=== PATIENT | male | born 1950 | race Caucasian/White ===

== ENCOUNTER 2018-02-24 17:11 | Inpatient (IN) | payer BC, OTHER ==
[~2018-02-24] VITALS: Ht 170.2 cm; Wt 91.6 kg
[~2018-02-24 17:11] MED LIST: AEC81 PO; ALBU0.63 IH; ALPR0.255 PO; ATOR10 PO; DILT180C3 PO; DRON400T2 PO; ESCI10TA54 PO; FAMO40TA7 PO; FURO20TA4 PO; ISOS30TA6 PO; LEVO5TAB13 PO; RIVA20TA PO
[2018-02-24] MEDS ORDERED: METHYLPREDNISOLONE SOD SUCC 40MG/ML 1ML ONE (17:31)
[2018-02-24 17:56] LABS: EOSINOPHILS % (AUTO) 2.8 % (0.0-8.0); HEMATOCRIT 48.6 % (42-54); LYMPHOCYTES % (AUTO) 17.4 % (21.0-51.0); MEAN CORPUSCULAR HEMOGLOBIN 29.3 pg (27.0-33.0); MEAN CORPUSCULAR HGB CONC 32.9 g/dL (32.0-36.0); NEUTROPHILS % (AUTO) 69.8 % (40.0-77.0); PLATELET COUNT (AUTO) 332 K/uL (130-400); RED BLOOD CELL COUNT(AUTO) 5.46 MIL/uL (4.50-6.20); RED CELL DISTRIBUTION WIDTH 13.9 % (11.0-15.5); WHITE BLOOD COUNT (AUTO) 17.3 K/uL (4.8-10.8)
[2018-02-24 18:00] VITALS: BP 116/65
[2018-02-24 18:02] LABS: POTASSIUM 4.2 mmol/L (3.5-5.1)
[2018-02-24 18:13] LABS: ALBUMIN 3.1 g/dL (3.5-5.0); BILIRUBIN,DIRECT 0.2 mg/dL (0.0-0.3); BILIRUBIN,TOTAL 0.6 mg/dL (0.2-1.0); THYROID STIMULATING HORMONE 1.53 uIU/mL (0.36-3.74); TOTAL PROTEIN, SERUM 7.6 g/dL (6.0-8.3)
[2018-02-24 18:24] LABS: B-TYPE NATRIURETIC PEPTIDE 32 pg/mL (0-100)
[2018-02-24] MEDS ORDERED: SODIUM CHLORIDE 0.9% 10 ML VIAL IVP SCH (18:45)
[2018-02-24] MEDS ORDERED: POTASSIUM CHLORIDE 20MEQ/100ML 100 ML IV PRN (18:45)
[2018-02-24] MEDS ORDERED: ACETAMINOPHEN 325 MG TAB PO PRN (18:45)
[2018-02-24] MEDS ORDERED: POTASSIUM CHLORIDE 10% ELIXIR 20 MEQ/15 ML UDCUP PO PRN (18:45)
[2018-02-24] MEDS ORDERED: ZOLPIDEM TARTRATE 5 MG TAB PO PRN (18:45)
[2018-02-24] MEDS ORDERED: DIPHENHYDRAMINE HCL 25 MG CAPSULE PO PRN (18:45)
[2018-02-24] MEDS ORDERED: POTASSIUM CHLORIDE 20 MEQ ERTAB PO PRN (18:45)
[2018-02-24] MEDS ORDERED: NITROGLYCERIN 0.4 MG SL TAB SL PRN (18:45)
[2018-02-24] MEDS ORDERED: ONDANSETRON HCL 4 MG/2 ML VIAL IVP PRN (18:45)
[2018-02-24] MEDS ORDERED: LIDOCAINE HCL-MPF 1% 2ML VIAL IJ PRN (18:45)
[2018-02-24] MEDS ORDERED: GUAIFENESIN-DM 200/20 MG 10 ML PO PRN (18:45)
[2018-02-24] MEDS ORDERED: CLONIDINE HCL 0.1 MG TABLET PO PRN (18:45)
[2018-02-24] MEDS: IPRATROPIUM/ALBUTEROL SULFATE 3 ML SOLUTION IH SCH ×2 (18:53→23:12)
[2018-02-24] MEDS: LEVOFLOXACIN 500 MG/D5W 100 ML 100 ML IV SCH (18:53)
[2018-02-24] MEDS ORDERED: METO50TA18 PO (20:59)
[2018-02-24] MEDS ORDERED: FLUT16H NASAL (20:59)
[2018-02-24] MEDS ORDERED: GUAI200T5 PO (20:59)
[2018-02-24] MEDS ORDERED: DILT180C51 PO (20:59)
[2018-02-24] MEDS ORDERED: VARE1TAB22 PO (20:59)
[2018-02-24] MEDS ORDERED: MONT10TA21 PO (20:59)
[2018-02-24] MEDS ORDERED: ALPR-410 PO (20:59)
[2018-02-24] MEDS ORDERED: IPRA3AMP24 IH (20:59)
[2018-02-24] MEDS ORDERED: ARFO15VI3 IH (20:59)
[2018-02-24] MEDS: ATORVASTATIN CALCIUM 20 MG TABLET PO SCH (22:22)
[2018-02-24] MEDS: DRONEDARONE HYDROCHLORIDE 400 MG TABLET PO SCH (22:22)
[2018-02-24 23:00] VITALS: BP 88/53
[2018-02-24] MEDS: ACETYLCYSTEINE 20% 200MG/ML 4ML VIAL IH SCH (23:13)
[2018-02-25] MEDS: METHYLPREDNISOLONE SOD SUCC 125MG/2ML VIAL IVP SCH ×3 (01:42→17:28)
[2018-02-25 03:00] VITALS: BP 117/75
[2018-02-25 04:19] LABS: HEMATOCRIT 45.4 % (42-54); MEAN CORPUSCULAR HEMOGLOBIN 30.8 pg (27.0-33.0); MEAN CORPUSCULAR HGB CONC 34.6 g/dL (32.0-36.0); NUCLEATED RED BLOOD CELLS 0.1 % (0.0-0.19); PLATELET COUNT (AUTO) 332 K/uL (130-400); RED CELL DISTRIBUTION WIDTH 13.9 % (11.0-15.5); WHITE BLOOD COUNT (AUTO) 9.6 K/uL (4.8-10.8)
[2018-02-25 04:33] LABS: LYMPHOCYTES % (MANUAL) 11 % (22-44); MAN.DIFF COMMENT-IMPRESSION MANUAL DIFFERENTIAL; MONOCYTES % (MANUAL) 6 % (2-9); PLATELET MORPHOLOGY COMMENT ADEQUATE; SEGMENTED NEUTROPHILS % 83 % (40-70)
[2018-02-25 04:38] LABS: ALBUMIN 2.7 g/dL (3.5-5.0); BILIRUBIN,DIRECT 0.1 mg/dL (0.0-0.3); BILIRUBIN,TOTAL 0.5 mg/dL (0.2-1.0); POTASSIUM 4.3 mmol/L (3.5-5.1); TOTAL PROTEIN, SERUM 7.2 g/dL (6.0-8.3)
[2018-02-25] MEDS: ACETYLCYSTEINE 20% 200MG/ML 4ML VIAL IH SCH ×4 (05:48→23:04)
[2018-02-25] MEDS: IPRATROPIUM/ALBUTEROL SULFATE 3 ML SOLUTION IH SCH ×4 (05:48→23:04)
[2018-02-25 07:00] VITALS: BP 116/69
[2018-02-25] MEDS: RIVAROXABAN 20 MG TABLET PO SCH (09:10)
[2018-02-25] MEDS: CITALOPRAM 20 MG TABLET PO SCH (09:11)
[2018-02-25] MEDS: DRONEDARONE HYDROCHLORIDE 400 MG TABLET PO SCH ×2 (09:11→21:04)
[2018-02-25] MEDS: FUROSEMIDE 20 MG TABLET PO SCH (09:11)
[2018-02-25] MEDS: FAMOTIDINE 20MG TAB 20 MG TAB PO SCH (09:12)
[2018-02-25 11:00] VITALS: BP 129/57
[2018-02-25] MEDS ORDERED: IOHEXOL 350 MG/ML 100ML INFUS..BTL IV ONE (15:02)
[2018-02-25] MEDS: PSYLLIUM SEED 1 EACH PACKET PO SCH ×2 (15:45→21:04)
[2018-02-25 16:00] VITALS: BP 123/81
[2018-02-25] MEDS: LEVOFLOXACIN 500 MG/D5W 100 ML 100 ML IV SCH (18:31)
[2018-02-25 19:33] VITALS: BP 126/68
[2018-02-25] MEDS: ATORVASTATIN CALCIUM 20 MG TABLET PO SCH (21:04)
[2018-02-25 23:37] VITALS: BP 138/71
[2018-02-26] VITALS (7 sets, daily range): BP systolic 113–143; BP diastolic 62–78
[2018-02-26] MEDS: METHYLPREDNISOLONE SOD SUCC 125MG/2ML VIAL IVP SCH ×2 (01:07→08:49)
[2018-02-26 04:07] LABS: HEMATOCRIT 45.6 % (42-54); MEAN CORPUSCULAR HEMOGLOBIN 29.7 pg (27.0-33.0); MEAN CORPUSCULAR HGB CONC 33.4 g/dL (32.0-36.0); MEAN CORPUSCULAR VOLUME 88.8 fL (79-99); PLATELET COUNT (AUTO) 313 K/uL (130-400); RED BLOOD CELL COUNT(AUTO) 5.14 MIL/uL (4.50-6.20); WHITE BLOOD COUNT (AUTO) 20.3 K/uL (4.8-10.8)
[2018-02-26 04:22] LABS: CREATININE 1.1 mg/dL (0.5-1.5); POTASSIUM 3.9 mmol/L (3.5-5.1)
[2018-02-26] MEDS: IPRATROPIUM/ALBUTEROL SULFATE 3 ML SOLUTION IH SCH ×4 (06:22→23:25)
[2018-02-26] MEDS: ACETYLCYSTEINE 20% 200MG/ML 4ML VIAL IH SCH ×4 (06:22→23:25)
[2018-02-26] MEDS: DRONEDARONE HYDROCHLORIDE 400 MG TABLET PO SCH ×2 (08:48→20:11)
[2018-02-26] MEDS: CITALOPRAM 20 MG TABLET PO SCH (08:48)
[2018-02-26] MEDS: RIVAROXABAN 20 MG TABLET PO SCH (08:48)
[2018-02-26] MEDS: FUROSEMIDE 20 MG TABLET PO SCH (08:48)
[2018-02-26] MEDS: PSYLLIUM SEED 1 EACH PACKET PO SCH ×2 (08:49→20:11)
[2018-02-26] MEDS: FAMOTIDINE 20MG TAB 20 MG TAB PO SCH (08:49)
[2018-02-26] MEDS: LEVOFLOXACIN 500 MG/D5W 100 ML 100 ML IV SCH (19:54)
[2018-02-26] MEDS: ATORVASTATIN CALCIUM 20 MG TABLET PO SCH (20:11)
[2018-02-26] MEDS ORDERED: METHYLPREDNISOLONE SOD SUCC 125MG/2ML VIAL IVP SCH (21:00)
[2018-02-27 03:37] LABS: HEMATOCRIT 43.8 % (42-54); MEAN CORPUSCULAR HEMOGLOBIN 30.3 pg (27.0-33.0); MEAN CORPUSCULAR HGB CONC 33.8 g/dL (32.0-36.0); MEAN CORPUSCULAR VOLUME 89.6 fL (79-99); PLATELET COUNT (AUTO) 335 K/uL (130-400); RED BLOOD CELL COUNT(AUTO) 4.89 MIL/uL (4.50-6.20); WHITE BLOOD COUNT (AUTO) 19.4 K/uL (4.8-10.8)
[2018-02-27 03:43] VITALS: BP 122/69
[2018-02-27 03:52] LABS: CREATININE 1.2 mg/dL (0.5-1.5)
[2018-02-27] MEDS: ACETYLCYSTEINE 20% 200MG/ML 4ML VIAL IH SCH (06:12)
[2018-02-27] MEDS: IPRATROPIUM/ALBUTEROL SULFATE 3 ML SOLUTION IH SCH (06:12)
[2018-02-27 07:39] VITALS: BP 119/72
[2018-02-27] MEDS: DRONEDARONE HYDROCHLORIDE 400 MG TABLET PO SCH (08:28)
[2018-02-27] MEDS: RIVAROXABAN 20 MG TABLET PO SCH (08:28)
[2018-02-27] MEDS: CITALOPRAM 20 MG TABLET PO SCH (08:29)
[2018-02-27] MEDS: FAMOTIDINE 20MG TAB 20 MG TAB PO SCH (08:29)
[2018-02-27] MEDS: PSYLLIUM SEED 1 EACH PACKET PO SCH (08:29)
[2018-02-27] MEDS: FUROSEMIDE 20 MG TABLET PO SCH (08:29)
== END 2018-02-27 09:10 | disposition home or self-care (01) | DRG 190 ==
LOC: EDH 17:11 → 2DH 17:12
PROVIDERS: ADMIT Internal Medicine; ATTEND Internal Medicine
DX: J44.0 Chronic obstructive pulmonary disease with (acute) lower respiratory infection (principal); J96.90 Respiratory failure, unspecified, unspecified whether with hypoxia or hypercapnia; J20.9 Acute bronchitis, unspecified; J44.1 Chronic obstructive pulmonary disease with (acute) exacerbation; T38.0X5A Adverse effect of glucocorticoids and synthetic analogues, initial encounter; D72.829 Elevated white blood cell count, unspecified; K90.0 Celiac disease; I25.10 Atherosclerotic heart disease of native coronary artery without angina pectoris; I35.0 Nonrheumatic aortic (valve) stenosis; I48.91 Unspecified atrial fibrillation; E03.9 Hypothyroidism, unspecified; R91.1 Solitary pulmonary nodule; E88.09 Other disorders of plasma-protein metabolism, not elsewhere classified; I10 Essential (primary) hypertension; Z79.01 Long term (current) use of anticoagulants; Y92.89 Other specified places as the place of occurrence of the external cause; Z88.0 Allergy status to penicillin
CPT/HCPCS: 36415; 71045; 71275; 80048; 80053; 80076; 83880; 84443; 85025; 85027; 93306; 94640; 94664; J1956; J2920; J2930; J7608; Q9967

== ENCOUNTER 2019-02-11 05:57 | Emergency (ER) | payer OTHER ==
[~2019-02-11 05:57] MED LIST changes: -AEC81 PO; -ALBU0.63 IH; -ALPR0.255 PO; +ARFO15VI3 IH; -DILT180C3 PO; +DILT180C51 PO; -ESCI10TA54 PO; +FAMO-136 PO; +FLUT16H NASAL; +GUAI200T5 PO; +IPRA3AMP24 IH; -ISOS30TA6 PO; -LEVO5TAB13 PO; +METO-391 PO; +METO50TA18 PO; +MONT10TA21 PO; +NITR0.4T50 SL
[2019-02-11] MEDS ORDERED: METHYLPREDNISOLONE SOD SUCC 40MG/ML 1ML ONE (06:35)
[2019-02-11] MEDS ORDERED: IPRATROPIUM/ALBUTEROL SULFATE 3 ML SOLUTION IH ONE ×2 (06:38→07:50)
[2019-02-11 06:42] LABS: BASOPHILS % (AUTO) 0.2 % (0.0-5.0); EOSINOPHILS % (AUTO) 3.8 % (0.0-8.0); HEMATOCRIT 51.9 % (42-54); LYMPHOCYTES % (AUTO) 27.8 % (21.0-51.0); MEAN CORPUSCULAR HEMOGLOBIN 30.7 pg (27.0-33.0); MEAN CORPUSCULAR HGB CONC 34.2 g/dL (32.0-36.0); MEAN CORPUSCULAR VOLUME 89.6 fL (79-99); MONOCYTES % (AUTO) 7.8 % (3.0-13.0); NEUTROPHILS % (AUTO) 60.4 % (40.0-77.0); PLATELET COUNT (AUTO) 291 K/uL (130-400); RED BLOOD CELL COUNT(AUTO) 5.79 MIL/uL (4.50-6.20); RED CELL DISTRIBUTION WIDTH 14.5 % (11.0-15.5); WHITE BLOOD COUNT (AUTO) 12.8 K/uL (4.8-10.8)
[2019-02-11 07:02] LABS: CREATININE 0.7 mg/dL (0.5-1.5); POTASSIUM 4.6 mmol/L (3.5-5.1)
[2019-02-11 07:08] LABS: ALBUMIN 3.2 g/dL (3.5-5.0); BILIRUBIN,DIRECT 0.1 mg/dL (0.0-0.3); BILIRUBIN,TOTAL 0.6 mg/dL (0.2-1.0); TOTAL PROTEIN, SERUM 6.8 g/dL (6.0-8.3)
[2019-02-11 07:11] LABS: B-TYPE NATRIURETIC PEPTIDE 51 pg/mL (0-100)
[2019-02-11] MEDS ORDERED: LEVOFLOXACIN 500 MG/D5W 100 ML 100 ML ONE (07:49)
== END 2019-02-11 09:11 | disposition home or self-care (01) ==
LOC: EDH 05:57
DX: J44.9 Chronic obstructive pulmonary disease, unspecified (principal); R06.00 Dyspnea, unspecified; I48.2 Chronic atrial fibrillation; I25.10 Atherosclerotic heart disease of native coronary artery without angina pectoris; Z72.0 Tobacco use; Z88.0 Allergy status to penicillin
CPT/HCPCS: 36415; 71045; 80048; 80076; 82550; 83880; 84484; 85025; 93005; 94640 ×2; 96365; 96375; 99284; J1956; J2920

== ENCOUNTER 2019-07-23 18:51 | Observation (INO) | payer OTHER ==
[~2019-07-23] VITALS: Ht 170.2 cm; Wt 83.7 kg
[~2019-07-23 18:51] MED LIST changes: +ATEN25TA PO; -ATOR10 PO; +BUSP10TA3 PO; -DILT180C51 PO; -DRON400T2 PO; +ESOM40CA PO; -FAMO-136 PO; -FAMO40TA7 PO; -FURO20TA4 PO; -METO-391 PO; -METO50TA18 PO
[2019-07-23] MEDS ORDERED: METRONIDAZOLE 500MG/100ML BAG 100 ML ONE (20:03)
[2019-07-23 20:14] LABS: BASOPHILS % (AUTO) 1.3 % (0.0-5.0); EOSINOPHILS % (AUTO) 1.4 % (0.0-8.0); HEMATOCRIT 52.8 % (42-54); LYMPHOCYTES % (AUTO) 24.8 % (21.0-51.0); MEAN CORPUSCULAR HEMOGLOBIN 29.7 pg (27.0-33.0); MEAN CORPUSCULAR HGB CONC 33.1 g/dL (32.0-36.0); MEAN CORPUSCULAR VOLUME 89.6 fL (79-99); NEUTROPHILS % (AUTO) 62.1 % (40.0-77.0); PLATELET COUNT (AUTO) 395 K/uL (130-400); RED BLOOD CELL COUNT(AUTO) 5.89 MIL/uL (4.50-6.20); RED CELL DISTRIBUTION WIDTH 13.7 % (11.0-15.5); WHITE BLOOD COUNT (AUTO) 16.2 K/uL (4.8-10.8)
[2019-07-23 20:22] LABS: POTASSIUM 4.6 mmol/L (3.5-5.1)
[2019-07-23 20:26] LABS: ALBUMIN 3.3 g/dL (3.5-5.0); BILIRUBIN,DIRECT 0.1 mg/dL (0.0-0.3); BILIRUBIN,TOTAL 0.5 mg/dL (0.2-1.0); TOTAL PROTEIN, SERUM 7.9 g/dL (6.0-8.3)
[2019-07-23] MEDS ORDERED: LACTULOSE 20 GM/30 ML UDCUP PO PRN (20:30)
[2019-07-23] MEDS ORDERED: CEFUROXIME SODIUM 1.5 GM VIAL IVP SCH ×2 (20:30→21:00)
[2019-07-23] MEDS ORDERED: ONDANSETRON HCL 4 MG/2 ML VIAL IVP PRN (20:30)
[2019-07-23] MEDS ORDERED: NITROGLYCERIN 0.4 MG SL TAB SL PRN (20:30)
[2019-07-23] MEDS ORDERED: IPRATROPIUM 0.5 MG/2.5 ML INH IH PRN (20:30)
[2019-07-23] MEDS ORDERED: BUSPIRONE HCL 5 MG TABLET PO SCH (20:30)
[2019-07-23] MEDS ORDERED: ACETAMINOPHEN 325 MG TAB PO PRN (20:30)
[2019-07-23] MEDS ORDERED: SODIUM CHLORIDE 0.9% 10 ML VIAL IVP SCH (20:30)
[2019-07-23] MEDS ORDERED: DIPHENHYDRAMINE HCL 25 MG CAPSULE PO PRN (20:30)
[2019-07-23] MEDS ORDERED: ZOLPIDEM TARTRATE 5 MG TAB PO PRN (20:30)
[2019-07-23] MEDS ORDERED: FAMOTIDINE 20MG TAB 20 MG TAB PO SCH (21:00)
[2019-07-23 21:12] LABS: B-TYPE NATRIURETIC PEPTIDE 180 pg/mL (0-100)
[2019-07-23] MEDS ORDERED: SODIUM CHLORIDE 0.9% 100 ML IV ONE (21:43)
[2019-07-23] MEDS ORDERED: CEFUROXIME SODIUM 1.5 GM VIAL ONE (21:43)
[2019-07-23] MEDS ORDERED: ACETYLCYSTEINE 20% 200MG/ML 4ML VIAL ONE (22:54)
[2019-07-23] MEDS: IPRATROPIUM 0.5 MG/2.5 ML INH IH SCH (23:15)
[2019-07-23] MEDS: ACETYLCYSTEINE 20% 200MG/ML 4ML VIAL IH SCH (23:15)
[2019-07-24] MEDS ORDERED: DIATR MEGLU/DIATRIZOATE SODIUM 30 ML BOTTLE ONE (00:28)
[2019-07-24] MEDS ORDERED: IOHEXOL-350 75 ML VIAL IV ONE (02:43)
[2019-07-24] MEDS ORDERED: IOHEXOL-350 50ML VIAL IV ONE (02:46)
[2019-07-24] MEDS ORDERED: METRONIDAZOLE 500MG/100ML BAG 100 ML IVPB SCH (04:00)
[2019-07-24 05:32] LABS: BASOPHILS % (AUTO) 1.4 % (0.0-5.0); EOSINOPHILS % (AUTO) 2.4 % (0.0-8.0); HEMATOCRIT 48.4 % (42-54); LYMPHOCYTES % (AUTO) 25.6 % (21.0-51.0); MEAN CORPUSCULAR HEMOGLOBIN 29.7 pg (27.0-33.0); MEAN CORPUSCULAR HGB CONC 32.9 g/dL (32.0-36.0); MEAN CORPUSCULAR VOLUME 90.3 fL (79-99); NEUTROPHILS % (AUTO) 58.1 % (40.0-77.0); PLATELET COUNT (AUTO) 351 K/uL (130-400); POTASSIUM 5.4 mmol/L (3.5-5.1); RED BLOOD CELL COUNT(AUTO) 5.36 MIL/uL (4.50-6.20); RED CELL DISTRIBUTION WIDTH 13.7 % (11.0-15.5)
[2019-07-24] MEDS ORDERED: METRONIDAZOLE 500MG/100ML BAG 100 ML ONE (05:54)
[2019-07-24] MEDS: IPRATROPIUM 0.5 MG/2.5 ML INH IH SCH (06:16)
[2019-07-24] MEDS: ACETYLCYSTEINE 20% 200MG/ML 4ML VIAL IH SCH (06:16)
[2019-07-24] MEDS ORDERED: BUSPIRONE HCL 5 MG TABLET PO SCH (09:00)
[2019-07-24] MEDS ORDERED: ATENOLOL 25 MG TABLET PO SCH (09:00)
[2019-07-24] MEDS ORDERED: ACETYLCYSTEINE 20% 200MG/ML 4ML VIAL ONE (10:57)
[2019-07-24] MEDS ORDERED: IPRATROPIUM 0.5 MG/2.5 ML INH IH ONE (10:57)
== END 2019-07-24 09:30 | disposition home or self-care (01) ==
LOC: EDH 18:51 → EDHIP 19:15
PROVIDERS: ADMIT Internal Medicine; ATTEND Internal Medicine
DX: J44.0 Chronic obstructive pulmonary disease with (acute) lower respiratory infection (principal); J18.9 Pneumonia, unspecified organism; J44.1 Chronic obstructive pulmonary disease with (acute) exacerbation; K57.92 Diverticulitis of intestine, part unspecified, without perforation or abscess without bleeding; J90 Pleural effusion, not elsewhere classified; I25.10 Atherosclerotic heart disease of native coronary artery without angina pectoris; K90.0 Celiac disease; E03.9 Hypothyroidism, unspecified; E78.5 Hyperlipidemia, unspecified; I48.91 Unspecified atrial fibrillation; Z79.01 Long term (current) use of anticoagulants; Z79.899 Other long term (current) drug therapy; Z88.0 Allergy status to penicillin; Z88.1 Allergy status to other antibiotic agents; Z88.2 Allergy status to sulfonamides
CPT/HCPCS: 36415 ×2; 71260; 74177; 80048; 80053; 80076; 83880; 85025 ×2; 94640 ×2; 94664; 99284; G0378 ×14; J0697; J3490 ×2; J7608 ×3; Q9963; Q9967 ×2

== ENCOUNTER 2020-11-24 06:26 | Observation (INO) | payer MEDICARE, OTHER ==
[2020-11-24] VITALS (8 sets, daily range): BP systolic 92–143; BP diastolic 62–98
[~2020-11-24] VITALS: Ht 167.6 cm; Wt 89.4 kg
[2020-11-24 07:30] LABS: BASOPHILS % (AUTO) 0.5 % (0.0-5.0); EOSINOPHILS % (AUTO) 2.7 % (0.0-8.0); HEMATOCRIT 55.6 % (42-54); LYMPHOCYTES % (AUTO) 12.9 % (21.0-51.0); MEAN CORPUSCULAR HEMOGLOBIN 30.3 pg (27.0-33.0); MEAN CORPUSCULAR HGB CONC 33.1 g/dL (32.0-36.0); MEAN CORPUSCULAR VOLUME 91.4 fL (79-99); MONOCYTES % (AUTO) 8.6 % (3.0-13.0); NEUTROPHILS % (AUTO) 74.5 % (40.0-77.0); PLATELET COUNT (AUTO) 336 K/uL (130-400); RED BLOOD CELL COUNT(AUTO) 6.08 MIL/uL (4.50-6.20); RED CELL DISTRIBUTION WIDTH 14.3 % (11.0-15.5); WHITE BLOOD COUNT (AUTO) 16.8 K/uL (4.8-10.8)
[2020-11-24] MEDS ORDERED: ONDANSETRON 4MG INJ IVP ONE (07:30)
[2020-11-24] MEDS ORDERED: HYDROMORPHONE 0.5 MG SYG (0.5MG/0.5ML) IVP ONE (07:30)
[2020-11-24 07:45] LABS: ALBUMIN 3.4 g/dL (3.5-5.0); BILIRUBIN,TOTAL 0.4 mg/dL (0.2-1.0); POTASSIUM 4.5 mmol/L (3.5-5.1); TOTAL PROTEIN, SERUM 7.7 g/dL (6.0-8.3)
[2020-11-24] MEDS ORDERED: IOHEXOL-350 75 ML VIAL IV ONE (08:37)
[2020-11-24] MEDS ORDERED: ALBUTEROL 0.083% 2.5 MG/3 ML INH IH ONE (11:30)
[2020-11-24 11:31] LABS: APPEARANCE,URINE Clear (CLEAR); BILIRUBIN,URINE Negative (NEGATIVE); COLOR,URINE Yellow (YELLOW); GLUCOSE, URINE (UA) Negative (NEGATIVE); KETONES,URINE Negative (NEGATIVE); LEUKOCYTE ESTERASE ,URINE Negative (NEGATIVE); NITRATE,URINE Negative (NEGATIVE); OCCULT BLOOD,URINE Negative (NEGATIVE); PROTEIN,URINE Negative (NEGATIVE); UROBILINOGEN,URINE 0.2 mg/dL (0.2-1.0)
[2020-11-24] MEDS: 0.9%NACL 1000ML 1,000 ML IV SCH ×2 (11:45→22:31)
[2020-11-24] MEDS ORDERED: LEVOFLOXACIN 500 MG/D5W 100 ML 100 ML ONE (15:36)
[2020-11-24] MEDS ORDERED: OMEP40CA21 PO (17:52)
[2020-11-24] MEDS ORDERED: NITROGLYCERIN 0.4 MG SL TAB SL PRN (18:45)
[2020-11-24] MEDS: IPRATROPIUM/ALBUTEROL SULFATE 3 ML SOLUTION IH PRN (18:58)
[2020-11-24] MEDS ORDERED: ACETAMINOPHEN 325 MG TAB PO PRN (20:45)
[2020-11-24] MEDS ORDERED: ACETAMINOPHEN 325 MG TAB ONE (20:46)
[2020-11-24] MEDS: BUSPIRONE HCL 5 MG TABLET PO SCH (20:52)
[2020-11-25] MEDS: IPRATROPIUM/ALBUTEROL SULFATE 3 ML SOLUTION IH PRN ×4 (01:12→19:41)
[2020-11-25 05:24] LABS: BASOPHILS % (AUTO) 0.8 % (0.0-5.0); EOSINOPHILS % (AUTO) 5.5 % (0.0-8.0); HEMATOCRIT 47.2 % (42-54); LYMPHOCYTES % (AUTO) 32.3 % (21.0-51.0); MEAN CORPUSCULAR HEMOGLOBIN 29.5 pg (27.0-33.0); MEAN CORPUSCULAR HGB CONC 32.2 g/dL (32.0-36.0); MEAN CORPUSCULAR VOLUME 91.7 fL (79-99); MONOCYTES % (AUTO) 9.8 % (3.0-13.0); NEUTROPHILS % (AUTO) 50.7 % (40.0-77.0); PLATELET COUNT (AUTO) 258 K/uL (130-400); RED BLOOD CELL COUNT(AUTO) 5.15 MIL/uL (4.50-6.20); RED CELL DISTRIBUTION WIDTH 14.2 % (11.0-15.5); WHITE BLOOD COUNT (AUTO) 9.3 K/uL (4.8-10.8)
[2020-11-25 05:40] LABS: ALBUMIN 2.7 g/dL (3.5-5.0); BILIRUBIN,TOTAL 0.2 mg/dL (0.2-1.0); CREATININE 0.9 mg/dL (0.5-1.5); TOTAL PROTEIN, SERUM 6.2 g/dL (6.0-8.3)
[2020-11-25 08:00] VITALS: BP 109/74
[2020-11-25] MEDS ORDERED: RIVAROXABAN 20 MG TABLET PO SCH (08:00)
[2020-11-25] MEDS ORDERED: FLUTICASONE PROPIONATE 50MCG/SPRAY 16 GM BOTTLE EN SCH (09:00)
[2020-11-25] MEDS ORDERED: LEVOFLOXACIN 750 MG/D5W 150 ML 150 ML IV SCH (09:00)
[2020-11-25] MEDS ORDERED: ATENOLOL 25 MG TABLET PO SCH (09:00)
[2020-11-25] MEDS ORDERED: PANTOPRAZOLE 40 MG TAB DR PO SCH (09:00)
[2020-11-25] MEDS ORDERED: MONTELUKAST SODIUM 10 MG TAB PO SCH (09:00)
[2020-11-25] MEDS: BUSPIRONE HCL 5 MG TABLET PO SCH ×2 (09:42→20:27)
[2020-11-25] MEDS: LEVOFLOXACIN 500 MG/D5W 100 ML 100 ML IV SCH (09:43)
[2020-11-25] MEDS: SOLU-MEDROL 125MG VIAL IVP SCH ×2 (09:43→20:27)
[2020-11-25] MEDS: 0.9%NACL 1000ML 1,000 ML IV SCH ×3 (10:01→19:45)
[2020-11-25 20:00] VITALS: BP 111/67
[2020-11-26] VITALS: BP 120/66
[2020-11-26] MEDS: 0.9%NACL 1000ML 1,000 ML IV SCH (02:08)
[2020-11-26 04:00] VITALS: BP_SYST 106; BP_SYST 146; BP_DIAS 58; BP_DIAS 78
[2020-11-26] MEDS: LEVOFLOXACIN 500 MG/D5W 100 ML 100 ML IV SCH (06:47)
[2020-11-26 08:27] VITALS: BP 116/72
== END 2020-11-26 10:30 | disposition home or self-care (01) ==
LOC: EDH 06:26 → EDHIP 15:00 → 3AH 16:49 → 3CH 11-25 21:13
PROVIDERS: ADMIT Internal Medicine; ATTEND Internal Medicine
DX: J44.1 Chronic obstructive pulmonary disease with (acute) exacerbation (principal); J18.9 Pneumonia, unspecified organism; K52.9 Noninfective gastroenteritis and colitis, unspecified; I48.91 Unspecified atrial fibrillation; J44.0 Chronic obstructive pulmonary disease with (acute) lower respiratory infection; K90.0 Celiac disease; I25.10 Atherosclerotic heart disease of native coronary artery without angina pectoris; Z79.01 Long term (current) use of anticoagulants; Z95.5 Presence of coronary angioplasty implant and graft
CPT/HCPCS: 36415 ×2; 71045; 74178; 80053 ×2; 81003; 83690; 85025 ×2; 87040 ×2; 93005; 94640 ×5; 94664; 96361 ×3; 96365; 96366 ×2; 96375 ×2; 96376; 99285; G0378 ×42; J1170; J1956 ×3; J2405; J2930 ×2; J7030 ×3; Q9967

== ENCOUNTER → 2020-12-29 | Outpatient (CLI) | payer MEDICARE ==
[~2020-12-29] MED LIST changes: -ESOM40CA PO; +FAMO20TA8 PO; +FLUT1BLS3 IH; -GUAI200T5 PO; +ISOS10TA8 PO; +ISOS30TA92 PO; +LEVO5TAB13 PO; +OMEP40CA21 PO; +ONDA-104 PO; +PRED20TA3 PO; +TRAM50TA4 PO
== END | disposition home or self-care (01) ==
LOC: SHCH 07:40
PROVIDERS: ATTEND Internal Medicine Cardiovascular Disease
DX: I71.4 Abdominal aortic aneurysm, without rupture (principal)
CPT/HCPCS: 93978

== ENCOUNTER 2020-12-30 06:53 | Inpatient (IN) | payer MEDICARE ==
[~2020-12-30] VITALS: Ht 170.2 cm; Wt 87.6 kg
[2020-12-30] VITALS (9 sets, daily range): BP systolic 105–154; BP diastolic 64–111
[~2020-12-30 06:53] MED LIST changes: -FAMO20TA8 PO; -FLUT1BLS3 IH; -ISOS10TA8 PO; -ISOS30TA92 PO; -LEVO5TAB13 PO; -ONDA-104 PO; -PRED20TA3 PO; -TRAM50TA4 PO
[2020-12-30 07:42] LABS: BASOPHILS % (AUTO) 1.6 % (0.0-5.0); EOSINOPHILS % (AUTO) 4.9 % (0.0-8.0); HEMATOCRIT 50.2 % (42-54); MEAN CORPUSCULAR HEMOGLOBIN 29.9 pg (27.0-33.0); MEAN CORPUSCULAR HGB CONC 32.7 g/dL (32.0-36.0); MEAN CORPUSCULAR VOLUME 91.4 fL (79-99); MONOCYTES % (AUTO) 8.5 % (3.0-13.0); NEUTROPHILS % (AUTO) 59.3 % (40.0-77.0); PLATELET COUNT (AUTO) 281 K/uL (130-400); RED BLOOD CELL COUNT(AUTO) 5.49 MIL/uL (4.50-6.20); RED CELL DISTRIBUTION WIDTH 13.9 % (11.0-15.5); WHITE BLOOD COUNT (AUTO) 10.9 K/uL (4.8-10.8)
[2020-12-30 07:57] LABS: INR 1.28 (0.85-1.15); PROTHROMBIN TIME 13.6 SEC (9.6-11.6)
[2020-12-30 07:58] LABS: PARTIAL THROMBOPLASTIN TIME 32.8 SEC (26.3-35.5)
[2020-12-30 08:02] LABS: BILIRUBIN,TOTAL 0.2 mg/dL (0.2-1.0); POTASSIUM 4.8 mmol/L (3.5-5.1)
[2020-12-30 08:08] LABS: B-TYPE NATRIURETIC PEPTIDE 57 pg/mL (0-100)
[2020-12-30 08:10] LABS: ALBUMIN 3.4 g/dL (3.5-5.0)
[2020-12-30 08:11] LABS: APPEARANCE,URINE Clear (CLEAR); BILIRUBIN,URINE Negative (NEGATIVE); COLOR,URINE Yellow (YELLOW); GLUCOSE, URINE (UA) Negative (NEGATIVE); KETONES,URINE Negative (NEGATIVE); LEUKOCYTE ESTERASE ,URINE Negative (NEGATIVE); NITRATE,URINE Negative (NEGATIVE); OCCULT BLOOD,URINE Negative (NEGATIVE); PH,URINE 5.5 (5.0-8.0); PROTEIN,URINE Negative (NEGATIVE)
[2020-12-30] MEDS ORDERED: SOLU-MEDROL 125MG VIAL IVP SCH (09:30)
[2020-12-30] MEDS ORDERED: IPRATROPIUM 0.5 MG/2.5 ML INH IH SCH (09:30)
[2020-12-30] MEDS ORDERED: ALBUTEROL 0.083% 2.5 MG/3 ML INH IH SCH ×2 (10:00)
[2020-12-30 12:22] LABS: ABG BASE EXCESS -2.7 mmol/L (-2.0-3.0); ABG HCO3 21.9 mmol/L (21.0-28.0); ABG OXYGEN SATURATION 93.5 % (95.0-99.0); ABG PCO2 38 mmHg (35-48)
[2020-12-30] MEDS ORDERED: ALBUTEROL 0.083% 2.5 MG/3 ML INH IH ONE (13:00)
[2020-12-30] MEDS ORDERED: FAMO20TA8 PO (15:26)
[2020-12-30] MEDS ORDERED: LEVO5TAB13 PO (15:26)
[2020-12-30] MEDS ORDERED: PRED20TA3 PO (15:26)
[2020-12-30] MEDS ORDERED: ISOS10TA8 PO (15:26)
[2020-12-30] MEDS ORDERED: TRAM50TA4 PO (15:43)
[2020-12-30] MEDS ORDERED: ONDA-104 PO (15:54)
[2020-12-30] MEDS ORDERED: RIVA20TA PO (15:54)
[2020-12-30] MEDS ORDERED: ISOS30TA92 PO (15:58)
[2020-12-30] MEDS ORDERED: IPRA3AMP24 IH (16:03)
[2020-12-30] MEDS ORDERED: FLUT1BLS3 IH (16:03)
[2020-12-30] MEDS ORDERED: NITROGLYCERIN 0.4 MG SL TAB SL PRN (18:30)
[2020-12-30] MEDS ORDERED: TRAMADOL HCL 50 MG TABLET PO PRN (18:30)
[2020-12-30] MEDS ORDERED: ONDANSETRON 4MG TABLET PO PRN (18:30)
[2020-12-30] MEDS: IPRATROPIUM 0.5 MG/2.5 ML INH IH SCH (18:58)
[2020-12-30] MEDS: ACETYLCYSTEINE 20% 200MG/ML 4ML VIAL IH SCH (18:59)
[2020-12-30] MEDS: MEROPENEM 1 GM VIAL IVP SCH ×2 (20:10→22:00)
[2020-12-30] MEDS: BUSPIRONE HCL 5 MG TABLET PO SCH (20:10)
[2020-12-30] MEDS: SOLU-MEDROL 125MG VIAL IVP SCH (20:10)
[2020-12-30] MEDS: ISOSORBIDE MONO 30MG SR TAB PO SCH (20:10)
[2020-12-30] MEDS: Levocetirizine Dihydrochloride 5 MG PO SCH (20:16)
[2020-12-30] MEDS ORDERED: FAMOTIDINE 20MG TAB PO SCH (21:00)
[2020-12-31] VITALS (7 sets, daily range): BP systolic 102–139; BP diastolic 58–86
[2020-12-31] MEDS: IPRATROPIUM 0.5 MG/2.5 ML INH IH SCH ×5 (01:12→23:48)
[2020-12-31] MEDS: ACETYLCYSTEINE 20% 200MG/ML 4ML VIAL IH SCH ×5 (01:17→23:48)
[2020-12-31] MEDS: MEROPENEM 1 GM VIAL IVP SCH ×3 (04:46→21:58)
[2020-12-31] MEDS ORDERED: RIVAROXABAN 20 MG TABLET PO SCH (08:00)
[2020-12-31] MEDS: RIVAROXABAN 20 MG TABLET PO SCH (08:12)
[2020-12-31] MEDS: PANTOPRAZOLE 40 MG TAB DR PO SCH (08:12)
[2020-12-31] MEDS: MONTELUKAST SODIUM 10 MG TAB PO SCH (08:12)
[2020-12-31] MEDS: (Fluticasone/Umeclidin/Vilanter (Trelegy Ellipta 100-62.5- IH SCH (08:12)
[2020-12-31] MEDS: ISOSORBIDE MONO 30MG SR TAB PO SCH ×2 (08:12→22:00)
[2020-12-31] MEDS: SOLU-MEDROL 125MG VIAL IVP SCH ×2 (08:13→21:59)
[2020-12-31] MEDS: BUSPIRONE HCL 5 MG TABLET PO SCH ×2 (08:13→21:59)
[2020-12-31] MEDS: PREDNISONE 20 MG TABLET PO SCH (08:13)
[2020-12-31] MEDS: ATENOLOL 25 MG TABLET PO SCH (08:13)
[2020-12-31] MEDS: Levocetirizine Dihydrochloride 5 MG PO SCH (21:00)
[2021-01-01 03:43] VITALS: BP 126/78
[2021-01-01] MEDS: MEROPENEM 1 GM VIAL IVP SCH ×3 (05:10→21:02)
[2021-01-01 05:48] LABS: HEMATOCRIT 50.4 % (42-54); MEAN CORPUSCULAR HEMOGLOBIN 29.5 pg (27.0-33.0); MEAN CORPUSCULAR HGB CONC 32.9 g/dL (32.0-36.0); MEAN CORPUSCULAR VOLUME 89.7 fL (79-99); PLATELET COUNT (AUTO) 336 K/uL (130-400); RED BLOOD CELL COUNT(AUTO) 5.62 MIL/uL (4.50-6.20); RED CELL DISTRIBUTION WIDTH 13.8 % (11.0-15.5); WHITE BLOOD COUNT (AUTO) 21.7 K/uL (4.8-10.8)
[2021-01-01 06:06] LABS: ALBUMIN 3.1 g/dL (3.5-5.0); BILIRUBIN,TOTAL 0.2 mg/dL (0.2-1.0); CREATININE 0.9 mg/dL (0.5-1.5); TOTAL PROTEIN, SERUM 6.9 g/dL (6.0-8.3)
[2021-01-01 06:21] LABS: BAND NEUTROPHILS % (MANUAL) 1 % (0-2); EOSINOPHILS % (MANUAL) 1 % (1-6); LYMPHOCYTES % (MANUAL) 5 % (22-44); MAN.DIFF COMMENT-IMPRESSION MANUAL DIFFERENTIAL; MONOCYTES % (MANUAL) 1 % (2-9); PLATELET MORPHOLOGY COMMENT ADEQUATE; SEGMENTED NEUTROPHILS % 92 % (40-70)
[2021-01-01] MEDS: IPRATROPIUM 0.5 MG/2.5 ML INH IH SCH ×4 (06:57→23:00)
[2021-01-01] MEDS: ACETYLCYSTEINE 20% 200MG/ML 4ML VIAL IH SCH ×4 (06:58→23:02)
[2021-01-01 08:00] VITALS: BP 129/75
[2021-01-01] MEDS: (Fluticasone/Umeclidin/Vilanter (Trelegy Ellipta 100-62.5- IH SCH (08:03)
[2021-01-01] MEDS: RIVAROXABAN 20 MG TABLET PO SCH (08:04)
[2021-01-01] MEDS: BUSPIRONE HCL 5 MG TABLET PO SCH ×2 (08:04→21:04)
[2021-01-01] MEDS: SOLU-MEDROL 125MG VIAL IVP SCH ×2 (08:04→21:03)
[2021-01-01] MEDS: PREDNISONE 20 MG TABLET PO SCH (08:04)
[2021-01-01] MEDS: PANTOPRAZOLE 40 MG TAB DR PO SCH (08:04)
[2021-01-01] MEDS: ISOSORBIDE MONO 30MG SR TAB PO SCH ×2 (08:05→21:03)
[2021-01-01] MEDS: MONTELUKAST SODIUM 10 MG TAB PO SCH (08:05)
[2021-01-01] MEDS: ATENOLOL 25 MG TABLET PO SCH (08:07)
[2021-01-01 11:59] VITALS: BP 120/69
[2021-01-01 16:00] VITALS: BP 147/72
[2021-01-01 20:01] VITALS: BP 117/74
[2021-01-01] MEDS: Levocetirizine Dihydrochloride 5 MG PO SCH (21:00)
[2021-01-02] VITALS (7 sets, daily range): BP systolic 119–140; BP diastolic 70–89
[2021-01-02] MEDS: ACETYLCYSTEINE 20% 200MG/ML 4ML VIAL IH SCH ×3 (06:00→18:30)
[2021-01-02] MEDS: MEROPENEM 1 GM VIAL IVP SCH ×3 (06:06→20:48)
[2021-01-02] MEDS: IPRATROPIUM 0.5 MG/2.5 ML INH IH SCH ×3 (07:03→18:27)
[2021-01-02] MEDS: PANTOPRAZOLE 40 MG TAB DR PO SCH (09:35)
[2021-01-02] MEDS: MONTELUKAST SODIUM 10 MG TAB PO SCH (09:36)
[2021-01-02] MEDS: PREDNISONE 20 MG TABLET PO SCH (09:36)
[2021-01-02] MEDS: ISOSORBIDE MONO 30MG SR TAB PO SCH ×2 (09:36→20:44)
[2021-01-02] MEDS: BUSPIRONE HCL 5 MG TABLET PO SCH ×2 (09:37→20:44)
[2021-01-02] MEDS: ATENOLOL 25 MG TABLET PO SCH (09:37)
[2021-01-02] MEDS: SOLU-MEDROL 125MG VIAL IVP SCH (09:38)
[2021-01-02] MEDS: RIVAROXABAN 20 MG TABLET PO SCH (09:38)
[2021-01-02] MEDS: (Fluticasone/Umeclidin/Vilanter (Trelegy Ellipta 100-62.5- IH SCH (09:38)
[2021-01-02 15:16] LABS: INR 1.21 (0.85-1.15)
[2021-01-02] MEDS: FLUCONAZOLE 200 MG/NS 100 ML 100 ML IV SCH (20:48)
[2021-01-02] MEDS: Levocetirizine Dihydrochloride 5 MG PO SCH (20:48)
[2021-01-03 03:53] VITALS: BP 133/74
[2021-01-03] MEDS: MEROPENEM 1 GM VIAL IVP SCH ×2 (04:56→15:16)
[2021-01-03 04:59] LABS: HEMATOCRIT 46.1 % (42-54); MEAN CORPUSCULAR HEMOGLOBIN 29.7 pg (27.0-33.0); MEAN CORPUSCULAR HGB CONC 33.6 g/dL (32.0-36.0); MEAN CORPUSCULAR VOLUME 88.3 fL (79-99); RED BLOOD CELL COUNT(AUTO) 5.22 MIL/uL (4.50-6.20); RED CELL DISTRIBUTION WIDTH 13.3 % (11.0-15.5); WHITE BLOOD COUNT (AUTO) 15.8 K/uL (4.8-10.8)
[2021-01-03 05:27] LABS: ALBUMIN 2.6 g/dL (3.5-5.0); BILIRUBIN,TOTAL 0.3 mg/dL (0.2-1.0); CREATININE 0.6 mg/dL (0.5-1.5); POTASSIUM 3.7 mmol/L (3.5-5.1); TOTAL PROTEIN, SERUM 5.8 g/dL (6.0-8.3)
[2021-01-03] MEDS: ACETYLCYSTEINE 20% 200MG/ML 4ML VIAL IH SCH ×2 (06:00)
[2021-01-03] MEDS: IPRATROPIUM 0.5 MG/2.5 ML INH IH SCH ×3 (06:50→10:56)
[2021-01-03 07:38] VITALS: BP 130/76
[2021-01-03] MEDS: RIVAROXABAN 20 MG TABLET PO SCH (09:00)
[2021-01-03] MEDS: ISOSORBIDE MONO 30MG SR TAB PO SCH (09:42)
[2021-01-03] MEDS: MONTELUKAST SODIUM 10 MG TAB PO SCH (09:42)
[2021-01-03] MEDS: BUSPIRONE HCL 5 MG TABLET PO SCH (09:42)
[2021-01-03] MEDS: ATENOLOL 25 MG TABLET PO SCH (09:43)
[2021-01-03] MEDS: PANTOPRAZOLE 40 MG TAB DR PO SCH (09:43)
[2021-01-03] MEDS: FLUCONAZOLE 200 MG/NS 100 ML 100 ML IV SCH (09:43)
[2021-01-03] MEDS: PREDNISONE 20 MG TABLET PO SCH (09:45)
[2021-01-03] MEDS: (Fluticasone/Umeclidin/Vilanter (Trelegy Ellipta 100-62.5- IH SCH (09:52)
[2021-01-03] MEDS ORDERED: DOCUSATE SODIUM 100 MG CAP PO SCH (11:14)
[2021-01-03 11:24] VITALS: BP 142/82
== END 2021-01-03 16:25 | disposition home or self-care (01) | DRG 192 ==
LOC: EDH 06:53 → EDHIP 13:00 → INTOOBSV 13:00 → OBSVTOIN 13:00 → 3BH 18:03
PROVIDERS: ADMIT Internal Medicine; ATTEND Internal Medicine
DX: J43.9 Emphysema, unspecified (principal); I25.10 Atherosclerotic heart disease of native coronary artery without angina pectoris; I48.91 Unspecified atrial fibrillation; D72.829 Elevated white blood cell count, unspecified; K90.0 Celiac disease; E78.5 Hyperlipidemia, unspecified; E03.9 Hypothyroidism, unspecified; E88.09 Other disorders of plasma-protein metabolism, not elsewhere classified; I49.5 Sick sinus syndrome; T38.0X5A Adverse effect of glucocorticoids and synthetic analogues, initial encounter; R06.03 Acute respiratory distress; I35.0 Nonrheumatic aortic (valve) stenosis; M48.00 Spinal stenosis, site unspecified; Z79.01 Long term (current) use of anticoagulants; Z88.0 Allergy status to penicillin; Z88.8 Allergy status to other drugs, medicaments and biological substances; I25.2 Old myocardial infarction; Y92.89 Other specified places as the place of occurrence of the external cause
CPT/HCPCS: 36415; 36600; 71045; 80053; 81003; 82550; 82803; 83735; 83880; 84484; 85025; 85027; 85610; 85730; 87071; 87205; 93005; 94640; 94644; 94664; G0378; J1450; J2185; J2930; J7608

== ENCOUNTER → 2021-01-19 | Outpatient (CLI) | payer MEDICARE ==
[~2021-01-19] VITALS: Ht 170.2 cm; Wt 88.0 kg
[~2021-01-19] MED LIST changes: +FAMO20TA8 PO; +FLUT1BLS3 IH; +ISOS30TA92 PO; +LEVO5TAB13 PO; +ONDA-104 PO; +PRED20TA3 PO; +REGADENOSON 0.4 MG/5 ML PF SYG IVP SCH; +TRAM50TA4 PO
== END | disposition home or self-care (01) ==
LOC: SHCH 08:20
PROVIDERS: ATTEND Internal Medicine Cardiovascular Disease
DX: I25.10 Atherosclerotic heart disease of native coronary artery without angina pectoris (principal); I25.9 Chronic ischemic heart disease, unspecified; I48.91 Unspecified atrial fibrillation; R06.09 Other forms of dyspnea; R51.9 Headache, unspecified
CPT/HCPCS: 78452; 93017; 96374; A9500 ×2; J2785

== ENCOUNTER 2021-03-21 18:05 | Inpatient (IN) | payer MEDICARE ==
[~2021-03-21] VITALS: Ht 170.2 cm; Wt 86.9 kg
[~2021-03-21 18:05] MED LIST changes: +ASPI-1005 PO; +ATOR40TA71 PO; +AUD IH; +CLOP75TA14 PO; +MONT-39 PO; -REGADENOSON 0.4 MG/5 ML PF SYG IVP SCH; +TIOT4MIS3 IH
[2021-03-21 19:17] LABS: HEMATOCRIT 46.7 % (42-54); MEAN CORPUSCULAR HEMOGLOBIN 29.9 pg (27.0-33.0); MEAN CORPUSCULAR HGB CONC 33.2 g/dL (32.0-36.0); MEAN CORPUSCULAR VOLUME 90.2 fL (79-99); PLATELET COUNT (AUTO) 259 K/uL (130-400); RED BLOOD CELL COUNT(AUTO) 5.18 MIL/uL (4.50-6.20); RED CELL DISTRIBUTION WIDTH 14.4 % (11.0-15.5)
[2021-03-21 19:34] LABS: CREATININE 0.8 mg/dL (0.5-1.5); POTASSIUM 3.5 mmol/L (3.5-5.1)
[2021-03-21 19:39] LABS: ALBUMIN 3.1 g/dL (3.5-5.0); BILIRUBIN,TOTAL 0.3 mg/dL (0.2-1.0); TOTAL PROTEIN, SERUM 6.9 g/dL (6.0-8.3)
[2021-03-21 19:53] LABS: B-TYPE NATRIURETIC PEPTIDE 24 pg/mL (0-100)
[2021-03-21] MEDS ORDERED: IPRATROPIUM/ALBUTEROL SULFATE 3 ML SOLUTION IH ONE (20:00)
[2021-03-21 20:01] LABS: BAND NEUTROPHILS % (MANUAL) 2 % (0-2); EOSINOPHILS % (MANUAL) 4 % (1-6); LYMPHOCYTES % (MANUAL) 13 % (22-44); MAN.DIFF COMMENT-IMPRESSION MANUAL DIFFERENTIAL; MONOCYTES % (MANUAL) 5 % (2-9); REACTIVE LYMPHOCYTES 3 % (0-0); SEGMENTED NEUTROPHILS % 73 % (40-70)
[2021-03-21] MEDS ORDERED: CEFTRIAXONE 1G VIAL 1 GM in 0.9%NACL 100ML 100 ML IV ONE (22:00)
[2021-03-21] MEDS ORDERED: ALBUTEROL 0.083% 2.5 MG/3 ML INH IH ONE ×2 (22:00→22:05)
[2021-03-21] MEDS ORDERED: SOLU-MEDROL 125MG VIAL IVP ONE (22:00)
[2021-03-21] MEDS ORDERED: CEFTRIAXONE 1G VIAL IVP SCH (22:30)
[2021-03-21] MEDS ORDERED: DIGO125T71 PO (23:16)
[2021-03-22] MEDS ORDERED: TRAMADOL HCL 50 MG TABLET PO PRN (01:30)
[2021-03-22] MEDS ORDERED: ONDANSETRON 4MG TABLET PO PRN (01:30)
[2021-03-22] MEDS: MEROPENEM 1 GM VIAL IVP SCH ×3 (01:41→16:54)
[2021-03-22] MEDS: IPRATROPIUM/ALBUTEROL SULFATE 3 ML SOLUTION IH SCH ×3 (06:10→19:37)
[2021-03-22 07:35] LABS: BASOPHILS % (AUTO) 0.3 % (0.0-5.0); EOSINOPHILS % (AUTO) 0.1 % (0.0-8.0); HEMATOCRIT 51.9 % (42-54); LYMPHOCYTES % (AUTO) 7.2 % (21.0-51.0); MEAN CORPUSCULAR HEMOGLOBIN 30.2 pg (27.0-33.0); MEAN CORPUSCULAR HGB CONC 32.6 g/dL (32.0-36.0); MEAN CORPUSCULAR VOLUME 92.7 fL (79-99); MONOCYTES % (AUTO) 1.2 % (3.0-13.0); NEUTROPHILS % (AUTO) 90.3 % (40.0-77.0); PLATELET COUNT (AUTO) 281 K/uL (130-400); RED CELL DISTRIBUTION WIDTH 14.5 % (11.0-15.5)
[2021-03-22] MEDS: RIVAROXABAN 20 MG TABLET PO SCH (07:58)
[2021-03-22] MEDS: SOLU-MEDROL 40MG VIAL IVP SCH ×2 (07:58→20:19)
[2021-03-22] MEDS: FLUCONAZOLE 200 MG/NS 100 ML 100 ML IV SCH (07:58)
[2021-03-22] MEDS: CLOPIDOGREL 75MG TAB PO SCH (07:59)
[2021-03-22] MEDS: ATORVASTATIN 40 MG TABLET PO SCH (07:59)
[2021-03-22] MEDS: BUSPIRONE HCL 5 MG TABLET PO SCH ×2 (07:59→20:19)
[2021-03-22] MEDS: ATENOLOL 25 MG TABLET PO SCH (07:59)
[2021-03-22] MEDS: MONTELUKAST SODIUM 10 MG TAB PO SCH (07:59)
[2021-03-22] MEDS: PANTOPRAZOLE 40 MG TAB DR PO SCH (07:59)
[2021-03-22 08:30] VITALS: BP 114/74
[2021-03-22] MEDS ORDERED: DIGOXIN 125 MCG TABLET PO SCH (09:00)
[2021-03-22] MEDS ORDERED: SODIUM CHLORIDE 3% FOR INHALATION 4 ML/AMP VIAL.NEB IH ONE (11:07)
[2021-03-22 11:15] VITALS: BP_SYST 113; BP_SYST 119; BP_DIAS 54; BP_DIAS 55
[2021-03-22 15:10] VITALS: BP 100/46
[2021-03-22 19:30] VITALS: BP 113/61
[2021-03-22] MEDS ORDERED: CETIRIZINE HCL 5 MG TABLET PO SCH (21:00)
[2021-03-22] MEDS ORDERED: FAMOTIDINE 20MG TAB PO SCH (21:00)
[2021-03-22 23:45] VITALS: BP 118/61
[2021-03-23] MEDS: IPRATROPIUM/ALBUTEROL SULFATE 3 ML SOLUTION IH SCH ×2 (00:10→06:50)
[2021-03-23] MEDS: MEROPENEM 1 GM VIAL IVP SCH ×2 (01:38→09:17)
[2021-03-23 03:48] VITALS: BP 97/64
[2021-03-23 07:10] VITALS: BP 121/62
[2021-03-23] MEDS: RIVAROXABAN 20 MG TABLET PO SCH (09:17)
[2021-03-23] MEDS: FLUCONAZOLE 200 MG/NS 100 ML 100 ML IV SCH (09:17)
[2021-03-23] MEDS: CLOPIDOGREL 75MG TAB PO SCH (09:18)
[2021-03-23 09:19] VITALS: BP 121/62
[2021-03-23] MEDS: ATENOLOL 25 MG TABLET PO SCH (09:19)
[2021-03-23] MEDS: PANTOPRAZOLE 40 MG TAB DR PO SCH (09:19)
[2021-03-23] MEDS: SOLU-MEDROL 40MG VIAL IVP SCH (09:20)
[2021-03-23] MEDS: ATORVASTATIN 40 MG TABLET PO SCH (09:20)
[2021-03-23] MEDS: BUSPIRONE HCL 5 MG TABLET PO SCH (09:20)
[2021-03-23] MEDS: MONTELUKAST SODIUM 10 MG TAB PO SCH (09:20)
== END 2021-03-23 11:25 | disposition home or self-care (01) | DRG 191 ==
LOC: EDH 18:05 → EDHIP 23:10 → 3CH 03-22 08:41
PROVIDERS: ADMIT Internal Medicine; ATTEND Internal Medicine
DX: J44.1 Chronic obstructive pulmonary disease with (acute) exacerbation (principal); I48.20 Chronic atrial fibrillation, unspecified; I25.10 Atherosclerotic heart disease of native coronary artery without angina pectoris; Z20.822 Contact with and (suspected) exposure to COVID-19; Z79.01 Long term (current) use of anticoagulants; Z79.02 Long term (current) use of antithrombotics/antiplatelets; Z95.5 Presence of coronary angioplasty implant and graft
CPT/HCPCS: 36415; 71045; 80053; 82550; 83605; 83874; 83880; 84484; 85025; 85378; 85651; 86140; 87040; 87071; 87205; 87635; 87804; 93005; 93971; 94640; 94644; 94664; C9803; G0378; J0696; J1450; J2185; J2920; J2930

== ENCOUNTER 2021-10-10 02:57 | Emergency (ER) | payer MEDICARE ==
[~2021-10-10] VITALS: Ht 170.2 cm; Wt 92.1 kg
[~2021-10-10 02:57] MED LIST changes: -ASPI-1005 PO; +DIGO125T71 PO; -FLUT16H NASAL; -MONT10TA21 PO
[2021-10-10 03:24] LABS: BASOPHILS % (AUTO) 0.5 % (0.0-5.0); EOSINOPHILS % (AUTO) 2.3 % (0.0-8.0); HEMATOCRIT 49.2 % (42-54); LYMPHOCYTES % (AUTO) 8.7 % (21.0-51.0); MEAN CORPUSCULAR HEMOGLOBIN 28.5 pg (27.0-33.0); MEAN CORPUSCULAR HGB CONC 32.1 g/dL (32.0-36.0); MEAN CORPUSCULAR VOLUME 88.8 fL (79-99); MONOCYTES % (AUTO) 7.2 % (3.0-13.0); NEUTROPHILS % (AUTO) 80.7 % (40.0-77.0); PLATELET COUNT (AUTO) 327 K/uL (130-400); RED BLOOD CELL COUNT(AUTO) 5.54 MIL/uL (4.50-6.20); RED CELL DISTRIBUTION WIDTH 13.9 % (11.0-15.5); WHITE BLOOD COUNT (AUTO) 15.1 K/uL (4.8-10.8)
[2021-10-10] MEDS ORDERED: 0.9%NACL 1000ML 1,000 ML IV ONE ×2 (03:27→03:30)
[2021-10-10] MEDS ORDERED: ONDANSETRON 4MG INJ ONE (03:27)
[2021-10-10] MEDS ORDERED: ONDANSETRON 4MG INJ IVP ONE (03:30)
[2021-10-10 03:31] LABS: CREATININE 0.9 mg/dL (0.5-1.5); POTASSIUM 4.3 mmol/L (3.5-5.1)
[2021-10-10 03:36] LABS: ALBUMIN 2.9 g/dL (3.5-5.0); BILIRUBIN,TOTAL 0.5 mg/dL (0.2-1.0); TOTAL PROTEIN, SERUM 6.8 g/dL (6.0-8.3)
[2021-10-10] MEDS ORDERED: IOHEXOL 350 MG/ML 100ML INFUS..BTL IV ONE (04:35)
[2021-10-10] MEDS ORDERED: FAMO20TA8 PO (07:03)
[2021-10-10 07:38] VITALS: BP 101/64
== END 2021-10-10 07:44 | disposition home or self-care (01) ==
LOC: EDH 02:57
DX: K52.9 Noninfective gastroenteritis and colitis, unspecified (principal); I48.91 Unspecified atrial fibrillation; J44.9 Chronic obstructive pulmonary disease, unspecified; I25.10 Atherosclerotic heart disease of native coronary artery without angina pectoris; Z88.0 Allergy status to penicillin; Z79.899 Other long term (current) drug therapy; Z98.890 Other specified postprocedural states
CPT/HCPCS: 36415; 71045; 74177; 80053; 83880; 84484; 85025; 93005; 96361; 96374; 99285; J2405; J7030; Q9967

== ENCOUNTER → 2022-05-24 | Outpatient (CLI) | payer MEDICARE ==
[~2022-05-24] MED LIST changes: +CLOP-31 PO; -CLOP75TA14 PO
[2022-05-24 14:30] LABS: ABG BASE EXCESS 3.7 mmol/L (-2.0-3.0); ABG HCO3 28.8 mmol/L (21.0-28.0); ABG PCO2 45 mmHg (35-48)
== END | disposition home or self-care (01) ==
LOC: LAB 13:53
PROVIDERS: ATTEND Internal Medicine Critical Care Medicine
DX: J44.9 Chronic obstructive pulmonary disease, unspecified (principal)
CPT/HCPCS: 36600; 82435; 82803; 82947; 83605; 84132; 84295; 85018

== ENCOUNTER → 2022-07-16 | Outpatient (CLI) | payer MEDICARE ==
[~2022-07-16] MED LIST changes: +FLUT1BLS15 IH; +HYDR50CA50 PO; +SIME125C81 PO; +VENL75CA97 PO
== END | disposition home or self-care (01) ==
LOC: SHCH 10:23
PROVIDERS: ATTEND Internal Medicine Cardiovascular Disease
DX: I71.40 Abdominal aortic aneurysm, without rupture, unspecified (principal); I70.8 Atherosclerosis of other arteries
CPT/HCPCS: 93978

== ENCOUNTER → 2023-05-21 | Outpatient (CLI) | payer MEDICARE ==
[~2023-05-21] MED LIST changes: -BUSP10TA3 PO; -ISOS30TA92 PO; -OMEP40CA21 PO; +PANT40TA54 PO; -PRED20TA3 PO; -TRAM50TA4 PO
== END | disposition home or self-care (01) ==
LOC: CANSCHCLI → SHCH 09:23
PROVIDERS: ATTEND Internal Medicine Cardiovascular Disease
DX: I71.40 Abdominal aortic aneurysm, without rupture, unspecified (principal)
CPT/HCPCS: 93978

== ENCOUNTER 2023-07-18 14:30 | Observation (INO) | payer MEDICARE ==
[~2023-07-18] VITALS: Ht 170.2 cm; Wt 87.7 kg
[2023-07-18] MEDS: NITROGLYCERIN 1GM OINT 1 INCH/1GM TD ONE (15:00)
[2023-07-18 15:04] LABS: BASOPHILS % (AUTO) 0.8 % (0.0-5.0); EOSINOPHILS # (AUTO) 0.25 K/uL (0.00-0.70); HEMATOCRIT 43.8 % (42-54); IMMATURE GRANULOCYTE ABSOLUTE 0.16 K/uL (0-1); LYMPHOCYTES # (AUTO) 2.4 K/uL (1.0-4.8); LYMPHOCYTES % (AUTO) 9.8 % (21.0-51.0); MEAN CORPUSCULAR HEMOGLOBIN 28.4 pg (27.0-33.0); MEAN CORPUSCULAR HGB CONC 34.2 g/dL (32.0-36.0); MEAN CORPUSCULAR VOLUME 82.8 fL (79-99); MONOCYTES # (AUTO) 1.6 K/uL (0.1-1.0); MONOCYTES % (AUTO) 6.4 % (3.0-13.0); NEUTROPHILS # (AUTO) 20.2 K/uL (1.8-7.7); NEUTROPHILS % (AUTO) 81.4 % (40.0-77.0); PLATELET COUNT (AUTO) 309 K/uL (130-400); RED BLOOD CELL COUNT(AUTO) 5.29 MIL/uL (4.50-6.20); RED CELL DISTRIBUTION WIDTH 14.1 % (11.0-15.5); WHITE BLOOD COUNT (AUTO) 24.8 K/uL (4.8-10.8)
[2023-07-18] MEDS: SOLU-MEDROL 125MG VIAL IVP ONE (15:22)
[2023-07-18] MEDS: ASPIRIN 325MG TAB PO ONE (15:22)
[2023-07-18 15:24] LABS: CREATININE 0.8 mg/dL (0.5-1.5)
[2023-07-18 15:29] LABS: BILIRUBIN,TOTAL 0.4 mg/dL (0.2-1.0); TOTAL PROTEIN, SERUM 7.1 g/dL (6.0-8.3)
[2023-07-18 15:49] LABS: COVID19 (SARS ANTIGEN RAPID) PRESUMPTIVE NEGATIVE (NEGATIVE); INFLUENZA TYPE A Negative For Type A (NEGATIVE); INFLUENZA TYPE B Negative For Type B (NEGATIVE)
[2023-07-18] MEDS ORDERED: ACETAMINOPHEN 325 MG TAB PO PRN (17:30)
[2023-07-18] MEDS ORDERED: ONDANSETRON 4MG INJ IVP PRN (17:30)
[2023-07-18] MEDS: ALBUTEROL 0.083% 2.5 MG/3 ML INH IH PRN (18:27)
[2023-07-18 18:31] VITALS: PULSE 89; RESP 20
[2023-07-18] MEDS: CEFTRIAXONE 1G VIAL IVPB SCH (18:45)
[2023-07-18] MEDS: AZITHROMYCIN 500MG+NS 250ML 250 ML IVPB SCH (18:53)
[2023-07-18] MEDS: SOLU-MEDROL 40MG VIAL IVP SCH (23:40)
[2023-07-19 03:08] VITALS: PULSE 86
[2023-07-19 03:25] VITALS: BP 118/70; PULSE 77; RESP 16
[2023-07-19] MEDS ORDERED: FLUO20CA36 PO (03:49)
[2023-07-19] MEDS ORDERED: SALBUTAMOL IH (03:53)
[2023-07-19 04:50] LABS: BASOPHILS # (AUTO) 0.03 K/uL (0.00-0.20); BASOPHILS % (AUTO) 0.3 % (0.0-5.0); EOSINOPHILS # (AUTO) 0.01 K/uL (0.00-0.70); EOSINOPHILS % (AUTO) 0.1 % (0.0-8.0); HEMATOCRIT 43.1 % (42-54); IMMATURE GRANULOCYTE ABSOLUTE 0.08 K/uL (0-1); MEAN CORPUSCULAR HEMOGLOBIN 28.2 pg (27.0-33.0); MEAN CORPUSCULAR HGB CONC 32.9 g/dL (32.0-36.0); MEAN CORPUSCULAR VOLUME 85.7 fL (79-99); MONOCYTES # (AUTO) 0.1 K/uL (0.1-1.0); NEUTROPHILS # (AUTO) 10.2 K/uL (1.8-7.7); NEUTROPHILS % (AUTO) 88.9 % (40.0-77.0); PLATELET COUNT (AUTO) 268 K/uL (130-400); RED BLOOD CELL COUNT(AUTO) 5.03 MIL/uL (4.50-6.20); RED CELL DISTRIBUTION WIDTH 13.9 % (11.0-15.5); WHITE BLOOD COUNT (AUTO) 11.4 K/uL (4.8-10.8)
[2023-07-19 05:15] LABS: ALBUMIN 2.6 g/dL (3.5-5.0); BILIRUBIN,TOTAL 0.3 mg/dL (0.2-1.0); POTASSIUM 3.9 mmol/L (3.5-5.1); TOTAL PROTEIN, SERUM 6.7 g/dL (6.0-8.3)
[2023-07-19 05:26] LABS: B-TYPE NATRIURETIC PEPTIDE 139 pg/mL (0-100)
[2023-07-19 06:49] VITALS: PULSE 89; RESP 18
[2023-07-19 06:51] VITALS: PULSE 89; RESP 20; O2SAT 97
[2023-07-19] MEDS: 0.9%NACL 1000ML 1,000 ML IV SCH (07:11)
[2023-07-19] MEDS ORDERED: AZIT500T4 PO (07:21)
[2023-07-19] MEDS ORDERED: PRED20TA3 PO (07:21)
[2023-07-19 08:00] VITALS: BP 127/68; PULSE 79; RESP 18; O2SAT 96
[2023-07-19] MEDS: ENOXAPARIN SODIUM 40 MG/0.4 ML SYRINGE SQ SCH (09:24)
[2023-07-19 11:00] VITALS: BP 105/64; PULSE 80; RESP 18
== END 2023-07-19 11:45 | disposition home or self-care (01) ==
LOC: EDH 14:30 → INTOOBSV 17:05 → EDHIP 17:05 → 3BH 07-19 01:37
PROVIDERS: ADMIT Internal Medicine; ATTEND Internal Medicine
DX: J44.1 Chronic obstructive pulmonary disease with (acute) exacerbation (principal); Z20.822 Contact with and (suspected) exposure to COVID-19; J18.9 Pneumonia, unspecified organism; I11.0 Hypertensive heart disease with heart failure; I50.9 Heart failure, unspecified; I48.91 Unspecified atrial fibrillation; E11.9 Type 2 diabetes mellitus without complications; I25.10 Atherosclerotic heart disease of native coronary artery without angina pectoris; R06.03 Acute respiratory distress; E78.00 Pure hypercholesterolemia, unspecified; Z88.0 Allergy status to penicillin; Z88.8 Allergy status to other drugs, medicaments and biological substances
CPT/HCPCS: 96376 ×3; 99285; 84484; 80053 ×2; 85025 ×2; 87420; 87804 ×2; 83605 ×4; 87426; 36415 ×2; 71045; 96375; 93005; 94640 ×3; 94664; 96372; 96365; 96366; 83880; J2930; J0696 ×2; J2920 ×4; J0456 ×2; G0378 ×4; J1650

== ENCOUNTER 2023-09-03 10:44 | Emergency (ER) | payer MEDICARE ==
[~2023-09-03] VITALS: Ht 175.3 cm; Wt 88.5 kg
[~2023-09-03 10:44] MED LIST changes: -ARFO15VI3 IH; -ATOR40TA71 PO; -AUD IH; +AZIT500T4 PO; -FAMO20TA8 PO; +FLUO20CA36 PO; -FLUT1BLS15 IH; -FLUT1BLS3 IH; -IPRA3AMP24 IH; -NITR0.4T50 SL; -ONDA-104 PO; +PRED20TA3 PO; +SALBUTAMOL IH; -SIME125C81 PO; -TIOT4MIS3 IH; -VENL75CA97 PO
[2023-09-03 11:06] LABS: BASOPHILS # (AUTO) 0.14 K/uL (0.00-0.20); BASOPHILS % (AUTO) 1.1 % (0.0-5.0); EOSINOPHILS % (AUTO) 3.2 % (0.0-8.0); HEMATOCRIT 49.3 % (42-54); LYMPHOCYTES # (AUTO) 2.5 K/uL (1.0-4.8); LYMPHOCYTES % (AUTO) 19.5 % (21.0-51.0); MEAN CORPUSCULAR HEMOGLOBIN 28.3 pg (27.0-33.0); MEAN CORPUSCULAR HGB CONC 32.9 g/dL (32.0-36.0); MONOCYTES % (AUTO) 8.1 % (3.0-13.0); NEUTROPHILS # (AUTO) 8.5 K/uL (1.8-7.7); NEUTROPHILS % (AUTO) 67.3 % (40.0-77.0); PLATELET COUNT (AUTO) 310 K/uL (130-400); RED BLOOD CELL COUNT(AUTO) 5.73 MIL/uL (4.50-6.20); RED CELL DISTRIBUTION WIDTH 14.1 % (11.0-15.5); WHITE BLOOD COUNT (AUTO) 12.6 K/uL (4.8-10.8)
[2023-09-03 11:13] LABS: CREATININE 0.8 mg/dL (0.5-1.3); POTASSIUM 4.6 mmol/L (3.5-5.1)
[2023-09-03 11:18] LABS: ALBUMIN 3.5 g/dL (3.5-5.0); BILIRUBIN,TOTAL 0.9 mg/dL (0.2-1.0); TOTAL PROTEIN, SERUM 7.5 g/dL (6.0-8.3)
[2023-09-03] MEDS ORDERED: IOHEXOL 350 MG/ML 100ML INFUS..BTL IV ONE (12:15)
[2023-09-03] MEDS ORDERED: IOHEXOL-350 75 ML VIAL IV ONE (12:21)
[2023-09-03] MEDS: METOCLOPRAMIDE 10 MG/2 ML VIAL IVP ONE (12:51)
[2023-09-03] MEDS: FAMOTIDINE 20MG VIAL IV ONE (12:51)
[2023-09-03] MEDS: MORPHINE 2 MG SYG IVP ONE (12:51)
[2023-09-03] MEDS: 0.9%NACL 1000ML 1,000 ML IV ONE (13:01)
[2023-09-03 14:25] VITALS: PULSE 88; RESP 20
[2023-09-03] MEDS: IPRATROPIUM/ALBUTEROL SULFATE 3 ML SOLUTION IH ONE (14:27)
[2023-09-03 14:56] LABS: APPEARANCE,URINE CLEAR (CLEAR); BILIRUBIN,URINE NEGATIVE (NEGATIVE); COLOR,URINE YELLOW (YELLOW); GLUCOSE, URINE (UA) NEGATIVE (NEGATIVE); KETONES,URINE NEGATIVE (NEGATIVE); LEUKOCYTE ESTERASE ,URINE NEGATIVE Leu/uL (NEGATIVE); NITRATE,URINE NEGATIVE (NEGATIVE); OCCULT BLOOD,URINE NEGATIVE (NEGATIVE); PH,URINE 6.5 (5.0-8.0); PROTEIN,URINE 30 mg/dL (NEGATIVE); UROBILINOGEN,URINE 0.2 mg/dL (0.2-1.0)
[2023-09-03 14:57] LABS: ADD UA MICROSCOPIC YES
[2023-09-03 15:13] LABS: BACTERIA,URINE RARE /HPF (None Seen); MUCUS,URINE FEW LPF (None Seen); SQUAMOUS EPITHELIAL CELL,UR RARE /HPF (0-2)
[2023-09-03] MEDS ORDERED: METO-296 PO (15:53)
[2023-09-03] MEDS ORDERED: PANT40TA PO (15:53)
[2023-09-03 16:04] VITALS: BP 112/71; PULSE 87; RESP 16; O2SAT 92
[2023-09-08] MEDS ORDERED: ATOR40TA69 PO (06:53)
[2023-09-08] MEDS ORDERED: REVE175V IH (11:27)
[2023-09-08] MEDS ORDERED: ARFO15VI20 IH (11:27)
[2023-09-09] MEDS ORDERED: CALC500T13 PO (00:36)
[2023-09-09] MEDS ORDERED: HYD50 PO (21:26)
[2023-09-09] MEDS ORDERED: CLON0.5T4 PO (22:01)
== END 2023-09-03 16:06 | disposition home or self-care (01) ==
LOC: EDH 10:44
DX: K29.70 Gastritis, unspecified, without bleeding (principal); I72.9 Aneurysm of unspecified site; J44.1 Chronic obstructive pulmonary disease with (acute) exacerbation; E11.9 Type 2 diabetes mellitus without complications; F17.200 Nicotine dependence, unspecified, uncomplicated; I48.91 Unspecified atrial fibrillation; Z79.899 Other long term (current) drug therapy; Z95.5 Presence of coronary angioplasty implant and graft; Z98.890 Other specified postprocedural states; Z88.0 Allergy status to penicillin; Z88.8 Allergy status to other drugs, medicaments and biological substances
CPT/HCPCS: 99285; 74178; 96374; 96375; 71045; 96361; 84484; 80053; 83690; 85025; 81001; 36415; 93005; 94640; J3490; J2270; J7030; J2765; Q9967

== ENCOUNTER 2023-09-17 00:16 | Observation (INO) | payer MEDICARE ==
[2023-09-17] VITALS (12 sets, daily range): BP systolic 101–128; BP diastolic 61–95; PULSE 70–92; RESP 18–20; O2SAT 91–97
[~2023-09-17] VITALS: Ht 170.2 cm; Wt 87.1 kg
[~2023-09-17 00:16] MED LIST changes: +ARFO15VI20 IH; +ATOR40TA69 PO; -AZIT500T4 PO; +CALC500T13 PO; +CLON0.5T4 PO; -HYDR50CA50 PO; +METO-296 PO; -PRED20TA3 PO; +REVE175V IH; -SALBUTAMOL IH
[2023-09-17 01:12] LABS: BASOPHILS # (AUTO) 0.07 K/uL (0.00-0.20); BASOPHILS % (AUTO) 0.4 % (0.0-5.0); EOSINOPHILS # (AUTO) 0.92 K/uL (0.00-0.70); EOSINOPHILS % (AUTO) 5.9 % (0.0-8.0); HEMATOCRIT 43.7 % (42-54); IMMATURE GRANULOCYTE ABSOLUTE 0.52 K/uL (0-1); LYMPHOCYTES # (AUTO) 3.4 K/uL (1.0-4.8); LYMPHOCYTES % (AUTO) 21.7 % (21.0-51.0); MEAN CORPUSCULAR HEMOGLOBIN 29.1 pg (27.0-33.0); MEAN CORPUSCULAR HGB CONC 33.6 g/dL (32.0-36.0); MEAN CORPUSCULAR VOLUME 86.5 fL (79-99); MONOCYTES # (AUTO) 1.8 K/uL (0.1-1.0); MONOCYTES % (AUTO) 11.2 % (3.0-13.0); NEUTROPHILS % (AUTO) 57.5 % (40.0-77.0); PLATELET COUNT (AUTO) 300 K/uL (130-400); RED BLOOD CELL COUNT(AUTO) 5.05 MIL/uL (4.50-6.20); RED CELL DISTRIBUTION WIDTH 14.6 % (11.0-15.5); WHITE BLOOD COUNT (AUTO) 15.7 K/uL (4.8-10.8)
[2023-09-17] MEDS: ONDANSETRON 4MG INJ IVP ONE (01:14)
[2023-09-17] MEDS: MORPHINE 2 MG SYG IVP ONE ×2 (01:15→03:04)
[2023-09-17] MEDS: MORPHINE 2 MG SYG ONE (01:19)
[2023-09-17 01:22] LABS: CREATININE 0.8 mg/dL (0.5-1.3); POTASSIUM 4.2 mmol/L (3.5-5.1)
[2023-09-17 01:26] LABS: ALBUMIN 2.6 g/dL (3.5-5.0); BILIRUBIN,TOTAL 0.6 mg/dL (0.2-1.0); TOTAL PROTEIN, SERUM 6.3 g/dL (6.0-8.3)
[2023-09-17] MEDS ORDERED: IOHEXOL 350 MG/ML 100ML INFUS..BTL IV ONE (01:52)
[2023-09-17] MEDS: 0.9%NACL 1000ML 1,000 ML IV ONE (03:04)
[2023-09-17 05:13] LABS: APPEARANCE,URINE CLEAR (CLEAR); BILIRUBIN,URINE NEGATIVE (NEGATIVE); COLOR,URINE LIGHT-YELLOW (YELLOW); GLUCOSE, URINE (UA) NEGATIVE (NEGATIVE); KETONES,URINE NEGATIVE (NEGATIVE); LEUKOCYTE ESTERASE ,URINE NEGATIVE Leu/uL (NEGATIVE); NITRATE,URINE NEGATIVE (NEGATIVE); OCCULT BLOOD,URINE NEGATIVE (NEGATIVE); PROTEIN,URINE 10 mg/dL (NEGATIVE); UROBILINOGEN,URINE 0.2 mg/dL (0.2-1.0)
[2023-09-17 05:20] LABS: ADD UA MICROSCOPIC NO
[2023-09-17] MEDS: HYDROMORPHONE 0.5 MG SYG (0.5MG/0.5ML) IVP PRN (05:21)
[2023-09-17 05:41] LABS: BACTERIA,URINE None Seen /HPF (None Seen); RBC,URINE 0-1 /HPF (0-1); SQUAMOUS EPITHELIAL CELL,UR Rare /HPF (0-2); WBC,URINE 0-1 /HPF (0-1)
[2023-09-17 05:42] LABS: MUCUS,URINE Rare LPF (None Seen)
[2023-09-17 07:58] LABS: BASOPHILS # (AUTO) 0.07 K/uL (0.00-0.20); BASOPHILS % (AUTO) 0.5 % (0.0-5.0); EOSINOPHILS % (AUTO) 6.9 % (0.0-8.0); HEMATOCRIT 43.3 % (42-54); IMMATURE GRANULOCYTE ABSOLUTE 0.42 K/uL (0-1); LYMPHOCYTES # (AUTO) 3.1 K/uL (1.0-4.8); LYMPHOCYTES % (AUTO) 21.1 % (21.0-51.0); MEAN CORPUSCULAR HEMOGLOBIN 28.7 pg (27.0-33.0); MEAN CORPUSCULAR VOLUME 86.9 fL (79-99); MONOCYTES # (AUTO) 1.7 K/uL (0.1-1.0); NEUTROPHILS # (AUTO) 8.2 K/uL (1.8-7.7); NEUTROPHILS % (AUTO) 56.6 % (40.0-77.0); PLATELET COUNT (AUTO) 294 K/uL (130-400); RED BLOOD CELL COUNT(AUTO) 4.98 MIL/uL (4.50-6.20); RED CELL DISTRIBUTION WIDTH 14.6 % (11.0-15.5); WHITE BLOOD COUNT (AUTO) 14.5 K/uL (4.8-10.8)
[2023-09-17 08:12] LABS: ALBUMIN 2.5 g/dL (3.5-5.0); BILIRUBIN,TOTAL 0.5 mg/dL (0.2-1.0); CREATININE 0.7 mg/dL (0.5-1.3); POTASSIUM 4.3 mmol/L (3.5-5.1); TOTAL PROTEIN, SERUM 6.1 g/dL (6.0-8.3)
[2023-09-17] MEDS ORDERED: MONT-39 PO (09:54)
[2023-09-17] MEDS ORDERED: LEVO-70 PO (09:57)
[2023-09-17] MEDS ORDERED: FAMO20TA8 PO (10:25)
[2023-09-17] MEDS ORDERED: DIGO0.12 PO (10:29)
[2023-09-17] MEDS ORDERED: IPRA0.2S54 IH (10:35)
[2023-09-17] MEDS ORDERED: LACE ASSESSMENT (SCORE > 11) MISC SCH (11:30)
[2023-09-17] MEDS: ARFORMOTEROL TARTRATE 15 MCG IH SCH (15:07)
[2023-09-17] MEDS: REVEFENACIN 175 MCG IH SCH (15:08)
[2023-09-17] MEDS: METRONIDAZOLE 500MG/100ML BAG IV SCH (15:10)
[2023-09-17] MEDS: METOCLOPRAMIDE 10 MG TABLET PO SCH (15:10)
[2023-09-17] MEDS: DIGOXIN 125 MCG TABLET PO SCH (16:14)
[2023-09-17] MEDS: Levocetirizine Dihydrochloride 5 MG PO SCH (19:26)
[2023-09-17] MEDS: IPRATROPIUM/ALBUTEROL SULFATE 3 ML SOLUTION IH SCH (19:27)
[2023-09-17] MEDS: FAMOTIDINE 20MG TAB PO SCH (20:21)
[2023-09-17] MEDS: RIVAROXABAN 20 MG TABLET PO SCH (20:21)
[2023-09-17] MEDS ORDERED: IPRATROPIUM 0.5 MG/2.5 ML INH IH SCH (21:00)
[2023-09-18] VITALS (16 sets, daily range): BP systolic 86–123; BP diastolic 49–69; PULSE 77–95; RESP 17–18; O2SAT 92–96
[2023-09-18] MEDS: ATENOLOL 25 MG TABLET PO SCH (09:00)
[2023-09-18] MEDS: FLUOXETINE HCL 20 MG CAPSULE PO SCH (09:01)
[2023-09-18] MEDS: ATORVASTATIN 40 MG TABLET PO SCH (09:01)
[2023-09-18] MEDS: MONTELUKAST SODIUM 10 MG TAB PO SCH (09:01)
[2023-09-18] MEDS: LEVOFLOXACIN 500 MG TABLET PO SCH (09:01)
[2023-09-18] MEDS: CLOPIDOGREL 75MG TAB PO SCH (09:01)
[2023-09-18] MEDS: ACETAMINOPHEN WITH CODEINE 1 TAB TAB PO PRN (09:07)
[2023-09-19] VITALS (16 sets, daily range): BP systolic 100–120; BP diastolic 56–70; PULSE 75–108; RESP 16–20; O2SAT 95–98
[2023-09-19 03:58] LABS: BASOPHILS # (AUTO) 0.05 K/uL (0.00-0.20); BASOPHILS % (AUTO) 0.4 % (0.0-5.0); EOSINOPHILS # (AUTO) 0.62 K/uL (0.00-0.70); EOSINOPHILS % (AUTO) 4.7 % (0.0-8.0); HEMATOCRIT 43.8 % (42-54); IMMATURE GRANULOCYTE ABSOLUTE 0.21 K/uL (0-1); LYMPHOCYTES # (AUTO) 2.7 K/uL (1.0-4.8); LYMPHOCYTES % (AUTO) 20.1 % (21.0-51.0); MEAN CORPUSCULAR HEMOGLOBIN 28.8 pg (27.0-33.0); MEAN CORPUSCULAR HGB CONC 33.1 g/dL (32.0-36.0); MEAN CORPUSCULAR VOLUME 87.1 fL (79-99); MONOCYTES # (AUTO) 1.7 K/uL (0.1-1.0); NEUTROPHILS % (AUTO) 60.2 % (40.0-77.0); PLATELET COUNT (AUTO) 297 K/uL (130-400); RED BLOOD CELL COUNT(AUTO) 5.03 MIL/uL (4.50-6.20); RED CELL DISTRIBUTION WIDTH 14.6 % (11.0-15.5); WHITE BLOOD COUNT (AUTO) 13.3 K/uL (4.8-10.8)
[2023-09-19 04:22] LABS: ALBUMIN 2.7 g/dL (3.5-5.0); BILIRUBIN,TOTAL 0.4 mg/dL (0.2-1.0); CREATININE 0.9 mg/dL (0.5-1.3); TOTAL PROTEIN, SERUM 6.5 g/dL (6.0-8.3)
[2023-09-19] MEDS ORDERED: PROPOFOL 10 MG/ML 20ML VIAL IV ONE (13:15)
[2023-09-19] MEDS: LACTULOSE 20 GM/30 ML UDCUP PO PRN (18:04)
[2023-09-20] VITALS (15 sets, daily range): BP systolic 99–122; BP diastolic 61–80; PULSE 70–90; RESP 16–22; O2SAT 94–96
[2023-09-20] MEDS: IPRATROPIUM 0.5 MG/2.5 ML INH IH SCH (08:30)
[2023-09-20] MEDS: BUDESONIDE 0.25 MG/2 ML INH IH SCH (09:01)
[2023-09-20] MEDS: LEVOFLOXACIN 750 MG/D5W 150 ML 150 ML IV SCH (09:11)
[2023-09-20 09:12] LABS: ABG BASE EXCESS -0.2 mmol/L (-2.0-3.0); ABG OXYGEN SATURATION 96.5 % (95.0-99.0); ABG PCO2 38 mmHg (35-48); DEVICE COMMENT RR RN EMMA; PO2, ARTERIAL BG 84.1 mmHg (83.0-108.0); VENT MODE, BG NC (ROOM AIR)
[2023-09-20] MEDS: SOLU-MEDROL 125MG VIAL IVP ONE (09:12)
[2023-09-20] MEDS: FUROSEMIDE 20MG VIAL IV ONE (11:23)
[2023-09-20] MEDS: SOLU-MEDROL 40MG VIAL IVP SCH (14:50)
[2023-09-20] MEDS: MAGNESIUM CITRATE 296 ML SOLUTION PO ONE (16:23)
[2023-09-20] MEDS: FUROSEMIDE 20MG VIAL IV SCH (18:26)
[2023-09-20] MEDS: SODIUM CHLORIDE 3% FOR INHALATION 4 ML/AMP VIAL.NEB IH ONE ×2 (18:57→22:59)
[2023-09-21] VITALS (9 sets, daily range): BP systolic 99–110; BP diastolic 49–66; PULSE 72–89; RESP 19–22; O2SAT 95–97
[2023-09-21] MEDS: SODIUM CHLORIDE 3% FOR INHALATION 4 ML/AMP VIAL.NEB IH ONE ×2 (01:34→06:27)
[2023-09-21 01:36] LABS: SARS-CoV-2, RNA, NAAT NEGATIVE SARS CoV-2 (NEGATIVE)
[2023-09-21 01:41] LABS: INFLUENZA TYPE A Negative For Type A (NEGATIVE); INFLUENZA TYPE B Negative For Type B (NEGATIVE)
[2023-09-21 04:30] LABS: HEMATOCRIT 41.4 % (42-54); MEAN CORPUSCULAR HEMOGLOBIN 28.6 pg (27.0-33.0); MEAN CORPUSCULAR HGB CONC 33.3 g/dL (32.0-36.0); MEAN CORPUSCULAR VOLUME 85.9 fL (79-99); RED BLOOD CELL COUNT(AUTO) 4.82 MIL/uL (4.50-6.20); RED CELL DISTRIBUTION WIDTH 14.4 % (11.0-15.5); WHITE BLOOD COUNT (AUTO) 8.4 K/uL (4.8-10.8)
[2023-09-21 04:42] LABS: CREATININE 0.7 mg/dL (0.5-1.3); MAGNESIUM 2.1 mg/dL (1.80-2.40); POTASSIUM 3.5 mmol/L (3.5-5.1)
[2023-09-21] MEDS: FLUOXETINE HCL 20 MG CAPSULE PO SCH (10:43)
[2023-09-21] MEDS: ATENOLOL 25 MG TABLET PO ONE (10:44)
[2023-09-21] MEDS: MONTELUKAST SODIUM 10 MG TAB PO ONE (10:45)
[2023-09-21] MEDS: ATORVASTATIN 40 MG TABLET PO ONE (10:52)
[2023-09-21] MEDS: CLOPIDOGREL 75MG TAB PO ONE (10:59)
== END 2023-09-21 15:20 | disposition home or self-care (01) ==
LOC: EDH 00:16 → EDHIP 04:44 → 4BH 07:01
PROVIDERS: ADMIT Internal Medicine; ATTEND Internal Medicine
DX: R10.31 Right lower quadrant pain (principal); B02.9 Zoster without complications; J44.1 Chronic obstructive pulmonary disease with (acute) exacerbation; D72.829 Elevated white blood cell count, unspecified; J96.21 Acute and chronic respiratory failure with hypoxia; I48.20 Chronic atrial fibrillation, unspecified; E87.70 Fluid overload, unspecified; R74.01 Elevation of levels of liver transaminase levels; I25.10 Atherosclerotic heart disease of native coronary artery without angina pectoris; J18.9 Pneumonia, unspecified organism; K21.9 Gastro-esophageal reflux disease without esophagitis; I71.43 Infrarenal abdominal aortic aneurysm, without rupture; J47.0 Bronchiectasis with acute lower respiratory infection; I11.0 Hypertensive heart disease with heart failure; I50.31 Acute diastolic (congestive) heart failure; K57.30 Diverticulosis of large intestine without perforation or abscess without bleeding; Z79.01 Long term (current) use of anticoagulants; Z88.0 Allergy status to penicillin; Z88.8 Allergy status to other drugs, medicaments and biological substances
CPT/HCPCS: 96376 ×9; 96365; 96366 ×5; 96375 ×2; 99285; 82150; 84484; 80053 ×3; 83690; 85025 ×3; 81003; 81001; 36415 ×3; 74178; 93005; 94640 ×32; 94664; 82803; 71045 ×2; 36600; 96367; 83735; 80048; 83880; 85027; 87804 ×2; 87635; 71250; 76700; G0378 ×98; J2270 ×2; J7030; J2405; J3490 ×13; J1170 ×21; Q9967; J1956 ×2; J2930; J2920 ×5; J1940 ×3; J2704

== ENCOUNTER 2023-10-16 19:16 | Emergency (ER) | payer MEDICARE ==
[~2023-10-16 19:16] MED LIST changes: +DIGO0.12 PO; -DIGO125T71 PO; +FAMO20TA8 PO; +IPRA0.2S54 IH
[2023-10-16 20:27] LABS: BASOPHILS # (AUTO) 0.14 K/uL (0.00-0.20); BASOPHILS % (AUTO) 1.1 % (0.0-5.0); EOSINOPHILS # (AUTO) 0.51 K/uL (0.00-0.70); HEMATOCRIT 43.3 % (42-54); IMMATURE GRANULOCYTE ABSOLUTE 0.11 K/uL (0-1); LYMPHOCYTES # (AUTO) 3.1 K/uL (1.0-4.8); LYMPHOCYTES % (AUTO) 24.1 % (21.0-51.0); MEAN CORPUSCULAR HEMOGLOBIN 29.2 pg (27.0-33.0); MEAN CORPUSCULAR HGB CONC 33.9 g/dL (32.0-36.0); MEAN CORPUSCULAR VOLUME 85.9 fL (79-99); MONOCYTES # (AUTO) 1.4 K/uL (0.1-1.0); MONOCYTES % (AUTO) 10.6 % (3.0-13.0); NEUTROPHILS # (AUTO) 7.7 K/uL (1.8-7.7); NEUTROPHILS % (AUTO) 59.3 % (40.0-77.0); PLATELET COUNT (AUTO) 327 K/uL (130-400); RED BLOOD CELL COUNT(AUTO) 5.04 MIL/uL (4.50-6.20); RED CELL DISTRIBUTION WIDTH 15.6 % (11.0-15.5); WHITE BLOOD COUNT (AUTO) 12.9 K/uL (4.8-10.8)
[2023-10-16 20:36] LABS: CREATININE 0.7 mg/dL (0.5-1.3); POTASSIUM 4.1 mmol/L (3.5-5.1)
[2023-10-16 20:41] LABS: ALBUMIN 3.1 g/dL (3.5-5.0); BILIRUBIN,TOTAL 0.8 mg/dL (0.2-1.0); TOTAL PROTEIN, SERUM 7.2 g/dL (6.0-8.3)
[2023-10-16 21:42] LABS: APPEARANCE,URINE CLEAR (CLEAR); BILIRUBIN,URINE NEGATIVE (NEGATIVE); COLOR,URINE LIGHT-YELLOW (YELLOW); GLUCOSE, URINE (UA) NEGATIVE (NEGATIVE); KETONES,URINE NEGATIVE (NEGATIVE); LEUKOCYTE ESTERASE ,URINE NEGATIVE Leu/uL (NEGATIVE); NITRATE,URINE NEGATIVE (NEGATIVE); OCCULT BLOOD,URINE NEGATIVE (NEGATIVE); PROTEIN,URINE NEGATIVE (NEGATIVE); UROBILINOGEN,URINE 0.2 mg/dL (0.2-1.0)
[2023-10-16 21:44] LABS: ADD UA MICROSCOPIC YES
[2023-10-16 21:45] LABS: SQUAMOUS EPITHELIAL CELL,UR RARE /HPF (0-2)
[2023-10-16] MEDS ORDERED: BUDE0.255 IH (21:54)
[2023-10-16] MEDS ORDERED: CLON1TAB12 PO (21:54)
[2023-10-16 22:46] VITALS: PULSE 107; RESP 19
[2023-10-16] MEDS: IPRATROPIUM 0.5 MG/2.5 ML INH IH ONE (22:46)
[2023-10-16] MEDS: SOLU-MEDROL 125MG VIAL IVP ONE (23:05)
[2023-10-17 00:07] VITALS: PULSE 92
[2023-10-17] MEDS ORDERED: PRED10TA23 PO (00:28)
[2023-10-17 01:57] VITALS: BP 107/59; RESP 20; O2SAT 95
== END 2023-10-17 01:58 | disposition home or self-care (01) ==
LOC: EDH 19:16
DX: J44.9 Chronic obstructive pulmonary disease, unspecified (principal); R10.9 Unspecified abdominal pain; I10 Essential (primary) hypertension; I48.91 Unspecified atrial fibrillation; K21.9 Gastro-esophageal reflux disease without esophagitis; Z79.899 Other long term (current) drug therapy; F17.200 Nicotine dependence, unspecified, uncomplicated; Z98.890 Other specified postprocedural states; Z88.0 Allergy status to penicillin; Z88.8 Allergy status to other drugs, medicaments and biological substances
CPT/HCPCS: 99285; 96374; 71045; 84484; 80053; 83880; 83690; 85025; 82948; 81001; 36415; 93005; 94640; J2919

== ENCOUNTER 2023-12-20 23:50 | Emergency (ER) | payer MEDICARE ==
[~2023-12-20] VITALS: Ht 175.3 cm; Wt 108.9 kg
[~2023-12-20 23:50] MED LIST changes: +BUDE0.255 IH; +CLON1TAB12 PO; +FLUO-418 PO; -FLUO20CA36 PO; +PRED10TA23 PO
[2023-12-21 00:13] LABS: BASOPHILS # (AUTO) 0.13 K/uL (0.00-0.20); BASOPHILS % (AUTO) 1.6 % (0.0-5.0); EOSINOPHILS # (AUTO) 0.25 K/uL (0.00-0.70); HEMATOCRIT 47.9 % (42-54); LYMPHOCYTES # (AUTO) 1.9 K/uL (1.0-4.8); LYMPHOCYTES % (AUTO) 22.2 % (21.0-51.0); MEAN CORPUSCULAR HEMOGLOBIN 29.5 pg (27.0-33.0); MEAN CORPUSCULAR VOLUME 86.6 fL (79-99); MONOCYTES # (AUTO) 1.3 K/uL (0.1-1.0); MONOCYTES % (AUTO) 15.7 % (3.0-13.0); NEUTROPHILS # (AUTO) 4.7 K/uL (1.8-7.7); NEUTROPHILS % (AUTO) 56.3 % (40.0-77.0); PLATELET COUNT (AUTO) 294 K/uL (130-400); RED BLOOD CELL COUNT(AUTO) 5.53 MIL/uL (4.50-6.20); RED CELL DISTRIBUTION WIDTH 14.2 % (11.0-15.5); WHITE BLOOD COUNT (AUTO) 8.3 K/uL (4.8-10.8)
[2023-12-21 00:22] LABS: CREATININE 0.8 mg/dL (0.5-1.3); POTASSIUM 4.5 mmol/L (3.5-5.1)
[2023-12-21 00:26] LABS: ALBUMIN 3.1 g/dL (3.5-5.0); BILIRUBIN,TOTAL 0.4 mg/dL (0.2-1.0); TOTAL PROTEIN, SERUM 6.7 g/dL (6.0-8.3)
[2023-12-21 00:45] LABS: RAPID GROUP A STREP negative (NEGATIVE)
[2023-12-21 00:55] LABS: INFLUENZA TYPE A Negative For Type A (NEGATIVE); INFLUENZA TYPE B Negative For Type B (NEGATIVE)
[2023-12-21 00:57] LABS: SARS-CoV-2, RNA, NAAT POSITIVE SARS CoV-2 (NEGATIVE)
[2023-12-21 01:18] VITALS: BP 112/81; PULSE 82; RESP 17; O2SAT 98
[2023-12-21] MEDS ORDERED: ACET-2247 PO (01:24)
[2023-12-21] MEDS ORDERED: [UNRECOGNIZED DRUG - CODE] PO (01:24)
== END 2023-12-21 02:24 | disposition home or self-care (01) ==
LOC: EDH 23:50
DX: U07.1 COVID-19 (principal); J12.82 Pneumonia due to coronavirus disease 2019; J44.9 Chronic obstructive pulmonary disease, unspecified; K21.9 Gastro-esophageal reflux disease without esophagitis; I10 Essential (primary) hypertension; Z88.0 Allergy status to penicillin; Z88.8 Allergy status to other drugs, medicaments and biological substances; Z79.899 Other long term (current) drug therapy; Z98.890 Other specified postprocedural states
CPT/HCPCS: 36415; 71045; 80053; 83880; 84484; 85025; 87635; 87804; 87880; 93005

== ENCOUNTER 2024-01-30 16:19 | Emergency (ER) | payer MEDICARE ==
[~2024-01-30] VITALS: Ht 170.2 cm; Wt 84.4 kg
[~2024-01-30 16:19] MED LIST changes: +ACET-2247 PO; +[UNRECOGNIZED DRUG - CODE] PO
[2024-01-30 17:06] LABS: BASOPHILS # (AUTO) 0.16 K/uL (0.00-0.20); BASOPHILS % (AUTO) 1.2 % (0.0-5.0); EOSINOPHILS # (AUTO) 0.66 K/uL (0.00-0.70); HEMATOCRIT 47.4 % (42-54); IMMATURE GRANULOCYTE ABSOLUTE 0.13 K/uL (0-1); LYMPHOCYTES # (AUTO) 3.1 K/uL (1.0-4.8); LYMPHOCYTES % (AUTO) 23.7 % (21.0-51.0); MEAN CORPUSCULAR HEMOGLOBIN 29.6 pg (27.0-33.0); MEAN CORPUSCULAR HGB CONC 33.5 g/dL (32.0-36.0); MEAN CORPUSCULAR VOLUME 88.1 fL (79-99); MONOCYTES # (AUTO) 1.1 K/uL (0.1-1.0); MONOCYTES % (AUTO) 8.5 % (3.0-13.0); NEUTROPHILS # (AUTO) 7.9 K/uL (1.8-7.7); NEUTROPHILS % (AUTO) 60.6 % (40.0-77.0); PLATELET COUNT (AUTO) 348 K/uL (130-400); RED BLOOD CELL COUNT(AUTO) 5.38 MIL/uL (4.50-6.20); RED CELL DISTRIBUTION WIDTH 14.5 % (11.0-15.5); WHITE BLOOD COUNT (AUTO) 13.1 K/uL (4.8-10.8)
[2024-01-30 17:15] LABS: CREATININE 0.7 mg/dL (0.5-1.3); POTASSIUM 4.2 mmol/L (3.5-5.1)
[2024-01-30 17:20] LABS: SARS-CoV-2, RNA, NAAT NEGATIVE SARS CoV-2 (NEGATIVE)
[2024-01-30 17:25] LABS: INFLUENZA TYPE A Negative For Type A (NEGATIVE); INFLUENZA TYPE B Negative For Type B (NEGATIVE)
[2024-01-30 17:44] LABS: B-TYPE NATRIURETIC PEPTIDE 102 pg/mL (0-100)
[2024-01-30] MEDS: Solu-medROL 125MG VIAL IVP ONE (19:20)
[2024-01-30] MEDS: MAGNESIUM 2GM PREMIX 50ML 50 ML IV ONE (19:20)
[2024-01-30] MEDS: IpraTROPium/alBUTERol SULFATE 3 ML SOLUTION IH ONE (19:24)
[2024-01-30 19:27] VITALS: PULSE 91; RESP 19
[2024-01-30 19:31] VITALS: PULSE 75; RESP 19; O2SAT 97
[2024-01-30 19:54] LABS: ADD UA MICROSCOPIC YES; APPEARANCE,URINE CLEAR (CLEAR); BILIRUBIN,URINE NEGATIVE (NEGATIVE); COLOR,URINE LIGHT-YELLOW (YELLOW); GLUCOSE, URINE (UA) >=1000 mg/dL (NEGATIVE); KETONES,URINE NEGATIVE (NEGATIVE); LEUKOCYTE ESTERASE ,URINE NEGATIVE Leu/uL (NEGATIVE); NITRATE,URINE NEGATIVE (NEGATIVE); OCCULT BLOOD,URINE NEGATIVE (NEGATIVE); PH,URINE 5.5 (5.0-8.0); PROTEIN,URINE NEGATIVE (NEGATIVE); UROBILINOGEN,URINE 0.2 mg/dL (0.2-1.0)
[2024-01-30 19:58] LABS: SQUAMOUS EPITHELIAL CELL,UR RARE /HPF (0-2)
[2024-01-30 20:59] VITALS: BP 102/59; PULSE 69; RESP 20; O2SAT 95
[2024-01-30] MEDS ORDERED: METH4TAB3 PO (21:14)
[2024-01-30] MEDS ORDERED: AZIT250T9 PO (21:14)
== END 2024-01-30 21:24 | disposition home or self-care (01) ==
LOC: EDH 16:19
DX: J44.1 Chronic obstructive pulmonary disease with (acute) exacerbation (principal); Z20.822 Contact with and (suspected) exposure to COVID-19; B34.9 Viral infection, unspecified; I48.91 Unspecified atrial fibrillation; K21.9 Gastro-esophageal reflux disease without esophagitis; I10 Essential (primary) hypertension; F17.200 Nicotine dependence, unspecified, uncomplicated; Z88.0 Allergy status to penicillin; Z91.018 Allergy to other foods; Z79.899 Other long term (current) drug therapy; Z79.2 Long term (current) use of antibiotics; Z95.5 Presence of coronary angioplasty implant and graft
CPT/HCPCS: 99285; 96365; 71045; 87635; 96366; 96375; 84484; 80048; 83880; 85025; 87880; 87804 ×2; 81001; 36415; 93005; 94640; J3475; J2919

== ENCOUNTER → 2024-04-18 | Outpatient (CLI) | payer MEDICARE ==
[~2024-04-18] MED LIST changes: -ACET-2247 PO; -CALC500T13 PO; -CLON0.5T4 PO; -DIGO0.12 PO; +DIGO125T71 PO; +DOCU100C33 PO; -FAMO20TA8 PO; -IPRA0.2S54 IH; +IPRA3AMP24 NEB; -METO-296 PO; -PRED10TA23 PO; -REVE175V IH; +REVEFENACIN IH; -[UNRECOGNIZED DRUG - CODE] PO
== END | disposition home or self-care (01) ==
LOC: SHCH 09:55
PROVIDERS: ATTEND Internal Medicine Cardiovascular Disease
DX: I11.0 Hypertensive heart disease with heart failure (principal); I50.20 Unspecified systolic (congestive) heart failure
CPT/HCPCS: 93306

== ENCOUNTER 2024-05-03 02:37 | Emergency (ER) | payer MEDICARE ==
[~2024-05-03] VITALS: Ht 170.2 cm; Wt 84.4 kg
[~2024-05-03 02:37] MED LIST changes: +EMPA10TA PO; +FURO20TA4 PO; +POTA10CA95 PO
[2024-05-03] MEDS: LACTATED RINGERS 1000ML 1,000 ML IV ONE (03:14)
[2024-05-03 03:17] LABS: BASOPHILS # (AUTO) 0.13 K/uL (0.00-0.20); EOSINOPHILS % (AUTO) 1.5 % (0.0-8.0); HEMATOCRIT 49.7 % (42-54); IMMATURE GRANULOCYTE ABSOLUTE 0.11 K/uL (0-1); LYMPHOCYTES # (AUTO) 2.8 K/uL (1.0-4.8); LYMPHOCYTES % (AUTO) 20.5 % (21.0-51.0); MEAN CORPUSCULAR HEMOGLOBIN 29.4 pg (27.0-33.0); MEAN CORPUSCULAR HGB CONC 33.4 g/dL (32.0-36.0); MEAN CORPUSCULAR VOLUME 88.1 fL (79-99); MONOCYTES # (AUTO) 1.1 K/uL (0.1-1.0); MONOCYTES % (AUTO) 8.3 % (3.0-13.0); NEUTROPHILS # (AUTO) 9.1 K/uL (1.8-7.7); NEUTROPHILS % (AUTO) 67.9 % (40.0-77.0); PLATELET COUNT (AUTO) 286 K/uL (130-400); RED BLOOD CELL COUNT(AUTO) 5.64 MIL/uL (4.50-6.20); RED CELL DISTRIBUTION WIDTH 14.4 % (11.0-15.5); WHITE BLOOD COUNT (AUTO) 13.4 K/uL (4.8-10.8)
[2024-05-03 03:18] LABS: CREATININE 0.9 mg/dL (0.5-1.3); POTASSIUM 3.5 mmol/L (3.5-5.1)
[2024-05-03 03:23] LABS: MAGNESIUM 1.8 mg/dL (1.80-2.40)
[2024-05-03 03:37] LABS: INR 1.25 (0.85-1.15); PROTHROMBIN TIME 13.3 SEC (9.6-11.6)
[2024-05-03 03:38] LABS: PARTIAL THROMBOPLASTIN TIME 37.9 SEC (26.3-35.5)
[2024-05-03 03:48] LABS: B-TYPE NATRIURETIC PEPTIDE 338 pg/mL (0-100)
[2024-05-03 04:29] LABS: APPEARANCE,URINE CLEAR (CLEAR); BILIRUBIN,URINE NEGATIVE (NEGATIVE); COLOR,URINE COLORLESS (YELLOW); GLUCOSE, URINE (UA) >=1000 mg/dL (NEGATIVE); KETONES,URINE NEGATIVE (NEGATIVE); LEUKOCYTE ESTERASE ,URINE NEGATIVE Leu/uL (NEGATIVE); NITRATE,URINE NEGATIVE (NEGATIVE); OCCULT BLOOD,URINE NEGATIVE (NEGATIVE); PROTEIN,URINE NEGATIVE (NEGATIVE); UROBILINOGEN,URINE 0.2 mg/dL (0.2-1.0)
[2024-05-03 04:31] LABS: ADD UA MICROSCOPIC YES
[2024-05-03 05:20] LABS: BACTERIA,URINE None Seen /HPF (None Seen); RBC,URINE None Seen /HPF (0-1); SQUAMOUS EPITHELIAL CELL,UR None Seen /HPF (0-2); WBC,URINE 0-1 /HPF (0-1)
[2024-05-03 05:23] LABS: INFLUENZA TYPE A Negative For Type A (NEGATIVE); INFLUENZA TYPE B Negative For Type B (NEGATIVE)
[2024-05-03 05:36] VITALS: BP 141/97; PULSE 83; RESP 17; TEMP 98.2; O2SAT 94
--- NOTE | 2024-05-03 05:39 | ERN ---
General Chief Complaint: Weakness Stated Complaint: GENERALIZED WEAKNESS Time Seen by MD: 02:41 Source: patient History of Present Illness Initial Comments PATIENT IS A 73-YEAR-OLD MALE COMING IN TO BE EVALUATED FOR GENERALIZED BODY WEAKNESS. PATIENT STATES THAT THIS HAS BEEN ONGOING FOR SEVERAL MONTHS HE WAS CONCERNED BECAUSE HE STARTED HAVING SOME WEAKNESS AND BELIEVES IT MIGHT BE ASSOCIATED TWO ELEVATED CARDIAC ENZYMES. HE WAS TOLD ON PREVIOUS VISIT THAT HIS CARDIAC ENZYMES WERE ELEVATED. Allergies: Coded Allergies: Penicillins (Verified Allergy, Unknown, 04/06/14) gluten (Unverified Allergy, Unknown, 03/06/16) Home Meds Active Scripts Clopidogrel Bisulfate (Plavix) 75 Mg Tablet, 75 MG PO DAILY, #90 TAB 1 Refill Prov:ZANDRA FU MD 01/25/21 Reported Medications Furosemide (Furosemide) 20 Mg Tablet, 20 MG PO AM, TAB 04/21/24 Empagliflozin (Jardiance) 10 Mg Tablet, 10 MG PO AM, TAB 04/21/24 Potassium Chloride (Potassium Chloride) 10 Meq Capsule.er, 10 MEQ PO AM, CAP 04/21/24 Docusate Sodium (Docusate Sodium) 100 Mg Capsule, 300 MG PO HSPRN PRN for CONSTIPATION, CAP 03/01/24 Clonazepam (Clonazepam) 1 Mg Tablet, 1 MG PO [id number] PRN for ANXIETY, TAB 02/29/24 Budesonide (Budesonide) 0.25 Mg/2 Ml Ampul.neb, 0.25 MG IH BID 02/28/24 Arformoterol Tartrate (Arformoterol Tartrate) 15 Mcg/2 Ml Vial.neb, 15 MCG IH BID, INH 02/28/24 [Yulpelri] No Conflict Check, 175 MCG IH DAILY 02/28/24 Ipratropium/Albuterol Sulfate (Iprat-Albut 0.5-3(2.5) mg/3 ml) 0.5 Mg-3 Mg (2.5 Mg Base)/3 Ml Ampul.neb, 1 VIAL NEB TID 02/27/24 Digoxin (Digoxin) 125 Mcg (0.125 Mg) Tablet, 125 MCG PO DAILY, TAB 02/26/24 Atorvastatin Calcium (LIPITOR) 40 Mg Tablet, 40 MG PO HS, TAB 02/26/24 Montelukast Sodium (Montelukast Sodium) 10 Mg Tablet, 10 MG PO HS, TAB 02/26/24 Rivaroxaban (Xarelto) 20 Mg Tablet, 20 MG PO HS, TAB 02/26/24 Fluoxetine HCl (Fluoxetine HCl) 20 Mg Capsule, 40 MG PO DAILY, CAP 07/19/23 Pantoprazole Sodium (Pantoprazole Sodium) 40 Mg Tablet.dr, 40 MG PO DAILY, TAB 11/25/22 Atenolol (Atenolol) 25 Mg Tablet, 25 MG PO DAILY, TAB 01/22/21 Levocetirizine Dihydrochloride (Levocetirizine Dihydrochloride) 5 Mg Tablet, 5 MG PO HS, TAB 12/30/20 Past Medical History Past Medical History: A-Fib, COPD, Diabetes-Type II, Hypertension Medical History Other: DVT Past Surgical History: Other Surgical History Other: CARDIAC STENT IN 2000 AND 2021 Social History Social History: Smokers, Lives with family ROS Dictation CONSTITUTIONAL: NO CHILLS, NO FEVER, NO WEAKNESS, NO DIAPHORESIS, NO MALAISE. HEAD/FACE: NO SIGNS OF TRAUMA. EENT: NO EYE PAIN, NO BLURRED VISION, NO TEARING, NO DOUBLE VISION, NO EAR PAIN, NO EAR DISCHARGE, NO NOSE PAIN, NO NASAL CONGESTION, NO THROAT PAIN, NO THROAT SWELLING, NO MOUTH PAIN. RESPIRATORY: COUGH, NO ORTHOPNEA, SOB, NO STRIDOR, NO WHEEZING. CARDIOVASCULAR: NO CHEST PAIN, NO EDEMA, NO PALPITATIONS, NO SYNCOPE. GASTROINTESTINAL/ABDOMINAL: NO ABDOMINAL PAIN, NO CONSTIPATION, NO DIARRHEA, NO NAUSEA, NO VOMITING. GENITOURINARY: NO ABNORMAL DISCHARGE, NO DYSURIA, NO FREQUENT URINATION, NO HEMATURIA. NO COMPLAINTS OF PAIN IN THE GENITALS. MUSCULOSKELETAL: NO BACK PAIN, NO GOUT, NO JOINT PAIN, NO JOINT SWELLING, NO MUSCLE PAIN, NO MUSCLE STIFFNESS, NO NECK PAIN. INTEGUMENTARY: NO CHANGE IN COLOR, NO CHANGE IN HAIR/NAILS, NO DRYNESS, NO LESION, NO LUMPS, NO RASH. NEUROLOGICAL/PSYCH: NO ANXIETY, NOT DEPRESSED, NO EMOTIONAL PROBLEM, NO HEADACHE, NO NUMBNESS, NO PRE-EXISTING DEFICIT, NO HISTORY OF SEIZURES, NO TREMORS, NO WEAKNESS. HEMATOLOGIC/LYMPHATIC: NOT ANEMIC, NO HISTORY OF BLOOD CLOTS, NO APPARENT BLEEDING, NO BRUISING, GLANDS NOT SWOLLEN. ALL SYSTEMS NEGATIVE, EXCEPT NOTED. Physical Exam Physical Exam Dictation VITAL SIGNS: REVIEWED. GENERAL APPEARANCE: ALERT, ORIENTED X3, NO ACUTE DISTRESS, OBESE. HEAD AND FACE: NON-TRAUMATIC. EYES: PERRL, PINK CONJUNCTIVAS, EYELID NO TRAUMA, ANTERIOR CHAMBER CLEAR. EARS: PINNAS INTACT AND NO SIGNS OF TRAUMA OR ERYTHEMA. EAR CANALS CLEAR AND NO DISCHARGE. TMS NO ERYTHEMA. NOSE: NO DISCHARGE, NO BLEEDING. OROPHARYNX: MOUTH NORMAL, TEETH NO CARIES, TONGUE PINK. PHARYNX CLEAR, NO ERYTHEMA. TONSILS NO EXUDATES, NO ABSCESSES NOTED. MUCOUS MEMBRANE MOIST. NECK: SUPPLE, NON-TENDER, NO THYROMEGALY, NO MASSES, NO JVD, NO BRUITS. BREAST: DEFERRED. CHEST: NO TENDERNESS, NO CREPITUS, NO PARADOXICAL MOVEMENT, NO RETRACTIONS. LUNGS: CLEAR, WELL-VENTILATED, SYMMETRIC, RALES, NO WHEEZING, RHONCHI, NO STRIDOR, GOOD BREATH SOUNDS BILATERALLY. HEART: REGULAR RATE, REGULAR RHYTHM, NO MURMUR, NO GALLOPS. VASCULAR: NO PERIPHERAL EDEMA. ABDOMEN: SOFT, POSITIVE BOWEL SOUNDS, NONDISTENDED, NO GUARDING, NONTENDER, NO REBOUND, NO MASSES NO HEPATOMEGALY, NO SPLENOMEGALY, NO VENTURA'S SIGN, NO HERNIAS. RECTAL: DEFERRED. GENITAL: DEFERRED. NEUROLOGICAL: NORMAL SPEECH, GROSS MOTOR FUNCTION INTACT, GROSS SENSORY FUNCTION INTACT. MUSCULOSKELETAL: NECK NONTENDER, FULL RANGE OF MOTION, BACK NONTENDER, FULL RANGE OF MOTION. EXTREMITIES: NONTENDER, FULL RANGE OF MOTION. SKIN: COLOR PINK, DRY, NO TURGOR, NO RASH, NO LACERATIONS, NO ABRASIONS, NO CONTUSIONS. LYMPHATICS: DEFERRED. Results Laboratory and Microbiology Lab and Micro Result Laboratory Tests Test 05/03/24 01:05 05/03/24 03:00 05/03/24 04:13 05/03/24 05:01 Troponin I High Sensitivity 43 ng/L (4-75) 45 ng/L (4-75) White Blood Count 13.4 K/uL (4.8-10.8) H Red Blood Count 5.64 MIL/uL (4.50-6.20) Hemoglobin 16.6 g/dL (14.0-18.0) Hematocrit 49.7 % (42-54) Mean Corpuscular Volume 88.1 fL (79-99) Mean Corpuscular Hemoglobin 29.4 pg (27.0-33.0) Mean Corpuscular Hemoglobin Concent 33.4 g/dL (32.0-36.0) Red Cell Distribution Width 14.4 % (11.0-15.5) Platelet Count 286 K/uL (130-400) Mean Platelet Volume 10.1 fL (7.5-10.5) Immature Granulocyte % (Auto) 0.8 % (0-1) Neutrophils (%) (Auto) 67.9 % (40.0-77.0) Lymphocytes (%) (Auto) 20.5 % (21.0-51.0) L Monocytes (%) (Auto) 8.3 % (3.0-13.0) Eosinophils (%) (Auto) 1.5 % (0.0-8.0) Basophils (%) (Auto) 1.0 % (0.0-5.0) Neutrophils # (Auto) 9.1 K/uL (1.8-7.7) H Lymphocytes # (Auto) 2.8 K/uL (1.0-4.8) Monocytes # (Auto) 1.1 K/uL (0.1-1.0) H Eosinophils # (Auto) 0.20 K/uL (0.00-0.70) Basophils # (Auto) 0.13 K/uL (0.00-0.20) Absolute Immature Granulocyte (auto 0.11 K/uL (0-1) Nucleated Red Blood Cells 0.0 % (0.0-0.19) Prothrombin Time 13.3 SEC (9.6-11.6) H Prothromb Time International Ratio 1.25 (0.85-1.15) H Activated Partial Thromboplast Time 37.9 SEC (26.3-35.5) H Sodium Level 133 mmol/L (136-145) L Potassium Level 3.5 mmol/L (3.5-5.1) Chloride Level 98 mmol/L (101-111) L Carbon Dioxide Level 29 mmol/L (21-32) Blood Urea Nitrogen 15 mg/dL (7-18) Creatinine 0.9 mg/dL (0.5-1.3) Glomerular Filtration Rate Calc 91 mL/min (>90) Random Glucose 158 mg/dL (70-105) H Total Calcium 8.8 mg/dL (8.5-10.1) Magnesium Level 1.80 mg/dL (1.80-2.40) Total Creatine Kinase 37 U/L (21-232) B-Type Natriuretic Peptide 338 pg/mL (0-100) H Urine Color COLORLESS (YELLOW) Urine Appearance CLEAR (CLEAR) Urine pH 6.0 (5.0-8.0) Urine Specific Weiser 1.007 (1.001-1.031) Urine Protein NEGATIVE mg/dL (NEGATIVE) Urine Glucose (UA) >=1000 mg/dL (NEGATIVE) H Urine Ketones NEGATIVE mg/dL (NEGATIVE) Urine Occult Blood NEGATIVE (NEGATIVE) Urine Nitrate NEGATIVE (NEGATIVE) Urine Bilirubin NEGATIVE mg/dL (NEGATIVE) Urine Urobilinogen 0.2 mg/dL (0.2-1.0) Urine Leukocyte Esterase NEGATIVE Jihan/uL Urine RBC None Seen /HPF (0-1) Urine WBC 0-1 /HPF (0-1) Urine Squamous Epithelial Cells None Seen /HPF (0-2) Urine Bacteria None Seen /HPF (None Seen) Influenza Type A Antigen Negative For Type A Influenza Type B Antigen Negative For Type B Labs Reviewed?: Yes EKG/XRAY/US/CT/MRI EKG Comment 05/03/2024 TIME 3:12 A.M. VENTRICULAR RATE [address] WAVE ELEVATION OR DEPRESSION X-RAY Comment CHEST X-RAY-NO CHANGE FROM PREVIOUS MDM MDM: DIFFERENTIAL DIAGNOSIS: GENERALIZED WEAKNESS, CHRONIC WEAKNESS, COPD ON HOME O2, PATIENT IS A 73-YEAR-OLD GENTLEMAN COMING IN TO BE EVALUATED FOR GENERALIZED BODY WEAKNESS. HE WAS CONCERNED BECAUSE LAST VISIT HE WAS WEAK WAS FOUND TO HAVE ELEVATED CARDIAC ENZYMES. DISLOCATION CARDIAC ENZYMES WITHIN NORMAL LIMITS BE IMPROVING MILDLY ELEVATED BUT NO CHANGE IN BREATHING. PATIENT DOES HAVE A HISTORY OF COPD IN HIS ON HOME OXYGEN. THROUGHOUT ER VISIT PATIENT HAS BEEN STABLE QUESTIONS HAS BEEN ANSWERED PATIENT FEELS BETTER GOING HOME. PATIENT WILL BE DISCHARGED IN STABLE CONDITION. ED Course Orders Procedure Category Date Status Time Cbc With Differential LAB 05/03/24 Complete 02:41 Prothrombin Time With LAB 05/03/24 Complete INR 02:41 B-Type Natriuretic LAB 05/03/24 Complete Peptide 02:41 Chest 1vw RAD 05/03/24 Taken 02:41 12 Lead Ekg Tracing- EKG 05/03/24 Logged Technical 02:41 Lactated Ringers PHA 05/03/24 Complete 1000ml (Lactated 03:00 Magnesium LAB 05/03/24 Complete 02:41 Creatine Kinase, Total LAB 05/03/24 Complete 02:41 Troponin I High LAB 05/03/24 Complete Sensitivity 02:41 Urinalysis Profile LAB 05/03/24 Complete 02:41 Partial LAB 05/03/24 Complete Thromboplastin Time 02:41 Basic Metabolic Panel LAB 05/03/24 Complete 02:41 Troponin I High LAB 05/03/24 Complete Sensitivity 04:12 Covid Rna Naat LAB 05/03/24 In Process 04:13 Influenza Type A & B, LAB 05/03/24 In Process Rapid 04:13 Current Medications Medications (Trade) Dose Ordered Sig/James Route PRN Reason Start Time Stop Time Status Last Admin Dose Admin Lactated Ringer's 1,000 ml @ 0 mls/hr ONCE ONCE IV 05/03/24 03:00 05/03/24 03:01 DC 05/03/24 03:14 Vital Signs Date Time Temp Pulse Resp B/P (MAP) Pulse Ox O2 Delivery O2 Flow Rate FiO2 05/03/24 05:36 98.2 83 17 141/97 94 Nasal Cannula* 3 32 05/03/24 04:15 98.2 78 17 114/76 94 Nasal Cannula* 3 32 05/03/24 02:41 98.2 83 17 99/69 94 Room Air 3.0 05/03/24 02:40 98.2 83 17 99/69 94 Nasal Cannula* 3 32 DX & DISP Disposition: Discharge Departure Impression: Primary Impression: Generalized weakness Additional Impressions: Chronic atrial fibrillation, History of COPD Condition: Stable Additional Instructions: FOLLOW-UP WITH PRIMARY CARE PROVIDER IN 1 TO 2 DAYS. TAKE MEDICATIONS DIRECTED HERE IN THE EMERGENCY ROOM. OKAY TO CONTINUE HOME MEDICATIONS UNLESS OTHERWISE DISCUSSED DURING YOUR VISIT IN THE EMERGENCY ROOM TODAY. RETURN TO YOUR NEAREST EMERGENCY ROOM IF SYMPTOMS WORSEN OR IF THERE IS NO IMPROVEMENT. CALL 911 IF YOU NEED IMMEDIATE ASSISTANCE. TAKE TYLENOL [id number] NEEDED AND IF NO CONTRAINDICATIONS ARE PRESENT. INCREASE ORAL HYDRATION. A WOUND CULTURE OR URINE CULTURE WAS ORDERED HERE IN THE EMERGENCY ROOM DEPARTMENT PLEASE FOLLOW-UP WITH PRIMARY CARE PROVIDER AND ADVISE THEM TO GET REPEAT PORTS FROM OUR FACILITY. IF YOU HAD ANY CHAR WRAP/SPLINTS THAT WERE APPLIED HERE, PLEASE DO NOT REMOVE THEM UNTIL YOU SEE YOUR PRIMARY CARE OR SPECIALTY. REFERRALS: Referrals: MAUREEN MCLAUGHLIN MD (PCP) Time of Disposition: 05:52 EV BOLIVAR MD May 03, 2024 05:39
[2024-05-03 06:08] LABS: SARS-CoV-2, RNA, NAAT NEGATIVE SARS CoV-2 (NEGATIVE)
--- NOTE | 2024-05-03 07:09 | HMCIMG ---
CHEST 1VW HISTORY: Chest pain COMPARISON: 04/21/2024 FINDINGS: A frontal projection of the chest was obtained. There are bilateral pulmonary infiltrates suggestive of pulmonary vascular congestion with possible superimposed pneumonitis. The heart is borderline enlarged. Degenerative changes are seen. Aortic calcifications are seen. IMPRESSION: 1. Bilateral pulmonary infiltrates are seen suggestive of pulmonary vascular congestion with possible superimposed pneumonitis.
--- NOTE | 2024-05-03 15:54 | EKG ---
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
== END 2024-05-03 05:48 | disposition home or self-care (01) ==
LOC: EDBD 02:37 → EDH 02:37
DX: I48.20 Chronic atrial fibrillation, unspecified (principal); R53.1 Weakness; J44.9 Chronic obstructive pulmonary disease, unspecified; E11.9 Type 2 diabetes mellitus without complications; F17.200 Nicotine dependence, unspecified, uncomplicated; I10 Essential (primary) hypertension; Z20.822 Contact with and (suspected) exposure to COVID-19; Z79.02 Long term (current) use of antithrombotics/antiplatelets; Z79.899 Other long term (current) drug therapy; Z88.0 Allergy status to penicillin; Z95.5 Presence of coronary angioplasty implant and graft
CPT/HCPCS: 99285; 71045; 87635; 82550; 83735; 84484 ×2; 80048; 83880; 85025; 85610; 85730; 87804 ×2; 81001; 36415; 93005; J7120

== ENCOUNTER → 2024-05-12 | Outpatient (CLI) | payer MEDICARE | END | disposition home or self-care (01) | LOC: LAB 15:10 | PROVIDERS: ATTEND Internal Medicine Cardiovascular Disease | DX: E55.9 Vitamin D deficiency, unspecified (principal); R53.83 Other fatigue | CPT/HCPCS: 36415; 82306; 84443 ==

== ENCOUNTER 2024-06-13 14:22 | Inpatient (IN) | payer MEDICARE ==
[~2024-06-13] VITALS: Ht 170.2 cm; Wt 89.3 kg
[2024-06-13] VITALS (12 sets, daily range): BP systolic 103–114; BP diastolic 70–78; PULSE 60–89; RESP 15–33; TEMP 97.9–99.2; O2SAT 96–98
[~2024-06-13 14:22] MED LIST changes: +ALBU90AE3 IH; +ATEN50TA PO; +BUDE10.7 IH; +LORA-192 PO
--- NOTE | 2024-06-13 14:34 | ERN ---
ED Note History of Present Illness Stated Complaint: SOB Chief Complaint: Shortness of Breath Time Seen by MD: 14:24 Dictation: PATIENT IS A 73-YEAR-OLD MALE COMING IN VIA EMS FROM HOME WITH COMPLAINTS OF FEVER CHILLS SHORTNESS A BREATH AND GENERALIZED BODY WEAKNESS FOR THE LAST 2-3 DAYS. HE DENIES NAUSEA VOMITING OR DIARRHEA. STATES HE HAS A HISTORY OF COPD AND IS OXYGEN DEPENDENT AT 4 L PER NASAL CANNULA CONTINUOUSLY. STATES HE HAS BEEN FEELING CONTINUOUSLY MORE SHORT OF BREATH OVER THE LAST 3-4 DAYS. NO CHEST PAIN NO BACK PAIN CURRENTLY TEMPERATURE 102 TRIAGE Allergies: Coded Allergies: Penicillins (Verified Allergy, Unknown, 04/06/14) gluten (Unverified Allergy, Unknown, 03/06/16) Home Meds Active Scripts Clopidogrel Bisulfate (Plavix) 75 Mg Tablet, 75 MG PO DAILY, #90 TAB 1 Refill Prov:ZANDRA FU MD 01/25/21 Reported Medications Atenolol (Atenolol) 50 Mg Tablet, 1 TAB PO DAILY for 30 Days, #30 TAB 0 Refills 06/05/24 Budesonide/Glycopyr/Formoterol (Breztri Aerosphere Inhaler) 160 Mcg-9 Mcg-4.8 Mcg/Actuation Hfa.aer.ad, 2 PUFF IH BID for 30 Days, #10.7 GM 0 Refills 06/05/24 Albuterol Sulfate (Proair Digihaler) 90 Mcg Aer.pw.bas, 100 MCG IH QID PRN for SHORTNESS OF BREATH/WHEEZING 06/05/24 Lorazepam (Ativan) 1 Mg Tablet, 1 MG PO DAILY for ANXIETY, TAB 06/05/24 Furosemide (Furosemide) 20 Mg Tablet, 20 MG PO AM, TAB 04/21/24 Empagliflozin (Jardiance) 10 Mg Tablet, 10 MG PO AM, TAB 04/21/24 Potassium Chloride (Potassium Chloride) 10 Meq Capsule.er, 10 MEQ PO AM, CAP 04/21/24 Docusate Sodium (Docusate Sodium) 100 Mg Capsule, 300 MG PO HSPRN PRN for CO NSTIPATION, CAP 03/01/24 Clonazepam (Clonazepam) 1 Mg Tablet, 1 MG PO [id number] PRN for ANXIETY, TAB 02/29/24 Budesonide (Budesonide) 0.25 Mg/2 Ml Ampul.neb, 0.25 MG IH BID 02/28/24 Arformoterol Tartrate (Arformoterol Tartrate) 15 Mcg/2 Ml Vial.neb, 15 MCG IH BID, INH 02/28/24 [Yulpelri] No Conflict Check, 175 MCG IH DAILY 02/28/24 Ipratropium/Albuterol Sulfate (Iprat-Albut 0.5-3(2.5) mg/3 ml) 0.5 Mg-3 Mg (2.5 Mg Base)/3 Ml Ampul.neb, 1 VIAL NEB TID 02/27/24 Digoxin (Digoxin) 125 Mcg (0.125 Mg) Tablet, 125 MCG PO DAILY, TAB 02/26/24 Atorvastatin Calcium (LIPITOR) 40 Mg Tablet, 40 MG PO HS, TAB 02/26/24 Montelukast Sodium (Montelukast Sodium) 10 Mg Tablet, 10 MG PO HS, TAB 02/26/24 Rivaroxaban (Xarelto) 20 Mg Tablet, 20 MG PO HS, TAB 02/26/24 Fluoxetine HCl (Fluoxetine HCl) 20 Mg Capsule, 40 MG PO DAILY, CAP 07/19/23 Pantoprazole Sodium (Pantoprazole Sodium) 40 Mg Tablet.dr, 40 MG PO DAILY, TAB 11/25/22 Atenolol (Atenolol) 25 Mg Tablet, 25 MG PO DAILY, TAB 01/22/21 Levocetirizine Dihydrochloride (Levocetirizine Dihydrochloride) 5 Mg Tablet, 5 MG PO HS, TAB 12/30/20 Past Medical History Past Medical History: A-Fib, COPD, Hypertension Additional Past Medical Hx: DVT Surgical History: Other Surgical History Other: CARDIAC STENTS Social History: Smokers, Lives with family RN Note Reviewed/Agreed w/PFSH: Yes Review of System Dictation CONSTITUTIONAL: NEGATIVE EXCEPT FOR HPI FEVER CHILLS GENERALIZED BODY WEAKNESS HEAD/FACE: NEGATIVE EXCEPT FOR HPI EENT: NEGATIVE EXCEPT FOR HPI RESPIRATORY: NEGATIVE EXCEPT FOR HPI SHORTNESS A BREATH GASTROINTESTINAL/ABDOMINAL: NEGATIVE EXCEPT FOR HPI GENITOURINARY: NEGATIVE EXCEPT FOR HPI MUSCULOSKELETAL: NEGATIVE EXCEPT FOR HPI INTEGUMENTARY: NEGATIVE EXCEPT FOR HPI NEUROLOGICAL/PSYCH: NEGATIVE EXCEPT FOR HPI HEMATOLOGIC/LYMPHATIC: NEGATIVE EXCEPT FOR HPI ALL SYSTEMS NEGATIVE, EXCEPT NOTED ABOVE. 13 POINT REVIEW OF SYSTEMS ASSESSED AND ALL NEGATIVE EXCEPT FOR ABOVE. Initial Vital Sign VS Vital Signs Date Time Temp Pulse Resp B/P (MAP) Pulse Ox O2 Delivery O2 Flow Rate FiO2 06/13/24 14:26 102.4 104 24 97/65 82 Room Air 06/13/24 14:45 0 21 Physical Exam Dictation VITAL SIGNS REVIEWED GENERAL APPEARANCE: ALERT, ORIENTED X 3, MILD DISTRESS, APPEARS VERY WEAK AND DEBILITATED. HEAD AND FACE: NON-TRAUMATIC. EYES: PERRL, PINK CONJUNCTIVAS, EYELID NO TRAUMA, ANTERIOR CHAMBER WITH ARCUS SENILIS. EARS: PINNAS INTACT AND NO SIGNS OF TRAUMA OR ERYTHEMA EAR CANALS CLEAR AND NO DISCHARGE TM NO ERYTHEMA NOSE: NO DISCHARGE, NO BLEEDING. OROPHARYNX: MOUTH NORMAL, TONGUE PINK, PHARYNX CLEAR,NO ERYTHEMA, TONSILS NO EXUDATES, NO ABSCESSES NOTED, MUCOUS MEMBRANE MOIST NECK: SUPPLE, NON-TENDER, NO THYROMEGALY, NO MASSES, NO JVD, NO BRUITS BREAST:DEFERRED CHEST:NO TENDERNESS, NO CREPITUS, NO PARADOXICAL MOVEMENT, NO RETRACTIONS LUNGS:CLEAR, WELL-VENTILATED, SYMMETRIC, NO RALES, NO WHEEZING, NO TACHYPNEA, BILATERAL BREATH SOUNDS CLEAR DIMINISHED IN BASES. HEART: REGULAR RATE, REGULAR RHYTHM, NO MURMUR, NO GALLOPS VASCULAR: TRACE PERIPHERAL EDEMA, ABDOMEN: SOFT, POSITIVE BOWEL SOUNDS, NONDISTENDED, NO GUARDING, NONTENDER, NO REBOUND, NO MASSES NO HEPATOMEGALY, NO SPLENOMEGALY, NO VENTURA'S SIGN, NO HERNIAS. RECTAL: DEFERRED GENITAL: DEFERRED NEUROLOGICAL: NORMAL SPEECH, MOTOR FUNCTION INTACT, SENSORY FUNCTION INTACT MUSCULOSKELETAL: NECK NONTENDER, FULL RANGE OF MOTION, BACK NONTENDER, FULL RANGE OF MOTION, EXTREMITIES: NONTENDER, FULL RANGE OF MOTION SKIN: COLOR PINK, DRY, NO TURGOR, NO RASH, NO LACERATIONS, NO ABRASIONS, NO CONTUSIONS. LYMPHATIC: DEFERRED Results (Laboratory/Radiology) Laboratory/Radiology Laboratory Tests Test 06/13/24 14:34 06/13/24 14:44 Influenza Type A Antigen Negative For Type A Influenza Type B Antigen Negative For Type B SARS-CoV-2 Antigen (Rapid) PRESUMPTIVE NEGATIVE White Blood Count 21.0 K/uL (4.8-10.8) H Red Blood Count 5.55 MIL/uL (4.50-6.20) Hemoglobin 15.9 g/dL (14.0-18.0) Hematocrit 48.0 % (42-54) Mean Corpuscular Volume 86.5 fL (79-99) Mean Corpuscular Hemoglobin 28.6 pg (27.0-33.0) Mean Corpuscular Hemoglobin Concent 33.1 g/dL (32.0-36.0) Red Cell Distribution Width 14.3 % (11.0-15.5) Platelet Count 404 K/uL (130-400) H Mean Platelet Volume 9.6 fL (7.5-10.5) Immature Granulocyte % (Auto) 0.5 % (0-1) Neutrophils (%) (Auto) 82.4 % (40.0-77.0) H Lymphocytes (%) (Auto) 8.4 % (21.0-51.0) L Monocytes (%) (Auto) 7.8 % (3.0-13.0) Eosinophils (%) (Auto) 0.2 % (0.0-8.0) Basophils (%) (Auto) 0.7 % (0.0-5.0) Neutrophils # (Auto) 17.3 K/uL (1.8-7.7) H Lymphocytes # (Auto) 1.8 K/uL (1.0-4.8) Monocytes # (Auto) 1.7 K/uL (0.1-1.0) H Eosinophils # (Auto) 0.05 K/uL (0.00-0.70) Basophils # (Auto) 0.15 K/uL (0.00-0.20) Absolute Immature Granulocyte (auto 0.11 K/uL (0-1) Nucleated Red Blood Cells 0.0 % (0.0-0.19) White Cell Morphology Comment See comments Sodium Level 136 mmol/L (136-145) Potassium Level 4.2 mmol/L (3.5-5.1) Chloride Level 100 mmol/L (101-111) L Carbon Dioxide Level 24 mmol/L (21-32) Blood Urea Nitrogen 20 mg/dL (7-18) H Creatinine 0.8 mg/dL (0.5-1.3) Glomerular Filtration Rate Calc 95 mL/min (>90) Random Glucose 160 mg/dL (70-105) H Lactic Acid Level 3.0 mmol/L (0.8-2.5) H Total Calcium 9.1 mg/dL (8.5-10.1) Troponin I High Sensitivity 84 ng/L (4-75) *H B-Type Natriuretic Peptide 868 pg/mL (0-100) H CHEST 1VW HISTORY: Shortness of breath COMPARISON: None FINDINGS: A frontal projection of the chest was obtained. There are bilateral pulmonary infiltrates suggestive of pulmonary vascular congestion with possible superimposed pneumonitis. The heart is borderline enlarged. Degenerative changes are seen. No evidence of aortic calcification is seen. IMPRESSION: 1. Bilateral pulmonary infiltrates are seen suggestive of pulmonary vascular congestion with possible superimposed pneumonitis. Labs Reviewed?: Yes EKG Comment: EKG ATRIAL FIBRILLATION/VENTRICULAR HEART RATE 106/NONSPECIFIC INTRA CONDUCTOR VENTRICULAR DELAY ED Course ED Course Orders Procedure Category Date Status Time Covid19 (Sars Antigen LAB 06/13/24 Complete Rapid) 14:28 Influenza Type A & B, LAB 06/13/24 Complete Rapid 14:28 Acetaminophen 500mg PHA 06/13/24 Complete Tab (Tylenol 500mg T 14:30 Cbc With Differential LAB 06/13/24 Complete 14:30 Blood Cult LOLLY 06/13/24 In Process 14:30 Urinalysis Profile LAB 06/13/24 Logged 14:30 Troponin I High LAB 06/13/24 Complete Sensitivity 14:30 B-Type Natriuretic LAB 06/13/24 Complete Peptide 14:30 Lactic Acid LAB 06/13/24 Complete 14:30 Basic Metabolic Panel LAB 06/13/24 Complete 14:30 Chest 1vw RAD 06/13/24 Resulted 14:30 Oxygen By Nc/Pulse Ox CPOE 06/13/24 Transmitted 14:31 12 Lead Ekg Tracing- EKG 06/13/24 Logged Technical 14:36 Ibuprofen 800 Mg Tab PHA 06/13/24 Complete (Motrin) 15:30 Ipratropium/Albuterol PHA 06/13/24 Complete Neb (Duoneb) 15:30 Levofloxacin 750 PHA 06/13/24 Complete Mg/D5w 150 Ml 15:30 Bipap Settings RT 06/13/24 Transmitted 15:44 Norepinephrin 4mg/Ns PHA 06/13/24 In Process 250ml (Levophed 4mg 16:00 Norepinephrin 4mg/Ns PHA 06/13/24 Complete 250ml (Levophed 4mg 15:46 0.9% Nacl 500ml PHA 06/13/24 Complete Iv.Soln (Ns 500ml 16:00 Norepinephrin 4mg/Ns PHA 06/13/24 In Process 250ml (Levophed 4mg 16:00 Nurse Driven Lovelace DIOGENES 06/13/24 In Process Removal Pro 15:50 Critcal Care Consult CONPHYSVC 06/13/24 Transmitted 16:00 Current Medications Medications (Trade) Dose Ordered Sig/James Route PRN Reason Start Time Stop Time Status Last Admin Dose Admin Acetaminophen (TYLenol 500MG TAB) 1,000 mg ONCE ONCE PO 06/13/24 14:30 06/13/24 14:31 DC Albuterol (DUOneb) 1 udvial ONCE ONCE IH 06/13/24 15:30 06/13/24 15:31 DC 06/13/24 15:20 Ibuprofen (moTRIN) 800 mg ONCE ONCE PO 06/13/24 15:30 06/13/24 15:31 DC 06/13/24 15:20 Levofloxacin/ Dextrose (LEvaquIN 750 MG/ D5W 150 ML) 750 mg ONCE ONCE IV 06/13/24 15:30 06/13/24 15:31 DC 06/13/24 15:21 Norepinephrine 250 ml @ As Directed STK-MED ONCE IV 06/13/24 15:46 06/13/24 15:46 DC Norepinephrine 250 ml @ 0 mls/hr PROTOCOL IV 06/13/24 16:00 07/13/24 15:59 06/13/24 16:00 Norepinephrine 250 ml @ 0 mls/hr PROTOCOL IV 06/13/24 16:00 07/13/24 15:59 Sodium Chloride 500 ml @ 0 mls/hr ONCE ONCE IV 06/13/24 16:00 06/13/24 16:01 DC Vital Signs Date Time Temp Pulse Resp B/P (MAP) Pulse Ox O2 Delivery O2 Flow Rate FiO2 06/13/24 16:00 81/54 06/13/24 15:27 89 22 06/13/24 15:27 89 19 50 06/13/24 15:20 102.0 06/13/24 14:45 106 26 100/62 82 Room Air* 0 21 06/13/24 14:26 102.4 104 24 97/65 82 Room Air FIFTEEN 12, PATIENT TACHYPNEIC 20-24/MIN A MINUTE WITH RESPIRATIONS MILDLY LABORED. PATIENT WILL BE PLACED ON BIPAP AND WE WILL BE GIVEN DUONEB AND WE WILL BE TREATED FOR SEPSIS WITH LEVAQUIN AND PATIENT WILL BE ADMITTED PATIENT IN HIS ARE AWARE. 5 50, PATIENT 89/42 AND TACHYCARDIC WITH ATRIAL FIBRILLATION RAPID VENTRICULAR RESPONSE. HE HAS BEEN GIVEN 500 OF NORMAL SALINE AND LEVAQUIN 750 FOR SEPSIS AND BILATERAL PNEUMONITIS. HE WILL BE STARTED ON LEVOPHED DRIP PATIENT ON BIPAP AND WE WILL BE ADMITTED TO THE HOSPITAL. [address] CARDOSO AND REVIEWED CHEST X-RAY LABS INTERVENTIONS FOR HYPOTENSION AND SEPSIS TO INCLUDE 500 NORMAL SALINE, LEVOPHED DRIP AND LEVAQUIN. HE REQUESTED I SPEAK TO FOR CRITICAL CARE CONSULTATION PAGED PLACED TO THEM. HEART Score Response (Comments) Value Age: > 65yrs (+2) 2 Risk Factors: 3+ risk factors (+2) 2 Initial Troponin: 1-3x Normal Limit (+1) 1 Total 5 Medical Decision Making MDM MDM: DIFFERENTIAL DIAGNOSIS: SEPSIS/PNEUMONIA/BRONCHITIS/URINARY TRACT INFECTION/ELECTROLYTE IMBALANCE/DEHYDRATION/FLUID OVERLOAD/SARS/INFLUENZA RATIONALE: TESTS CONSIDERED AND ORDERED SECONDARY TO SHARED DECISION MAKING INCLUDE: LABS, ECG AND RADIOLOGY PREVIOUS OUTSIDE RECORDS REVIEWED: OLD ER VISITS. REVIE MEDICATIONS-PER MEDICATION RECONCILIATION NEED FOR HOSPITALIZATION: PATIENT DOES MEET CRITERIA FOR HOSPITALIZATION. PATIENT WILL NEED BE ADMITTED TO ICU ON LEVOPHED DRIP FOR HYPOTENSION SECONDARY TO SEPSIS AND ATRIAL FIBRILLATION WITH A RVR. NEED FOR EMERGENCY MAJOR/MINOR SURGERY: NO THERE ARE NO SOCIAL CONCERNS WITH THIS PATIENT. PRESCRIPTION DRUG MANAGEMENT PRESCRIPTIONS WILL INCLUDE SYMPTOMATIC CARE PATIENT'S PRIOR EXTERNAL MEDICAL RECORDS FROM OTHER ER VISITS WERE REVIEWED BY ME INDICATED. PRIOR TESTING AND RESULTS FROM PREVIOUS VISITS WERE REVIEWED. PRIOR TESTS WERE TAKEN INTO ACCOUNT WITH MEDICAL DECISION MAKING AND RESOURCE UTILIZATION, INDEPENDENT HISTORIAN/HISTORIANS WERE USED TO OBTAIN COMPLETE MEDICAL HISTORY. I INDEPENDENTLY INTERPRETED THE TEST THAT WERE PERFORMED, RESULTS WERE REVIEWED BY ME AND CONSIDERED FINDINGS ON RADIOLOGY IF ORDERED. MEDICAL MANAGEMENT AND EXAMINATION INTERPRETATION DISCUSSIONS WERE HAD BY ME WITH OTHER QUALIFIED HEALTHCARE PROFESSIONALS INDICATED FOR THE PATIENT'S CARE. DX & DISP Disposition: Inpatient Departure Impression: Primary Impression: Bilateral pneumonia Additional Impressions: Fluid overload, Chronic atrial fibrillation with rapid ventricular response, Uncontrolled diabetes mellitus, Sepsis, Acute and chronic respiratory failure ([id number]), Supplemental oxygen dependent Condition: Stable Referrals: MAUREEN MCLAUGHLIN MD (PCP) BRITTNEY TAMEZ NP Jun 13, 2024 14:34
[2024-06-13 14:51] LABS: BASOPHILS # (AUTO) 0.15 K/uL (0.00-0.20); BASOPHILS % (AUTO) 0.7 % (0.0-5.0); EOSINOPHILS # (AUTO) 0.05 K/uL (0.00-0.70); EOSINOPHILS % (AUTO) 0.2 % (0.0-8.0); IMMATURE GRANULOCYTE ABSOLUTE 0.11 K/uL (0-1); LYMPHOCYTES # (AUTO) 1.8 K/uL (1.0-4.8); LYMPHOCYTES % (AUTO) 8.4 % (21.0-51.0); MEAN CORPUSCULAR HEMOGLOBIN 28.6 pg (27.0-33.0); MEAN CORPUSCULAR HGB CONC 33.1 g/dL (32.0-36.0); MEAN CORPUSCULAR VOLUME 86.5 fL (79-99); MONOCYTES # (AUTO) 1.7 K/uL (0.1-1.0); MONOCYTES % (AUTO) 7.8 % (3.0-13.0); NEUTROPHILS # (AUTO) 17.3 K/uL (1.8-7.7); NEUTROPHILS % (AUTO) 82.4 % (40.0-77.0); PLATELET COUNT (AUTO) 404 K/uL (130-400); RED BLOOD CELL COUNT(AUTO) 5.55 MIL/uL (4.50-6.20); RED CELL DISTRIBUTION WIDTH 14.3 % (11.0-15.5)
[2024-06-13 15:00] LABS: COVID19 (SARS ANTIGEN RAPID) PRESUMPTIVE NEGATIVE (NEGATIVE); INFLUENZA TYPE A Negative For Type A (NEGATIVE); INFLUENZA TYPE B Negative For Type B (NEGATIVE)
[2024-06-13 15:11] LABS: CREATININE 0.8 mg/dL (0.5-1.3); POTASSIUM 4.2 mmol/L (3.5-5.1)
[2024-06-13] MEDS: ibuPROFEN 800 MG TAB PO ONE (15:20)
[2024-06-13] MEDS: IpraTROPium/alBUTERol SULFATE 3 ML SOLUTION IH ONE (15:20)
[2024-06-13] MEDS: levoFLOXacin 750 MG/D5W 150ML BAG IV ONE (15:21)
--- NOTE | 2024-06-13 15:21 | HMCIMG ---
CHEST 1VW HISTORY: Shortness of breath COMPARISON: None FINDINGS: A frontal projection of the chest was obtained. There are bilateral pulmonary infiltrates suggestive of pulmonary vascular congestion with possible superimposed pneumonitis. The heart is borderline enlarged. Degenerative changes are seen. No evidence of aortic calcification is seen. IMPRESSION: 1. Bilateral pulmonary infiltrates are seen suggestive of pulmonary vascular congestion with possible superimposed pneumonitis.
[2024-06-13 15:27] LABS: B-TYPE NATRIURETIC PEPTIDE 868 pg/mL (0-100)
[2024-06-13] MEDS: acetaMINOPHEN 500 MG TABLET PO ONE (15:37)
[2024-06-13] MEDS: NOREPINEPHRIN 4MG/NS 250ML 250 ML IV SCH (16:00)
[2024-06-13] MEDS ORDERED: NOREPINEPHRIN 4MG/NS 250ML 250 ML IV SCH (16:00)
[2024-06-13] MEDS: NOREPINEPHRIN 4MG/NS 250ML 250 ML IV ONE (16:00)
[2024-06-13] MEDS ORDERED: VANCOMYCIN HCL 1.5 GM/250 ML BAG IV ONE (16:30)
[2024-06-13] MEDS: 0.9% NACL 500ML IV.SOLN 500 ML IV ONE (16:32)
[2024-06-13] MEDS: Solu-medROL 40MG VIAL IVP SCH (16:33)
--- NOTE | 2024-06-13 16:45 | NUR ---
MD LANTIGUA AT BEDSIDE SPEAKING WITH PATIENT AND SPOUSE./ARIE
--- NOTE | 2024-06-13 16:56 | EKG ---
[facility] Test Date: 2024-06-13 Test Time: 14:44:19 Pat Name: LUDWIN BAE Department: [facility] Room: 211 Gender: M Religious Healer: [id number] : 1950 Requested By: BRITTNEY TAMEZ Order Number: [id number] Reading MD: Jake Islas Measurements Intervals [place] Rate: 106 P: 0 CT: 0 QRS: 115 QRSD: 99 T: -89 QT: 355 QTc: 471 Interpretive Statements Atrial fibrillation Probable right ventricular hypertrophy Repol abnrm suggests ischemia, anterolateral Compared to ECG 06/05/2024 11:35:45 No significant changes Electronically Signed On 06-15-2024 21:34:12 ASSOCIATE PROFESSOR OF LIBRARY SCIENCE by Jake Islas Please click the below link to view image of tracing.
[2024-06-13 17:00] LABS: ABG BASE EXCESS -3.3 mmol/L (-2.0-3.0); ABG HCO3 19.4 mmol/L (21.0-28.0); ABG OXYGEN SATURATION 98.3 % (94.0-98.0); ABG PCO2 29 mmHg (35-48); ABG PH 7.441 (7.350-7.450); PO2, ARTERIAL BG 111.1 mmHg (83.0-108.0); VENT MODE, BG BIPAP 16-6 (ROOM AIR)
[2024-06-13 17:38] LABS: ADD UA MICROSCOPIC YES; APPEARANCE,URINE CLEAR (CLEAR); BILIRUBIN,URINE NEGATIVE (NEGATIVE); COLOR,URINE LIGHT-YELLOW (YELLOW); GLUCOSE, URINE (UA) >=1000 mg/dL (NEGATIVE); KETONES,URINE NEGATIVE (NEGATIVE); LEUKOCYTE ESTERASE ,URINE NEGATIVE Leu/uL (NEGATIVE); NITRATE,URINE NEGATIVE (NEGATIVE); PROTEIN,URINE 30 mg/dL (NEGATIVE); UROBILINOGEN,URINE 0.2 mg/dL (0.2-1.0)
[2024-06-13] MEDS: VANCOMYCIN 1.5 GM/250 ML BAG 250 ML IV SCH (17:53)
[2024-06-13] MEDS: 0.9%NACL 1000ML 1,000 ML IV SCH (17:54)
[2024-06-13 18:01] LABS: BACTERIA,URINE RARE /HPF (None Seen); SQUAMOUS EPITHELIAL CELL,UR RARE /HPF (0-2)
[2024-06-13] MEDS: IpraTROPium/alBUTERol SULFATE 3 ML SOLUTION IH SCH (18:27)
[2024-06-13] MEDS ORDERED: PRED20TA3 PO (19:12)
--- NOTE | 2024-06-13 19:37 | NUR ---
CALLED [facility] PRETTY TO NOTIFY OF DECREASING LACTIC ACID LEVELS, NO FURTHER ORDERS GIVEN AT THIS TIME./ARIE
[2024-06-13] MEDS: MEROPENEM 1 GM VIAL ONE (21:56)
[2024-06-13] MEDS: MEROPENEM 1 GM in 0.9%NACL 100ML 100 ML IVPB SCH (21:57)
--- NOTE | 2024-06-13 23:15 | CONS ---
[facility] CONSULTATION NOTE Date Patient Seen: Jun 13, 2024 Time of Visit: 23:06 Supervising Physician: BABS LANTIGUA MD Reason for Consultation: respiratory failure Primary Care Physician: [ ] Outpatient Specialists: [ ] Inpatient Consults: [facility] PROBLEM LIST: 1. Acute hypercarbic hypoxic respiratory failure on admission 2. Acute COPD exacerbation on admission 3. Community acquired pneumonia 4. Hypertension 5. Atrial fibrillation 6. Diastolic heart failure, EF: 50% 7. Hypertensive heart disease 8. Tobacco use disorder 9. Emphysema secondary to chronic tobacco use disorder 10. Obesity, BMI 28 11. Hyperlipidemia 12. Critical illness myopathy 13. End stage pulmonary fibrosis 14. Bilateral bronchiectasis 15. End stage chronic lung disease HPI: [The patient is a 73 years old man. Presented to the emergency department complaining of fever, chills and progressive generalized weakness over the last three days. Patient had been here in this hospital approximately seven days ago complaining of shortness of breath he was treated and discharged home from the ER after two days. He mentions that he never felt quite well and he was getting worse and now he presents with worsening shortness of breath and cough with congestion. I personally reviewed the CT scan of the chest showing evidence of bilateral bronchiectasis, fibrosis and underlying COPD changes with superimposed pneumonia. Patient is septic at the time of admission with an elevated lactic acid level, elevated white blood cell count and fever. ] PAST MEDICAL HX: COPD, chronic respiratory failure on home O2, hypertension, obesity, hypertensive heart disease, emphysema, bronchiectasis PAST SURGICAL HX: noncontributory SOCIAL HISTORY: Tobacco use disorder Coded Allergies: Penicillins (Verified Allergy, Unknown, 04/06/14) gluten (Unverified Allergy, Unknown, 03/06/16) REVIEW OF SYSTEMS: 12 point ROS reviewed with patient. Pertinent positives mentioned above. Otherwise negative. PHYSICAL EXAM: GENERAL: alert, weak, awake oriented x 3 HEENT: EOMI, Sclera non icteric, moist mucosa NECK: Supple, no JVD, trachea midline LUNGS: Patient on BiPAP continuously during my evaluation with FiO2 of 70%, la bored breathing with tachypnea. Decreased breath sounds bilaterally with expiratory wheezing and bilateral crackles HEART: Regular rate and rhythm. Normal S1 and S2, without murmurs ABD: Abdomen soft, nontender. Bowel sounds present EXT: No clubbing cyanosis or edema NEURO: Alert and oriented to person, follows commands Vital Signs (last 8hr) Date Time Temp Pulse Resp B/P (MAP) Pulse Ox O2 Delivery O2 Flow Rate FiO2 06/13/24 22:00 62 17 116/74 98 Bi-PAP+ 50 06/13/24 21:45 66 19 115/77 98 Bi-PAP+ 50 06/13/24 21:30 69 20 118/83 98 Bi-PAP+ 50 06/13/24 21:15 68 20 118/73 98 Bi-PAP+ 50 06/13/24 21:00 72 22 115/75 98 Bi-PAP+ 50 06/13/24 20:45 71 22 95/68 98 Bi-PAP+ 50 06/13/24 20:30 77 21 105/70 98 Bi-PAP+ 50 06/13/24 20:15 72 20 108/64 98 Bi-PAP+ 50 06/13/24 20:00 72 20 106/68 98 Bi-PAP+ 50 06/13/24 19:45 82 20 106/71 98 Bi-PAP+ 50 06/13/24 19:30 75 20 112/71 98 Bi-PAP+ 50 06/13/24 19:15 79 20 103/74 98 Bi-PAP+ 50 06/13/24 19:02 88 19 40 06/13/24 19:00 81 20 96/61 98 Bi-PAP+ 50 06/13/24 18:41 99.5 82 21 104/67 98 Bi-PAP+ 50 06/13/24 18:29 88 22 06/13/24 18:15 85 21 88/61 98 Bi-PAP+ 50 06/13/24 18:05 86 23 93/58 98 Bi-PAP+ 50 06/13/24 17:55 87 21 101/49 98 Bi-PAP+ 50 06/13/24 17:40 99.3 92 24 99/71 98 Bi-PAP+ 50 06/13/24 17:30 90 21 112/62 98 Bi-PAP+ 50 06/13/24 17:20 92 21 108/61 98 Bi-PAP+ 50 06/13/24 17:10 89 22 96/66 98 Bi-PAP+ 50 06/13/24 17:00 40 06/13/24 16:55 89 22 123/76 98 Bi-PAP+ 50 06/13/24 16:40 90 22 100/67 98 Bi-PAP+ 50 06/13/24 16:25 90 21 109/79 98 Bi-PAP+ 50 06/13/24 16:10 92 21 103/73 98 Bi-PAP+ 50 06/13/24 16:00 81/54 06/13/24 15:55 99.1 110 23 100/68 97 Bi-PAP+ 50 06/13/24 15:45 89 20 81/54 97 Bi-PAP+ 50 06/13/24 15:30 95 23 99/56 96 Bi-PAP+ 50 06/13/24 15:27 89 22 06/13/24 15:27 89 19 50 06/13/24 15:20 102.0 06/13/24 15:15 96 26 91/54 96 Non-Rebreather+ 15 100 LABS: Hematology Labs: Test 06/13/24 14:44 Range/Units White Blood Count 21.0 H 4.8-10.8 K/uL Red Blood Count 5.55 4.50-6.20 MIL/uL Hemoglobin 15.9 14.0-18.0 g/dL Hematocrit 48.0 42-54 % Mean Corpuscular Volume 86.5 79-99 fL Mean Corpuscular Hemoglobin 28.6 27.0-33.0 pg Mean Corpuscular Hemoglobin Concent 33.1 32.0-36.0 g/dL Red Cell Distribution Width 14.3 11.0-15.5 % Platelet Count 404 H 130-400 K/uL Mean Platelet Volume 9.6 7.5-10.5 fL Immature Granulocyte % (Auto) 0.5 0-1 % Neutrophils (%) (Auto) 82.4 H 40.0-77.0 % Lymphocytes (%) (Auto) 8.4 L 21.0-51.0 % Monocytes (%) (Auto) 7.8 3.0-13.0 % Eosinophils (%) (Auto) 0.2 0.0-8.0 % Basophils (%) (Auto) 0.7 0.0-5.0 % Neutrophils # (Auto) 17.3 H 1.8-7.7 K/uL Lymphocytes # (Auto) 1.8 1.0-4.8 K/uL Monocytes # (Auto) 1.7 H 0.1-1.0 K/uL Eosinophils # (Auto) 0.05 0.00-0.70 K/uL Basophils # (Auto) 0.15 0.00-0.20 K/uL Absolute Immature Granulocyte (auto 0.11 0-1 K/uL Nucleated Red Blood Cells 0.0 0.0-0.19 % White Cell Morphology Comment See comments Chemistry Labs: Test 06/13/24 18:58 06/13/24 14:44 Range/Units Lactic Acid Level 2.6 H 0.8-2.5 mmol/L Sodium Level 136 136-145 mmol/L Potassium Level 4.2 3.5-5.1 mmol/L Chloride Level 100 L 101-111 mmol/L Carbon Dioxide Level 24 21-32 mmol/L Blood Urea Nitrogen 20 H 7-18 mg/dL Creatinine 0.8 0.5-1.3 mg/dL Glomerular Filtration Rate Calc 95 >90 mL/min Random Glucose 160 H 70-105 mg/dL Total Calcium 9.1 8.5-10.1 mg/dL Troponin I High Sensitivity 84 *H 4-75 ng/L B-Type Natriuretic Peptide 868 H 0-100 pg/mL DIAGNOSTICS / RADIOLOGY RESULTS: [CT scan of the chest reviewed, patient has bilateral pulmonary infiltrates on the x-ray with underlying cardiomegaly and small pleural effusions bilaterally however the most impressive findings are on the CT scan of the chest showing bronchiectasis throughout both lung alexander, extensive COPD changes with pulmonary fibrosis and superimposed interstitial infiltrates. Honeycomb pattern through out both lung alexander ] PLAN Admit patient to the intensive care unit Continue with BiPAP as indicated Start cefepime and vancomycin Patient was hypotensive and was started on Levophed, he will continue on Le vophed as indicated High dose IV Solu-Medrol After my evaluation and discussion of findings with the family and patient, I discussed advance directives including DNR and DNI At present time, patient remains full code NEURO: Minimize central acting medications as possible. Maintain fall precautions, adequate lighting during the day PULMONARY: Supplemental 02 as needed. Maintain aspiration precautions at all times CARDIOVASCULAR: Follow hemodynamics. Vital signs per facility protocol GI & NUTRITION: Continue with nutritional support. Continue stool softeners and laxatives as needed. KIDNEYS & ELECTROLYTES: Strict monitoring of intake, output and overall fluid balance. Avoid nephrotoxic medications to the extent possible. Medications to be dosed according to renal function. Monitor electrolytes and replace as needed ENDOCRINE: Maintain blood glucose between 100-180 at all times. Hypoglycemia protocol in place INFECTIOUS DISEASE: Trend temperature, WBC and procalcitonin level Follow cultures, deescalate antibiotics as soon as possible. Panculture if new onset fever ONCOLOGY/HEMATOLOGY/COAGULATION: Monitor for s/s of bleeding Monitor hemoglobin, coagulation studies as needed SKIN: Pressure ulcer prevention per facility protocol Specialty mattress ORTHO/REHAB: Continue PT/OT Prophylaxis: Continue GI and DVT prophylaxis Code Status: Full Resuscitation Disposition: TBD Other: Total patient care time exceeds 65 minutes excluding all procedures. ATTESTATION BY PHYSICIAN Consult note scribed by Rohan Levine, medical donation professional. I can attest to the accuracy of the note. Babs Lantigua MD I personally scribed for BABS LANTIGUA MD ([email or web address]) on 06/13/24 at 23:15. Electronically submitted by Rohan Levine ([email or web address]). BABS LANTIGUA MD Jun 13, 2024 23:15
[2024-06-14] VITALS (136 sets, daily range): BP systolic 82–127; BP diastolic 32–81; PULSE 47–97; RESP 5–60; TEMP 97.5–98.1; O2SAT 93–99
[2024-06-14 04:17] LABS: HEMATOCRIT 45.6 % (42-54); MEAN CORPUSCULAR HEMOGLOBIN 28.8 pg (27.0-33.0); MEAN CORPUSCULAR HGB CONC 32.2 g/dL (32.0-36.0); MEAN CORPUSCULAR VOLUME 89.2 fL (79-99); RED BLOOD CELL COUNT(AUTO) 5.11 MIL/uL (4.50-6.20); RED CELL DISTRIBUTION WIDTH 14.4 % (11.0-15.5); WHITE BLOOD COUNT (AUTO) 14.7 K/uL (4.8-10.8)
[2024-06-14 04:30] LABS: ALBUMIN 2.5 g/dL (3.5-5.0); BILIRUBIN,TOTAL 0.7 mg/dL (0.2-1.0); CREATININE 0.7 mg/dL (0.5-1.3); MAGNESIUM 1.8 mg/dL (1.80-2.40); POTASSIUM 4.3 mmol/L (3.5-5.1); TOTAL PROTEIN, SERUM 6.4 g/dL (6.0-8.3)
[2024-06-14] MEDS: MAGNESIUM 2GM PREMIX 50ML 50 ML IV ONE (05:08)
[2024-06-14] MEDS ORDERED: PoTASSium chl 10% ELIXIR 20MEQ 20 MEQ/15 ML UDCUP PO PRN (05:30)
[2024-06-14] MEDS ORDERED: PoTASSium chloRIDE 10MEQ/100ML 100 ML IV PRN (05:30)
[2024-06-14] MEDS ORDERED: PHARMACY COMMUNICATION MISC SCH (07:00)
[2024-06-14] MEDS ORDERED: VANCOMYCIN PROTOCOL PER PHARMACY IV SCH (07:00)
[2024-06-14] MEDS: PANTOPrazole 40 MG/VIAL IVP SCH (08:10)
[2024-06-14] MEDS: VANCOMYCIN 2GM/500 ML BAG 500 ML IV ONE (08:10)
[2024-06-14] MEDS: RIVAROXABAN 20 MG TABLET PO SCH (08:11)
[2024-06-14] MEDS: MEROPENEM 1 GM VIAL IVPB SCH (09:52)
--- NOTE | 2024-06-14 10:04 | NUR ---
NURSING NOTES TOMBSTONE ERECTOR NURSE RECEIVED AN ORDER TO CHANGE ADMITTING MD TO DR. MCLAUGHLIN, I CALLED ANSWERING SERVICE TO NOTIFY DR. MCLAUGHLIN BUT I WAS TOLD THAT DR. CARDOSO IS PLATE TAKE OUT WORKER WHICH IS WHO THIS PT WAS INITIALLY ADMITTED TO. PT WILL REMAIN UNDER DR. CARDOSO'S SERVICES FOR TODAY. WILL PASS ON REPORT TO NOTIFY DR. MCLAUGHLIN ON SATURDAY.
--- NOTE | 2024-06-14 17:28 | PN ---
[facility] PROGRESS NOTE Date Patient Seen: Jun 14, 2024 Time of Visit: 17:22 Supervising Physician:Dr. Carter Primary Care Physician: [ ] Outpatient Specialists: [ ] Inpatient Consults: [facility] PROBLEM LIST: 1. Acute hypercarbic hypoxic respiratory failure on admission 2. Acute COPD exacerbation on admission 3. Community acquired pneumonia 4. Hypertension 5. Atrial fibrillation 6. Diastolic heart failure, EF: 50% 7. Hypertensive heart disease 8. Tobacco use disorder 9. Emphysema secondary to chronic tobacco use disorder 10. Obesity, BMI 28 11. Hyperlipidemia 12. Critical illness myopathy 13. End stage pulmonary fibrosis 14. Bilateral bronchiectasis 15. End stage chronic lung disease INTERVAL HISTORY: 06/14/2024: At the time of my evaluation, the patient was sitting up to the be dside chair. He reports feeling much better today. The staff nurse reports no acute event overnight. The patient continues on empiric antibiotic therapy, steroid and bronchodilator therapy. No other complaint. REVIEW OF SYSTEMS: 12 point ROS reviewed with patient. Pertinent positives mentioned above. Otherwise negative. PHYSICAL EXAM: GENERAL: alert, weak, awake oriented x 3 HEENT: EOMI, Sclera non icteric, moist mucosa NECK: Supple, no JVD, trachea midline LUNGS: Patient on BiPAP continuously during my evaluation with FiO2 of 70%, labored breathing with tachypnea. Decreased breath sounds bilaterally with expiratory wheezing and bilateral crackles HEART: Regular rate and rhythm. Normal S1 and S2, without murmurs ABD: Abdomen soft, nontender. Bowel sounds present EXT: No clubbing cyanosis or edema NEURO: Alert and oriented to person, follows commands Vital Signs (last 8hr) Date Time Temp Pulse Resp B/P (MAP) Pulse Ox O2 Delivery O2 Flow Rate FiO2 06/14/24 13:31 82 21 114/63 91 Nasal Cannula 4.0 06/14/24 13:30 81 26 90 06/14/24 13:16 88 14 93/54 90 Nasal Cannula 4.0 06/14/24 13:15 86 25 92 06/14/24 13:02 83 24 89/42 92 Nasal Cannula 4.0 06/14/24 13:00 79 21 92 06/14/24 12:46 89 24 105/48 90 Nasal Cannula 4.0 06/14/24 12:45 94 24 91 06/14/24 12:31 83 27 96/54 89 Nasal Cannula 4.0 06/14/24 12:30 96 31 90 06/14/24 12:16 86 29 104/76 91 Nasal Cannula 4.0 06/14/24 12:15 89 22 92 06/14/24 12:01 86 5 118/60 89 Nasal Cannula 4.0 06/14/24 12:00 84 23 88 06/14/24 12:00 96 Nasal Cannula* 4 36 06/14/24 11:46 81 27 98/62 92 Nasal Cannula 4.0 06/14/24 11:45 74 22 93 06/14/24 11:31 71 50 96/56 92 Nasal Cannula 4.0 06/14/24 11:30 72 22 94 06/14/24 11:20 72 16 06/14/24 11:16 97.9 70 26 98/61 97 Nasal Cannula 4.0 06/14/24 11:15 69 28 97 06/14/24 11:01 72 28 103/55 92 Nasal Cannula 4.0 06/14/24 11:00 74 24 93 06/14/24 10:46 63 28 106/65 94 Nasal Cannula 4.0 06/14/24 10:45 69 26 93 06/14/24 10:31 66 26 99/57 95 Nasal Cannula 4.0 06/14/24 10:30 68 29 96 06/14/24 10:16 67 21 102/60 95 Nasal Cannula 4.0 06/14/24 10:15 65 27 95 06/14/24 10:01 74 17 98/57 94 Nasal Cannula 4.0 06/14/24 10:00 71 13 94 06/14/24 09:46 74 26 98/57 89 Nasal Cannula 4.0 06/14/24 09:45 75 27 89 06/14/24 09:31 73 17 97/58 94 Nasal Cannula 4.0 06/14/24 09:30 62 20 95 LABS: Hematology Labs: Test 06/14/24 03:50 06/13/24 14:44 Range/Units White Blood Count 14.7 #H 4.8-10.8 K/uL Red Blood Count 5.11 4.50-6.20 MIL/uL Hemoglobin 14.7 14.0-18.0 g/dL Hematocrit 45.6 42-54 % Mean Corpuscular Volume 89.2 79-99 fL Mean Corpuscular Hemoglobin 28.8 27.0-33.0 pg Mean Corpuscular Hemoglobin Concent 32.2 32.0-36.0 g/dL Red Cell Distribution Width 14.4 11.0-15.5 % Platelet Count 377 130-400 K/uL Mean Platelet Volume 9.8 7.5-10.5 fL Nucleated Red Blood Cells 0.0 0.0-0.19 % Immature Granulocyte % (Auto) 0.5 0-1 % Neutrophils (%) (Auto) 82.4 H 40.0-77.0 % Lymphocytes (%) (Auto) 8.4 L 21.0-51.0 % Monocytes (%) (Auto) 7.8 3.0-13.0 % Eosinophils (%) (Auto) 0.2 0.0-8.0 % Basophils (%) (Auto) 0.7 0.0-5.0 % Neutrophils # (Auto) 17.3 H 1.8-7.7 K/uL Lymphocytes # (Auto) 1.8 1.0-4.8 K/uL Monocytes # (Auto) 1.7 H 0.1-1.0 K/uL Eosinophils # (Auto) 0.05 0.00-0.70 K/uL Basophils # (Auto) 0.15 0.00-0.20 K/uL Absolute Immature Granulocyte (auto 0.11 0-1 K/uL White Cell Morphology Comment See comments Chemistry Labs: Test 06/14/24 03:50 06/13/24 18:58 06/13/24 14:44 Range/Units Sodium Level 137 136-145 mmol/L Potassium Level 4.3 3.5-5.1 mmol/L Chloride Level 103 101-111 mmol/L Carbon Dioxide Level 24 21-32 mmol/L Blood Urea Nitrogen 21 H 7-18 mg/dL Creatinine 0.7 0.5-1.3 mg/dL Glomerular Filtration Rate Calc 99 >90 mL/min Random Glucose 165 H 70-105 mg/dL Total Calcium 8.8 8.5-10.1 mg/dL Magnesium Level 1.80 1.80-2.40 mg/dL Total Bilirubin 0.7 0.2-1.0 mg/dL Aspartate Amino Transf (AST/SGOT) 16 10-37 U/L Alanine Aminotransferase (ALT/SGPT) 24 12-78 U/L Alkaline Phosphatase 44 L 50-136 U/L Total Protein 6.4 6.0-8.3 g/dL Albumin 2.5 L 3.5-5.0 g/dL Lactic Acid Level 2.6 H 0.8-2.5 mmol/L Troponin I High Sensitivity 84 *H 4-75 ng/L B-Type Natriuretic Peptide 868 H 0-100 pg/mL DIAGNOSTICS / RADIOLOGY RESULTS: [ ] PLAN 06/14/2024: For now, going to management for the patient. We will continue antibiotic therapy, steroid dose and bronchodilator therapy for pulmonary toileting. We will monitor the blood pressure trend and treat as necessary. We will continue to provide general supportive care, GI and DVT prophylaxis. Further orders per attending MD and hospital course. NEURO: Minimize central acting medications as possible. Fall Precautions. Well lighted room through the day and minimize interruptions through the night to prevent acute delirium. PULMONARY: Supplemental 02 as needed Titrate Fio2 to keep Spo2 > or = 90% DuoNebs and CPT as needed IS hourly while awake for pulmonary hygiene Out of bed to chair as tolerated VAP Bundle Vent/BIPAP Settings: Currently not on the BiPAP. We will continue to monitor his respirations and adjust oxygenation to operate as necessary. We will keep the patient on steroid therapy and bronchodilator therapy for now. CARDIOVASCULAR: The patient is currently hemodynamically stable. Follow hemodynamics. Titrate vasopressor to keep MAP >65 or systolic blood pressure >95mmHg DIPS: Levophed LINES: Peripheral GI & NUTRITION: Continue nutritional support Aspirations precautions Prokinetic agents and laxatives as needed KIDNEYS & ELECTROLYTES: Strict monitoring of intake and output Daily weights Avoid nephrotoxic agents Monitor electrolytes and replace as needed Goal urine output of 30mL/hr or 0.5mL/kg/hr Urine output: 850 mL Fluid Balance: -231.4 mL ENDOCRINE: Maintain blood glucose between 100-180 at all times. Insulin sliding scale for blood glucose management INFECTIOUS DISEASE: Trend temperature. Richards-culture if febrile. Micro: Blood cultures currently showing no growth. Antibiotics: Merrem and vanco HEMATOLOGY & COAGULATION: Monitor H&H. Keep Hgb > 7 Transfuse 1 unit of PRBC for Hgb < 7 Transfuse 1 pack of platelets of platelets < 20, 000 Watch for any signs and symptoms of bleeding Patient will remain on Xarelto. SKIN: Pressure ulcer prevention per facility protocol Rehab: PT/OT Prophylaxis: GI: Protonix DVT: We will continue with Xarelto Code Status: Full Resuscitation Disposition: ICU Other: Total patient care time exceeds 35 minutes excluding all procedures. Case was discussed and seen with my supervising physician. The above plan was formulated and agreed upon. FLORENTIN GARCIA NP Jun 14, 2024 17:28
--- NOTE | 2024-06-14 18:43 | NUR ---
CM NOTE Patient is a readmission to this hospital from about one week ago. Patient was discharged home. CM performed chart review. Patient lives with spouse. Patient was previously independent with ADL's. Has a walker, wheelchair, and home o2. CM to f/u for possible short term SNF/rehab needs. Patient with end stage pulmonary fibrosis. Addendum: 06/14/24 at 1845 by SARAH SPEARS Amended: Links added.
[2024-06-14] MEDS: VANCOMYCIN 1.25 GM/250 ML BAG 250 ML IV SCH (21:51)
--- NOTE | 2024-06-14 23:42 | HP ---
CHIEF COMPLAINT: Shortness of breath, COPD exacerbation, fever, chills. HISTORY OF PRESENT ILLNESS: This is a 73-year-old gentleman who has a history of COPD, came to the Emergency Room with fever, chills, generalized weakness and the patient has a recent hospitalization for shortness of breath and the patient also has an ER visit 2 days ago. As the patient has above symptoms, the patient is admitted with diagnosis of COPD exacerbation with sepsis. His white count is 21,000 with fever, chills and the patient is going to be hospitalized and admitted to the ICU unit. The patient also has elevated lactic acid level and procalcitonin at this time. The patient has bilateral pneumonia. PAST MEDICAL HISTORY: Significant for COPD and the patient has home oxygen and coronary artery disease, hypertension, emphysema, bronchitis, bronchiectasis, home oxygen dependent, hypertension, coronary artery disease. SOCIAL HISTORY: The patient has history of smoking. MEDICATIONS: Patient on Plavix 75 mg, atenolol 50 mg, budesonide-glycopyrrolate, albuterol, lorazepam, furosemide 20 mg, Jardiance 10 mg, potassium chloride, Colace, clonazepam 1 mg, budesonide inhaler, digoxin 0.125. ALLERGY: PENICILLIN AND GLUTEN. REVIEW OF SYSTEMS: HEENT: Congestion. CARDIOVASCULAR: Shortness of breath, no chest pain. RESPIRATORY: Shortness of breath and cough. GASTROINTESTINAL: No vomiting, no diarrhea, no abdominal pain. GENITOURINARY: Negative. MUSCULOSKELETAL: Joint pains. PHYSICAL EXAMINATION: GENERAL: The patient is awake, alert at this time. VITAL SIGNS: Significant for blood pressure initially 81/54, pulse is 89, respirations 18-20. LUNGS: Patient has decreased breath sounds, rhonchi over the lung alexander. HEART: Regular rate and rhythm. ABDOMEN: Soft, nontender. NEUROLOGIC: No focal deficits noted. ASSESSMENT AND PLAN: * Chronic obstructive pulmonary disease exacerbation and pneumonia, leukocytosis, probable sepsis. The patient is started on cefepime and vancomycin. * Hypertension. The patient is going to be on IV fluids and Levophed. * Chronic obstructive pulmonary disease with the patient going to be on Solu-Medrol also. * The patient is on gastrointestinal prophylaxis. The patient is on DVT prophylaxis. * The patient was pancultured. The patient's overall condition is guarded. Prognosis remains fair at this time. The patient is going to get serial cardiac enzymes. The patient will be admitted to ICU and the patient is getting ICU consult. TID: [id number] RECEIPT: [id number]
[2024-06-15] VITALS (29 sets, daily range): BP systolic 94–137; BP diastolic 52–97; PULSE 62–97; RESP 9–73; TEMP 97.8–98; O2SAT 93–97
[2024-06-15] MEDS ORDERED: VANCOMYCIN 1.25 GM/250 ML BAG 250 ML IV SCH (08:00)
[2024-06-15] MEDS: VANCOMYCIN 1.25 GM/250 ML BAG 250 ML IV SCH (11:00)
[2024-06-15] MEDS ORDERED: COMPOUND IV REFRIGERATED 1 EACH IVSOLN MISC PRN (11:00)
--- NOTE | 2024-06-15 11:05 | PN ---
SUBJECTIVE: The patient is feeling better. Denies chest pain, shortness of breath at this time. OBJECTIVE: VITAL SIGNS: Blood pressure is 114/63, pulse is 80, respirations is 20. LUNGS: The patient has decreased breath sounds with rhonchi. HEART: Regular rate and rhythm. ABDOMEN: Soft, nontender. LABORATORY DATA: Significant for WBC of 14,000. Sugar is 165, magnesium is 1.8 and BUN is 21. ASSESSMENT AND PLAN: * Chronic obstructive pulmonary disease exacerbation and respiratory failure, hypoxic. The patient is on BiPAP, it is stable. * Hypertension, the patient is off the Levophed. Blood pressure needs to be closely monitored and continue with the present management. I appreciate ICU input. The patient's care will be transferred Dr. Brasher. TID: [id number] RECEIPT: [id number]
--- NOTE | 2024-06-15 11:23 | PN ---
[facility] PROGRESS NOTE Date Patient Seen: Jun 15, 2024 Time of Visit: 11:22 Supervising Physician: Dr. Dom Domínguez Primary Care Physician: [ ] Outpatient Specialists: [ ] Inpatient Consults: [facility] PROBLEM LIST: 1. Acute hypercarbic hypoxic respiratory failure on admission 2. Acute COPD exacerbation on admission improved 3. Community acquired pneumonia 4. Hypertension 5. Atrial fibrillation 6. Diastolic heart failure, EF: 50% 7. Hypertensive heart disease 8. Tobacco use disorder 9. Emphysema secondary to chronic tobacco use disorder 10. Obesity, BMI 28 11. Hyperlipidemia 12. Critical illness myopathy 13. End stage pulmonary fibrosis 14. Bilateral bronchiectasis 15. End stage chronic lung disease INTERVAL HISTORY: 06/14/2024: At the time of my evaluation, the patient was sitting up to the bedside chair. He reports feeling much better today. The staff nurse reports no acute event overnight. The patient continues on empiric antibiotic therapy, steroid and bronchodilator therapy. No other complaint. 06/15/2024: At the time of my evaluation, the patient was lying in bed. He remains on oxygen supplementation via nasal cannula, currently on 4 liters/gerard te. The patient also remains on antibiotic therapy, steroids and bronchodilator therapy for management of his pneumoniae. No labs were obtained for review today. The patient reports feeling much better today. No new complaint. REVIEW OF SYSTEMS: 12 point ROS reviewed with patient. Pertinent positives mentioned above. Otherwise negative. PHYSICAL EXAM: GENERAL: alert, weak, awake oriented x 3 HEENT: EOMI, Sclera non icteric, moist mucosa NECK: Supple, no JVD, trachea midline LUNGS: Patient on BiPAP continuously during my evaluation with FiO2 of 70%, labored breathing with tachypnea. Decreased breath sounds bilaterally with expiratory wheezing and bilateral crackles HEART: Regular rate and rhythm. Normal S1 and S2, without murmurs ABD: Abdomen soft, nontender. Bowel sounds present EXT: No clubbing cyanosis or edema NEURO: Alert and oriented to person, follows commands Vital Signs (last 8hr) Date Time Temp Pulse Resp B/P (MAP) Pulse Ox O2 Delivery O2 Flow Rate FiO2 06/15/24 10:00 85 73 122/77 94 Nasal Cannula 4.0 06/15/24 09:00 83 29 122/70 94 Nasal Cannula 4.0 06/15/24 08:00 97.9 81 20 117/71 90 Nasal Cannula 4.0 1/13/25 08:00 93 Nasal Cannula* 4 36 06/15/24 07:07 70 22 N/Cannula Low lpm 3.0 32 06/15/24 07:03 82 18 06/15/24 07:00 69 21 134/85 98 Nasal Cannula 4.0 06/15/24 06:00 63 17 101/71 97 Nasal Cannula 4.0 06/15/24 05:00 62 18 106/58 94 Nasal Cannula 4.0 06/15/24 04:00 70 20 94/58 96 Nasal Cannula 4.0 06/15/24 04:00 95 Nasal Cannula* 4 36 LABS: Hematology Labs: Test 06/14/24 03:50 06/13/24 14:44 Range/Units White Blood Count 14.7 #H 4.8-10.8 K/uL Red Blood Count 5.11 4.50-6.20 MIL/uL Hemoglobin 14.7 14.0-18.0 g/dL Hematocrit 45.6 42-54 % Mean Corpuscular Volume 89.2 79-99 fL Mean Corpuscular Hemoglobin 28.8 27.0-33.0 pg Mean Corpuscular Hemoglobin Concent 32.2 32.0-36.0 g/dL Red Cell Distribution Width 14.4 11.0-15.5 % Platelet Count 377 130-400 K/uL Mean Platelet Volume 9.8 7.5-10.5 fL Nucleated Red Blood Cells 0.0 0.0-0.19 % Immature Granulocyte % (Auto) 0.5 0-1 % Neutrophils (%) (Auto) 82.4 H 40.0-77.0 % Lymphocytes (%) (Auto) 8.4 L 21.0-51.0 % Monocytes (%) (Auto) 7.8 3.0-13.0 % Eosinophils (%) (Auto) 0.2 0.0-8.0 % Basophils (%) (Auto) 0.7 0.0-5.0 % Neutrophils # (Auto) 17.3 H 1.8-7.7 K/uL Lymphocytes # (Auto) 1.8 1.0-4.8 K/uL Monocytes # (Auto) 1.7 H 0.1-1.0 K/uL Eosinophils # (Auto) 0.05 0.00-0.70 K/uL Basophils # (Auto) 0.15 0.00-0.20 K/uL Absolute Immature Granulocyte (auto 0.11 0-1 K/uL White Cell Morphology Comment See comments Chemistry Labs: Test 06/15/24 04:20 06/14/24 03:50 06/13/24 18:58 06/13/24 14:44 Range/Units Magnesium Level 2.20 1.80-2.40 mg/dL Sodium Level 137 136-145 mmol/L Potassium Level 4.3 3.5-5.1 mmol/L Chloride Level 103 101-111 mmol/L Carbon Dioxide Level 24 21-32 mmol/L Blood Urea Nitrogen 21 H 7-18 mg/dL Creatinine 0.7 0.5-1.3 mg/dL Glomerular Filtration Rate Calc 99 >90 mL/min Random Glucose 165 H 70-105 mg/dL Total Calcium 8.8 8.5-10.1 mg/dL Total Bilirubin 0.7 0.2-1.0 mg/dL Aspartate Amino Transf (AST/SGOT) 16 10-37 U/L Alanine Aminotransferase (ALT/SGPT) 24 12-78 U/L Alkaline Phosphatase 44 L 50-136 U/L Total Protein 6.4 6.0-8.3 g/dL Albumin 2.5 L 3.5-5.0 g/dL Lactic Acid Level 2.6 H 0.8-2.5 mmol/L Troponin I High Sensitivity 84 *H 4-75 ng/L B-Type Natriuretic Peptide 868 H 0-100 pg/mL DIAGNOSTICS / RADIOLOGY RESULTS: [ ] PLAN 06/14/2024: For now, going to management for the patient. We will continue antibiotic therapy, steroid dose and bronchodilator therapy for pulmonary toileting. We will monitor the blood pressure trend and treat as necessary. We will continue to provide general supportive care, GI and DVT prophylaxis. Further orders per attending MD and hospital course. 06/15/2024: Patient continues on oxygen supplementation via nasal cannula 4 liters/minute. Per the patient report, his baseline is about 3 liters/minute on home O2. His condition is improving, I believe the patient can be downgraded today. We will continue to monitor his condition and response to management. NEURO: Minimize central acting medications as possible. Fall Precautions. Well lighted room through the day and minimize interruptions through the night to prevent acute delirium. PULMONARY: Supplemental 02 as needed Titrate Fio2 to keep Spo2 > or = 90% DuoNebs and CPT as needed IS hourly while awake for pulmonary hygiene Out of bed to chair as tolerated VAP Bundle Vent/BIPAP Settings: Currently not on the BiPAP. We will continue to monitor his respirations and adjust oxygenation to operate as necessary. We will keep the patient on steroid therapy and bronchodilator therapy for now. CARDIOVASCULAR: The patient is currently hemodynamically stable. Follow hemodynamics. Titrate vasopressor to keep MAP >65 or systolic blood pressure >95mmHg DIPS: None LINES: Peripheral GI & NUTRITION: Continue nutritional support Aspirations precautions Prokinetic agents and laxatives as needed KIDNEYS & ELECTROLYTES: Strict monitoring of intake and output Daily weights Avoid nephrotoxic agents Monitor electrolytes and replace as needed Goal urine output of 30mL/hr or 0.5mL/kg/hr ENDOCRINE: Maintain blood glucose between 100-180 at all times. Insulin sliding scale for blood glucose management INFECTIOUS DISEASE: Trend temperature. Richards-culture if febrile. Micro: Blood cultures currently showing no growth. Antibiotics: Merrem and vanco HEMATOLOGY & COAGULATION: Monitor H&H. Keep Hgb > 7 Transfuse 1 unit of PRBC for Hgb < 7 Transfuse 1 pack of platelets of platelets < 20, 000 Watch for any signs and symptoms of bleeding Patient will remain on Xarelto. SKIN: Pressure ulcer prevention per facility protocol Rehab: PT/OT Prophylaxis: GI: Protonix DVT: We will continue with Xarelto Code Status: Full Resuscitation Disposition: ICU Other: Total patient care time exceeds 35 minutes excluding all procedures. Case was discussed and seen with my supervising physician. The above plan was formulated and agreed upon. FLORENTIN GARCIA NP Jun 15, 2024 11:23
[2024-06-15] MEDS: SIMETHICONE 80 MG TAB.CHEW PO PRN (13:59)
--- NOTE | 2024-06-15 20:26 | PN ---
SUBJECTIVE: The patient was admitted for assessment and treatment of fever, and generalized body weakness. The patient has been recently admitted for treatment of a near-syncopal episode with a negative workup including a chest CT that was negative for PE or an acute infiltrate. He was discharged on steroids. Continue with his home medications. He came back with fever, chills, elevated lactic acid, and procalcitonin. The patient had a history of respiratory failure with hypoxemia chronic, COPD, coronary artery disease, emphysema, bronchiectasis, and hypertension. He is being admitted to the intensive care unit, started on meropenem, vancomycin and Solu-Medrol with bronchodilators. The patient denies any recent fever, chills, seizures. No chest pain, palpitations. No nausea or vomiting. No dysuria, urgency. There is a persistent chronic cough. OBJECTIVE: GENERAL: Currently, awake, alert, oriented to person, time and place, not in distress. VITAL SIGNS: Blood pressure 122/77, pulse 73, respiratory rate 23, pulse is 85. HEENT: Normocephalic, atraumatic. LUNGS: Decreased breath sounds posteriorly. No wheezes, rhonchi. Inspiratory wet rales in both bases. HEART: S1 and S2 are distant. ABDOMEN: Soft and nontender. EXTREMITIES: No clubbing, cyanosis. LABORATORY DATA: Sodium 137, potassium 4.3, BUN 21, creatinine 0.7. Lactic acid yesterday was 2.6. Troponin 84 on 06/13, albumin 2.5. IMAGING STUDIES: Chest x-ray on admission was reported bilateral pulmonary infiltrates, suggestive of pulmonary vascular congestion. ASSESSMENT AND PLAN: * Respiratory failure, chronic. Continue with oxygen current rate. * Chronic obstructive pulmonary disease exacerbation. Continue with current antibiotics, bronchodilators. * Sepsis with high levels of procalcitonin as well as lactic acid, improving. * Coronary artery disease, stable. * Atrial fibrillation, rate controlled. * Hypothyroidism. Continue current treatment. * Chronic interstitial lung disease. Continue current treatment. * Chronic anticoagulation. The patient was on Xarelto. Continue the same. * Dyslipidemia, controlled. * Leukocytosis, improving. Follow up in a.m. with labs. Continue to monitor. Appreciated input of consultants. DOS:06/15/2024 TID: [id number] RECEIPT: [id number] MTDD
[2024-06-16] VITALS (15 sets, daily range): BP systolic 115–153; BP diastolic 53–80; PULSE 56–110; RESP 18–27; TEMP 97.7–98.4; O2SAT 90–96
[2024-06-16 04:37] LABS: HEMATOCRIT 39.7 % (42-54); MEAN CORPUSCULAR HEMOGLOBIN 28.7 pg (27.0-33.0); MEAN CORPUSCULAR VOLUME 87.1 fL (79-99); RED BLOOD CELL COUNT(AUTO) 4.56 MIL/uL (4.50-6.20); RED CELL DISTRIBUTION WIDTH 14.4 % (11.0-15.5); WHITE BLOOD COUNT (AUTO) 12.8 K/uL (4.8-10.8)
[2024-06-16 04:45] LABS: CREATININE 0.7 mg/dL (0.5-1.3); POTASSIUM 3.9 mmol/L (3.5-5.1)
[2024-06-16] MEDS: FLUoxetine HCL 20 MG CAPSULE PO SCH (08:57)
[2024-06-16] MEDS: DIGOxin 125 MCG TABLET PO SCH (08:58)
--- NOTE | 2024-06-16 10:36 | NUR ---
REPORT PLACED CALL TO VALERIA AT EXT [id number] IN AN ATTEMPT TO GIVE REPORT ON PATIENT. NURSE WAS PASSING OUT MEDS & UNABLE TO GET REPORT AT THIS TIME. WILL CALL BACK LATER.. Addendum: 06/16/24 at 1119 by LUCILLE MACKAY RN RN 1057 AM [facility], [place] REPORT GIVEN TO BULMARO SHAW. ALL QUESTIONS ANSWERED.
--- NOTE | 2024-06-16 11:05 | NUR ---
TRANSFER TO 3RD RM 314 VIA BED, IN STABLE CONDITION: AAOX4, ON 4L NC- SOB W/ MIN EXERTION, SATING >90 % AT THIS TIME.
--- NOTE | 2024-06-16 12:50 | PN ---
[facility] PROGRESS NOTE Date Patient Seen: Jun 16, 2024 Time of Visit: 12:50 Supervising Physician: Celeste Christie MD Primary Care Physician: [ ] Outpatient Specialists: [ ] Inpatient Consults: [facility] PROBLEM LIST: 1. Acute on chronic hypercarbic hypoxic respiratory failure on admission, on Home o2 at 3L 2. Acute COPD exacerbation on admission 3. Community acquired pneumonia 4. Hypertension 5. Atrial fibrillation 6. Diastolic heart failure, EF: 50% 7. Hypertensive heart disease 8. Tobacco use disorder 9. Emphysema secondary to chronic tobacco use disorder 10. Obesity, BMI 28 11. Hyperlipidemia 12. Critical illness myopathy 13. End stage pulmonary fibrosis 14. Bilateral bronchiectasis 15. End stage chronic lung disease 16. Hyperglycemia, Pending HGA1C INTERVAL HISTORY: 06/16/24- patient is awake alert and oriented x3 but forgetful. He denies any chest pain, increased shortness of breath or chills and fever. He does report feeling bloated and requested a stool softener. One time dose of lactulose ordered and MiraLax daily. and his sister are at bedside. Answered all their questions and informed them of plan of care. Per 's concern of him going home in such a debilitated state and we will like some kind of inpatient rehabilitation or usp facility per patient to get stronger prior to arriving at home. Case management consulted for DC planning and PT ordered for eval and recommendations. Otherwise patient has been afebrile heart rate in the 80s respiratory rate of 18 hemodynamically stable saturating 94% on 3 L which is his baseline at home. WBCs trending down as expected 12.8 today. Chemistry unremarkable except for glucose which is 246 mg/dL I added ISS #2, ordered A1C for am. kidneys are doing good creatinine 0.7 GFR of 99. Patient continues on anticoagulation with Xarelto 20 mg daily. Weaning Solu-Medrol to 40 q.12 we will continue to wean. On chest x-ray stable cardiomegaly, increased interstitial markings throughout both lung fibrosis favored over edema. REVIEW OF SYSTEMS: 12 point ROS reviewed with patient. Pertinent positives mentioned above. Otherwise negative. PHYSICAL EXAM: GENERAL: alert, weak, awake oriented x 3 HEENT: EOMI, Sclera non icteric, moist mucosa NECK: Supple, no JVD, trachea midline LUNGS: Clear breath sounds bilaterally diminished HEART: Regular rate and rhythm. Normal S1 and S2, without murmurs ABD: Abdomen soft, nontender. Bowel sounds present EXT: No clubbing cyanosis or edema NEURO: Alert and oriented to person, follows commands Vital Signs (last 8hr) Date Time Temp Pulse Resp B/P (MAP) Pulse Ox O2 Delivery O2 Flow Rate FiO2 06/16/24 12:29 85 18 N/Cannula Low lpm 3.0 32 06/16/24 12:27 85 18 06/16/24 12:00 97.7 94 21 128/75 90 Nasal Cannula 4.0 06/16/24 09:30 90 06/16/24 09:00 92 Nasal Cannula* 4 36 06/16/24 08:58 110 06/16/24 08:45 110 27 153/80 92 Nasal Cannula 4.0 06/16/24 08:00 78 19 129/69 96 Nasal Cannula 4.0 06/16/24 07:00 71 18 137/61 95 Nasal Cannula 4.0 06/16/24 06:36 56 18 06/16/24 06:32 56 18 N/Cannula Low lpm 3.0 32 LABS: Hematology Labs: Test 06/16/24 04:06 Range/Units White Blood Count 12.8 H 4.8-10.8 K/uL Red Blood Count 4.56 4.50-6.20 MIL/uL Hemoglobin 13.1 L 14.0-18.0 g/dL Hematocrit 39.7 L 42-54 % Mean Corpuscular Volume 87.1 79-99 fL Mean Corpuscular Hemoglobin 28.7 27.0-33.0 pg Mean Corpuscular Hemoglobin Concent 33.0 32.0-36.0 g/dL Red Cell Distribution Width 14.4 11.0-15.5 % Platelet Count 313 130-400 K/uL Mean Platelet Volume 9.9 7.5-10.5 fL Nucleated Red Blood Cells 0.0 0.0-0.19 % Chemistry Labs: Test 06/16/24 04:06 06/15/24 04:20 Range/Units Sodium Level 139 136-145 mmol/L Potassium Level 3.9 3.5-5.1 mmol/L Chloride Level 105 101-111 mmol/L Carbon Dioxide Level 25 21-32 mmol/L Blood Urea Nitrogen 20 H 7-18 mg/dL Creatinine 0.7 0.5-1.3 mg/dL Glomerular Filtration Rate Calc 99 >90 mL/min Random Glucose 246 H 70-105 mg/dL Total Calcium 8.0 L 8.5-10.1 mg/dL Magnesium Level 2.20 1.80-2.40 mg/dL DIAGNOSTICS / RADIOLOGY RESULTS: [ ] PATIENT: LUDWIN BAE MR#: [id number] : 1950 SEX: M AGE: 73 LOCATION: [facility] ORDER 1252 STATUS: ADM IN REPORT#: [id number] SERVICE 1249 REASON: hypoxic resp failure ORDERING PHYSICIAN: GIOVANNI BIRMINGHAM PROCEDURE: CXR1VW - CHEST 1VW CHEST 1VW REASON: hypoxic resp failure COMPARISON: 06/13/2024 FINDINGS: There is mild cardiomegaly. There are increased interstitial markings in both lungs which may be fibrosis, these are unchanged compared to multiple prior studies. There are no pleural effusions. Mediastinum and bony thorax appear unremarkable. IMPRESSION: 1. Stable cardial megaly. 2. Increased interstitial markings throughout both lungs, fibrosis favored over edema. DICTATED BY: JUAN MARTE MD DATE: 06/16/24 1608 ELECTRONICALLY SIGNED BY: JUAN MARTE MD DATE: 06/16/24 1611 PLAN Continue with BiPAP qhs and prn Continue cefepime and vancomycin wean IV Solu-Medrol ISS#2 A1C in am Stop IV fluids Continue p.o. diet Continue duo nebs p.r.n. Chest x-ray in the morning PT to eval and treat Case management for DC planning SNF VS IRU NEURO: Minimize central acting medications as possible. Maintain fall precautions, adequate lighting during the day PULMONARY: Supplemental 02 as needed. Maintain aspiration precautions at all times CARDIOVASCULAR: Follow hemodynamics. Vital signs per facility protocol GI & NUTRITION: Continue with nutritional support. Continue stool softeners and laxatives as needed. KIDNEYS & ELECTROLYTES: Strict monitoring of intake, output and overall fluid balance. Avoid nephrotoxic medications to the extent possible. Medications to be dosed according to renal function. Monitor electrolytes and replace as needed ENDOCRINE: Maintain blood glucose between 100-180 at all times. Hypoglycemia protocol in place INFECTIOUS DISEASE: Trend temperature, WBC and procalcitonin level Follow cultures, deescalate antibiotics as soon as possible. Panculture if new onset fever ONCOLOGY/HEMATOLOGY/COAGULATION: Monitor for s/s of bleeding Monitor hemoglobin, coagulation studies as needed SKIN: Pressure ulcer prevention per facility protocol Specialty mattress ORTHO/REHAB: Continue PT/OT Prophylaxis: Continue GI and DVT prophylaxis Code Status: Full Resuscitation Disposition: TBD Other: Total patient care time exceeds 65 minutes excluding all procedures. GIOVANNI BIRMINGHAM [facility] Jun 16, 2024 12:50
--- NOTE | 2024-06-16 15:29 | NUR ---
PHYSICAL THERAPY EVAL PHYSICAL THERAPY EVAL DONE. PER PATIENT STATED HE WILL NOT PARTICIPATE HE WAS JUST MOVED OUT OF ICU.
--- NOTE | 2024-06-16 15:30 | NUR ---
Order received and spoke to patient. Patient stated he does not want to work with PT as he just got out of ICU. Informed Giacomo, nursing and CN. Informed patient PT will be back tomorrow mid to late morning.
--- NOTE | 2024-06-16 15:45 | NUR ---
Discharge Planning: Referral sent to [facility]. Still pending to be evaluated by PT. Pt. refused today. Pending insurance authorization.
--- NOTE | 2024-06-16 16:11 | HMCIMG ---
CHEST 1VW REASON: hypoxic resp failure COMPARISON: 06/13/2024 FINDINGS: There is mild cardiomegaly. There are increased interstitial markings in both lungs which may be fibrosis, these are unchanged compared to multiple prior studies. There are no pleural effusions. Mediastinum and bony thorax appear unremarkable. IMPRESSION: 1. Stable cardial megaly. 2. Increased interstitial markings throughout both lungs, fibrosis favored over edema.
[2024-06-16] MEDS: LACTULOSE 20 GM/30 ML UDCUP PO ONE (17:50)
[2024-06-16] MEDS: polyETHYLene GLYCol 3350 17 GM POWD.PACK PO SCH (17:50)
[2024-06-16] MEDS: LACTULOSE 20 GM/30 ML UDCUP ONE (18:31)
[2024-06-16] MEDS: atorVAStatin 40 MG TABLET PO SCH (21:00)
[2024-06-16] MEDS: INSULIN humuLIN R 100 UNIT/ML 3ML SQ SCH (21:00)
[2024-06-16] MEDS: ceTIRIzine HCL 5 MG TABLET PO SCH (21:22)
[2024-06-16] MEDS: monteLUKAST sodIUM 10 MG TAB PO SCH (21:28)
--- NOTE | 2024-06-16 21:31 | PN ---
SUBJECTIVE: The patient is feeling significantly improved, continued with oxygen. Denies any fever or chills. No chest pain. Persistent mild productive cough. No palpitations or dizziness. No nausea or vomiting. OBJECTIVE: GENERAL: Currently awake, alert, oriented to person and place. VITAL SIGNS: Blood pressure 128/75, pulse 94, respiratory rate 21, O2 saturation on 4 liters 90%. HEENT: Normocephalic, atraumatic. LUNGS: Decreased breath sounds posteriorly bilaterally. HEART: S1 and S2 are distant with regular rate and rhythm. ABDOMEN: Soft, nontender. EXTREMITIES: No clubbing, cyanosis. IMAGING STUDIES: Chest x-ray shows stable cardiomegaly, increased interstitial markings, fibrosis vs edema. LABORATORY DATA: WBC count is 12.8, hemoglobin 13.1, platelets 313. Sodium 139, potassium 3.9, BUN 20, creatinine 0.7. ASSESSMENT AND PLAN: * Respiratory failure. Continue with oxygen current rate. * Chronic obstructive pulmonary disease exacerbation. Continue with current treatment. * Pneumonia. Continue with current antibiotics. * Atrial fibrillation, rate controlled. * Hypertension, controlled. * Pulmonary fibrosis. Continue to monitor. * Emphysema. Continue with current supportive care. * Coronary artery disease, stable. * Leukocytosis, improving. Follow up in a.m. with labs. DOS:06/16/2024 TID: [id number] RECEIPT: [id number] MTDD
[2024-06-16] MEDS: IpraTROPium/alBUTERol SULFATE 3 ML SOLUTION IH PRN (23:52)
[2024-06-17] VITALS (16 sets, daily range): BP systolic 103–138; BP diastolic 64–90; PULSE 79–136; RESP 18–32; TEMP 96.4–98.5; O2SAT 92–97
[2024-06-17] MEDS: Solu-medROL 40MG VIAL IVP SCH (04:25)
[2024-06-17 06:26] LABS: HEMATOCRIT 39.6 % (42-54); MEAN CORPUSCULAR HEMOGLOBIN 28.5 pg (27.0-33.0); MEAN CORPUSCULAR HGB CONC 33.3 g/dL (32.0-36.0); MEAN CORPUSCULAR VOLUME 85.5 fL (79-99); RED BLOOD CELL COUNT(AUTO) 4.63 MIL/uL (4.50-6.20); RED CELL DISTRIBUTION WIDTH 14.3 % (11.0-15.5); WHITE BLOOD COUNT (AUTO) 11.7 K/uL (4.8-10.8)
[2024-06-17 06:47] LABS: ALBUMIN 2.4 g/dL (3.5-5.0); BILIRUBIN,TOTAL 0.4 mg/dL (0.2-1.0); CREATININE 0.6 mg/dL (0.5-1.3); MAGNESIUM 1.8 mg/dL (1.80-2.40); POTASSIUM 3.8 mmol/L (3.5-5.1); TOTAL PROTEIN, SERUM 5.5 g/dL (6.0-8.3)
[2024-06-17 06:48] LABS: HEMOGLOBIN A1C 7.2 % (4.0-6.0)
[2024-06-17] MEDS: PoTASSium chloRIDE 20MEQ ER 20 MEQ ERTAB PO PRN (09:19)
--- NOTE | 2024-06-17 11:00 | NUR ---
Patient seen and evaluated after medically cleared by his nurse, Leilani. Patient was able to sit EOB with mod A however oxygen saturation began to drop to the low to mid 80's. Patient was immediately placed back to bed and nursing was informed. Patient was placed back on his BiPAP machine. PT team to follow. Addendum: 06/17/24 at 1206 by CATY KOO PT Amended: Links added.
[2024-06-17] MEDS: MAGNESIUM 2GM PREMIX 50ML 50 ML IV PRN (12:20)
[2024-06-17 12:40] LABS: INR 1.29 (0.85-1.15); PROTHROMBIN TIME 14.1 SEC (9.6-11.6)
--- NOTE | 2024-06-17 15:10 | PN ---
[facility] PROGRESS NOTE Date Patient Seen: Jun 17, 2024 Time of Visit: 15:09 Supervising Physician: Dr. Celeste Christie Primary Care Physician: [ ] Outpatient Specialists: [ ] Inpatient Consults: [facility] PROBLEM LIST: 1. Acute on chronic hypercarbic hypoxic respiratory failure on admission, on Home o2 at 3L 2. Acute COPD exacerbation on admission 3. Community acquired pneumonia 4. Hypertension 5. Atrial fibrillation 6. Diastolic heart failure, EF: 50% 7. Hypertensive heart disease 8. Tobacco use disorder 9. Emphysema secondary to chronic tobacco use disorder 10. Obesity, BMI 28 11. Hyperlipidemia 12. Critical illness myopathy 13. End stage pulmonary fibrosis 14. Bilateral bronchiectasis 15. End stage chronic lung disease 16. Hyperglycemia, Pending HGA1C INTERVAL HISTORY: Patient evaluated at bedside with family present. He is AAO x3, continues with shortness of breath currently on 3 L nasal cannula. White count continues to trend downward at 11.7 today. Patient remains on Solu-Medrol every 12 hours. Patient's BNP remains unremarkable. We are currently pending PT evaluation to arrange for possible SNF placement, patient refusing to work with PT at this time. We will continue with the current medical treatment plan, this was discussed with the patient family's in agreement. Disposition per primary. REVIEW OF SYSTEMS: 12 point ROS reviewed with patient. Pertinent positives mentioned above. Otherwise negative. PHYSICAL EXAM: GENERAL: alert, weak, awake oriented x 3 HEENT: EOMI, Sclera non icteric, moist mucosa NECK: Supple, no JVD, trachea midline LUNGS: Clear breath sounds bilaterally diminished HEART: Regular rate and rhythm. Normal S1 and S2, without murmurs ABD: Abdomen soft, nontender. Bowel sounds present EXT: No clubbing cyanosis or edema NEURO: Alert and oriented to person, follows commands Vital Signs (last 8hr) Date Time Temp Pulse Resp B/P (MAP) Pulse Ox O2 Delivery O2 Flow Rate FiO2 06/17/24 12:02 103 22 N/Cannula Low lpm 3.0 32 06/17/24 12:00 96.4 87 20 112/76 97 Room Air 21 06/17/24 11:45 90 22 06/17/24 10:20 136 32 40 06/17/24 10:18 100 06/17/24 09:18 89 06/17/24 08:00 96.6 80 18 138/90 97 Room Air 21 06/17/24 07:23 95 19 40 06/17/24 07:13 105 22 06/17/24 07:13 105 22 N/Cannula Low lpm 4.0 36 LABS: Hematology Labs: Test 06/17/24 06:05 Range/Units White Blood Count 11.7 H 4.8-10.8 K/uL Red Blood Count 4.63 4.50-6.20 MIL/uL Hemoglobin 13.2 L 14.0-18.0 g/dL Hematocrit 39.6 L 42-54 % Mean Corpuscular Volume 85.5 79-99 fL Mean Corpuscular Hemoglobin 28.5 27.0-33.0 pg Mean Corpuscular Hemoglobin Concent 33.3 32.0-36.0 g/dL Red Cell Distribution Width 14.3 11.0-15.5 % Platelet Count 288 130-400 K/uL Mean Platelet Volume 9.9 7.5-10.5 fL Nucleated Red Blood Cells 0.0 0.0-0.19 % Chemistry Labs: Test 06/17/24 11:16 06/17/24 06:05 Range/Units Whole Blood Glucose 131 H 70-110 MG/DL Sodium Level 139 136-145 mmol/L Potassium Level 3.8 3.5-5.1 mmol/L Chloride Level 104 101-111 mmol/L Carbon Dioxide Level 27 21-32 mmol/L Blood Urea Nitrogen 15 7-18 mg/dL Creatinine 0.6 0.5-1.3 mg/dL Glomerular Filtration Rate Calc 103 >90 mL/min Random Glucose 221 H 70-105 mg/dL Hemoglobin A1c 7.2 H 4.0-6.0 % Estimated Average Glucose (eAG) 160 H 70-126 mg/dL Total Calcium 8.0 L 8.5-10.1 mg/dL Magnesium Level 1.80 1.80-2.40 mg/dL Total Bilirubin 0.4 0.2-1.0 mg/dL Aspartate Amino Transf (AST/SGOT) 33 10-37 U/L Alanine Aminotransferase (ALT/SGPT) 79 H 12-78 U/L Alkaline Phosphatase 41 L 50-136 U/L Troponin I High Sensitivity 38 4-75 ng/L Total Protein 5.5 L 6.0-8.3 g/dL Albumin 2.4 L 3.5-5.0 g/dL Coagulation Labs: Test 06/17/24 12:24 Range/Units Prothrombin Time 14.1 H 9.6-11.6 SEC Prothromb Time International Ratio 1.29 H 0.85-1.15 DIAGNOSTICS / RADIOLOGY RESULTS: [ ] PLAN Continue with BiPAP qhs and prn Continue cefepime and vancomycin wean IV Solu-Medrol ISS#2 A1C in am Stop IV fluids Continue p.o. diet Continue duo nebs p.r.n. Chest x-ray in the morning PT to eval and treat Case management for DC planning SNF VS IRU NEURO: Minimize central acting medications as possible. Maintain fall precautions, adequate lighting during the day PULMONARY: Supplemental 02 as needed. Maintain aspiration precautions at all times CARDIOVASCULAR: Follow hemodynamics. Vital signs per facility protocol GI & NUTRITION: Continue with nutritional support. Continue stool softeners and laxatives as needed. KIDNEYS & ELECTROLYTES: Strict monitoring of intake, output and overall fluid balance. Avoid nephrotoxic medications to the extent possible. Medications to be dosed according to renal function. Monitor electrolytes and replace as needed ENDOCRINE: Maintain blood glucose between 100-180 at all times. Hypoglycemia protocol in place INFECTIOUS DISEASE: Trend temperature, WBC and procalcitonin level Follow cultures, deescalate antibiotics as soon as possible. Panculture if new onset fever ONCOLOGY/HEMATOLOGY/COAGULATION: Monitor for s/s of bleeding Monitor hemoglobin, coagulation studies as needed SKIN: Pressure ulcer prevention per facility protocol Specialty mattress ORTHO/REHAB: Continue PT/OT Prophylaxis: Continue GI and DVT prophylaxis Code Status: Full Resuscitation Disposition: TBD Other: Total patient care time exceeds 65 minutes excluding all procedures. ANIBAL CHAN Jun 17, 2024 15:10
--- NOTE | 2024-06-17 20:32 | PN ---
SUBJECTIVE: The patient was examined at bedside. The patient was having episodes of hypoxemia with desaturation below 89 with minimal effort. He had to be placed on BiPAP intermittently to improve his O2 saturations. There has been no fever, chills, seizures. No chest pain or palpitations. No nausea, vomiting, diarrhea. No dysuria or urgency. PHYSICAL EXAMINATION: GENERAL: Awake, alert, oriented in person, time and place. VITAL SIGNS: Blood pressure 112/76, pulse 87, respiratory rate 20. HEENT: Normocephalic, atraumatic. LUNGS: Decreased breath sounds in both bases bilaterally. HEART: S1, S2 are distant. ABDOMEN: Soft, nontender. No masses. EXTREMITIES: No clubbing or cyanosis. LABORATORY DATA: WBC count 11.7, hemoglobin 13.2, platelets 288. Glucose 182. ASSESSMENT AND PLAN: * Respiratory failure, acute on chronic. Continue with oxygen as well as BiPAP on a p.r.n. basis. Follow recommendations by respiratory clinical program consultant. * Chronic obstructive pulmonary disease exacerbation. Continue with antibiotics, bronchodilators and steroids. * Bilateral pneumonia. Continue current antibiotics. * Atrial fibrillation, rate controlled. Per anticoagulation, continue Xarelto. * Hypertension. Continue current treatment. * Coronary artery disease, stable. * Leukocytosis, improving. Continue current antibiotics. * Pulmonary fibrosis with emphysema. Continue with current treatment. Follow up in a.m. with results. DOS: 06/17/2024 TID: [id number] RECEIPT: [id number] MTDD
[2024-06-17] MEDS: LORazepam 1 MG TABLET PO PRN (21:37)
[2024-06-18] VITALS (13 sets, daily range): BP systolic 103–129; BP diastolic 61–89; PULSE 62–101; RESP 17–23; TEMP 97.9–98.5; O2SAT 90
--- NOTE | 2024-06-18 11:15 | NUR ---
MOUTH SORES 1030 PATIENT C/O MOUTH SORES, STATES HAS BEEN HAVING THEM "FOR DAYS" NOW, HOWEVER HAS NOT REPORTED THEM TO NURSING OR PROVIDERS. ORAL CAVITY APPEARED WITH MINOR REDNESS AND IRRITATION. FINDINGS REPORTED TO PROVIDER. PENDING CALL BACK FOR RECOMMENDATIONS. [address] DR[address] [place]IN CALLED BACK AND PROVIDED WITH T.O. FOR MAGIC MOUTHWASH QID X 5 DAYS. ORDERS PLACED AND WILL BE CARRIED OUT. NO OTHER ORDERS GIVEN. WILL CONTINUE TO MONITOR.
[2024-06-18] MEDS ORDERED: PHARMACY COMMUNICATION MISC SCH (12:00)
[2024-06-18] MEDS: VANCOMYCIN 1G/250ML KIT 250 ML IV SCH (12:09)
[2024-06-18] MEDS ORDERED: COMPOUND PO MISCELLANEOUS 1 EACH MISC MISC PRN (12:30)
--- NOTE | 2024-06-18 14:25 | NUR ---
Communicated with nursing regarding Pt's diet. Pt reported that he struggles to eat food that is cut in small portions, and would rather cut his food himself. I'm not sure if there are any restrictions in his diet that necessitate small portions, he just expressed that he struggles to eat the smaller pieces. Communicated with AS400 ANALYST, AS400 ANALYST reported to recommend to transition Pt to regular after nurse performs a BSE and to monitor, AS400 ANALYST reported she is available for consult if needed. Communicated with nursing regarding AS400 ANALYST verbal recs. Addendum: 06/18/24 at [address] RD Amended: Links added.
--- NOTE | 2024-06-18 16:50 | NUR ---
BEDSIDE SWALLOW EVAL COMPLETED. No s/s of aspiration. Recommend regular solids, thin liquids and pills whole with liquids as tolerated. Compensatory strategies: 1. sit upright during oral intake CASTABLES WORKER reviewed results and recommendations with patient and nurse Ashly. CASTABLES WORKER educated patient on risks and consequences of aspiration. Speech therapy not warranted at this time. All questions answered. Addendum: 06/18/[address] UTE LYMAN Amended: Links added.
--- NOTE | 2024-06-18 18:28 | PN ---
SUBJECTIVE: The patient was examined at bedside. He is having no fever, chills, seizures. No chest pain, palpitations. No cough, wheeze or rhonchi. No nausea or vomiting. OBJECTIVE: GENERAL: He is currently, awake, alert, oriented in person, time and place, not in distress. VITAL SIGNS: Blood pressure 122/72, pulse 101, respiratory rate 18, temperature 98.2. HEENT: Normocephalic, atraumatic. LUNGS: Decreased breath sounds posteriorly with inspiratory wet rales. HEART: S1, S2 are distant. ABDOMEN: Soft, nontender. EXTREMITIES: No clubbing, cyanosis. ASSESSMENT AND PLAN: * Respiratory failure, [id number]. Continue with oxygen. Follow recommendations by Respiratory. * Chronic obstructive pulmonary disease exacerbation. Continue current antibiotics, bronchodilators and steroids. * Bilateral pneumonia. Continue current antibiotics. * Atrial fibrillation, rate controlled. * Anticoagulation, continue Xarelto. * Hypertension, controlled. * Coronary artery disease, stable. Continue current treatment. * Leukocytosis, improving. Continue antibiotics. * Pulmonary fibrosis with emphysema, chronic, stable. Continue current treatment. The patient is being referred to SNF to continue antibiotic therapy and physical therapy. Plan to discharge when arrangements are completed. DOS: 06/18/2024 TID: [id number] RECEIPT: [id number] MTDD
[2024-06-18] MEDS: MAG/AL/SIMETH 30 ML+LIDO2% VISC+DIPHEN 75MG 30ML PO PRN (18:48)
--- NOTE | 2024-06-18 20:17 | PN ---
[facility] PROGRESS NOTE Date Patient Seen: Jun 18, 2024 Time of Visit: 14:12 Supervising Physician: CELESTE CHRISTIE MD Supervising Physician: Dr. Celeste Christie Primary Care Physician: [ ] Outpatient Specialists: [ ] Inpatient Consults: [facility] PROBLEM LIST: 1. Acute on chronic hypercarbic hypoxic respiratory failure on admission, on Home o2 at 3L 2. Acute COPD exacerbation on admission 3. Community acquired pneumonia 4. Hypertension 5. Atrial fibrillation 6. Diastolic heart failure, EF: 50% 7. Hypertensive heart disease 8. Tobacco use disorder 9. Emphysema secondary to chronic tobacco use disorder 10. Obesity, BMI 28 11. Hyperlipidemia 12. Critical illness myopathy 13. End stage pulmonary fibrosis 14. Bilateral bronchiectasis 15. End stage chronic lung disease 16. Hyperglycemia, Pending HGA1C INTERVAL HISTORY: Patient evaluated at bedside with family present. He is AAO x3, continues with shortness of breath currently on 3 L nasal cannula. White count continues to trend downward at 11.7 today. Patient remains on Solu-Medrol every 12 hours. Patient's BNP remains unremarkable. We are currently pending PT evaluation to arrange for possible SNF placement, patient refusing to work with PT at this time. We will continue with the current medical treatment plan, this was discussed with the patient family's in agreement. Disposition per primary. 06/18/2023 Patient is awake, alert, well oriented, still with some cough and SOB, agitation, he is a home oxygen patient, no hemoptysis reported, no fever, chills, nausea or vomiting, denies chest pain [facility] plan is to be discharge to [facility] REVIEW OF SYSTEMS: 12 point ROS reviewed with patient. Pertinent positives mentioned above. Otherwise negative. PHYSICAL EXAM: GENERAL: alert, weak, awake oriented x 3 HEENT: EOMI, Sclera non icteric, moist mucosa NECK: Supple, no JVD, trachea midline LUNGS: Clear breath sounds bilaterally diminished HEART: Regular rate and rhythm. Normal S1 and S2, without murmurs ABD: Abdomen soft, nontender. Bowel sounds present EXT: No clubbing cyanosis or edema NEURO: Alert and oriented to person, follows commands Vital Signs (last 8hr) Date Time Temp Pulse Resp B/P (MAP) Pulse Ox O2 Delivery O2 Flow Rate FiO2 06/18/24 19:43 88 20 N/Cannula Low lpm 4.0 36 1/16/25 19:41 90 22 06/18/24 16:50 N/C Nasal Cannula 06/18/24 16:00 98.2 101 20 121/61 90 Room Air 21 06/18/24 13:30 90 22 LABS: Hematology Labs: Test 06/17/24 06:05 Range/Units White Blood Count 11.7 H 4.8-10.8 K/uL Red Blood Count 4.63 4.50-6.20 MIL/uL Hemoglobin 13.2 L 14.0-18.0 g/dL Hematocrit 39.6 L 42-54 % Mean Corpuscular Volume 85.5 79-99 fL Mean Corpuscular Hemoglobin 28.5 27.0-33.0 pg Mean Corpuscular Hemoglobin Concent 33.3 32.0-36.0 g/dL Red Cell Distribution Width 14.3 11.0-15.5 % Platelet Count 288 130-400 K/uL Mean Platelet Volume 9.9 7.5-10.5 fL Nucleated Red Blood Cells 0.0 0.0-0.19 % Chemistry Labs: Test 06/18/24 19:46 06/17/24 06:05 Range/Units Whole Blood Glucose 237 H 70-110 MG/DL Sodium Level 139 136-145 mmol/L Potassium Level 3.8 3.5-5.1 mmol/L Chloride Level 104 101-111 mmol/L Carbon Dioxide Level 27 21-32 mmol/L Blood Urea Nitrogen 15 7-18 mg/dL Creatinine 0.6 0.5-1.3 mg/dL Glomerular Filtration Rate Calc 103 >90 mL/min Random Glucose 221 H 70-105 mg/dL Hemoglobin A1c 7.2 H 4.0-6.0 % Estimated Average Glucose (eAG) 160 H 70-126 mg/dL Total Calcium 8.0 L 8.5-10.1 mg/dL Magnesium Level 1.80 1.80-2.40 mg/dL Total Bilirubin 0.4 0.2-1.0 mg/dL Aspartate Amino Transf (AST/SGOT) 33 10-37 U/L Alanine Aminotransferase (ALT/SGPT) 79 H 12-78 U/L Alkaline Phosphatase 41 L 50-136 U/L Troponin I High Sensitivity 38 4-75 ng/L Total Protein 5.5 L 6.0-8.3 g/dL Albumin 2.4 L 3.5-5.0 g/dL Coagulation Labs: Test 06/17/24 12:24 Range/Units Prothrombin Time 14.1 H 9.6-11.6 SEC Prothromb Time International Ratio 1.29 H 0.85-1.15 DIAGNOSTICS / RADIOLOGY RESULTS: [ ] PLAN Continue with BiPAP qhs and prn Continue cefepime and vancomycin Continue duo nebs p.r.n. Discharge to [facility] NEURO: Minimize central acting medications as possible. Maintain fall precautions, adequate lighting during the day PULMONARY: Supplemental 02 as needed. Maintain aspiration precautions at all times CARDIOVASCULAR: Follow hemodynamics. Vital signs per facility protocol GI & NUTRITION: Continue with nutritional support. Continue stool softeners and laxatives as needed. KIDNEYS & ELECTROLYTES: Strict monitoring of intake, output and overall fluid balance. Avoid nephrotoxic medications to the extent possible. Medications to be dosed according to renal function. Monitor electrolytes and replace as needed ENDOCRINE: Maintain blood glucose between 100-180 at all times. Hypoglycemia protocol in place INFECTIOUS DISEASE: Trend temperature, WBC and procalcitonin level Follow cultures, deescalate antibiotics as soon as possible. Panculture if new onset fever ONCOLOGY/HEMATOLOGY/COAGULATION: Monitor for s/s of bleeding Monitor hemoglobin, coagulation studies as needed SKIN: Pressure ulcer prevention per facility protocol Specialty mattress ORTHO/REHAB: Continue PT/OT Prophylaxis: Continue GI and DVT prophylaxis Code Status: Full Resuscitation Disposition: TBD ATTESTATION BY PHYSICIAN Documentation assistance provided by a scribe, information recorded by the scribe was done at my direction and has been reviewed and validated by me." CELESTE CHRISTIE MD I personally scribed for CELESTE CHRISTIE MD ([email or web address]) on 06/18/24 at 20:17. Electronically submitted by Noemy Rosales ([id number]). CELESTE CHRISTIE MD Jun 18, 2024 20:17
[2024-06-18] MEDS: DOXYCYCLINE HYCLATE 100 MG TABLET PO SCH (20:38)
[2024-06-19] VITALS (8 sets, daily range): BP systolic 112–133; BP diastolic 74–82; PULSE 64–103; RESP 18–32; TEMP 97.7–98.5; O2SAT 96–98
[2024-06-19 05:12] LABS: BASOPHILS # (AUTO) 0.04 K/uL (0.00-0.20); BASOPHILS % (AUTO) 0.2 % (0.0-5.0); HEMATOCRIT 43.1 % (42-54); IMMATURE GRANULOCYTE ABSOLUTE 0.25 K/uL (0-1); LYMPHOCYTES # (AUTO) 1.4 K/uL (1.0-4.8); LYMPHOCYTES % (AUTO) 8.6 % (21.0-51.0); MEAN CORPUSCULAR HEMOGLOBIN 28.4 pg (27.0-33.0); MEAN CORPUSCULAR HGB CONC 32.9 g/dL (32.0-36.0); MEAN CORPUSCULAR VOLUME 86.2 fL (79-99); MONOCYTES # (AUTO) 1.5 K/uL (0.1-1.0); MONOCYTES % (AUTO) 9.2 % (3.0-13.0); NEUTROPHILS # (AUTO) 13.3 K/uL (1.8-7.7); NEUTROPHILS % (AUTO) 80.5 % (40.0-77.0); PLATELET COUNT (AUTO) 285 K/uL (130-400); RED CELL DISTRIBUTION WIDTH 14.6 % (11.0-15.5); WHITE BLOOD COUNT (AUTO) 16.5 K/uL (4.8-10.8)
[2024-06-19 05:24] LABS: INR 1.05 (0.85-1.15); PROTHROMBIN TIME 11.7 SEC (9.6-11.6)
[2024-06-19 05:26] LABS: PARTIAL THROMBOPLASTIN TIME 28.3 SEC (26.3-35.5)
[2024-06-19 05:45] LABS: ALBUMIN 2.2 g/dL (3.5-5.0); BILIRUBIN,TOTAL 0.5 mg/dL (0.2-1.0); CREATININE 0.6 mg/dL (0.5-1.3); MAGNESIUM 1.8 mg/dL (1.80-2.40); PHOSPHORUS 3.9 mg/dL (2.5-4.9); POTASSIUM 4.3 mmol/L (3.5-5.1); THYROID STIMULATING HORMONE 0.84 uIU/mL (0.36-3.74); TOTAL PROTEIN, SERUM 5.5 g/dL (6.0-8.3)
--- NOTE | 2024-06-19 11:30 | NUR ---
Patient seen for PT today. Patient required encouragement to participate with PT due to fear of dropping his oxygen saturation. Educated patient on the importance of physical activity. Patient requested placement of BiPAP. Patient saturations maintained in the mid 90's while on BiPAP with sitting and standing. Patient was able to tolerate sitting EOB x 7 min and was placed back to bed. PT team to follow, progress as tolerated. Addendum: 06/19/24 at 1215 by CATY KOO PT Amended: Links added.
--- NOTE | 2024-06-19 12:00 | NUR ---
RIGHT FOREARM IV REMOVED FAMILY REQUESTING IV TO RIGHT DISTAL FOREARM/WRIST ARE TO BE REMOVED D/T DRESSING BEING "SOILED". IV REMOVED AND NOTED ++BLEEDING. PRESSURE APPLIED FOR >10 MINUTES UNTIL BLEEDING STOPPED. FAMILY AND PATIENT CONCERNED D/T LARGE BRUISING TO RIGHT UPPER FOREARM AND LOWER ARM, STATING IT WAS FROM "TOO MUCH PRESSURE" FROM [employer] DRESSING THAT WAS PLACED TO AC AREA. I ASKED FAMILY WHEN THAT DRESSING WAS PLACED OR WHEN THE BRUISING HAD STARTED AND THEY WERE UNSURE AND THAT THEY HAD JUST NOTICED IT I WAS REMOVING THE IV. PULSES PALPABLE AND FINGERTIPS BLANCHEABLE TO EXTREMITY.
--- NOTE | 2024-06-19 16:52 | PN ---
[facility] PROGRESS NOTE Date Patient Seen: Jun 19, 2024 Time of Visit: 12:43 Supervising Physician: ELIU HAGEN Supervising Physician: Dr. Celeste Christie Primary Care Physician: [ ] Outpatient Specialists: [ ] Inpatient Consults: [facility] PROBLEM LIST: 1. Acute on chronic hypercarbic hypoxic respiratory failure on admission, on Home o2 at 3L 2. Acute COPD exacerbation on admission 3. Community acquired pneumonia 4. Hypertension 5. Atrial fibrillation 6. Diastolic heart failure, EF: 50% 7. Hypertensive heart disease 8. Tobacco use disorder 9. Emphysema secondary to chronic tobacco use disorder 10. Obesity, BMI 28 11. Hyperlipidemia 12. Critical illness myopathy 13. End stage pulmonary fibrosis 14. Bilateral bronchiectasis 15. End stage chronic lung disease 16. Hyperglycemia, Pending HGA1C INTERVAL HISTORY: Patient evaluated at bedside with family present. He is AAO x3, continues with shortness of breath currently on 3 L nasal cannula. White count continues to trend downward at 11.7 today. Patient remains on Solu-Medrol every 12 hours. Patient's BNP remains unremarkable. We are currently pending PT evaluation to arrange for possible SNF placement, patient refusing to work with PT at this time. We will continue with the current medical treatment plan, this was discussed with the patient family's in agreement. Disposition per primary. 06/18/2023 Patient is awake, alert, well oriented, still with some cough and SOB, agitation, he is a home oxygen patient, no hemoptysis reported, no fever, chills, nausea or vomiting, denies chest pain termination clerk plan is to be discharge to [facility] 06/19/2024 Patient is seen and examined at the bedside, he is not in distress , on room air, doing better hemodynamically stable, no fever, chills, and nausea, respiratory status has improved , from our stand point of view patient is stable to be discharge with Lasix 20 mg po daily, Medrol pack and Zithromax 500 mg po daily x 3 days plan is to sign off this case. Do not hesitate to contact us if necessary. REVIEW OF SYSTEMS: 12 point ROS reviewed with patient. Pertinent positives mentioned above. Otherwise negative. PHYSICAL EXAM: GENERAL: alert, weak, awake oriented x 3 HEENT: EOMI, Sclera non icteric, moist mucosa NECK: Supple, no JVD, trachea midline LUNGS: Clear breath sounds bilaterally diminished HEART: Regular rate and rhythm. Normal S1 and S2, without murmurs ABD: Abdomen soft, nontender. Bowel sounds present EXT: No clubbing cyanosis or edema NEURO: Alert and oriented to person, follows commands Vital Signs (last 8hr) Date Time Temp Pulse Resp B/P (MAP) Pulse Ox O2 Delivery O2 Flow Rate FiO2 06/19/24 16:40 98.4 80 18 122/77 97 Nasal Cannula 4.0 06/19/24 11:35 103 32 40 06/19/24 11:33 98.1 81 18 133/78 95 Nasal Cannula 4.0 06/19/24 10:40 98 Nasal Cannula* 4 36 06/19/24 09:35 76 LABS: Hematology Labs: Test 06/19/24 05:03 Range/Units White Blood Count 16.5 H 4.8-10.8 K/uL Red Blood Count 5.00 4.50-6.20 MIL/uL Hemoglobin 14.2 14.0-18.0 g/dL Hematocrit 43.1 42-54 % Mean Corpuscular Volume 86.2 79-99 fL Mean Corpuscular Hemoglobin 28.4 27.0-33.0 pg Mean Corpuscular Hemoglobin Concent 32.9 32.0-36.0 g/dL Red Cell Distribution Width 14.6 11.0-15.5 % Platelet Count 285 130-400 K/uL Mean Platelet Volume 9.8 7.5-10.5 fL Immature Granulocyte % (Auto) 1.5 H 0-1 % Neutrophils (%) (Auto) 80.5 H 40.0-77.0 % Lymphocytes (%) (Auto) 8.6 L 21.0-51.0 % Monocytes (%) (Auto) 9.2 3.0-13.0 % Eosinophils (%) (Auto) 0.0 0.0-8.0 % Basophils (%) (Auto) 0.2 0.0-5.0 % Neutrophils # (Auto) 13.3 H 1.8-7.7 K/uL Lymphocytes # (Auto) 1.4 1.0-4.8 K/uL Monocytes # (Auto) 1.5 H 0.1-1.0 K/uL Eosinophils # (Auto) 0.00 0.00-0.70 K/uL Basophils # (Auto) 0.04 0.00-0.20 K/uL Absolute Immature Granulocyte (auto 0.25 0-1 K/uL Nucleated Red Blood Cells 0.0 0.0-0.19 % Chemistry Labs: Test 06/19/24 16:00 06/19/24 05:03 Range/Units Whole Blood Glucose 166 H 70-110 MG/DL Sodium Level 138 136-145 mmol/L Potassium Level 4.3 3.5-5.1 mmol/L Chloride Level 103 101-111 mmol/L Carbon Dioxide Level 29 21-32 mmol/L Blood Urea Nitrogen 14 7-18 mg/dL Creatinine 0.6 0.5-1.3 mg/dL Glomerular Filtration Rate Calc 103 >90 mL/min Random Glucose 227 H 70-105 mg/dL Lactic Acid Level 2.1 0.8-2.5 mmol/L Total Calcium 8.0 L 8.5-10.1 mg/dL Phosphorus Level 3.9 2.5-4.9 mg/dL Magnesium Level 1.80 1.80-2.40 mg/dL Total Bilirubin 0.5 0.2-1.0 mg/dL Aspartate Amino Transf (AST/SGOT) 21 10-37 U/L Alanine Aminotransferase (ALT/SGPT) 71 12-78 U/L Alkaline Phosphatase 38 L 50-136 U/L Total Protein 5.5 L 6.0-8.3 g/dL Albumin 2.2 L 3.5-5.0 g/dL Thyroid Stimulating Hormone (TSH) 0.84 # 0.36-3.74 uIU/mL Coagulation Labs: Test 06/19/24 05:03 Range/Units Prothrombin Time 11.7 H 9.6-11.6 SEC Prothromb Time International Ratio 1.05 0.85-1.15 Activated Partial Thromboplast Time 28.3 26.3-35.5 SEC DIAGNOSTICS / RADIOLOGY RESULTS: [ ] PLAN Zithromax 500 mg po daily x 3 days Lasix 20 mg po daily Medrol pack [address] NEURO: Minimize central acting medications as possible. Maintain fall precautions, adequate lighting during the day PULMONARY: Supplemental 02 as needed. Maintain aspiration precautions at all times CARDIOVASCULAR: Follow hemodynamics. Vital signs per facility protocol GI & NUTRITION: Continue with nutritional support. Continue stool softeners and laxatives as needed. KIDNEYS & ELECTROLYTES: Strict monitoring of intake, output and overall fluid balance. Avoid nephrotoxic medications to the extent possible. Medications to be dosed according to renal function. Monitor electrolytes and replace as needed ENDOCRINE: Maintain blood glucose between 100-180 at all times. Hypoglycemia protocol in place INFECTIOUS DISEASE: Trend temperature, WBC and procalcitonin level Follow cultures, deescalate antibiotics as soon as possible. Panculture if new onset fever ONCOLOGY/HEMATOLOGY/COAGULATION: Monitor for s/s of bleeding Monitor hemoglobin, coagulation studies as needed SKIN: Pressure ulcer prevention per facility protocol Specialty mattress ORTHO/REHAB: Continue PT/OT Prophylaxis: Continue GI and DVT prophylaxis Code Status: Full Resuscitation Disposition: TBD ATTESTATION BY PHYSICIAN Documentation assistance provided by a scribe, information recorded by the scribe was done at my direction and has been reviewed and validated by me." XIAO NOWAK MD Critical care spent time 35 minutes I personally scribed for XIAO NOWAK MD ([email or web address]) on 06/19/24 at 16:52. Electronically submitted by Noemy Rosales ([id number]). I personally scribed for XIAO NOWAK MD ([email or web address]) on 06/19/24 at 16:54. Electronically submitted by Noemy Rosales ([id number]). XIAO NOWAK MD Jun 19, 2024 16:52
--- NOTE | 2024-06-19 18:25 | NUR ---
D/C REPRT [id number] GAVE REPORT TO ERICH CHAMBERLAIN @ [facility] [place] 1811 CALLED [facility] FOR EMS TRANSFER. PT WILL LEAVE WITH [facility] AND [facility] IN PLACE
--- NOTE | 2024-06-19 20:40 | NUR ---
DISCHARGE EMS HERE TO PICK PT UP. NIGHT MEDS GIVEN EXCEPT FOR THE MERREM IV ANTIBIOTIC. VITAL SIGNS STABLE. NOT IN ANY FORM OF DISTRESS. KEPT ON O2 AT 3L PER NASAL CANNULA. WITH THE PT AT THE BEDSIDE.
--- NOTE | 2024-06-19 20:44 | PN ---
SUBJECTIVE: The patient was examined at bedside. He continue with oxygen on 3 liters nasal cannula per minute. Continue with IV antibiotics. Continue on steroids. He denies any fever, chills, seizures, loss of consciousness. No chest pain, palpitations. Continue to have shortness of breath with minimal effort. No abdominal pain, no nausea, vomiting, diarrhea. No dysuria or urgency. OBJECTIVE: GENERAL: Currently, he is awake, alert, oriented in person, time, and place, not in distress with oxygen 3 liters nasal cannula. VITAL SIGNS: In the chart. HEENT: Normocephalic, atraumatic. LUNGS: Decreased breath sounds bilaterally. No wheezes, no rhonchi, no wet rales. HEART: S1, S2 are distant. ABDOMEN: Soft, nontender, no masses. EXTREMITIES: No clubbing, cyanosis, no edema. LABORATORY DATA: WBC count went up to 16,000, hemoglobin 14.2, platelets 285. Sodium 138, potassium 4.3, BUN 14, creatinine 0.6. TSH 0.84, albumin 2.2. ASSESSMENT AND PLAN: * Acute on chronic respiratory failure with hypoxemia. Continue oxygen 3 liters nasal cannula. * Chronic obstructive pulmonary disease exacerbation. Continue bronchodilators, steroids, antibiotics. Vancomycin was discontinued yesterday, doxycycline was started. * Atrial fibrillation, rate controlled, anticoagulation. Continue with Xarelto. * Hypertension, controlled. * Coronary artery disease, stable. Continue current treatment. * Leukocytosis. The patient had recurrence of WBC count went up to 16,000 from yesterday 11,000. Continue recommendations by pulmonary team. Pending placement to a SNF as per pulmonary. The patient had a PICC line placed. He can be discharged to SNF home as soon as arrangements are completed. Follow up in a.m. with results. DOS: 06/19/2024 TID: [id number] RECEIPT: [id number] MTDD
== END 2024-06-19 20:40 | DRG 871 ==
LOC: EDH 14:22 → EDHIP 16:03 → 2CV 22:44 → 2BH 06-15 23:09 → 3CH 06-16 11:15
PROVIDERS: ADMIT Internal Medicine; ATTEND Internal Medicine
PROC: 5A09357 Assistance with Respiratory Ventilation, Less than 24 Consecutive Hours, Continuous Positive Airway Pressure (ICD-10-PCS; principal; 2024-06-13)
PROC: 5A09357 Assistance with Respiratory Ventilation, Less than 24 Consecutive Hours, Continuous Positive Airway Pressure (ICD-10-PCS; 2024-06-14)
PROC: 5A09357 Assistance with Respiratory Ventilation, Less than 24 Consecutive Hours, Continuous Positive Airway Pressure (ICD-10-PCS; 2024-06-15)
PROC: 05HC33Z Insertion of Infusion Device into Left Basilic Vein, Percutaneous Approach (ICD-10-PCS; 2024-06-15)
DX: A41.9 Sepsis, unspecified organism (principal); J18.9 Pneumonia, unspecified organism; J96.21 Acute and chronic respiratory failure with hypoxia; J96.22 Acute and chronic respiratory failure with hypercapnia; J44.1 Chronic obstructive pulmonary disease with (acute) exacerbation; J47.0 Bronchiectasis with acute lower respiratory infection; I50.30 Unspecified diastolic (congestive) heart failure; G72.81 Critical illness myopathy; J44.0 Chronic obstructive pulmonary disease with (acute) lower respiratory infection; I48.20 Chronic atrial fibrillation, unspecified; I25.10 Atherosclerotic heart disease of native coronary artery without angina pectoris; J43.9 Emphysema, unspecified; I11.0 Hypertensive heart disease with heart failure; F17.200 Nicotine dependence, unspecified, uncomplicated; E66.9 Obesity, unspecified; E78.5 Hyperlipidemia, unspecified; J84.10 Pulmonary fibrosis, unspecified; E03.9 Hypothyroidism, unspecified; E11.65 Type 2 diabetes mellitus with hyperglycemia; Z86.718 Personal history of other venous thrombosis and embolism; Z99.81 Dependence on supplemental oxygen; Z68.28 Body mass index [BMI] 28.0-28.9, adult; Z79.01 Long term (current) use of anticoagulants; Z79.899 Other long term (current) drug therapy; Z88.0 Allergy status to penicillin; Z95.5 Presence of coronary angioplasty implant and graft
CPT/HCPCS: 36415; 36600; 71045; 80048; 80053; 80202; 81001; 82803; 82948; 83036; 83605; 83735; 83880; 84100; 84443; 84484; 85025; 85027; 85610; 85730; 87040; 87426; 87804; 92610; 93005; 94640; 94660; 94664; 94667; 94668; 96365; 96368; 99285; C1894; G0378; J1815; J1956; J2185; J2470; J2919; J3370; J3475; J3490; 3370; C1750

== ENCOUNTER 2024-07-18 20:15 | Inpatient (IN) | payer MEDICARE ==
[~2024-07-18] VITALS: Ht 167.6 cm; Wt 80.6 kg
[~2024-07-18 20:15] MED LIST changes: -ALBU90AE3 IH; -ARFO15VI20 IH; -ATEN50TA PO; -ATOR40TA69 PO; -BUDE0.255 IH; -BUDE10.7 IH; -CLON1TAB12 PO; -DOCU100C33 PO; -EMPA10TA PO; -FURO20TA4 PO; -IPRA3AMP24 NEB; -MONT-39 PO; -POTA10CA95 PO; -REVEFENACIN IH
[2024-07-18] MEDS: IpraTROPium/alBUTERol SULFATE 3 ML SOLUTION IH ONE (20:30)
--- NOTE | 2024-07-18 20:33 | ERN ---
ED Note History of Present Illness Stated Complaint: SOB Chief Complaint: Shortness of Breath Time Seen by MD: 20:16 Dictation: This is a 74-year-old male who was sent from [facility] for evaluation of shortness of breath and hypoxia. Apparently during the routine c heck this morning patient was noted to be tachypneic and his pulse ox was 80% on room air. He was placed on O2 and titrated to 6 L. patient is very slow to respond and appears tachypneic during the evaluation. He just had some wet gurgling and reports some cough Temperature 97.7 pulse 115 respirations 24 blood pressure 75/65 with a pulse oximetry of 92% on 6 L O2 via nasal cannula His chronic medical problems include atrial fibrillation, diabetes mellitus, hypertension, hypercholesterolemia, COPD and on long-term anticoagulation for AFib on Xarelto Allergies: Coded Allergies: Penicillins (Verified Allergy, Unknown, 04/06/14) gluten (Unverified Allergy, Unknown, 03/06/16) Home Meds Active Scripts Clopidogrel Bisulfate (Plavix) 75 Mg Tablet, 75 MG PO DAILY, #90 TAB 1 Refill Prov:ZANDRA FU MD 01/25/21 Reported Medications Lorazepam (Ativan) 1 Mg Tablet, 1 MG PO DAILY PRN for ANXIETY/AGITATION, TAB 06/05/24 Digoxin (Digoxin) 125 Mcg (0.125 Mg) Tablet, 125 MCG PO DAILY, TAB 02/26/24 Rivaroxaban (Xarelto) 20 Mg Tablet, 20 MG PO HS, TAB 02/26/24 Fluoxetine HCl (Fluoxetine HCl) 20 Mg Capsule, 40 MG PO DAILY, CAP 07/19/23 Pantoprazole Sodium (Pantoprazole Sodium) 40 Mg Tablet.dr, 40 MG PO DAILY, TAB 11/25/22 Atenolol (Atenolol) 25 Mg Tablet, 25 MG PO DAILY, TAB 01/22/21 Levocetirizine Dihydrochloride (Levocetirizine Dihydrochloride) 5 Mg Tablet, 5 MG PO HS, TAB 12/30/20 Past Medical History Past Medical History: A-Fib, COPD, Diabetes-Type II, High Cholesterol, Hypertension Additional Past Medical Hx: DVT Surgical History: None Surgical History Other: CARDIAC STENTS Social History: Smokers, [facility] in [facility] RN Note Reviewed/Agreed w/PFSH: Yes Review of System Dictation Constitutional: Negative for fever,chills, and weight loss Eyes: Negative for injury, pain,redness, and discharge ENT: Negative for injury,pain or swelling Cardiovascular: Negative for chest pain, palpitations, and edema Respiratory: Positive for shortness of breath, cough, and wheezing, Abdomen/GI: Negative for abdominal pain, nausea, vomiting, diarrhea, and constipation Back: Negative for injury and pain : Negative for injury, bleeding and discharge MS/Extremity: Negative for injury and deformity Skin: Negative for rash, and discoloration Neuro: Negative for headache, weakness, numbness, tingling, and seizure Psych: Negative for suicide ideation, homicidal ideation, and hallucinations Initial Vital Sign VS Vital Signs Date Time Temp Pulse Resp B/P (MAP) Pulse Ox O2 Delivery O2 Flow Rate FiO2 07/18/24 20:16 97.7 115 24 75/65 89 Nasal Cannula 6.0 07/18/24 20:48 40 Physical Exam Dictation General: awake, alert, mildly tachy, chronically ill-appearing Head/Face: Normocephalic, atraumatic Eyes: PERRL, EOMI, vision at baseline ENT: oral cavity clear, TMs clear, no signs of infection Neck: Trachea midline, supple, no nuchal rigidity Cardiovascular: Irregular tachy, No MRGs, no JVD Respiratory: Tachypneic decreased breath sounds bilaterally with coarse rhonchi Abdomen: Soft, non-tender, non-distended, normal bowel sounds, no guarding or rebound. Skin: Warm, dry, normal turgor, no rash MS/Extremity: Pulses equal, no cyanosis, neurovascular intact, FROM Neuro: COAx4, GCS 15, strength 5/5, CN 2-12 intact, normal cerebellar exam, normal gait, Psych: Normal behavior, mood, and affect normal Extremities-trace edema without any palpable cords, Homans sign is negative Results (Laboratory/Radiology) Laboratory/Radiology Laboratory Tests Test 07/18/24 21:09 07/18/24 22:13 Blood Gas Specimen Type Arterial Arterial Blood pH 7.464 (7.350-7.450) Arterial Blood Partial Pressure CO2 35 mmHg (35-48) Arterial Blood Partial Pressure O2 69.8 mmHg (83.0-108.0) L Arterial Blood HCO3 24.8 mmol/L (21.0-28.0) Arterial Blood Oxygen Saturation 93.8 % (94.0-98.0) L Arterial Blood Base Excess 1.6 mmol/L (-2.0-3.0) Hemoglobin (Blood Gas) 18.2 g/dL (13.5-17.5) *H Sodium (Blood Gas) 129 MMOL/L (136-145) L Bedside Potassium (Blood Gas) 4.0 MMOL/L (3.4-4.5) Bedside Chloride (Blood Gas) 91 MMOL/L (98-107) L Bedside Glucose (Blood Gas) 316 MG/DL (65-95) H Bedside Ionized Calcium (Blood Gas) 1.14 MMOL/L (1.15-1.33) L Bedside Lactic Acid (Blood Gas) 2.67 MMOL/L (0.36-0.75) H Blood Gas Temperature 37.0 CELSIUS (35.5-37.0) Blood Gas Flow-by 5.00 L/min (0.00-15.00) Blood Gas Vent Mode 5LNC (ROOM AIR) FiO2 40.0 % Blood Gas Specimen Comment RN, LB White Blood Count 17.3 K/uL (4.8-10.8) H Red Blood Count 6.11 MIL/uL (4.50-6.20) Hemoglobin 17.3 g/dL (14.0-18.0) Hematocrit 48.6 % (42-54) Mean Corpuscular Volume 79.5 fL (79-99) Mean Corpuscular Hemoglobin 28.3 pg (27.0-33.0) Mean Corpuscular Hemoglobin Concent 35.6 g/dL (32.0-36.0) Red Cell Distribution Width 16.0 % (11.0-15.5) H Platelet Count 289 K/uL (130-400) Mean Platelet Volume 10.3 fL (7.5-10.5) Immature Granulocyte % (Auto) 3.9 % (0-1) H Neutrophils (%) (Auto) 77.3 % (40.0-77.0) H Lymphocytes (%) (Auto) 9.7 % (21.0-51.0) L Monocytes (%) (Auto) 8.1 % (3.0-13.0) Eosinophils (%) (Auto) 0.4 % (0.0-8.0) Basophils (%) (Auto) 0.6 % (0.0-5.0) Neutrophils # (Auto) 13.4 K/uL (1.8-7.7) H Lymphocytes # (Auto) 1.7 K/uL (1.0-4.8) Monocytes # (Auto) 1.4 K/uL (0.1-1.0) H Eosinophils # (Auto) 0.07 K/uL (0.00-0.70) Basophils # (Auto) 0.11 K/uL (0.00-0.20) Absolute Immature Granulocyte (auto 0.68 K/uL (0-1) Nucleated Red Blood Cells 0.0 % (0.0-0.19) Sodium Level 128 mmol/L (136-145) L Potassium Level 3.9 mmol/L (3.5-5.1) Chloride Level 92 mmol/L (101-111) L Carbon Dioxide Level 26 mmol/L (21-32) Blood Urea Nitrogen 39 mg/dL (7-18) H Creatinine 1.0 mg/dL (0.5-1.3) Glomerular Filtration Rate Calc 80 mL/min (>90) Random Glucose 302 mg/dL (70-105) H Total Calcium 9.3 mg/dL (8.5-10.1) Labs Reviewed?: Yes EKG Comment: Lead EKG done on 07/18/2024 at 8:52 p.m. showed a heart rate of 112 QRS 96, QT/QTC 331/452 Impression atrial fibrillation with rapid ventricular response, LVH, nonspecific ST-T changes with occasional PVCs. Interpreted by ER MD Dr. Betts ED Course ED Course Orders Procedure Category Date Status Time O2 Nc Keep Sats CPOE 07/18/24 Transmitted Greater 92% 20:29 Cbc With Differential LAB 07/18/24 In Process 20:29 B-Type Natriuretic LAB 07/18/24 In Process Peptide 20:29 Chest 1vw RAD 07/18/24 Resulted 20:29 12 Lead Ekg Tracing- EKG 07/18/24 Complete Technical 20:29 0.9%Nacl 1000ml (Ns PHA 07/18/24 In Process 1000ml) 20:30 Ipratropium/Albuterol PHA 07/18/24 Complete Neb (Duoneb) 20:30 Methylprednisolone PHA 07/18/24 Complete Succ 125mg (Solu-Medr 20:30 Basic Metabolic Panel LAB 2/15/25 Complete 20:29 Arterial Blood Gas LAB 07/18/24 Complete Arterial + 21:09 Arterial Blood Gas RT 07/18/24 Transmitted 21:50 Levofloxacin 500 PHA 07/18/24 Complete Mg/D5w 100 Ml 22:00 Edm Admit Bridge Order ADM 07/18/24 Transmitted 22:22 Admit Orders ADM 07/18/24 Transmitted 22:24 Consistent Carb DIET 07/19/24 Transmitted Breakfast *Nursing CPOE 07/18/24 Transmitted Communication: 22:24 Cbc W Manual Diff LAB 07/19/24 Verified 04:00 Comprehensive LAB 07/19/24 Verified Metabolic Panel 04:00 Methylprednisolone PHA 07/18/24 In Process Succ 40mg (Solu-Medro 22:30 Levofloxacin 250 PHA 07/18/24 In Process Mg/D5w 50ml (Levaquin 22:30 Ipratropium/Albuterol PHA 07/18/24 In Process Neb (Duoneb) 22:30 Ipratropium/Albuterol PHA 07/18/24 In Process Neb (Duoneb) 22:30 Initiate DIOGENES 07/18/24 In Process Hyperglycemia Protoco 22:24 Insulin Lispro 100 PHA 07/19/24 In Process Unit/Ml 3ml (Humalog 07:30 Initiate Po DIOGENES 07/18/24 In Process Hypokalemia Protoc 22:24 Potassium Chloride PHA 07/18/24 In Process 20meq/100ml (Potassiu 22:30 Potassium Chl 10% PHA 07/18/24 In Process Elixir 20meq (Kcl 10% 22:30 Potassium Chloride PHA 07/18/24 In Process 20meq Er (K-Dur/Klor- 22:30 Notify Physician If CPOE 07/18/24 Transmitted There Is 22:24 Notify Md On The Next CPOE 07/18/24 Transmitted 22:24 Notify Md On The CPOE 07/18/24 Transmitted Next(Cont.) 22:24 Current Medications Medications (Trade) Dose Ordered Sig/James Route PRN Reason Start Time Stop Time Status Last Admin Dose Admin Albuterol (DUOneb) 1 UDVIAL Q4H PRN IH SHORTNESS OF BREATH 07/18/24 22:30 08/17/24 22:29 Albuterol (DUOneb) 1 UDVIAL [id number] IH 07/18/24 22:30 08/17/24 22:29 Albuterol (DUOneb) 1 udvial ONCE ONCE IH 07/18/24 20:30 07/18/24 20:32 DC Insulin Human Lispro (HumaLOG LISpro 100 UNIT/ML 3ML) INSULIN SLIDING SCAL... ACHS SQ 07/19/24 07:30 08/18/24 07:29 Levofloxacin/ Dextrose 50 ml @ 100 mls/hr Q24H IV 07/18/24 22:30 07/28/24 22:29 Levofloxacin/ Dextrose (LEvaquIN 500 MG/ D5W 100 ML) 500 mg ONCE ONCE IV 07/18/24 22:00 07/18/24 22:01 DC 07/18/24 22:02 Methylprednisolone Sodium Succinate (Solu-medROL 40MG) 80 mg Q8H IVP 07/18/24 22:30 08/17/24 22:29 Methylprednisolone Sodium Succinate (Solu-medROL 125MG) 125 mg ONCE ONCE IVP 07/18/24 20:30 07/18/24 20:32 DC 07/18/24 22:02 Potassium Chloride 100 ml @ 100 mls/hr AD PRN IV POTASSIUM PROTOCOL 07/18/24 22:30 08/17/24 22:29 Potassium Chloride (K-Dur/Klor-Con 20meq) 20 meq AD PRN PO POTASSIUM PROTOCOL 07/18/24 22:30 08/17/24 22:29 Potassium Chloride (KCl 10% Elixir 20meq/15ml) 20 meq AD PRN PO POTASSIUM PROTOCOL 07/18/24 22:30 08/17/24 22:29 Sodium Chloride 1,000 ml @ 125 mls/hr ONCE ONCE IV 07/18/24 20:30 07/19/24 04:29 07/18/24 22:02 Vital Signs Date Time Temp Pulse Resp B/P (MAP) Pulse Ox O2 Delivery O2 Flow Rate FiO2 07/18/24 21:09 108 26 40 07/18/24 20:48 100 23 98/61 95 Nasal Cannula* 5 40 07/18/24 20:40 108 25 07/18/24 20:16 97.7 115 24 75/65 89 Nasal Cannula 6.0 We will perform diagnostic labs, advanced imaging and administer medications according to the patient's complaint. Once the results are available, will review and personally interpreted the labs to rule out any acute life- threatening emergency the trach require immediate intervention and treatment. I will then re-evaluate the patient after treatment and diagnostic exams have return to determine whether the patient requires any further testing, can safely be discharged home or need further admission to hospital for additional treatment and evaluation. Arterial blood gas showed a pH of 7.46 pCO2 of 35 PO2 of about 70 on 5 L O2 via nasal cannula. Lactate is 2.67 sodium and chloride are 131 and 94. Chest x-ray showed cardiomegaly with a chronic bilateral infiltrates suggestive of pneumonia plus likely pulmonary vascular congestion. Recommended admission to the hospital for further management 9:45 p.m.-patient will be admitted to , covering for Dr. Mclaughlin for admission and further management Medical Decision Making MDM MDM: Differential diagnosis: Sepsis, congestive heart failure, COPD with acute exacerbation Rationale: Tests considered and ordered secondary to shared decision making include: labs, ECG and radiology Previous outside records reviewed: Old ER visits. Risk of complication and/or morbidity or mortality of patient management: None Medications-Per medication reconciliation Need for hospitalization: Patient does meet criteria for hospitalization. Need for emergency major/minor surgery: No There are no social concerns with this patient. Prescription drug management Prescriptions will include symptomatic care Patient's prior external medical records from other ER visits were reviewed by me as indicated. Prior testing and results from previous visits were reviewed. Prior tests were taken into account with medical decision making and resource utilization, independent historian/historians were used to obtain complete medical history. I independently interpreted the test that were performed, results were reviewed by me and considered findings on radiology if ordered. Medical management and examination interpretation discussions were had by me with other qualified healthcare professionals as indicated for the patient's care. Problem List Problem List: (1) Hypotension (2) Acute respiratory failure with hypoxia (3) Sepsis (4) Hyponatremia (5) Uncontrolled diabetes mellitus (6) Bilateral pneumonia (7) ATRIAL FIBRILLATION (8) COPD (chronic obstructive pulmonary disease) (9) Right atrial mass (10) Coronary artery disease DX & DISP Disposition: Inpatient Decision to Admit Time: 10:30 Departure Impression: Primary Impression: Acute and chronic respiratory failure ([id number]) Additional Impressions: Chronic atrial fibrillation with rapid ventricular response, Sepsis, Hyponatremia, Hypotension, Uncontrolled diabetes mellitus Condition: Stable Additional Instructions: Patient was informed of all the diagnostic labs and procedures conducted in the emergency room today and demonstrated understanding of the results. I personally reviewed and interpreted all the diagnostic exams performed in the ER today. The patient will be admitted to the hospital for further treatment and evaluation. Disposition-admit to facility Condition-stable/guarded Course-uncertain at this time Pain status-decreased Assessment-exam unchanged Admission Certification- I certify that the patients status is appropriate and is based on my best clinical judgment and the patient's condition as documented in the medical records Referrals: MAUREEN MCLAUGHLIN MD (PCP) BC BETTS MD Jul 18, 2024 20:33
[2024-07-18 20:40] VITALS: PULSE 108; RESP 25
--- NOTE | 2024-07-18 20:55 | EKG ---
[facility] Test Date: 2024-07-18 Test Time: 20:52:27 Pat Name: LUDWIN BAE Department: [facility] Room: ED Gender: M Windows Admin: [id number] : 1950 Requested By: BC NOVA Order Number: [id number] Reading MD: Sami Tom Measurements Intervals [place] Rate: 112 P: 0 DE: 0 QRS: 109 QRSD: 96 T: -59 QT: 331 QTc: 452 Interpretive Statements Atrial fibrillation Probable right ventricular hypertrophy Repol abnrm, severe global ischemia (LM/MVD) Compared to ECG 06/13/2024 14:44:19 No significant changes Electronically Signed On 07-19-2024 14:58:23 PHOTOGRAMMETRIC TECH by Sami Tom Please click the below link to view image of tracing.
--- NOTE | 2024-07-18 21:07 | NUR ---
PER DR. COYNE NURSING STAFF IS ABLE TO USE MIDLINE FOR MEDICATION ADMINISTRATION./ARIE
[2024-07-18 21:09] VITALS: PULSE 108; RESP 26; O2SAT 97
[2024-07-18 21:10] LABS: ABG BASE EXCESS 1.6 mmol/L (-2.0-3.0); ABG HCO3 24.8 mmol/L (21.0-28.0); ABG OXYGEN SATURATION 93.8 % (94.0-98.0); ABG PCO2 35 mmHg (35-48); ABG PH 7.464 (7.350-7.450); CARBON MONOXIDE 1.2 % (0.5-1.5); HHb 6.1; PO2, ARTERIAL BG 69.8 mmHg (83.0-108.0); VENT MODE, BG 5LNC (ROOM AIR)
--- NOTE | 2024-07-18 21:13 | HMCIMG ---
INDICATION: Dyspnea/SOB TECHNIQUE: CHEST 1VW COMPARISON: 06/24/2024 FINDINGS AND IMPRESSION: Bilateral airspace consolidation suggesting vascular congestion/edema versus pneumonia. Cardiomegaly is seen Mild degenerative changes of the spine. The visualized upper abdomen appears unremarkable.
[2024-07-18] MEDS: levoFLOXacin 500 MG/D5W 100 ML IV ONE (22:02)
[2024-07-18] MEDS: 0.9%NACL 1000ML 1,000 ML IV ONE (22:02)
[2024-07-18] MEDS: Solu-medROL 125MG VIAL IVP ONE (22:02)
[2024-07-18 22:24] LABS: BASOPHILS # (AUTO) 0.11 K/uL (0.00-0.20); BASOPHILS % (AUTO) 0.6 % (0.0-5.0); EOSINOPHILS # (AUTO) 0.07 K/uL (0.00-0.70); EOSINOPHILS % (AUTO) 0.4 % (0.0-8.0); HEMATOCRIT 48.6 % (42-54); IMMATURE GRANULOCYTE ABSOLUTE 0.68 K/uL (0-1); LYMPHOCYTES # (AUTO) 1.7 K/uL (1.0-4.8); LYMPHOCYTES % (AUTO) 9.7 % (21.0-51.0); MEAN CORPUSCULAR HEMOGLOBIN 28.3 pg (27.0-33.0); MEAN CORPUSCULAR HGB CONC 35.6 g/dL (32.0-36.0); MEAN CORPUSCULAR VOLUME 79.5 fL (79-99); MONOCYTES # (AUTO) 1.4 K/uL (0.1-1.0); MONOCYTES % (AUTO) 8.1 % (3.0-13.0); NEUTROPHILS # (AUTO) 13.4 K/uL (1.8-7.7); NEUTROPHILS % (AUTO) 77.3 % (40.0-77.0); PLATELET COUNT (AUTO) 289 K/uL (130-400); RED BLOOD CELL COUNT(AUTO) 6.11 MIL/uL (4.50-6.20); WHITE BLOOD COUNT (AUTO) 17.3 K/uL (4.8-10.8)
[2024-07-18] MEDS: Solu-medROL 40MG VIAL IVP SCH (22:30)
[2024-07-18] MEDS: levoFLOXacin 250 MG/D5W 50ML 50 ML IV SCH (22:30)
[2024-07-18] MEDS ORDERED: IpraTROPium/alBUTERol SULFATE 3 ML SOLUTION IH PRN (22:30)
[2024-07-18 22:36] LABS: POTASSIUM 3.9 mmol/L (3.5-5.1)
[2024-07-18 23:06] LABS: B-TYPE NATRIURETIC PEPTIDE 714 pg/mL (0-100)
[2024-07-19] VITALS (7 sets, daily range): PULSE 85–100; RESP 20–23; O2SAT 92–96
[2024-07-19] MEDS: IpraTROPium/alBUTERol SULFATE 3 ML SOLUTION IH SCH (00:14)
--- NOTE | 2024-07-19 05:50 | NUR ---
0530: endorsed care to Sami CHAMBERLAIN
[2024-07-19 06:56] LABS: BASOPHILS # (AUTO) 0.03 K/uL (0.00-0.20); BASOPHILS % (AUTO) 0.3 % (0.0-5.0); EOSINOPHILS # (AUTO) 0.01 K/uL (0.00-0.70); EOSINOPHILS % (AUTO) 0.1 % (0.0-8.0); HEMATOCRIT 47.4 % (42-54); LYMPHOCYTES # (AUTO) 0.5 K/uL (1.0-4.8); LYMPHOCYTES % (AUTO) 4.8 % (21.0-51.0); MEAN CORPUSCULAR HEMOGLOBIN 28.3 pg (27.0-33.0); MEAN CORPUSCULAR HGB CONC 34.4 g/dL (32.0-36.0); MEAN CORPUSCULAR VOLUME 82.4 fL (79-99); MONOCYTES # (AUTO) 0.2 K/uL (0.1-1.0); NEUTROPHILS # (AUTO) 8.7 K/uL (1.8-7.7); NEUTROPHILS % (AUTO) 88.7 % (40.0-77.0); PLATELET COUNT (AUTO) 237 K/uL (130-400); RED BLOOD CELL COUNT(AUTO) 5.75 MIL/uL (4.50-6.20); RED CELL DISTRIBUTION WIDTH 15.4 % (11.0-15.5); WHITE BLOOD COUNT (AUTO) 9.8 K/uL (4.8-10.8)
[2024-07-19 07:27] LABS: ALBUMIN 2.4 g/dL (3.5-5.0); BILIRUBIN,TOTAL 0.8 mg/dL (0.2-1.0); CREATININE 0.6 mg/dL (0.5-1.3); POTASSIUM 3.9 mmol/L (3.5-5.1); TOTAL PROTEIN, SERUM 6.5 g/dL (6.0-8.3)
[2024-07-19] MEDS: INSULIN LISpro 100 UNIT/ML 3ML SQ SCH (07:57)
--- NOTE | 2024-07-19 12:07 | CONS ---
[facility] CONSULTATION NOTE Date Patient Seen: Jul 19, 2024 Time of Visit: 11:56 Supervising Physician: [Dr Sb Domínguez Reason for Consultation: [AHRF, Pneumonia Primary Care Physician: Dr. Mirza Outpatient Specialists: [ ] Inpatient Consults: [ ] PROBLEM LIST: Acute hypoxemic respiratory failure Community-acquired Pneumonia Chronic COPD with exacerbation Type 2 diabetes Essential hypertension Hyperlipidemia CAD Atrial fibrillation-on Xarelto Plan summary: Supplemental oxygen as needed Duo nebs as needed CPAP nightly and p.r.n. Obtain sputum culture Continue Levaquin Solu-Medrol 40 mg every 8 hours Lasix 40 mg IV b.i.d. x4 doses Montelukast 10 mg daily ABG in a.m. Chest x-ray in a.m. Speech therapy evaluate and treat Repeat a.m. labs HPI: Mr. Jose Bae is a 74-year-old male with a past medical history of COPD, diabetes, hypertension, hyperlipidemia, CAD, AFib on Xarelto we will sent over from [facility] for evaluation of shortness on breath and hypoxia. As per sylvester eduardo, patient's O2 sat was 80% on room air at [facility]. Patient was placed on O2 and titrated to 6 L. patient was very slow to respond therefore they sent him in for further evaluation. Patient was previously admitted to this facility about 2 weeks ago and was treated for pneumonia. Patient was sent to SNF to continue an extra week of IV antibiotics as well as therapy. Patient daughters reports she has noted patient coughing with his fluids and meals. She reports speech therapy was evaluating him at SNF however unclear with the findings were. Patient had a chest x-ray and we will bilateral pneumonia and for this reason we are consulted. Patient is seen sitting up in bed accompanied by his daughter. Patient does appear to be weak and deconditioned and hypoxemic on2 L via nasal cannula. As per daughter, patient does have home O2 in his baseline is2 L. unclear why patient was on room air at SNF. Patient's vital signs are stable. Today's labs show white count has trended down within normal limits. Recommend continuing Levaquin for now. Recommend speech therapy evaluate and perform an MBSS if warranted to rule out dysphagia. Recommend tapering steroids as no need for such high dosage at this time. We will give Lasix 40 mg IV b.i.d. x4 doses. We will continue to follow up. PAST MEDICAL HX: see above PAST SURGICAL HX: noncontributory SOCIAL HISTORY: No tobacco, ETOH, or illicit drug use Coded Allergies: Penicillins (Verified Allergy, Unknown, 04/06/14) gluten (Unverified Allergy, Unknown, 03/06/16) REVIEW OF SYSTEMS: 12 point ROS reviewed with patient. Pertinent positives mentioned above. Otherwise negative. PHYSICAL EXAM: GENERAL: alert, weak, awake oriented x 3 HEENT: EOMI, Sclera non icteric, moist mucosa NECK: Supple, no JVD, trachea midline LUNGS: Clear breath sounds bilaterally. No wheezes HEART: Regular rate and rhythm. Normal S1 and S2, without murmurs ABD: Abdomen soft, nontender. Bowel sounds present EXT: No clubbing cyanosis or edema NEURO: Alert and oriented to person, follows commands Vital Signs (last 8hr) Date Time Temp Pulse Resp B/P (MAP) Pulse Ox O2 Delivery O2 Flow Rate FiO2 07/19/24 07:43 95 23 40 07/19/24 07:15 98.1 94 19 111/72 95 Nasal Cannula* 6 40 Bi-PAP+ 07/19/24 06:46 92 22 07/19/24 06:11 97 18 114/74 96 Bi-PAP+ 40 LABS: Hematology Labs: Test 07/19/24 06:40 07/18/24 22:13 Range/Units White Blood Count 9.8 # 4.8-10.8 K/uL Red Blood Count 5.75 4.50-6.20 MIL/uL Hemoglobin 16.3 14.0-18.0 g/dL Hematocrit 47.4 42-54 % Mean Corpuscular Volume 82.4 79-99 fL Mean Corpuscular Hemoglobin 28.3 27.0-33.0 pg Mean Corpuscular Hemoglobin Concent 34.4 32.0-36.0 g/dL Red Cell Distribution Width 15.4 11.0-15.5 % Platelet Count 237 130-400 K/uL Mean Platelet Volume 10.1 7.5-10.5 fL Immature Granulocyte % (Auto) 4.1 H 0-1 % Neutrophils (%) (Auto) 88.7 H 40.0-77.0 % Lymphocytes (%) (Auto) 4.8 L 21.0-51.0 % Monocytes (%) (Auto) 2.0 L 3.0-13.0 % Eosinophils (%) (Auto) 0.1 0.0-8.0 % Basophils (%) (Auto) 0.3 0.0-5.0 % Neutrophils # (Auto) 8.7 H 1.8-7.7 K/uL Lymphocytes # (Auto) 0.5 L 1.0-4.8 K/uL Monocytes # (Auto) 0.2 0.1-1.0 K/uL Eosinophils # (Auto) 0.01 0.00-0.70 K/uL Basophils # (Auto) 0.03 0.00-0.20 K/uL Absolute Immature Granulocyte (auto 0.40 0-1 K/uL Nucleated Red Blood Cells 0.0 0.0-0.19 % White Cell Morphology Comment See comments Chemistry Labs: Test 07/19/24 11:41 07/19/24 06:40 07/18/24 22:13 Range/Units Whole Blood Glucose 266 H 70-110 MG/DL Sodium Level 130 L 136-145 mmol/L Potassium Level 3.9 3.5-5.1 mmol/L Chloride Level 97 L 101-111 mmol/L Carbon Dioxide Level 25 21-32 mmol/L Blood Urea Nitrogen 33 H 7-18 mg/dL Creatinine 0.6 0.5-1.3 mg/dL Glomerular Filtration Rate Calc 103 >90 mL/min Random Glucose 296 H 70-105 mg/dL Total Calcium 8.7 8.5-10.1 mg/dL Total Bilirubin 0.8 0.2-1.0 mg/dL Aspartate Amino Transf (AST/SGOT) 26 10-37 U/L Alanine Aminotransferase (ALT/SGPT) 40 12-78 U/L Alkaline Phosphatase 51 50-136 U/L Total Protein 6.5 6.0-8.3 g/dL Albumin 2.4 L 3.5-5.0 g/dL B-Type Natriuretic Peptide 714 H 0-100 pg/mL DIAGNOSTICS / RADIOLOGY RESULTS: [ ]IMAGING REPORT Signed PATIENT: JOSE BAE MR#: [id number] : 1950 SEX: M AGE: 74 LOCATION: [facility] ORDER 2030 STATUS: REG REPORT#: [id number] SERVICE 28 REASON: Dyspnea/SOB ORDERING PHYSICIAN: BC ONVA MD PROCEDURE: CXR1VW - CHEST 1VW INDICATION: Dyspnea/SOB TECHNIQUE: CHEST 1VW COMPARISON: 06/24/2024 FINDINGS AND IMPRESSION: Bilateral airspace consolidation suggesting vascular congestion/edema versus pneumonia. Cardiomegaly is seen Mild degenerative changes of the spine. The visualized upper abdomen appears unremarkable. DICTATED BY: LYNETTE BOWLES MD DATE: 07/18/242109 ELECTRONICALLY SIGNED BY: LYNETTE BOWLES MD DATE: 07/18/242112 PLAN NEURO: Minimize central acting medications as possible. Maintain fall precautions, adequate lighting during the day PULMONARY: Supplemental 02 as needed. Maintain aspiration precautions at all times CARDIOVASCULAR: Follow hemodynamics. Vital signs per facility protocol GI & NUTRITION: Continue with nutritional support. Continue stool softeners and laxatives as needed. KIDNEYS & ELECTROLYTES: Strict monitoring of intake, output and overall fluid balance. Avoid nephrotoxic medications to the extent possible. Medications to be dosed according to renal function. Monitor electrolytes and replace as needed ENDOCRINE: Maintain blood glucose between 100-180 at all times. Hypoglycemia protocol in place INFECTIOUS DISEASE: Trend temperature, WBC and procalcitonin level Follow cultures, deescalate antibiotics as soon as possible. Panculture if new onset fever ONCOLOGY/HEMATOLOGY/COAGULATION: Monitor for s/s of bleeding Monitor hemoglobin, coagulation studies as needed SKIN: Pressure ulcer prevention per facility protocol Specialty mattress ORTHO/REHAB: Continue PT/OT Prophylaxis: Continue GI and DVT prophylaxis Code Status: Full Resuscitation Disposition: As per attending Other: Total patient care time exceeds 35 minutes excluding all procedures. ATTESTATION BY PHYSICIAN The patient has been seen and evaluated, the case has been discussed with the DOCUMENT CONTROL SPECIALIST, I agree with the clinical findings and plan of care. Norm Domínguez MD,MARTA N DOCUMENT CONTROL SPECIALIST Jul 19, 2024 12:07
--- NOTE | 2024-07-19 13:10 | NUR ---
REC'D REPORT AND ASSUMED CARE OF PT
[2024-07-19] MEDS: furoSEMIDE 40MG VIAL IVP SCH (13:30)
[2024-07-19] MEDS: doCUSate SODIUM 100 MG CAP PO ONE ×2 (13:44)
[2024-07-19] MEDS: Solu-medROL 40MG VIAL IVP SCH (14:29)
--- NOTE | 2024-07-19 15:45 | NUR ---
DCP Pt awake, alert, oriented x3 with Paris Goldman [phone] at bedside. Pt has a cane, transport wheelchair, smartvest, and nebulizer machine. Spouse states pt was previously at [facility], then at [facility]. Spouse verbalized pt needs a CPAP. Anticipates discharge is for [facility]. Addendum: 07/19/24 at 1553 by POLINA PIRES RN CM Amended: Links added.
--- NOTE | 2024-07-19 17:00 | NUR ---
BEDSIDE SWALLOW EVAL COMPLETED. + s/s of aspiration. Recommend mechanical soft-ground solids, nectar thick liquids, and while pills one at a time as tolerated. COMPENSATORY STRATEGIES 1. Sit upright 2. slow oral intake 3. Alt liquids and solids 4. Remain seated up 30 minutes post meal. PIT FURNACE MELTER reviewed results and recommendations with patient, family, and nurse. PIT FURNACE MELTER educated patient/family on risk and consequences of aspiration. Speech therapy warranted at this time to address dysphagia. All questions answered. RECOMMENDATIONS: Dysphagia therapy 1-3x week to improve oral and pharyngeal swallow: LTG#1: Pt will tolerate least restrictive diet to meet nutrition/hydration with no s/s of aspiration. LTG#2: Skilled education Pt/family/staff STG#1: Pt will participate in laryngeal elevation/excursion exercises with 90% accuracy. STG#2: Pt will participate in tongue based retraction exercises with 90% accuracy with min asst. STG#3: Pt will participate in oral motor exercises with 90% accuracy with min asst. STG#4 Pt will tolerate a modified diet of ground solids and nectar thick liquids with no overt s/s of aspiration. STG#5 Pt will participate in therapeutic trials of mechanical soft/chopped solids and thin liquids with no overt s/s of aspiration. STG#6: Skilled education with pt/family/staff Addendum: 07/19/24 at 1955 by SUDHA UNGER Amended: Links added.
--- NOTE | 2024-07-19 22:47 | HP ---
HISTORY AND PHYSICAL NOTE DATE OF CONSULTATION: 07/18/24 REASON FOR CONSULTATION: dyspnea HISTORY OF PRESENT ILLNESS: HPI: Mr. Jose Goldman is a 74-year-old male with a past medical history of COPD, diabetes, hypertension, hyperlipidemia, CAD, AFib on Xarelto we will sent over from [facility] for evaluation of shortness on breath and hypoxia. As per chart, patient's O2 sat was 80% on room air at SNF. Patient was placed on O2 and titrated to 6 L. patient was very slow to respond therefore they sent him in for further evaluation. Patient was previously admitted to this facility about 2 weeks ago and was treated for pneumonia. Patient was sent to SNF to continue an extra week of IV antibiotics as well as therapy. Patient daughters reports she has noted patient coughing with his fluids and meals. She reports speech therapy was evaluating him at SNF however unclear with the findings were. Patient had a chest x-ray and we will bilateral pneumonia and for this reason we are consulted. Patient is seen sitting up in bed accompanied by his daughter. Patient does appear to be weak and deconditioned and hypoxemic on2 L via nasal cannula. As per daughter, patient does have home O2 in his baseline is2 L. unclear why patient was on room air at SNF. Patient's vital signs are stable. Today's labs show white count has trended down within normal limits. Recommend continuing Levaquin for now. Recommend speech therapy evaluate and perform an MBSS if warranted to rule out dysphagia. Recommend tapering steroids as no need for such high dosage at this time. We will give Lasix 40 mg IV b.i.d. x4 doses. We will continue to follow up. PAST MEDICAL HX: see above PAST SURGICAL HX: noncontributory SOCIAL HISTORY: No tobacco, ETOH, or illicit drug use Coded Allergies: Penicillins (Verified Allergy, Unknown, 04/06/14) gluten (Unverified Allergy, Unknown, 03/06/16) REVIEW OF SYSTEMS: 12 point ROS reviewed with patient. Pertinent positives mentioned above. Otherwise negative. ALLERGIES: Coded Allergies: Penicillins (Verified Allergy, Unknown, 04/06/14) gluten (Unverified Allergy, Unknown, 03/06/16) HOME MEDS: Active Scripts Clopidogrel Bisulfate (Plavix) 75 Mg Tablet, 75 MG PO DAILY, #90 TAB 1 Refill Prov:ZANDRA FU MD 01/25/21 Reported Medications Lorazepam (Ativan) 1 Mg Tablet, 1 MG PO DAILY PRN for ANXIETY/AGITATION, TAB 06/05/24 Digoxin (Digoxin) 125 Mcg (0.125 Mg) Tablet, 125 MCG PO DAILY, TAB 02/26/24 Rivaroxaban (Xarelto) 20 Mg Tablet, 20 MG PO HS, TAB 02/26/24 Fluoxetine HCl (Fluoxetine HCl) 20 Mg Capsule, 40 MG PO DAILY, CAP 07/19/23 Pantoprazole Sodium (Pantoprazole Sodium) 40 Mg Tablet.dr, 40 MG PO DAILY, TAB 11/25/22 Atenolol (Atenolol) 25 Mg Tablet, 25 MG PO DAILY, TAB 01/22/21 Levocetirizine Dihydrochloride (Levocetirizine Dihydrochloride) 5 Mg Tablet, 5 MG PO HS, TAB 12/30/20 INPATIENT MEDS: Current Medications Medications Dose Ordered Sig/James Start Time Stop Time Status Last Admin Levofloxacin/ Dextrose 50 ml @ 100 mls/hr Q24H 07/18/24 22:30 07/28/24 22:29 07/19/24 22:41 Albuterol 1 UDVIAL Q4H PRN 07/18/24 22:30 08/17/24 22:29 Albuterol 1 UDVIAL [id number] 07/18/24 22:30 08/17/24 22:29 07/19/24 19:27 Insulin Human Lispro INSULIN SLIDING SCAL... ACHS 07/19/24 07:30 08/18/24 07:29 07/19/24 22:18 Potassium Chloride 100 ml @ 100 mls/hr AD PRN 07/18/24 22:30 08/17/24 22:29 Potassium Chloride 20 meq AD PRN 07/18/24 22:30 08/17/24 22:29 Potassium Chloride 20 meq AD PRN 07/18/24 22:30 08/17/24 22:29 Furosemide 40 mg Q12H 07/19/24 12:00 07/21/24 00:01 07/19/24 13:30 Methylprednisolone Sodium Succinate 40 mg Q8H 07/19/24 14:30 08/18/24 14:29 07/19/24 22:41 VITAL SIGNS Vital Signs Date Time Temp Pulse Resp B/P (MAP) Pulse Ox O2 Delivery O2 Flow Rate FiO2 07/19/24 20:08 88 20 N/Cannula Oximizer Hi LPM 5.0 40 07/19/24 19:57 98.4 91 20 115/62 95 Nasal Cannula* 4 36 07/19/24 19:27 92 20 07/19/24 19:27 92 20 N/Cannula Low lpm 4.0 36 07/19/24 18:31 93 20 101/64 95 Room Air* 0 21 07/19/24 17:00 N/C Nasal Cannula 07/19/24 15:46 97.9 90 21 101/69 94 Nasal Cannula* 4 36 07/19/24 14:37 85 22 07/19/24 13:37 88 18 101/75 96 Room Air* 0 21 07/19/24 07:43 95 23 40 07/19/24 07:15 98.1 94 19 111/72 95 Nasal Cannula* 6 40 Bi-PAP+ 07/19/24 06:46 92 22 07/19/24 06:11 97 18 114/74 96 Bi-PAP+ 40 07/19/24 03:00 99 22 101/76 95 Bi-PAP+ 0 40 07/19/24 00:36 100 22 40 07/19/24 00:14 100 22 07/19/24 00:00 100 24 99/74 95 Bi-PAP+ 0 40 07/18/24 23:00 97.9 100 20 101/71 96 Bi-PAP+ 0 40 PHYSICAL EXAM PHYSICAL EXAM: GENERAL: alert, weak, awake oriented x 3 HEENT: EOMI, Sclera non icteric, moist mucosa NECK: Supple, no JVD, trachea midline LUNGS: Clear breath sounds bilaterally. No wheezes HEART: Regular rate and rhythm. Normal S1 and S2, without murmurs ABD: Abdomen soft, nontender. Bowel sounds present EXT: No clubbing cyanosis or edema NEURO: Alert and oriented to person, follows commands LABORATORY RESULTS Laboratory Tests 07/18/24 21:09: Blood Gas Specimen Type Arterial, Arterial Blood pH 7.464, Arterial Blood Partial Pressure CO2 35, Arterial Blood Partial Pressure O2 69.8, Arterial Blood HCO3 24.8, Arterial Blood Oxygen Saturation 93.8, Arterial Blood Base Excess 1.6, Hemoglobin (Blood Gas) 18.2, Sodium (Blood Gas) 129, Bedside Potassium (Blood Gas) 4.0, Bedside Chloride (Blood Gas) 91, Bedside Glucose (Blood Gas) 316, Bedside Ionized Calcium (Blood Gas) 1.14, Bedside Lactic Acid (Blood Gas) 2.67, Blood Gas Temperature 37.0, Blood Gas Flow-by 5.00, Blood Gas Vent Mode 5LNC, FiO2 40.0, Blood Gas Specimen Comment NERY CHAMBERLAIN 07/18/24 22:13: White Blood Count 17.3, Red Blood Count 6.11, Hemoglobin 17.3, Hematocrit 48.6, Mean Corpuscular Volume 79.5, Mean Corpuscular Hemoglobin 28.3, Mean Corpuscular Hemoglobin Concent 35.6, Red Cell Distribution Width 16.0, Platelet Count 289, Mean Platelet Volume 10.3, Immature Granulocyte % (Auto) 3.9, Neutrophils (%) (Auto) 77.3, Lymphocytes (%) (Auto) 9.7, Monocytes (%) (Auto) 8.1, Eosinophils (%) (Auto) 0.4, Basophils (%) (Auto) 0.6, Neutrophils # (Auto) 13.4, Lymphocytes # (Auto) 1.7, Monocytes # (Auto) 1.4, Eosinophils # (Auto) 0.07, Basophils # (Auto) 0.11, Absolute Immature Granulocyte (auto 0.68, Nucleated Red Blood Cells 0.0, White Cell Morphology Comment See comments, Sodium Level 128, Potassium Level 3.9, Chloride Level 92, Carbon Dioxide Level 26, Blood Urea Nitrogen 39, Creatinine 1.0, Glomerular Filtration Rate Calc 80, Random Glucose 302, Total Calcium 9.3, B-Type Natriuretic Peptide 714 07/19/24 06:40: White Blood Count 9.8, Red Blood Count 5.75, Hemoglobin 16.3, Hematocrit 47.4, Mean Corpuscular Volume 82.4, Mean Corpuscular Hemoglobin 28.3, Mean Corpuscular Hemoglobin Concent 34.4, Red Cell Distribution Width 15.4, Platelet Count 237, Mean Platelet Volume 10.1, Immature Granulocyte % (Auto) 4.1, Neutrophils (%) (Auto) 88.7, Lymphocytes (%) (Auto) 4.8, Monocytes (%) (Auto) 2.0, Eosinophils (%) (Auto) 0.1, Basophils (%) (Auto) 0.3, Neutrophils # (Auto) 8.7, Lymphocytes # (Auto) 0.5, Monocytes # (Auto) 0.2, Eosinophils # (Auto) 0.01, Basophils # (Auto) 0.03, Absolute Immature Granulocyte (auto 0.40, Nucleated Red Blood Cells 0.0, Sodium Level 130, Potassium Level 3.9, Chloride Level 97, Carbon Dioxide Level 25, Blood Urea Nitrogen 33, Creatinine 0.6, Glomerular Filtration Rate Calc 103, Random Glucose 296, Total Calcium 8.7, Total Bilirubin 0.8, Aspartate Amino Transf (AST/SGOT) 26, Alanine Aminotransferase (ALT/SGPT) 40, Alkaline Phosphatase 51, Total Protein 6.5, Albumin 2.4 07/19/24 07:50: Whole Blood Glucose 325 07/19/24 11:41: Whole Blood Glucose 266 07/19/24 16:49: Whole Blood Glucose 276 07/19/24 21:56: Whole Blood Glucose 297 PROBLEM LIST: (1) Viral pneumonia ICD Codes: J12.9 - Viral pneumonia, unspecified (2) COPD exacerbation ICD Codes: J44.1 - Chronic obstructive pulmonary disease with (acute) exacerbation (3) Hypotension ICD Codes: I95.9 - Hypotension, unspecified (4) Interstitial lung disease ICD Codes: J84.9 - Interstitial pulmonary disease, unspecified (5) Left lower lobe pneumonia ICD Codes: J18.9 - Pneumonia, unspecified organism PLAN PROBLEM LIST: Acute hypoxemic respiratory failure Community-acquired Pneumonia Chronic COPD with exacerbation Type 2 diabetes Essential hypertension Hyperlipidemia CAD Atrial fibrillation-on Xarelto Plan summary: Supplemental oxygen as needed Duo nebs as needed CPAP nightly and p.r.n. Obtain sputum culture Continue Levaquin Solu-Medrol 40 mg every 8 hours Lasix 40 mg IV b.i.d. x4 doses Montelukast 10 mg daily ABG in a.m. Chest x-ray in a.m. Speech therapy evaluate and treat Repeat a.m. labs IMAN LEGGETT MD Jul 19, 2024 22:47
--- NOTE | 2024-07-19 22:48 | PN ---
PROGRESS NOTE PROGRESS NOTE DATE OF PROGRESS NOTE: 07/19/24 SUBJECTIVE: feels better VITAL SIGNS Vital Signs Date Time Temp Pulse Resp B/P (MAP) Pulse Ox O2 Delivery O2 Flow Rate FiO2 07/19/24 20:08 88 20 N/Cannula Oximizer Hi LPM 5.0 40 07/19/24 19:57 98.4 115/62 95 PHYSICAL EXAM: PHYSICAL EXAM: GENERAL: alert, weak, awake oriented x 3 HEENT: EOMI, Sclera non icteric, moist mucosa NECK: Supple, no JVD, trachea midline LUNGS: Clear breath sounds bilaterally. No wheezes HEART: Regular rate and rhythm. Normal S1 and S2, without murmurs ABD: Abdomen soft, nontender. Bowel sounds present EXT: No clubbing cyanosis or edema NEURO: Alert and oriented to person, follows commands LABORATORY: Laboratory Result(s) Test 07/19/24 06:40 07/19/24 07:50 07/19/24 11:41 07/19/24 16:49 White Blood Count 9.8 K/uL (4.8-10.8) Red Blood Count 5.75 MIL/uL (4.50-6.20) Hemoglobin 16.3 g/dL (14.0-18.0) Hematocrit 47.4 % (42-54) Mean Corpuscular Volume 82.4 fL (79-99) Mean Corpuscular Hemoglobin 28.3 pg (27.0-33.0) Mean Corpuscular Hemoglobin Concent 34.4 g/dL (32.0-36.0) Red Cell Distribution Width 15.4 % (11.0-15.5) Platelet Count 237 K/uL (130-400) Mean Platelet Volume 10.1 fL (7.5-10.5) Immature Granulocyte % (Auto) 4.1 % (0-1) Neutrophils (%) (Auto) 88.7 % (40.0-77.0) Lymphocytes (%) (Auto) 4.8 % (21.0-51.0) Monocytes (%) (Auto) 2.0 % (3.0-13.0) Eosinophils (%) (Auto) 0.1 % (0.0-8.0) Basophils (%) (Auto) 0.3 % (0.0-5.0) Neutrophils # (Auto) 8.7 K/uL (1.8-7.7) Lymphocytes # (Auto) 0.5 K/uL (1.0-4.8) Monocytes # (Auto) 0.2 K/uL (0.1-1.0) Eosinophils # (Auto) 0.01 K/uL (0.00-0.70) Basophils # (Auto) 0.03 K/uL (0.00-0.20) Absolute Immature Granulocyte (auto 0.40 K/uL (0-1) Nucleated Red Blood Cells 0.0 % (0.0-0.19) Sodium Level 130 mmol/L (136-145) Potassium Level 3.9 mmol/L (3.5-5.1) Chloride Level 97 mmol/L (101-111) Carbon Dioxide Level 25 mmol/L (21-32) Blood Urea Nitrogen 33 mg/dL (7-18) Creatinine 0.6 mg/dL (0.5-1.3) Glomerular Filtration Rate Calc 103 mL/min (>90) Random Glucose 296 mg/dL (70-105) Total Calcium 8.7 mg/dL (8.5-10.1) Total Bilirubin 0.8 mg/dL (0.2-1.0) Aspartate Amino Transf (AST/SGOT) 26 U/L (10-37) Alanine Aminotransferase (ALT/SGPT) 40 U/L (12-78) Alkaline Phosphatase 51 U/L (50-136) Total Protein 6.5 g/dL (6.0-8.3) Albumin 2.4 g/dL (3.5-5.0) Whole Blood Glucose 325 MG/DL (70-110) 266 MG/DL (70-110) 276 MG/DL (70-110) Test 07/19/24 21:56 Whole Blood Glucose 297 MG/DL (70-110) INPATIENT MEDS: Current Medications Medications Dose Ordered Sig/James Start Time Stop Time Status Last Admin Levofloxacin/ Dextrose 50 ml @ 100 mls/hr Q24H 07/18/24 22:30 07/28/24 22:29 07/19/24 22:41 Albuterol 1 UDVIAL Q4H PRN 07/18/24 22:30 08/17/24 22:29 Albuterol 1 UDVIAL [id number] 07/18/24 22:30 08/17/24 22:29 07/19/24 19:27 Insulin Human Lispro INSULIN SLIDING SCAL... ACHS 07/19/24 07:30 08/18/24 07:29 07/19/24 22:18 Potassium Chloride 100 ml @ 100 mls/hr AD PRN 07/18/24 22:30 08/17/24 22:29 Potassium Chloride 20 meq AD PRN 07/18/24 22:30 08/17/24 22:29 Potassium Chloride 20 meq AD PRN 07/18/24 22:30 08/17/24 22:29 Furosemide 40 mg Q12H 07/19/24 12:00 07/21/24 00:01 07/19/24 13:30 Methylprednisolone Sodium Succinate 40 mg Q8H 07/19/24 14:30 08/18/24 14:29 07/19/24 22:41 PROBLEM LIST: (1) Viral pneumonia ICD Code: J12.9 - Viral pneumonia, unspecified (2) COPD exacerbation ICD Code: J44.1 - Chronic obstructive pulmonary disease with (acute) exa cerbation (3) Hypotension ICD Code: I95.9 - Hypotension, unspecified (4) Interstitial lung disease ICD Code: J84.9 - Interstitial pulmonary disease, unspecified (5) Left lower lobe pneumonia ICD Code: J18.9 - Pneumonia, unspecified organism PLAN: PROBLEM LIST: Acute hypoxemic respiratory failure Community-acquired Pneumonia Chronic COPD with exacerbation Type 2 diabetes Essential hypertension Hyperlipidemia CAD Atrial fibrillation-on Xarelto Plan summary: Supplemental oxygen as needed Duo nebs as needed CPAP nightly and p.r.n. Obtain sputum culture Continue Levaquin Solu-Medrol 40 mg every 8 hours Lasix 40 mg IV b.i.d. x4 doses Montelukast 10 mg daily ABG in a.m. Chest x-ray in a.m. Speech therapy evaluate and treat Repeat a.m. labs IMAN LEGGETT MD Jul 19, 2024 22:48
[2024-07-20] VITALS (14 sets, daily range): BP systolic 92–105; BP diastolic 55–76; PULSE 61–91; RESP 18–20; TEMP 97.5–98.3; O2SAT 92–96
--- NOTE | 2024-07-20 02:15 | NUR ---
ADMIT PT ADMITTED TO ROOM 420, AAOX3 BUT IS [place]. ADMISSION CARE DONE. V/S MONITORED, STABLE. ADMISSION ASSESSMENT DONE, PLEASE REFER TO CHART. MIDLINE PORTS FLUSHED, PATENT. ADMISSION DATA BASE COMPLETED. ORIENTED TO ROOM AND UNIT. IN FOR MORE CARE AND MANAGEMENT.
[2024-07-20] MEDS ORDERED: FURO40TA5 PO (03:18)
[2024-07-20] MEDS ORDERED: ACET-2079 PO (03:18)
[2024-07-20] MEDS ORDERED: BUDE0.5A3 IH (03:18)
[2024-07-20] MEDS ORDERED: PRED20TA3 PO (03:18)
[2024-07-20] MEDS ORDERED: ACET1030H IH (03:18)
[2024-07-20] MEDS ORDERED: IPRA3AMP24 IH (03:18)
[2024-07-20] MEDS ORDERED: ACET-2247 PO ×2 (03:18)
[2024-07-20] MEDS ORDERED: ONDA-243 PO (03:18)
[2024-07-20] MEDS ORDERED: ondanSETRON ODT 4MG TAB PO PRN (03:30)
[2024-07-20] MEDS ORDERED: acetaMINOPHEN 325 MG TAB PO PRN (03:30)
--- NOTE | 2024-07-20 06:05 | NUR ---
MEDS PT SLEPT AT INTERVALS. DUE MEDS ADMINISTERED, TOLERATED WELL. KEPT COMFORTABLE. CALL LIGHT WITHIN REACH. FOR MORE CARE.
[2024-07-20 06:28] LABS: HEMATOCRIT 45.7 % (42-54); MEAN CORPUSCULAR HEMOGLOBIN 28.3 pg (27.0-33.0); MEAN CORPUSCULAR VOLUME 80.7 fL (79-99); RED BLOOD CELL COUNT(AUTO) 5.66 MIL/uL (4.50-6.20); RED CELL DISTRIBUTION WIDTH 15.1 % (11.0-15.5); WHITE BLOOD COUNT (AUTO) 14.9 K/uL (4.8-10.8)
[2024-07-20 06:47] LABS: CREATININE 0.8 mg/dL (0.5-1.3); MAGNESIUM 1.8 mg/dL (1.80-2.40); PHOSPHORUS 4.2 mg/dL (2.5-4.9); POTASSIUM 3.7 mmol/L (3.5-5.1)
[2024-07-20] MEDS: BUDESONIDE 0.5 MG/2 ML INH IH SCH (07:02)
[2024-07-20] MEDS: Solu-medROL 40MG VIAL IVP SCH ×2 (09:00→15:14)
[2024-07-20] MEDS: PANTOPrazole 40 MG TAB DR PO SCH (09:35)
[2024-07-20] MEDS: FLUoxetine HCL 20 MG CAPSULE PO SCH (09:35)
[2024-07-20] MEDS: DIGOxin 125 MCG TABLET PO SCH (09:36)
[2024-07-20] MEDS: cloPIDOgrel 75MG TAB PO SCH (09:36)
[2024-07-20] MEDS: ATENOLOL 25 MG TABLET PO SCH (09:37)
--- NOTE | 2024-07-20 10:03 | HMCIMG ---
CHEST 1VW REASON: pneumonia COMPARISON: 07/18/2024 FINDINGS: There is moderate cardiomegaly. There are diffuse bilateral infiltrates which may be chronic. There is no pulmonary vascular congestion or pleural effusion. IMPRESSION: 1. Stable heart size. 2. Extensive interstitial markings in both lungs which may be chronic.
--- NOTE | 2024-07-20 11:32 | PN ---
[facility] PROGRESS NOTE Date Patient Seen: Jul 20, 2024 Time of Visit: 11:21 Supervising Physician: Dr Sharma Primary Care Physician: Dr. Mirza Outpatient Specialists: [ ] Inpatient Consults: [BIS PROBLEM LIST: Acute hypoxemic respiratory failure Community-acquired Pneumonia Chronic COPD with exacerbation Type 2 diabetes Essential hypertension Hyperlipidemia CAD Atrial fibrillation-on Xarelto Plan summary: Supplemental oxygen as needed Duo nebs as needed CPAP nightly and p.r.n. Continue Levaquin Solu-Medrol 40 mg every 8 hours Lasix 40 mg IV b.i.d. x4 doses Montelukast 10 mg daily Follow Speech therapy recs Obtain CT chest w/o contrast Repeat a.m. labs INTERVAL HISTORY: Mr. Jose Bae is a 74-year-old male with a past medical history of COPD, diabetes, hypertension, hyperlipidemia, CAD, AFib on Xarelto we will sent over from [facility] for evaluation of shortness on breath and hypoxia. As per chart, patient's O2 sat was 80% on room air at SNF. Patient was placed on O2 and titrated to 6 L. patient was very slow to respond therefore they sent him in for further evaluation. Patient was previously admitted to this facility about 2 weeks ago and was treated for pneumonia. Patient was sent to SNF to continue an extra week of IV antibiotics as well as therapy. Patient daughters reports she has noted patient coughing with his fluids and meals. She reports speech therapy was evaluating him at SNF however unclear with the findings were. Patient had a chest x-ray and we will bilateral pneumonia and for this reason we are consulted. Patient is seen sitting up in bed accompanied by his daughter. Patient does appear to be weak and deconditioned and hypoxemic on2 L via nasal cannula. As per daughter, patient does have home O2 in his baseline is2 L. unclear why patient was on room air at SNF. Patient's vital signs are stable. Today's labs show white count has trended down within normal limits. Recommend continuing Levaquin for now. Recommend speech therapy evaluate and perform an MBSS if warranted to rule out dysphagia. Recommend tapering steroids as no need for such high dosage at this time. We will give Lasix 40 mg IV b.i.d. x4 doses. We will continue to follow up. 07/20 - patient is seen sitting up in bed accompanied by family. Patient continues to be very weak and hypoxemic on3 L nasal cannula. Patient does utilize home O2 in his baseline is2 L. Patient was evaluated by speech therapy and found patient with positive signs of aspiration. Recommended mechanical soft ground solids with nectar thick liquids. No acute changes reported overnight. Vital signs are stable. Today's labs show leukocytosis which is most likely secondary to high-dose steroids. We will begin a taper down. Recommend continue IV antibiotics, nebs. Taper steroids and follow speech therapy dietary recommendations. We will continue to follow up with you. REVIEW OF SYSTEMS: 12 point ROS reviewed with patient. Pertinent positives mentioned above. Otherwise negative. PHYSICAL EXAM: GENERAL: alert, weak, awake oriented x 3 HEENT: EOMI, Sclera non icteric, moist mucosa NECK: Supple, no JVD, trachea midline LUNGS: Clear breath sounds bilaterally. No wheezes HEART: Regular rate and rhythm. Normal S1 and S2, without murmurs ABD: Abdomen soft, nontender. Bowel sounds present EXT: No clubbing cyanosis or edema NEURO: Alert and oriented to person, follows commands Vital Signs (last 8hr) Date Time Temp Pulse Resp B/P (MAP) Pulse Ox O2 Delivery O2 Flow Rate FiO2 07/20/24 09:37 90 104/76 07/20/24 09:36 90 07/20/24 08:30 84 20 N/Cannula Oximizer Hi LPM 5.0 40 07/20/24 08:00 97.7 78 19 104/76 99 Room Air 07/20/24 07:01 79 20 LABS: Hematology Labs: Test 07/20/24 06:01 07/19/24 06:40 07/18/24 22:13 Range/Units White Blood Count 14.9 #H 4.8-10.8 K/uL Red Blood Count 5.66 4.50-6.20 MIL/uL Hemoglobin 16.0 14.0-18.0 g/dL Hematocrit 45.7 42-54 % Mean Corpuscular Volume 80.7 79-99 fL Mean Corpuscular Hemoglobin 28.3 27.0-33.0 pg Mean Corpuscular Hemoglobin Concent 35.0 32.0-36.0 g/dL Red Cell Distribution Width 15.1 11.0-15.5 % Platelet Count 265 130-400 K/uL Mean Platelet Volume 10.2 7.5-10.5 fL Nucleated Red Blood Cells 0.0 0.0-0.19 % Immature Granulocyte % (Auto) 4.1 H 0-1 % Neutrophils (%) (Auto) 88.7 H 40.0-77.0 % Lymphocytes (%) (Auto) 4.8 L 21.0-51.0 % Monocytes (%) (Auto) 2.0 L 3.0-13.0 % Eosinophils (%) (Auto) 0.1 0.0-8.0 % Basophils (%) (Auto) 0.3 0.0-5.0 % Neutrophils # (Auto) 8.7 H 1.8-7.7 K/uL Lymphocytes # (Auto) 0.5 L 1.0-4.8 K/uL Monocytes # (Auto) 0.2 0.1-1.0 K/uL Eosinophils # (Auto) 0.01 0.00-0.70 K/uL Basophils # (Auto) 0.03 0.00-0.20 K/uL Absolute Immature Granulocyte (auto 0.40 0-1 K/uL White Cell Morphology Comment See comments Chemistry Labs: Test 07/20/24 06:01 07/20/24 05:11 07/19/24 06:40 07/18/24 22:13 Range/Units Sodium Level 133 L 136-145 mmol/L Potassium Level 3.7 3.5-5.1 mmol/L Chloride Level 95 L 101-111 mmol/L Carbon Dioxide Level 32 21-32 mmol/L Blood Urea Nitrogen 25 H 7-18 mg/dL Creatinine 0.8 0.5-1.3 mg/dL Glomerular Filtration Rate Calc 94 >90 mL/min Random Glucose 247 H 70-105 mg/dL Total Calcium 9.0 8.5-10.1 mg/dL Phosphorus Level 4.2 2.5-4.9 mg/dL Magnesium Level 1.80 1.80-2.40 mg/dL Procalcitonin 0.05 0.05-0.5 ng/mL Whole Blood Glucose 265 H 70-110 MG/DL Total Bilirubin 0.8 0.2-1.0 mg/dL Aspartate Amino Transf (AST/SGOT) 26 10-37 U/L Alanine Aminotransferase (ALT/SGPT) 40 12-78 U/L Alkaline Phosphatase 51 50-136 U/L Total Protein 6.5 6.0-8.3 g/dL Albumin 2.4 L 3.5-5.0 g/dL B-Type Natriuretic Peptide 714 H 0-100 pg/mL DIAGNOSTICS / RADIOLOGY RESULTS: PATIENT: JOSE BAE MR#: [id number] : 1950 SEX: M AGE: 74 LOCATION: [facility] ORDER 2300 STATUS: ADM IN REPORT#: [id number] SERVICE 0600 REASON: pneumonia ORDERING PHYSICIAN: MARTA TURNER NP PROCEDURE: CXR1VW - CHEST 1VW CHEST 1VW REASON: pneumonia COMPARISON: 07/18/2024 FINDINGS: There is moderate cardiomegaly. There are diffuse bilateral infiltrates which may be chronic. There is no pulmonary vascular congestion or pleural effusion. IMPRESSION: 1. Stable heart size. 2. Extensive interstitial markings in both lungs which may be chronic. DICTATED BY: JUAN MARTE MD DATE: 07/20/24 1000 ELECTRONICALLY SIGNED BY: JUAN MARTE MD DATE: 07/20/24 1003 PLAN NEURO: Minimize central acting medications as possible. Maintain fall precautions, adequate lighting during the day PULMONARY: Supplemental 02 as needed. Maintain aspiration precautions at all times CARDIOVASCULAR: Follow hemodynamics. Vital signs per facility protocol GI & NUTRITION: Continue with nutritional support. Continue stool softeners and laxatives as needed. KIDNEYS & ELECTROLYTES: Strict monitoring of intake, output and overall fluid balance. Avoid nephrotoxic medications to the extent possible. Medications to be dosed according to renal function. Monitor electrolytes and replace as needed ENDOCRINE: Maintain blood glucose between 100-180 at all times. Hypoglycemia protocol in place INFECTIOUS DISEASE: Trend temperature, WBC and procalcitonin level Follow cultures, deescalate antibiotics as soon as possible. Panculture if new onset fever ONCOLOGY/HEMATOLOGY/COAGULATION: Monitor for s/s of bleeding Monitor hemoglobin, coagulation studies as needed SKIN: Pressure ulcer prevention per facility protocol Specialty mattress ORTHO/REHAB: Continue PT/OT Prophylaxis: Continue GI and DVT prophylaxis Code Status: Full Resuscitation Disposition: As per attending Other: Total patient care time exceeds 35 minutes excluding all procedures. ATTESTATION BY PHYSICIAN I reviewed the documentation, medical decision making, and treatment plan as noted by the mid-level provider above. I agree with the findings and plan of care. Kanu Sharma MD, ECTOR N NP Jul 20, 2024 11:32
[2024-07-20 11:54] LABS: ABG BASE EXCESS 2.5 mmol/L (-2.0-3.0); ABG HCO3 25.9 mmol/L (21.0-28.0); ABG OXYGEN SATURATION 93.1 % (94.0-98.0); ABG PCO2 36 mmHg (35-48); ABG PH 7.472 (7.350-7.450); DEVICE COMMENT LR 4L OXYMIZER; PO2, ARTERIAL BG 61.5 mmHg (83.0-108.0)
--- NOTE | 2024-07-20 12:28 | NUR ---
DC PLAN SPOKE TO PATIENT, SPOUSE AND DAUGHTER. SAID IF NEEDS TO GO BACK THEN WILL GO AHEAD BUT NOT SURE ABOUT GOING TO [facility]. SAID WANTS TO BE GOOD BEFORE GOING BACK. SAID KEEPS BOUNCING BACK AND FORTH BEFORE PATIENT IS READY AND LEADS TO HIM COMMING BACK. SPEECH HAS MADE RECOMMENDATIONS. PENDING PT EVADELAIDA. PER PATIENT SAID HAS NOT SEEN MD SINCE ADMITTED. Addendum: 07/20/24 at 1233 by AZEEM PEREZ RN CM Amended: Links added.
--- NOTE | 2024-07-20 13:10 | HMCIMG ---
CT CHEST W/O CONTRAST REASON: resp failure COMPARISON: 06/24/2024 TECHNIQUE: Multiple sequential axial images of the chest were obtained from the thoracic inlet through the upper pole of the kidneys without intravenous contrast administration. FINDINGS: There are diffuse emphysematous changes, severe in both lung apices and in the left lower lobe, somewhat less pronounced in the right lower lobe. These findings are unchanged. No evidence of superimposed mass or infiltrate. There are are no pleural effusions. Heart is shifted from right to left in the mediastinum. This finding is unchanged as well. There is no hilar or mediastinal lymphadenopathy. Chest wall structures appear normal. Visualized upper abdominal structures appear unremarkable, no acute finding. IMPRESSION: 1. Severe bilateral emphysema with no progression compared to prior exam. 2. No superimposed process identified. CT was performed with one or more following dose reduction techniques: automated exposure control, adjustment of the mA and kv according to patient's size, or use of a iterative reconstruction technique.
--- NOTE | 2024-07-20 14:05 | NUR ---
SPEECH THERAPY COMPLETED S: Pt SITTING UPRIGHT IN BED UPON SHADE MATCHER ARRIVAL. NO FAMILY PRESENT AT TIME OF VISIT. Pt ON NC AND IN NO RESPIRATORY DISTRESS. Pt ALERT AND AGREEABLE TO SPEECH THERAPY. Pt CURRENTLY ON MECHANICAL SOFT/GROUND SOLIDS AND NECTAR THICK LIQUIDS. THICKENED LIQUID ON PATIENT'S TABLE. PER NURSE, PATIENT TOLERATING DIET RECOMMENDATIONS WITH NO OVERT S/S OF ASPIRATION. O: Pt CURRENTLY TARGETING SWALLOWS GOALS. RESULTS ARE FOLLOWS: LTG#1: Pt WILL TOLERATE LEAST RESTRICTIVE DIET TO MEET NUTRITION/HYDRATION WITH NO S/S OF ASPIRATION. LTG#2: SKILLED EDUCATION Pt/FAMILY/STAFF. STG#1: Pt WILL PARTICIPATE IN LARYNGEAL ELEVATION/EXCURSION EXERCISES WITH 90% ACCURACY MIN A: 80% ACCURACY MIN A. STG#2: Pt WILL PARTICIPATE IN TONGUE BASE RETRACTION EXERCISES WITH 90% ACCURACY MIN A: 80% ACCURACY MIN A. STG#3: Pt WILL PARTICIPATE IN ORAL MOTOR EXERCISES WITH 90% ACCURACY MIN A: 80% ACCURACY MIN A. STG#4: Pt WILL TOLERATE GROUND SOLIDS, NECTAR THICK LIQUIDS WITH NO OVERT S/S OF ASPIRATION: X5 TRIALS OF NECTAR THICK LIQUIDS WITH NO S/S OF ASPIRATION. STG#5: Pt WILL PARTICIPATE IN THERAPEUTIC TRIALS OF THIN LIQUIDS WITH NO OVERT S/S OF ASPIRATION: Pt REFUSED THIN LIQUID TRIALS; Pt ON BASELINE DIET CONSISTING OF GROUND SOLIDS DUE TO MISSING BOTTOM DENTITION. STG#6: Pt WILL PARTICIPATE IN PLEASURE FEEDS OF PUREED CONSISTENCY WITH NO MORE THAN 2 S/S OF ASPIRATION: SKILLED EDUCATION Pt/FAMILY/STAFF: COMPLETED. A: Pt COOPERATIVE WITH ALL THERAPEUTIC TRIALS. PATIENT NOTED WITH DELAYED SWALLOW TRIGGER RESPONSE DURING MANUAL PALPATION. Pt REFUSED THIN LIQUID TRIALS DUE TO REPORTING THIN LIQUIDS RUNS VERY FAST AND MAKES HIM CHOKE. P: RECOMMEND CONTINUED MODIFIED DIET OF MECHANICAL SOFT/GROUND SOLIDS, NECTAR THICK LIQUIDS, AND PILLS WHOLE TOLERATED. SHADE MATCHER WILL CONTINUE TO FOLLOW PATIENT TO ADDRESS DYSPHAGIA GOALS. SHADE MATCHER COORDINATED WITH NURSE SPRINGER ABOUT TREATMENT RESULTS. Addendum: 07/20/24 at 1507 by MANUELA CATRACHITA, ST ST Amended: Links added.
--- NOTE | 2024-07-20 15:02 | NUR ---
[facility] Consult: Patient assessed by wound healing team. See wound assessment. Assessment and recommendations provided to primary nurse. Education provided. Addendum: 07/21/24 at 1040 by EN SOSA RN RN/ Amended: Links added.
[2024-07-20] MEDS: LACTULOSE 20 GM/30 ML UDCUP PO PRN (18:17)
[2024-07-20] MEDS: acetylCYSTeine10% 4ML VIAL IH PRN (19:45)
[2024-07-20] MEDS: RIVAROXABAN 20 MG TABLET PO SCH (20:14)
[2024-07-20] MEDS: Levocetirizine Dihydrochloride 5 MG PO SCH (20:17)
--- NOTE | 2024-07-20 20:20 | NUR ---
MEDS SHIFT ASSESSMENT DONE, PLEASE REFER TO CHART. DUE MEDS ADMINISTERED, TOLERATED WELL. PHARMACY CALLED FOR IV LEVAQUIN BUT NOT AVAILABLE. PHARMACIST CHANGED IV DOSE TO PO DOSE. KEPT RESTED AND COMFORTABLE IN BED WITH HOB ELEVATED. CALL LIGHT WITHIN REACH. KEPT BED ALARM ACTIVATED.
[2024-07-20] MEDS: levoFLOXacin 500 MG TABLET PO SCH (22:06)
[2024-07-20] MEDS: LORazepam 1 MG TABLET PO PRN (22:32)
[2024-07-21] VITALS (13 sets, daily range): BP systolic 94–115; BP diastolic 58–73; PULSE 65–92; RESP 17–20; TEMP 97.5–98.4; O2SAT 94–97
--- NOTE | 2024-07-21 06:03 | NUR ---
MEDS PT SLEPT AT INTERVALS DURING THE SHIFT. NO DISTRESS NOTED. DUE MEDS ADMINISTERED. KEPT ON O2 AT 3LPM VIA NC. KEPT BED ALARM ACTIVATED. FOR MORE CARE.
--- NOTE | 2024-07-21 06:25 | NUR ---
MD DR LEGGETT IN TO SEE PT. NEW ORDERS FOR AM LABS RECEIVED, PLEASE REFER TO CPOE.
--- NOTE | 2024-07-21 11:30 | NUR ---
CM NOTE: POC CM MET WITH PT THIS MORNING, DISCUSSED MD RECOMMENDATIONS FOR PLACEMENT. PT PREFERRED TO GO TO [facility]. PT MADE AWARE DOES NOT MEET ADMISSION CRITERIA FOR [facility] PT ONLY HAS PO ABX, WILL NEED MULTIPLE IV ABX IN ORDER TO MEET ADMISSION CRITERIA. MADE AWARE PT WILL MEET ADMISSION CRITERIA FOR SNF LEVEL PT IS NOT PARTICIPATING WELL W/PT THEREFORE MIGHT QUALIFY FOR SHORT TERM REHAB, CM CANNOT GUARANTEE INSURANCE WILL APPROVE ALSO PT IS NOT ON IV ABX BUT CM CAN TRY. AT THIS TIME PT WISHES TO STAY IN THE HOSPITAL AND GET HIS PNEUMONIA TAKEN CARE OF BEFORE DECIDING, PT STATE HE IS NOT GOING HOME UNTIL HE FEELS BETTER AND HE DOES NOT WANT TO GO ANYWHERE ELSE BUT [facility] IF NEEDED. PENDING PT TO BE STABLE. CM TO CONTINUE TO FOLLOW UP ONCE PT STABLE AND CLOSER TO DC.
--- NOTE | 2024-07-21 13:47 | PN ---
[facility] PROGRESS NOTE Date Patient Seen: Jul 21, 2024 Time of Visit: 13:47 Supervising Physician: Dr. Kanu Sharma Primary Care Physician: Dr. Mirza Outpatient Specialists: [ ] Inpatient Consults: [BIS PROBLEM LIST: Acute hypoxemic respiratory failure Community-acquired Pneumonia Chronic COPD with exacerbation Type 2 diabetes Essential hypertension Hyperlipidemia CAD Atrial fibrillation-on Xarelto Plan summary: Supplemental oxygen as needed Duo nebs as needed CPAP nightly and p.r.n. Continue Levaquin Solu-Medrol 40 mg every 8 hours Lasix 40 mg IV b.i.d. x4 doses Montelukast 10 mg daily Follow Speech therapy recs Obtain CT chest w/o contrast Repeat a.m. labs INTERVAL HISTORY: Patient evaluated at bedside, continues with persistent hypoxemia, on Solu- Medrol 60 mg every 8 hours. Patient's white count today is slightly elevated at 14.9 however this can be attributed to his high-dose steroids. He remains on 4 L nasal cannula today, due to the lack of IV Levaquin at this facility patient was placed on p.o. Levaquin. Due to the patient's severe aspiration pneumonia and respiratory distress we will add IV doxycycline to the patient's regimen. Patient has pending [facility] authorization at this time. If accepted it was recommended he continue with IV Levaquin in place of p.o.. REVIEW OF SYSTEMS: 12 point ROS reviewed with patient. Pertinent positives mentioned above. Otherwise negative. PHYSICAL EXAM: GENERAL: alert, weak, awake oriented x 3 HEENT: EOMI, Sclera non icteric, moist mucosa NECK: Supple, no JVD, trachea midline LUNGS: Clear breath sounds bilaterally. No wheezes HEART: Regular rate and rhythm. Normal S1 and S2, without murmurs ABD: Abdomen soft, nontender. Bowel sounds present EXT: No clubbing cyanosis or edema NEURO: Alert and oriented to person, follows commands Vital Signs (last 8hr) Date Time Temp Pulse Resp B/P (MAP) Pulse Ox O2 Delivery O2 Flow Rate FiO2 07/21/24 12:19 97.5 92 18 100/58 93 Nasal Cannula 4.0 07/21/24 10:51 89 07/21/24 09:51 105 07/21/24 09:00 88 109/61 07/21/24 08:30 76 20 N/Cannula Oximizer Hi LPM 4.0 36 2/18/25 08:15 97 Nasal Cannula* 3 32 07/21/24 08:00 97.5 88 17 109/61 97 Nasal Cannula 4.0 07/21/24 06:55 72 20 LABS: Hematology Labs: Test 07/20/24 06:01 Range/Units White Blood Count 14.9 #H 4.8-10.8 K/uL Red Blood Count 5.66 4.50-6.20 MIL/uL Hemoglobin 16.0 14.0-18.0 g/dL Hematocrit 45.7 42-54 % Mean Corpuscular Volume 80.7 79-99 fL Mean Corpuscular Hemoglobin 28.3 27.0-33.0 pg Mean Corpuscular Hemoglobin Concent 35.0 32.0-36.0 g/dL Red Cell Distribution Width 15.1 11.0-15.5 % Platelet Count 265 130-400 K/uL Mean Platelet Volume 10.2 7.5-10.5 fL Nucleated Red Blood Cells 0.0 0.0-0.19 % Chemistry Labs: Test 07/21/24 11:50 07/20/24 06:01 Range/Units Whole Blood Glucose 398 H 70-110 MG/DL Sodium Level 133 L 136-145 mmol/L Potassium Level 3.7 3.5-5.1 mmol/L Chloride Level 95 L 101-111 mmol/L Carbon Dioxide Level 32 21-32 mmol/L Blood Urea Nitrogen 25 H 7-18 mg/dL Creatinine 0.8 0.5-1.3 mg/dL Glomerular Filtration Rate Calc 94 >90 mL/min Random Glucose 247 H 70-105 mg/dL Total Calcium 9.0 8.5-10.1 mg/dL Phosphorus Level 4.2 2.5-4.9 mg/dL Magnesium Level 1.80 1.80-2.40 mg/dL Procalcitonin 0.05 0.05-0.5 ng/mL DIAGNOSTICS / RADIOLOGY RESULTS: [ ] PLAN NEURO: Minimize central acting medications as possible. Maintain fall precautions, adequate lighting during the day PULMONARY: Supplemental 02 as needed. Maintain aspiration precautions at all times CARDIOVASCULAR: Follow hemodynamics. Vital signs per facility protocol GI & NUTRITION: Continue with nutritional support. Continue stool softeners and laxatives as needed. KIDNEYS & ELECTROLYTES: Strict monitoring of intake, output and overall fluid balance. Avoid nephrotoxic medications to the extent possible. Medications to be dosed according to renal function. Monitor electrolytes and replace as needed ENDOCRINE: Maintain blood glucose between 100-180 at all times. Hypoglycemia protocol in place INFECTIOUS DISEASE: Trend temperature, WBC and procalcitonin level Follow cultures, deescalate antibiotics as soon as possible. Panculture if new onset fever ONCOLOGY/HEMATOLOGY/COAGULATION: Monitor for s/s of bleeding Monitor hemoglobin, coagulation studies as needed SKIN: Pressure ulcer prevention per facility protocol Specialty mattress ORTHO/REHAB: Continue PT/OT Prophylaxis: Continue GI and DVT prophylaxis Code Status: Full Resuscitation Disposition: As per attending Other: Total patient care time exceeds 35 minutes excluding all procedures. ANIBAL CHAN Jul 21, 2024 13:47
[2024-07-21] MEDS: DOXYCYCLINE 100MG+NS 250ML 250 ML IV SCH (16:46)
--- NOTE | 2024-07-21 20:15 | NUR ---
MEDS SHIFT ASSESSMENT DONE, PLEASE REFER TO CHART. DUE MEDS ADMINISTERED, TOLERATED WELL. KEPT RESTED AND COMFORTABLE IN BED WITH HOB ELEVATED. CALL LIGHT WITHIN REACH. FAMILY STILL AT BEDSIDE.
[2024-07-22] VITALS (10 sets, daily range): BP systolic 98–111; BP diastolic 57–69; PULSE 66–94; RESP 18–20; TEMP 97.4–98.2; O2SAT 94–97
--- NOTE | 2024-07-22 05:05 | NUR ---
MEDS PT SLEPT AT INTERVALS DURING THE SHIFT. SERVICE STATION CONSOLE OPERATOR IN AND AWAKENED PT TO DRAW BLOOD. DUE MEDS ADMINISTERED, TOLERATED WELL. KEPT COMFORTABLE IN BED WITH HOB ELEVATED. FOR MORE CARE.
[2024-07-22 05:31] LABS: HEMATOCRIT 41.2 % (42-54); MEAN CORPUSCULAR HEMOGLOBIN 28.1 pg (27.0-33.0); MEAN CORPUSCULAR VOLUME 82.7 fL (79-99); RED BLOOD CELL COUNT(AUTO) 4.98 MIL/uL (4.50-6.20); RED CELL DISTRIBUTION WIDTH 15.1 % (11.0-15.5); WHITE BLOOD COUNT (AUTO) 12.4 K/uL (4.8-10.8)
[2024-07-22 05:32] LABS: CREATININE 0.5 mg/dL (0.5-1.3); MAGNESIUM 1.8 mg/dL (1.80-2.40); POTASSIUM 3.2 mmol/L (3.5-5.1)
[2024-07-22] MEDS: PoTASSium chl 10% ELIXIR 20MEQ 20 MEQ/15 ML UDCUP PO PRN (06:04)
--- NOTE | 2024-07-22 06:30 | NUR ---
MD DR LEGGETT IN TO MAKE ROUNDS. NEW ORDERS GIVEN, PLEASE REFER TO CPOE.
[2024-07-22] MEDS ORDERED: INSULIN GLARgine 100 UNITS/ML 10 ML VIAL SQ ONE (09:00)
[2024-07-22] MEDS: INSULIN GLARgine 100 UNITS/ML 10 ML VIAL SQ SCH (09:26)
[2024-07-22] MEDS: PoTASSium chloRIDE 20MEQ ER 20 MEQ ERTAB PO PRN (09:28)
[2024-07-22] MEDS: furoSEMIDE 40 MG TABLET PO SCH (09:30)
[2024-07-22] MEDS: MAGNESIUM 2GM PREMIX 50ML 50 ML IV PRN (09:39)
[2024-07-22] MEDS: BALSAM PERU/CASTOR OIL 60 GM TUBE TP SCH (09:47)
--- NOTE | 2024-07-22 13:36 | PN ---
[facility] PROGRESS NOTE Date Patient Seen: Jul 22, 2024 Time of Visit: 13:36 Supervising Physician: Dr. Celeste Christie Primary Care Physician: Dr. Mirza Outpatient Specialists: [ ] Inpatient Consults: [BIS PROBLEM LIST: Acute hypoxemic respiratory failure Community-acquired Pneumonia Chronic COPD with exacerbation Type 2 diabetes Essential hypertension Hyperlipidemia CAD Atrial fibrillation-on Xarelto Plan summary: Supplemental oxygen as needed Duo nebs as needed CPAP nightly and p.r.n. Continue Levaquin Solu-Medrol 40 mg every 8 hours Lasix 40 mg IV b.i.d. x4 doses Montelukast 10 mg daily Follow Speech therapy recs Obtain CT chest w/o contrast Repeat a.m. labs INTERVAL HISTORY: Patient evaluated at bedside with his daughter present, currently on 2 L nasal cannula, patient denies any shortness of breath or undue pain. In discussion regarding the patient's transfer to LTAC, he was notified that due to his current status and requirement for only to IV antibiotics it was likely that he will not qualify for transfer to LTAC. Patient was not amenable to the plan for SNF placement should that fail. Stated that he would rather go home. Case management notified of this and the patient's desire for possible home therapy. As a side note we will attempt to get the patient into IRU was well after conversing with him and his daughter regarding this possibility. Patient would benefit from IRU at [facility] with pulmonary rehab as well. No changes to medical management at this time, patient's white count down to 12.4 today. REVIEW OF SYSTEMS: 12 point ROS reviewed with patient. Pertinent positives mentioned above. Oth erwise negative. PHYSICAL EXAM: GENERAL: alert, weak, awake oriented x 3 HEENT: EOMI, Sclera non icteric, moist mucosa NECK: Supple, no JVD, trachea midline LUNGS: Clear breath sounds bilaterally. No wheezes HEART: Regular rate and rhythm. Normal S1 and S2, without murmurs ABD: Abdomen soft, nontender. Bowel sounds present EXT: No clubbing cyanosis or edema NEURO: Alert and oriented to person, follows commands Vital Signs (last 8hr) Date Time Temp Pulse Resp B/P (MAP) Pulse Ox O2 Delivery O2 Flow Rate FiO2 07/22/24 12:00 97.5 85 18 104/66 98 Nasal Cannula 3.0 07/22/24 10:30 80 07/22/24 09:30 85 07/22/24 07:35 98.1 85 18 111/61 98 Nasal Cannula 3.0 28 07/22/24 06:43 68 20 N/Cannula Oximizer Hi LPM 4.0 36 07/22/24 06:43 68 20 LABS: Hematology Labs: Test 07/22/24 05:05 Range/Units White Blood Count 12.4 H 4.8-10.8 K/uL Red Blood Count 4.98 4.50-6.20 MIL/uL Hemoglobin 14.0 14.0-18.0 g/dL Hematocrit 41.2 L 42-54 % Mean Corpuscular Volume 82.7 79-99 fL Mean Corpuscular Hemoglobin 28.1 27.0-33.0 pg Mean Corpuscular Hemoglobin Concent 34.0 32.0-36.0 g/dL Red Cell Distribution Width 15.1 11.0-15.5 % Platelet Count 246 130-400 K/uL Mean Platelet Volume 10.5 7.5-10.5 fL Nucleated Red Blood Cells 0.0 0.0-0.19 % Chemistry Labs: Test 07/22/24 11:05 07/22/24 05:05 Range/Units Whole Blood Glucose 317 H 70-110 MG/DL Sodium Level 135 L 136-145 mmol/L Potassium Level 3.2 L 3.5-5.1 mmol/L Chloride Level 97 L 101-111 mmol/L Carbon Dioxide Level 31 21-32 mmol/L Blood Urea Nitrogen 28 H 7-18 mg/dL Creatinine 0.5 0.5-1.3 mg/dL Glomerular Filtration Rate Calc 108 >90 mL/min Random Glucose 274 H 70-105 mg/dL Total Calcium 8.8 8.5-10.1 mg/dL Magnesium Level 1.80 1.80-2.40 mg/dL B-Type Natriuretic Peptide 130 H 0-100 pg/mL DIAGNOSTICS / RADIOLOGY RESULTS: [ ] PLAN NEURO: Minimize central acting medications as possible. Maintain fall precautions, adequate lighting during the day PULMONARY: Supplemental 02 as needed. Maintain aspiration precautions at all times CARDIOVASCULAR: Follow hemodynamics. Vital signs per facility protocol GI & NUTRITION: Continue with nutritional support. Continue stool softeners and laxatives as needed. KIDNEYS & ELECTROLYTES: Strict monitoring of intake, output and overall fluid balance. Avoid nephrotoxic medications to the extent possible. Medications to be dosed according to renal function. Monitor electrolytes and replace as needed ENDOCRINE: Maintain blood glucose between 100-180 at all times. Hypoglycemia protocol in place INFECTIOUS DISEASE: Trend temperature, WBC and procalcitonin level Follow cultures, deescalate antibiotics as soon as possible. Panculture if new onset fever ONCOLOGY/HEMATOLOGY/COAGULATION: Monitor for s/s of bleeding Monitor hemoglobin, coagulation studies as needed SKIN: Pressure ulcer prevention per facility protocol Specialty mattress ORTHO/REHAB: Continue PT/OT Prophylaxis: Continue GI and DVT prophylaxis Code Status: Full Resuscitation Disposition: As per attending Other: Total patient care time exceeds 35 minutes excluding all procedures. ANIBAL CHAN Jul 22, 2024 13:36
[2024-07-22] MEDS: MAGNESIUM CITRATE 296 ML SOLUTION PO ONE (14:48)
[2024-07-22] MEDS: acetaMINOPHEN WITH coDEINE 1 TAB TAB PO PRN (19:02)
--- NOTE | 2024-07-22 20:48 | PN ---
PROGRESS NOTE PROGRESS NOTE DATE OF PROGRESS NOTE: 07/22/24 SUBJECTIVE: No new complaints VITAL SIGNS Vital Signs Date Time Temp Pulse Resp B/P (MAP) Pulse Ox O2 Delivery O2 Flow Rate FiO2 07/22/24 16:00 97.3 84 18 100/69 96 Room Air 07/22/24 12:00 3.0 07/22/24 08:10 28 PHYSICAL EXAM: PHYSICAL EXAM: GENERAL: alert, weak, awake oriented x 3 HEENT: EOMI, Sclera non icteric, moist mucosa NECK: Supple, no JVD, trachea midline LUNGS: Clear breath sounds bilaterally. No wheezes HEART: Regular rate and rhythm. Normal S1 and S2, without murmurs ABD: Abdomen soft, nontender. Bowel sounds present EXT: No clubbing cyanosis or edema NEURO: Alert and oriented to person, follows commands LABORATORY: Laboratory Result(s) Test 07/22/24 05:05 07/22/24 11:05 07/22/24 15:35 07/22/24 19:39 White Blood Count 12.4 K/uL (4.8-10.8) Red Blood Count 4.98 MIL/uL (4.50-6.20) Hemoglobin 14.0 g/dL (14.0-18.0) Hematocrit 41.2 % (42-54) Mean Corpuscular Volume 82.7 fL (79-99) Mean Corpuscular Hemoglobin 28.1 pg (27.0-33.0) Mean Corpuscular Hemoglobin Concent 34.0 g/dL (32.0-36.0) Red Cell Distribution Width 15.1 % (11.0-15.5) Platelet Count 246 K/uL (130-400) Mean Platelet Volume 10.5 fL (7.5-10.5) Nucleated Red Blood Cells 0.0 % (0.0-0.19) Sodium Level 135 mmol/L (136-145) Potassium Level 3.2 mmol/L (3.5-5.1) Chloride Level 97 mmol/L (101-111) Carbon Dioxide Level 31 mmol/L (21-32) Blood Urea Nitrogen 28 mg/dL (7-18) Creatinine 0.5 mg/dL (0.5-1.3) Glomerular Filtration Rate Calc 108 mL/min (>90) Whole Blood Glucose 287 MG/DL (70-110) 317 MG/DL (70-110) 144 MG/DL (70-110) 346 MG/DL (70-110) Random Glucose 274 mg/dL (70-105) Total Calcium 8.8 mg/dL (8.5-10.1) Magnesium Level 1.80 mg/dL (1.80-2.40) B-Type Natriuretic Peptide 130 pg/mL (0-100) INPATIENT MEDS: Current Medications Medications Dose Ordered Sig/James Start Time Stop Time Status Last Admin Albuterol 1 UDVIAL Q4H PRN 07/18/24 22:30 08/17/24 22:29 Albuterol 1 UDVIAL [id number] 07/18/24 22:30 08/17/24 22:29 07/22/24 13:54 Insulin Human Lispro INSULIN SLIDING SCAL... ACHS 07/19/24 07:30 08/18/24 07:29 07/22/24 11:50 Potassium Chloride 100 ml @ 100 mls/hr AD PRN 07/18/24 22:30 08/17/24 22:29 Potassium Chloride 20 meq AD PRN 07/18/24 22:30 08/17/24 22:29 07/22/24 06:04 Potassium Chloride 20 meq AD PRN 07/18/24 22:30 08/17/24 22:29 07/22/24 11:42 Acetaminophen 650 mg Q4HPRN PRN 07/20/24 03:30 08/19/24 03:29 Acetaminophen 650 mg Q6H PRN 07/20/24 03:30 08/19/24 03:29 Acetaminophen/ Codeine Phosphate 1 tab Q4H PRN 07/20/24 03:30 08/19/24 03:29 07/22/24 19:02 Acetylcysteine 400 mg Q6H PRN 07/20/24 03:30 08/19/24 03:29 07/20/24 19:45 Atenolol 25 mg DAILY 07/20/24 09:00 08/19/24 08:59 07/20/24 09:37 Budesonide 0.5 mg BID 07/20/24 09:00 08/19/24 08:59 07/22/24 06:41 Clopidogrel Bisulfate 75 mg DAILY 07/20/24 09:00 08/19/24 08:59 07/22/24 09:28 Digoxin 125 mcg DAILY 07/20/24 09:00 08/19/24 08:59 07/22/24 09:30 Fluoxetine HCl 40 mg DAILY 07/20/24 09:00 08/19/24 08:59 07/22/24 09:28 Lorazepam 1 mg DAILY PRN 07/20/24 03:30 08/19/24 03:29 07/21/24 20:47 Ondansetron HCl 4 mg Q4HPRN PRN 07/20/24 03:30 08/19/24 03:29 Pantoprazole Sodium 40 mg DAILY 07/20/24 09:00 08/19/24 08:59 07/22/24 09:30 Rivaroxaban 20 mg HS 07/20/24 21:00 08/19/24 20:59 07/21/24 20:13 Home Med HS 07/20/24 21:00 08/19/24 20:59 07/21/24 20:13 Methylprednisolone Sodium Succinate 60 mg Q8H6 07/20/24 14:00 08/18/24 14:29 07/22/24 14:48 Lactulose 20 gm TID PRN 07/20/24 14:30 08/19/24 14:29 07/21/24 15:59 Levofloxacin 250 mg Q24H 07/20/24 22:30 07/30/24 22:29 07/21/24 20:47 Doxycycline Hyclate 250 ml @ 125 mls/hr Q12H 07/21/24 16:30 07/31/24 16:29 07/22/24 18:02 Furosemide 40 mg DAILY 07/22/24 09:00 08/21/24 08:59 07/22/24 09:30 Magnesium Sulfate 50 ml @ 0 mls/hr PROTOCOL PRN 07/22/24 07:00 08/21/24 06:59 07/22/24 09:39 Insulin Glargine 30 units DAILY 07/22/24 09:00 08/21/24 08:59 07/22/24 09:26 Wound Care/ Dressing Products 1 APPL DAILY 07/22/24 09:00 08/21/24 08:59 07/22/24 09:47 PROBLEM LIST: (1) Viral pneumonia ICD Code: J12.9 - Viral pneumonia, unspecified (2) COPD exacerbation ICD Code: J44.1 - Chronic obstructive pulmonary disease with (acute) exacerbation (3) Hypotension ICD Code: I95.9 - Hypotension, unspecified (4) Interstitial lung disease ICD Code: J84.9 - Interstitial pulmonary disease, unspecified (5) Left lower lobe pneumonia ICD Code: J18.9 - Pneumonia, unspecified organism PLAN: PROBLEM LIST: Acute hypoxemic respiratory failure Community-acquired Pneumonia Chronic COPD with exacerbation Type 2 diabetes Essential hypertension Hyperlipidemia CAD Atrial fibrillation-on Xarelto Plan summary: Supplemental oxygen as needed Duo nebs as needed CPAP nightly and p.r.n. Obtain sputum culture Continue Levaquin Solu-Medrol 40 mg every 8 hours Lasix 40 mg IV b.i.d. x4 doses Montelukast 10 mg daily ABG in a.m. Chest x-ray in a.m. Speech therapy evaluate and treat Repeat a.m. labs IMAN LEGGETT MD Jul 22, 2024 20:48
[2024-07-23] VITALS (11 sets, daily range): BP systolic 99–122; BP diastolic 54–77; PULSE 74–100; RESP 18–22; TEMP 97.4–98.6; O2SAT 93–98
[2024-07-23 04:26] LABS: HEMATOCRIT 40.2 % (42-54); MEAN CORPUSCULAR HEMOGLOBIN 27.9 pg (27.0-33.0); MEAN CORPUSCULAR HGB CONC 33.1 g/dL (32.0-36.0); MEAN CORPUSCULAR VOLUME 84.5 fL (79-99); RED BLOOD CELL COUNT(AUTO) 4.76 MIL/uL (4.50-6.20); RED CELL DISTRIBUTION WIDTH 14.9 % (11.0-15.5); WHITE BLOOD COUNT (AUTO) 12.8 K/uL (4.8-10.8)
[2024-07-23 04:43] LABS: CREATININE 0.6 mg/dL (0.5-1.3); POTASSIUM 3.5 mmol/L (3.5-5.1)
--- NOTE | 2024-07-23 14:58 | PN ---
[facility] PROGRESS NOTE Date Patient Seen: Jul 23, 2024 Time of Visit: 14:57 Supervising Physician: Dr. Celeste Christie Primary Care Physician: Dr. Mirza Outpatient Specialists: [ ] Inpatient Consults: [BIS PROBLEM LIST: Acute hypoxemic respiratory failure Community-acquired Pneumonia Chronic COPD with exacerbation Type 2 diabetes Essential hypertension Hyperlipidemia CAD Atrial fibrillation-on Xarelto Plan summary: Supplemental oxygen as needed Duo nebs as needed CPAP nightly and p.r.n. Continue Levaquin Solu-Medrol 40 mg every 8 hours Lasix 40 mg IV b.i.d. x4 doses Montelukast 10 mg daily Follow Speech therapy recs Obtain CT chest w/o contrast Repeat a.m. labs INTERVAL HISTORY: Patient evaluated at bedside, he remains on 2 liter nasal cannula, tolerating his diet, denies any new onset symptoms at this time. We remain pending authorization for LTAC placement. The possibility of IRU at [facility] was discussed with the patient today with the possibilities of pulmonary rehab there. Patient is interested however would like the options discussed with his when she arrives today. We will attempt to speak with her today, patient states she arrives around 5 o'clock p.m.. We will decrease the patient's Solu-Medrol today, sugars have been elevated due to this. No further changes on medical management at this time. Disposition per primary. REVIEW OF SYSTEMS: 12 point ROS reviewed with patient. Pertinent positives mentioned above. Otherwise negative. PHYSICAL EXAM: GENERAL: alert, weak, awake oriented x 3 HEENT: EOMI, Sclera non icteric, moist mucosa NECK: Supple, no JVD, trachea midline LUNGS: Clear breath sounds bilaterally. No wheezes HEART: Regular rate and rhythm. Normal S1 and S2, without murmurs ABD: Abdomen soft, nontender. Bowel sounds present EXT: No clubbing cyanosis or edema NEURO: Alert and oriented to person, follows commands Vital Signs (last 8hr) Date Time Temp Pulse Resp B/P (MAP) Pulse Ox O2 Delivery O2 Flow Rate FiO2 07/23/24 14:11 74 18 07/23/24 14:10 74 19 N/Cannula Oximizer Hi LPM 4.0 36 07/23/24 12:56 97.3 92 20 99/54 96 07/23/24 09:22 82 07/23/24 08:22 86 07/23/24 08:00 97.5 86 21 119/77 98 Nasal Cannula 4.0 07/23/24 07:50 98 Nasal Cannula* 4 36 07/23/24 07:06 77 18 07/23/24 07:06 77 19 N/Cannula Oximizer Hi LPM 4.0 36 LABS: Hematology Labs: Test 07/23/24 04:16 Range/Units White Blood Count 12.8 H 4.8-10.8 K/uL Red Blood Count 4.76 4.50-6.20 MIL/uL Hemoglobin 13.3 L 14.0-18.0 g/dL Hematocrit 40.2 L 42-54 % Mean Corpuscular Volume 84.5 79-99 fL Mean Corpuscular Hemoglobin 27.9 27.0-33.0 pg Mean Corpuscular Hemoglobin Concent 33.1 32.0-36.0 g/dL Red Cell Distribution Width 14.9 11.0-15.5 % Platelet Count 235 130-400 K/uL Mean Platelet Volume 10.1 7.5-10.5 fL Nucleated Red Blood Cells 0.0 0.0-0.19 % Chemistry Labs: Test 07/23/24 10:53 07/23/24 04:16 07/22/24 05:05 Range/Units Whole Blood Glucose 372 H 70-110 MG/DL Sodium Level 137 136-145 mmol/L Potassium Level 3.5 3.5-5.1 mmol/L Chloride Level 101 101-111 mmol/L Carbon Dioxide Level 30 21-32 mmol/L Blood Urea Nitrogen 24 H 7-18 mg/dL Creatinine 0.6 0.5-1.3 mg/dL Glomerular Filtration Rate Calc 103 >90 mL/min Random Glucose 235 H 70-105 mg/dL Total Calcium 8.3 L 8.5-10.1 mg/dL Magnesium Level 2.00 1.80-2.40 mg/dL B-Type Natriuretic Peptide 130 H 0-100 pg/mL DIAGNOSTICS / RADIOLOGY RESULTS: [ ] PLAN NEURO: Minimize central acting medications as possible. Maintain fall precautions, adequate lighting during the day PULMONARY: Supplemental 02 as needed. Maintain aspiration precautions at all times CARDIOVASCULAR: Follow hemodynamics. Vital signs per facility protocol GI & NUTRITION: Continue with nutritional support. Continue stool softeners and laxatives as needed. KIDNEYS & ELECTROLYTES: Strict monitoring of intake, output and overall fluid balance. Avoid nephrotoxic medications to the extent possible. Medications to be dosed according to renal function. Monitor electrolytes and replace as needed ENDOCRINE: Maintain blood glucose between 100-180 at all times. Hypoglycemia protocol in place INFECTIOUS DISEASE: Trend temperature, WBC and procalcitonin level Follow cultures, deescalate antibiotics as soon as possible. Panculture if new onset fever ONCOLOGY/HEMATOLOGY/COAGULATION: Monitor for s/s of bleeding Monitor hemoglobin, coagulation studies as needed SKIN: Pressure ulcer prevention per facility protocol Specialty mattress ORTHO/REHAB: Continue PT/OT Prophylaxis: Continue GI and DVT prophylaxis Code Status: Full Resuscitation Disposition: As per attending Other: Total patient care time exceeds 35 minutes excluding all procedures. ANIBAL CHAN Jul 23, 2024 14:57
--- NOTE | 2024-07-23 15:50 | NUR ---
SPEECH THERAPY COMPLETED S: Pt SITTING UPRIGHT IN BED UPON [employer] AR[employer]IVAL. NO FAMILY PRESENT AT TIME OF VISIT. Pt ON NC AND IN NO RESPIRATORY DISTRESS. Pt ALERT AND AGREEABLE TO SPEECH THERAPY. Pt CURRENTLY ON MECHANICAL SOFT/GROUND SOLIDS AND NECTAR THICK LIQUIDS. THICKENED LIQUID ON PATIENT'S TABLE. PER NURSE, PATIENT TOLERATING DIET RECOMMENDATIONS WITH NO OVERT S/S OF ASPIRATION HOWEVER REFUSING THICKENING LIQUIDS. O: Pt CURRENTLY TARGETING SWALLOWS GOALS. RESULTS ARE FOLLOWS: LTG#1: Pt WILL TOLERATE LEAST RESTRICTIVE DIET TO MEET NUTRITION/HYDRATION WITH NO S/S OF ASPIRATION. LTG#2: SKILLED EDUCATION Pt/FAMILY/STAFF. STG#1: Pt WILL PARTICIPATE IN LARYNGEAL ELEVATION/EXCURSION EXERCISES WITH 90% ACCURACY MIN A: 90% ACCURACY MIN A. STG#2: Pt WILL PARTICIPATE IN TONGUE BASE RETRACTION EXERCISES WITH 90% ACCURACY MIN A: 90% ACCURACY MIN A. STG#3: Pt WILL PARTICIPATE IN ORAL MOTOR EXERCISES WITH 90% ACCURACY MIN A: 90% ACCURACY MIN A. STG#4: Pt WILL TOLERATE GROUND SOLIDS, NECTAR THICK LIQUIDS WITH NO OVERT S/S OF ASPIRATION: X5 TRIALS OF NECTAR THICK LIQUIDS WITH NO S/S OF ASPIRATION. STG#5: Pt WILL PARTICIPATE IN THERAPEUTIC TRIALS OF THIN LIQUIDS WITH NO OVERT S/S OF ASPIRATION: Pt PARTICIPATED IN TRIAL OF THIN LIQUIDS X3 FOLLOWED BY IMMEDIATE THROAT CLEARS AND WET VOCAL QUALITY. STG#6: SKILLED EDUCATION Pt/FAMILY/STAFF: COMPLETED. A: Pt COOPERATIVE WITH ALL THERAPEUTIC TRIALS. PATIENT NOTED WITH DELAYED SWALLOW TRIGGER RESPONSE DURING MANUAL PALPATION. P: RECOMMEND CONTINUED MODIFIED DIET OF MECHANICAL SOFT/GROUND SOLIDS, NECTAR THICK LIQUIDS, AND PILLS WHOLE TOLERATED UNTIL MBSS. [employer] WILL CONTINUE TO FOLLOW PATIENT TO ADDRESS DYSPHAGIA GOALS. [employer] COORDINATED WITH NURSE VINSON ABOUT TREATMENT RESULTS. Addendum: 07/23/[address] UTE LYMAN Amended: Links added.
--- NOTE | 2024-07-23 16:25 | PN ---
PROGRESS NOTE PROGRESS NOTE DATE OF PROGRESS NOTE: 07/23/24 SUBJECTIVE: no significant improvement VITAL SIGNS Vital Signs Date Time Temp Pulse Resp B/P (MAP) Pulse Ox O2 Delivery O2 Flow Rate FiO2 07/23/24 14:11 74 18 07/23/24 14:10 N/Cannula Oximizer Hi LPM 4.0 36 07/23/24 12:56 97.3 99/54 96 PHYSICAL EXAM: PHYSICAL EXAM: GENERAL: alert, weak, awake oriented x 3 HEENT: EOMI, Sclera non icteric, moist mucosa NECK: Supple, no JVD, trachea midline LUNGS: Clear breath sounds bilaterally. No wheezes HEART: Regular rate and rhythm. Normal S1 and S2, without murmurs ABD: Abdomen soft, nontender. Bowel sounds present EXT: No clubbing cyanosis or edema NEURO: Alert and oriented to person, follows commands LABORATORY: Laboratory Result(s) Test 07/22/24 19:39 07/23/24 04:16 07/23/24 05:42 07/23/24 10:53 Whole Blood Glucose 346 MG/DL (70-110) 249 MG/DL (70-110) 372 MG/DL (70-110) White Blood Count 12.8 K/uL (4.8-10.8) Red Blood Count 4.76 MIL/uL (4.50-6.20) Hemoglobin 13.3 g/dL (14.0-18.0) Hematocrit 40.2 % (42-54) Mean Corpuscular Volume 84.5 fL (79-99) Mean Corpuscular Hemoglobin 27.9 pg (27.0-33.0) Mean Corpuscular Hemoglobin Concent 33.1 g/dL (32.0-36.0) Red Cell Distribution Width 14.9 % (11.0-15.5) Platelet Count 235 K/uL (130-400) Mean Platelet Volume 10.1 fL (7.5-10.5) Nucleated Red Blood Cells 0.0 % (0.0-0.19) Sodium Level 137 mmol/L (136-145) Potassium Level 3.5 mmol/L (3.5-5.1) Chloride Level 101 mmol/L (101-111) Carbon Dioxide Level 30 mmol/L (21-32) Blood Urea Nitrogen 24 mg/dL (7-18) Creatinine 0.6 mg/dL (0.5-1.3) Glomerular Filtration Rate Calc 103 mL/min (>90) Random Glucose 235 mg/dL (70-105) Total Calcium 8.3 mg/dL (8.5-10.1) Magnesium Level 2.00 mg/dL (1.80-2.40) Test 07/23/24 15:33 Whole Blood Glucose 176 MG/DL (70-110) INPATIENT MEDS: Current Medications Medications Dose Ordered Sig/Ajmes Start Time Stop Time Status Last Admin Albuterol 1 UDVIAL Q4H PRN 07/18/24 22:30 08/17/24 22:29 Albuterol 1 UDVIAL [id number] 07/18/24 22:30 08/17/24 22:29 07/23/24 14:10 Insulin Human Lispro INSULIN SLIDING SCAL... ACHS 07/19/24 07:30 08/18/24 07:29 07/23/24 11:24 Potassium Chloride 100 ml @ 100 mls/hr AD PRN 07/18/24 22:30 08/17/24 22:29 Potassium Chloride 20 meq AD PRN 07/18/24 22:30 08/17/24 22:29 07/22/24 06:04 Potassium Chloride 20 meq AD PRN 07/18/24 22:30 08/17/24 22:29 07/23/24 08:21 Acetaminophen 650 mg Q4HPRN PRN 07/20/24 03:30 08/19/24 03:29 Acetaminophen 650 mg Q6H PRN 07/20/24 03:30 08/19/24 03:29 Acetaminophen/ Codeine Phosphate 1 tab Q4H PRN 07/20/24 03:30 08/19/24 03:29 07/22/24 19:02 Acetylcysteine 400 mg Q6H PRN 07/20/24 03:30 08/19/24 03:29 07/20/24 19:45 Atenolol 25 mg DAILY 07/20/24 09:00 08/19/24 08:59 07/20/24 09:37 Budesonide 0.5 mg BID 07/20/24 09:00 08/19/24 08:59 07/23/24 07:03 Clopidogrel Bisulfate 75 mg DAILY 07/20/24 09:00 08/19/24 08:59 07/23/24 08:21 Digoxin 125 mcg DAILY 07/20/24 09:00 08/19/24 08:59 07/23/24 08:22 Fluoxetine HCl 40 mg DAILY 07/20/24 09:00 08/19/24 08:59 07/23/24 08:21 Lorazepam 1 mg DAILY PRN 07/20/24 03:30 08/19/24 03:29 07/22/24 20:40 Ondansetron HCl 4 mg Q4HPRN PRN 07/20/24 03:30 08/19/24 03:29 Pantoprazole Sodium 40 mg DAILY 07/20/24 09:00 08/19/24 08:59 07/23/24 08:21 Rivaroxaban 20 mg HS 07/20/24 21:00 08/19/24 20:59 07/22/24 20:40 Home Med HS 07/20/24 21:00 08/19/24 20:59 07/22/24 20:59 Methylprednisolone Sodium Succinate 60 mg Q8H6 07/20/24 14:00 08/18/24 14:29 07/23/24 14:57 Lactulose 20 gm TID PRN 07/20/24 14:30 08/19/24 14:29 07/21/24 15:59 Levofloxacin 250 mg Q24H 07/20/24 22:30 07/30/24 22:29 07/22/24 20:40 Doxycycline Hyclate 250 ml @ 125 mls/hr Q12H 07/21/24 16:30 07/31/24 16:29 07/23/24 04:39 Furosemide 40 mg DAILY 07/22/24 09:00 08/21/24 08:59 07/23/24 08:21 Magnesium Sulfate 50 ml @ 0 mls/hr PROTOCOL PRN 07/22/24 07:00 08/21/24 06:59 07/22/24 09:39 Insulin Glargine 30 units DAILY 07/22/24 09:00 08/21/24 08:59 07/23/24 08:42 Wound Care/ Dressing Products 1 APPL DAILY 07/22/24 09:00 08/21/24 08:59 07/23/24 08:22 Insulin Human Regular 5 unit TIDAC 07/23/24 17:00 08/22/24 16:59 PROBLEM LIST: (1) Viral pneumonia ICD Code: J12.9 - Viral pneumonia, unspecified (2) COPD exacerbation ICD Code: J44.1 - Chronic obstructive pulmonary disease with (acute) exacerbation (3) Hypotension ICD Code: I95.9 - Hypotension, unspecified (4) Interstitial lung disease ICD Code: J84.9 - Interstitial pulmonary disease, unspecified (5) Left lower lobe pneumonia ICD Code: J18.9 - Pneumonia, unspecified organism PLAN: PROBLEM LIST: Acute hypoxemic respiratory failure Community-acquired Pneumonia Chronic COPD with exacerbation Type 2 diabetes Essential hypertension Hyperlipidemia CAD Atrial fibrillation-on Xarelto Plan summary: Supplemental oxygen as needed Duo nebs as needed CPAP nightly and p.r.n. Obtain sputum culture Continue Levaquin Solu-Medrol 40 mg every 8 hours Lasix 40 mg IV b.i.d. x4 doses Montelukast 10 mg daily ABG in a.m. Chest x-ray in a.m. Speech therapy evaluate and treat Repeat a.m. labs IMAN LEGGETT MD Jul 23, 2024 16:25
[2024-07-23] MEDS: INSULIN humuLIN R 100 UNIT/ML 3ML SQ SCH (16:47)
[2024-07-24] VITALS (16 sets, daily range): BP systolic 110–126; BP diastolic 50–77; PULSE 72–107; RESP 16–24; TEMP 97.4–99.7; O2SAT 4–99
[2024-07-24 05:42] LABS: HEMATOCRIT 40.3 % (42-54); MEAN CORPUSCULAR HEMOGLOBIN 28.1 pg (27.0-33.0); MEAN CORPUSCULAR HGB CONC 33.5 g/dL (32.0-36.0); RED BLOOD CELL COUNT(AUTO) 4.8 MIL/uL (4.50-6.20); RED CELL DISTRIBUTION WIDTH 15.2 % (11.0-15.5); WHITE BLOOD COUNT (AUTO) 16.2 K/uL (4.8-10.8)
[2024-07-24 05:54] LABS: CREATININE 0.5 mg/dL (0.5-1.3); POTASSIUM 3.6 mmol/L (3.5-5.1)
[2024-07-24] MEDS: predniSONE 20 MG TABLET PO SCH (08:57)
[2024-07-24] MEDS ORDERED: Solu-medROL 40MG VIAL IVP SCH (09:00)
--- NOTE | 2024-07-24 11:54 | PN ---
SUBJECTIVE: The patient denies any fever, chills, seizures or loss of consciousness. No chest pain, palpitations. No nausea or vomiting. OBJECTIVE: GENERAL: He is currently comfortable in bed, not in distress. VITAL SIGNS: Blood pressure 116/67, pulse 95, respiratory rate 20, O2 saturation on 5 liters nasal cannula 94%. HEENT: Normocephalic, atraumatic. LUNGS: Decreased breath sounds bilaterally with inspiratory wet rales bilaterally associated with productive cough. HEART: S1, S2 are distant. No S3, S4, no friction rubs or murmurs. ABDOMEN: Soft, nontender, no masses. EXTREMITIES: No clubbing, cyanosis, no edema. LABORATORY DATA: WBC count 16.2, hemoglobin 13.5, platelets 246. Sodium 135, potassium 3.6, BUN 20, creatinine 0.5. Chest CT from 07/20 shows severe bilateral emphysema with no progression compared to prior exam. No superimposed process identified. ASSESSMENT AND PLAN: * Respiratory failure, acute on chronic. Continue with oxygen. * Chronic obstructive pulmonary disease exacerbation. Continue with bronchodilators, steroids will be changed to p.o. Continue antibiotics, we will start patient on Mucinex, send sputum for cultures. * Emphysema, interstitial lung disease terminal. * Hypertension. Continue current treatment. * Coronary artery disease, stable. * Atrial fibrillation, rate controlled, on Xarelto. Follow up in a.m. with labs. DOS: 07/24/2024 TID: [id number] RECEIPT: [id number] MTDAlma Delia
[2024-07-24] MEDS ORDERED: acetylCYSTeine 20% 200MG/ML 4ML VIAL IH SCH (12:00)
[2024-07-24] MEDS: acetylCYSTeine 20% 200MG/ML 4ML VIAL IH SCH (13:53)
--- NOTE | 2024-07-24 15:37 | NUR ---
CM NOTE: POC CM MET WITH PT AND AGAIN THIS MORNING. EXPLAINED DIFFERENCE BETWEEN IRU AND SNF LEVEL CARE. INFORMED PT AND , PT UNABLE TO MEET CRITERIA FOR IRU ADMISSION AT THIS TIME PT NOT PARTICIPATING WELL W/PT, ONLY ABLE TO MEET SNF LEVEL CARE FOR SHORT TERM REHAB, GIVEN IN NETWORK FACILITIES FOR SNF, PT AND DECLINED [facility], AGREEABLE FOR [facility] BUT VERBALIZED SHE WOULD LIKE TO TOUR [facility](SATURDAY). GIVEN CM PH# AND ONCALL # FOR WEEKEND. PENDING TO GIVE CONSENT AT THIS TIME. CM INFORMED TERRY PRETTY OF ABOVE. PENDING MD ORDER FOR SNF AND CM TO SET UP ONCE AND PT GIVE CONSENT. CM TO CONTINUE TO FOLLOW UP.
--- NOTE | 2024-07-24 17:01 | PN ---
[facility] PROGRESS NOTE Date Patient Seen: Jul 24, 2024 Time of Visit: 16:57 Supervising Physician: GRZEGORZ PARKER Primary Care Physician: Dr. Mirza Outpatient Specialists: [ ] Inpatient Consults: [BIS PROBLEM LIST: Acute on Chronic hypoxemic respiratory failure End Stage Pulmonary Fibrosis REcurrent Community-acquired Pneumonia Acute COPD with exacerbation Type 2 diabetes Essential hypertension Hyperlipidemia CAD Atrial fibrillation-on Xarelto Plan summary: Supplemental oxygen as needed Duo nebs as needed CPAP nightly and p.r.n. Continue Levaquin Prednisone oral indefinitely. Lasix Montelukast 10 mg daily Outpatient pulmonary follow up for PFts and Medication regimen optimization Follow Speech therapy recs Repeat a.m. labs INTERVAL HISTORY: Patient was seen and examined today by me at bedside he is on CPAP at the time of my evaluation. He appears to be upset as he was advised by his primary physician that he is doing better but he does not feel this way. We did have a long discussion regarding his CT scan findings and made him aware that he has advanced pulmonary fibrosis. There is evidence of severe left lung involvment and atrophy , bilateral lungs reveal bullae and honey combing . Overall he is much better than when he was admitted however he does not seem to understand the progression of his disease. He was made aware of the severeity and recommendation for continued treatment/comfort emphasis. REVIEW OF SYSTEMS: 12 point ROS reviewed with patient. Pertinent positives mentioned above. Otherwise negative. PHYSICAL EXAM: GENERAL: alert, weak, awake oriented x 3 HEENT: EOMI, Sclera non icteric, moist mucosa NECK: Supple, no JVD, trachea midline LUNGS: fair , no active wheezing at time of my eavl HEART: Regular rate and rhythm. Normal S1 and S2, without murmurs ABD: Abdomen soft, nontender. Bowel sounds present EXT: No clubbing cyanosis or edema NEURO: Alert and oriented to person, follows commands Vital Signs (last 8hr) Date Time Temp Pulse Resp B/P (MAP) Pulse Ox O2 Delivery O2 Flow Rate FiO2 07/24/24 16:00 97.9 91 22 125/77 94 Nasal Cannula 5.0 07/24/24 13:53 92 24 07/24/24 13:49 92 24 40 07/24/24 12:00 97.7 107 22 114/56 90 Nasal Cannula 5.0 07/24/24 09:56 82 LABS: Hematology Labs: Test 07/24/24 05:07 Range/Units White Blood Count 16.2 H 4.8-10.8 K/uL Red Blood Count 4.80 4.50-6.20 MIL/uL Hemoglobin 13.5 L 14.0-18.0 g/dL Hematocrit 40.3 L 42-54 % Mean Corpuscular Volume 84.0 79-99 fL Mean Corpuscular Hemoglobin 28.1 27.0-33.0 pg Mean Corpuscular Hemoglobin Concent 33.5 32.0-36.0 g/dL Red Cell Distribution Width 15.2 11.0-15.5 % Platelet Count 246 130-400 K/uL Mean Platelet Volume 10.1 7.5-10.5 fL Nucleated Red Blood Cells 0.0 0.0-0.19 % Chemistry Labs: Test 07/24/24 15:35 07/24/24 05:07 07/23/24 04:16 Range/Units Whole Blood Glucose 95 # 70-110 MG/DL Sodium Level 135 L 136-145 mmol/L Potassium Level 3.6 3.5-5.1 mmol/L Chloride Level 98 L 101-111 mmol/L Carbon Dioxide Level 31 21-32 mmol/L Blood Urea Nitrogen 20 H 7-18 mg/dL Creatinine 0.5 0.5-1.3 mg/dL Glomerular Filtration Rate Calc 108 >90 mL/min Random Glucose 204 H 70-105 mg/dL Total Calcium 8.3 L 8.5-10.1 mg/dL Magnesium Level 2.00 1.80-2.40 mg/dL DIAGNOSTICS / RADIOLOGY RESULTS: [ ] PLAN NEURO: Minimize central acting medications as possible. Maintain fall precautions, adequate lighting during the day PULMONARY: Supplemental 02 as needed. Maintain aspiration precautions at all times CARDIOVASCULAR: Follow hemodynamics. Vital signs per facility protocol GI & NUTRITION: Continue with nutritional support. Continue stool softeners and laxatives as needed. KIDNEYS & ELECTROLYTES: Strict monitoring of intake, output and overall fluid balance. Avoid nephrotoxic medications to the extent possible. Medications to be dosed according to renal function. Monitor electrolytes and replace as needed ENDOCRINE: Maintain blood glucose between 100-180 at all times. Hypoglycemia protocol in place INFECTIOUS DISEASE: Trend temperature, WBC and procalcitonin level Follow cultures, deescalate antibiotics as soon as possible. Panculture if new onset fever ONCOLOGY/HEMATOLOGY/COAGULATION: Monitor for s/s of bleeding Monitor hemoglobin, coagulation studies as needed SKIN: Pressure ulcer prevention per facility protocol Specialty mattress ORTHO/REHAB: Continue PT/OT Prophylaxis: Continue GI and DVT prophylaxis Code Status: Full Resuscitation Disposition: As per attending Other: Total patient care time exceeds 35 minutes excluding all procedures. TERRY SHANKS Jul 24, 2024 17:01
[2024-07-24] MEDS: BisaCODYL 5 MG TABLET.DR PO PRN (18:02)
--- NOTE | 2024-07-24 21:25 | NUR ---
HOME MEDICATION: PT SCHEDULED FOR HOME MEDICATION LEVOCETIRIINE 5MG PO HS. MEDICATION WAS NOT FOUND IN PATIENT ROOM OR OMNICELL. PHARMACY CALLED AND STATE THEY DO NOT HAVE HOME MEDICATION. PT MADE AWARE HOME MED IS UNAVAILABLE. PT UPSET, VOICES HOME MED WAS GIVEN LAST NIGHT.
[2024-07-25] VITALS (14 sets, daily range): BP systolic 98–123; BP diastolic 57–66; PULSE 75–107; RESP 16–22; TEMP 95.8–99.1; O2SAT 92–97
[2024-07-25 04:15] LABS: HEMATOCRIT 42.1 % (42-54); MEAN CORPUSCULAR HEMOGLOBIN 28.3 pg (27.0-33.0); MEAN CORPUSCULAR HGB CONC 33.7 g/dL (32.0-36.0); RED BLOOD CELL COUNT(AUTO) 5.01 MIL/uL (4.50-6.20); RED CELL DISTRIBUTION WIDTH 15.5 % (11.0-15.5); WHITE BLOOD COUNT (AUTO) 19.5 K/uL (4.8-10.8)
[2024-07-25 04:31] LABS: CREATININE 0.7 mg/dL (0.5-1.3); POTASSIUM 3.1 mmol/L (3.5-5.1)
[2024-07-25] MEDS ORDERED: PEG 3350/NA SULF,BICARB,CL/KCL 4000 ML SOLN PO PRN (12:00)
[2024-07-25] MEDS: GLYCERIN ADULT SUPP.RECT RC ONE (12:27)
--- NOTE | 2024-07-25 20:19 | DS ---
HOSPITAL COURSE: The patient was brought to the Emergency Room complaining of fever, chills, generalized body weakness. The patient was examined. Labs were reviewed. He was admitted with diagnosis of COPD exacerbation, sepsis. WBC count 21,000. He was admitted to ICU. The patient was started on cefepime and vancomycin. Continue bronchodilators, steroids and antibiotics. He was also started on IV fluids, Levophed due to hypotension. Continue with his home medications. He had been pancultured. Continue treatment for his atrial fibrillation, coronary artery disease. He was also diagnosed with respiratory failure with hypoxemia, hypercarbia, pneumonia, end-stage pulmonary fibrosis, bilateral bronchiectasis, and emphysema. The patient improved with treatment given after several days of therapy. The patient was transferred from the intensive care unit. He was continued on BiPAP. The patient at the time of discharge was scheduled to be transferred to SNF facility to continue antibiotic therapy and physical therapy. DISCHARGE DIAGNOSES: At the time of discharge diagnoses were: Acute on chronic hypoxemic respiratory failure, on home oxygen at 3 liters nasal cannula; chronic obstructive pulmonary disease exacerbation; pneumonia; hypertension; atrial fibrillation; hypertension; emphysema; bronchiectasis; end-stage chronic lung disease; obesity; celiac sprue; dyslipidemia. Medications as indicated in the chart. Follow up at their facility. Continue medications indicated in the chart. TID: [id number] RECEIPT: [id number]
--- NOTE | 2024-07-25 21:39 | PN ---
SUBJECTIVE: The patient is feeling improved. No chest pain, palpitations. No nausea or vomiting. Continue with oxygen through nasal cannula. Continue with bronchodilators, steroids, antibiotics. PHYSICAL EXAMINATION: GENERAL: Currently, he is awake, alert, oriented in person, time, and place, not in distress. VITAL SIGNS: In the chart. HEENT: Normocephalic, atraumatic. LUNGS: Decreased breath sounds bilaterally, inspiratory crepitus in bases. HEART: S1, S2 are distant. ABDOMEN: Soft, nontender. EXTREMITIES: No clubbing or cyanosis. LABORATORY DATA: WBC count 19,000, hemoglobin 14.2, platelets 245. ____ 135, potassium 3.1, BUN 19, creatinine 0.7. ASSESSMENT AND PLAN: * Respiratory failure, acute on chronic worsening. Continue with oxygen. * Chronic obstructive pulmonary disease exacerbation. Continue bronchodilators, steroids, antibiotics. * Emphysema, interstitial lung disease, severe, terminal as per pulmonary. Continue supportive care. The patient might be benefited from palliative care hospice. * Type 2 diabetes, controlled. * Hypertension, controlled. * Coronary artery disease, stable. * Atrial fibrillation, rate controlled. For anticoagulation on Xarelto. Follow up in a.m. with labs. DOS: 07/25/2024 TID: [id number] RECEIPT: [id number] MTDAlma Delia
--- NOTE | 2024-07-25 22:47 | PN ---
[facility] PROGRESS NOTE Date Patient Seen: Jul 25, 2024 Time of Visit: 22:24 Supervising Physician: BABS LANTIGUA MD Primary Care Physician: Dr. Mirza Outpatient Specialists: [ ] Inpatient Consults: [BIS PROBLEM LIST: 1. Acute on chronic hypercarbic hypoxemic respiratory failure on admission 2. End stage pulmonary fibrosis 3. Community acquired pneumonia on admission 4. Acute COPD exacerbation on admission 5. Type 2 diabetes mellitus 6. Essential hypertension 7. Coronary artery disease 8. Hyperlipidemia 9. Atrial fibrillation on Xarelto INTERVAL HISTORY: Patient is seen and evaluated Currently on BiPAP during my evaluation His O2 saturation is between 88-90% with settings of TV 500, FiO2 40% and rate of 10 with IPAP of 12 patient is very weak, with dyspnea and unable to complete sentences while talking no fevers, no chills very weak, pale and severely deconditioned in spite of this, patient feels better than on admission no nausea, no vomiting, no fevers and no chills REVIEW OF SYSTEMS: 12 point ROS reviewed with patient. Pertinent positives mentioned above. Otherwise negative. PHYSICAL EXAM: GENERAL: alert, weak, awake oriented x 3 HEENT: EOMI, Sclera non icteric, moist mucosa NECK: Supple, no JVD, trachea midline LUNGS: tachypneic, decreased breath sounds bilaterally, expiratory wheezing HEART: Regular rate and rhythm. Normal S1 and S2, without murmurs ABD: Abdomen soft, nontender. Bowel sounds present EXT: No clubbing cyanosis or edema NEURO: Alert and oriented to person, follows commands Vital Signs (last 8hr) Date Time Temp Pulse Resp B/P (MAP) Pulse Ox O2 Delivery O2 Flow Rate FiO2 07/25/24 20:05 95 Bi-PAP+ 9 40 07/25/24 19:08 98.1 100 20 119/65 95 Venti Mask 07/25/24 19:01 96 19 07/25/24 16:07 103 07/25/24 16:00 95.7 82 22 101/66 90 Nasal Cannula 10.0 07/25/24 15:06 104 LABS: Hematology Labs: Test 07/25/24 03:49 Range/Units White Blood Count 19.5 H 4.8-10.8 K/uL Red Blood Count 5.01 4.50-6.20 MIL/uL Hemoglobin 14.2 14.0-18.0 g/dL Hematocrit 42.1 42-54 % Mean Corpuscular Volume 84.0 79-99 fL Mean Corpuscular Hemoglobin 28.3 27.0-33.0 pg Mean Corpuscular Hemoglobin Concent 33.7 32.0-36.0 g/dL Red Cell Distribution Width 15.5 11.0-15.5 % Platelet Count 245 130-400 K/uL Mean Platelet Volume 10.3 7.5-10.5 fL Nucleated Red Blood Cells 0.0 0.0-0.19 % Chemistry Labs: Test 07/25/24 19:07 07/25/24 14:14 07/25/24 03:49 Range/Units Whole Blood Glucose 145 H 70-110 MG/DL Potassium Level 4.1 3.5-5.1 mmol/L Sodium Level 135 L 136-145 mmol/L Chloride Level 99 L 101-111 mmol/L Carbon Dioxide Level 32 21-32 mmol/L Blood Urea Nitrogen 19 H 7-18 mg/dL Creatinine 0.7 0.5-1.3 mg/dL Glomerular Filtration Rate Calc 98 >90 mL/min Random Glucose 192 H 70-105 mg/dL Total Calcium 8.2 L 8.5-10.1 mg/dL DIAGNOSTICS / RADIOLOGY RESULTS: [ ] PLAN - continue nebulizer treatment - continue high flow oxygen - continue IV steroids - continue with CPAP - BiPAP settings adjusted NEURO: Minimize central acting medications as possible. Maintain fall precautions, adequate lighting during the day PULMONARY: Supplemental 02 as needed. Maintain aspiration precautions at all times CARDIOVASCULAR: Follow hemodynamics. Vital signs per facility protocol GI & NUTRITION: Continue with nutritional support. Continue stool softeners and laxatives as needed. KIDNEYS & ELECTROLYTES: Strict monitoring of intake, output and overall fluid balance. Avoid nephrotoxic medications to the extent possible. Medications to be dosed according to renal function. Monitor electrolytes and replace as needed ENDOCRINE: Maintain blood glucose between 100-180 at all times. Hypoglycemia protocol in place INFECTIOUS DISEASE: Trend temperature, WBC and procalcitonin level Follow cultures, deescalate antibiotics as soon as possible. Panculture if new onset fever ONCOLOGY/HEMATOLOGY/COAGULATION: Monitor for s/s of bleeding Monitor hemoglobin, coagulation studies as needed SKIN: Pressure ulcer prevention per facility protocol Specialty mattress ORTHO/REHAB: Continue PT/OT Prophylaxis: Continue GI and DVT prophylaxis Code Status: Full Resuscitation Disposition: As per attending Other: Total patient care time exceeds 35 minutes excluding all procedures. Progress Note scribed by Rohan Levine on my behalf and I can attest to the accuracy of the note. I personally scribed for BABS LANTIGUA MD ([email or web address]) on 07/25/24 at 22:47. Electronically submitted by Rohan Levine ([email or web address]). BABS LANTIGUA MD Jul 25, 2024 22:47
[2024-07-26] VITALS (13 sets, daily range): BP systolic 75–105; BP diastolic 43–67; PULSE 64–89; RESP 18–23; TEMP 97.4–98.5; O2SAT 92–96
[2024-07-26] MEDS: GLYCERIN ADULT SUPP.RECT RC ONE (09:53)
[2024-07-26 11:35] LABS: HEMATOCRIT 49.1 % (42-54); MEAN CORPUSCULAR HEMOGLOBIN 28.2 pg (27.0-33.0); MEAN CORPUSCULAR HGB CONC 33.4 g/dL (32.0-36.0); MEAN CORPUSCULAR VOLUME 84.5 fL (79-99); PLATELET COUNT (AUTO) 282 K/uL (130-400); RED BLOOD CELL COUNT(AUTO) 5.81 MIL/uL (4.50-6.20); RED CELL DISTRIBUTION WIDTH 15.9 % (11.0-15.5); WHITE BLOOD COUNT (AUTO) 23.3 K/uL (4.8-10.8)
[2024-07-26 11:47] LABS: CREATININE 0.6 mg/dL (0.5-1.3); POTASSIUM 4.3 mmol/L (3.5-5.1)
[2024-07-26 11:52] LABS: ALBUMIN 2.5 g/dL (3.5-5.0); BILIRUBIN,TOTAL 0.9 mg/dL (0.2-1.0); TOTAL PROTEIN, SERUM 6.3 g/dL (6.0-8.3)
--- NOTE | 2024-07-26 11:57 | NUR ---
SNF F/U Spoke w spouse this am. She mentions that she has decided on [facility]. BIBI/PC obtained for [facility]. Primary nurse notified. Pending Md clearance/order for SNF referral.
--- NOTE | 2024-07-26 12:13 | NUR ---
[facility] Referral Order received for SNF. Referral sent to Viri Soriano notified states new [facility] not required.
[2024-07-26] MEDS: acetaMINOPHEN 325 MG TAB PO PRN (12:32)
[2024-07-26 13:09] LABS: LYMPHOCYTES % (MANUAL) 7 % (22-44); MONOCYTES % (MANUAL) 7 % (2-9); SEGMENTED NEUTROPHILS % 86 % (40-70); TOTAL CELLS COUNTED 100
[2024-07-26 13:10] LABS: MAN.DIFF COMMENT-IMPRESSION MANUAL DIFFERENTIAL; PLATELET MORPHOLOGY COMMENT ADEQUATE
[2024-07-26] MEDS: fluCONazole 200 MG/NS 100 ML IV SCH (15:44)
[2024-07-26] MEDS: levoFLOXacin 500 MG TABLET PO SCH (15:45)
--- NOTE | 2024-07-26 16:52 | NUR ---
SPOKE TO TERRY PRETTY REGARDING CRITICAL CARE CONSULT, MADE AWARE OF LATEST LABS, VS, AND PT PRESENTATION. ORDERS OBTAINED.
[2024-07-26 17:15] LABS: ABG BASE EXCESS -0.6 mmol/L (-2.0-3.0); ABG HCO3 22.9 mmol/L (21.0-28.0); ABG PCO2 35 mmHg (35-48); ABG PH 7.439 (7.350-7.450); DEVICE COMMENT LR 4LNC
[2024-07-26] MEDS: 0.9% NACL 250ML 250 ML IV SCH (19:07)
[2024-07-26] MEDS: 0.9% NACL 250ML 250 ML IV ONE (19:07)
[2024-07-26] MEDS: 0.9% NACL 500ML IV.SOLN 500 ML IV ONE (19:25)
--- NOTE | 2024-07-26 20:21 | NUR ---
CLARIFIED WITH DR. MCLAUGHLIN REGARDING ORDER FOR [facility], FORM SENT TO MD FOR REVIEW. STATES TO CONTINUE WITH CURRENT ANTIBIOTICS AT THIS TIME.
[2024-07-26] MEDS: miDODRine HCL 5 MG TABLET PO SCH (22:03)
--- NOTE | 2024-07-26 23:02 | NUR ---
hypotenstion post bolus bp 91/56. midline leaking new iv started 20ga lt forearm. recheck of bp 79/46 1 hr later. kaykay mancilla from [facility] paged order for midodrine given 10mg now then tid. ordered to recheck in an hr. recheck 86/56, o2 sat 94% on venti mask. kayli camilograd intern has assigned room 209 to transfer once orders given for transfer. kaykay mancilla gave orders to transfer to [facility].
--- NOTE | 2024-07-26 23:22 | PN ---
[facility] PROGRESS NOTE Date Patient Seen: Jul 26, 2024 Time of Visit: 23:19 Supervising Physician: BABS LANTIGUA MD Primary Care Physician: Dr. Mirza Outpatient Specialists: [ ] Inpatient Consults: [BIS PROBLEM LIST: 1. Acute on chronic hypercarbic hypoxemic respiratory failure on admission 2. End stage pulmonary fibrosis 3. Community acquired pneumonia on admission 4. Acute COPD exacerbation on admission 5. Type 2 diabetes mellitus 6. Essential hypertension 7. Coronary artery disease 8. Hyperlipidemia 9. Atrial fibrillation on Xarelto INTERVAL HISTORY: 07/26/2024 The patient is seen and evaluated at bedside and the events of the last 24 hours have been noted and updated. I personally spoke to the nurse in charge of patient, family at bedside. Patient had been on BiPAP continuously for a couple of days today he is now on high-flow oxygen at 10 L with 30% FiO2. He is very weak, severely deconditioned, pale and frail and has tachypnea, tachycardia and unable to complete full sentences due to shortness of breath. Patient is afebrile, denies chest pain, good appetite. No fever, no chills. No seizures REVIEW OF SYSTEMS: 12 point ROS reviewed with patient. Pertinent positives mentioned above. Otherwise negative. PHYSICAL EXAM: GENERAL: alert, weak, awake oriented x 3 HEENT: EOMI, Sclera non icteric, moist mucosa NECK: Supple, no JVD, trachea midline LUNGS: tachypneic, decreased breath sounds bilaterally, expiratory wheezing HEART: Regular rate and rhythm. Normal S1 and S2, without murmurs ABD: Abdomen soft, nontender. Bowel sounds present EXT: No clubbing cyanosis or edema NEURO: Alert and oriented to person, follows commands Vital Signs (last 8hr) Date Time Temp Pulse Resp B/P (MAP) Pulse Ox O2 Delivery O2 Flow Rate FiO2 07/26/24 22:53 64 22 07/26/24 20:33 97.3 07/26/24 20:32 98.2 82 18 91/56 89 Nasal Cannula 4.0 07/26/24 20:30 94 Nasal Cannula* 4 36 07/26/24 16:00 97.3 74 22 75/43 94 Nonrebreathing Mask 10.0 LABS: Hematology Labs: Test 07/26/24 11:29 Range/Units White Blood Count 23.3 H 4.8-10.8 K/uL Red Blood Count 5.81 4.50-6.20 MIL/uL Hemoglobin 16.4 14.0-18.0 g/dL Hematocrit 49.1 42-54 % Mean Corpuscular Volume 84.5 79-99 fL Mean Corpuscular Hemoglobin 28.2 27.0-33.0 pg Mean Corpuscular Hemoglobin Concent 33.4 32.0-36.0 g/dL Red Cell Distribution Width 15.9 H 11.0-15.5 % Platelet Count 282 130-400 K/uL Mean Platelet Volume 10.2 7.5-10.5 fL Segmented Neutrophils % 86 H 40-70 % Lymphocytes % (Manual) 7 L 22-44 % Monocytes % (Manual) 7 2-9 % Nucleated Red Blood Cells 0.0 0.0-0.19 % Differential Comment MANUAL DIFFERENTIAL White Cell Morphology Comment Platelet Morphology Comment ADEQUATE Red Blood Cell Morphology See comments Chemistry Labs: Test 07/26/24 20:18 07/26/24 19:21 07/26/24 11:29 Range/Units Lactic Acid Level 2.3 0.8-2.5 mmol/L Whole Blood Glucose 188 H 70-110 MG/DL Sodium Level 131 L 136-145 mmol/L Potassium Level 4.3 3.5-5.1 mmol/L Chloride Level 97 L 101-111 mmol/L Carbon Dioxide Level 30 21-32 mmol/L Blood Urea Nitrogen 18 7-18 mg/dL Creatinine 0.6 0.5-1.3 mg/dL Glomerular Filtration Rate Calc 103 >90 mL/min Random Glucose 158 H 70-105 mg/dL Total Calcium 8.7 8.5-10.1 mg/dL Total Bilirubin 0.9 0.2-1.0 mg/dL Aspartate Amino Transf (AST/SGOT) 34 10-37 U/L Alanine Aminotransferase (ALT/SGPT) 41 12-78 U/L Alkaline Phosphatase 46 L 50-136 U/L Total Protein 6.3 6.0-8.3 g/dL Albumin 2.5 L 3.5-5.0 g/dL DIAGNOSTICS / RADIOLOGY RESULTS: [No new x-rays reviewed today ] PLAN The patient continues on high-flow oxygen delivery system and alternates between BiPAP and high-flow oxygen. The patient is not a candidate [facility] transfer [facility] and will benefit more from placement in a long-term acute care hospital Consult case management for referral to long-term acute [facility] Continue with BiPAP intermittently as needed Continue with high-flow oxygen as needed Maintain O2 saturation at 88% or higher Continue IV antibiotics Continue IV steroids NEURO: Minimize central acting medications as possible. Maintain fall precautions, adequate lighting during the day PULMONARY: Supplemental 02 as needed. Maintain aspiration precautions at all times CARDIOVASCULAR: Follow hemodynamics. Vital signs per facility protocol GI & NUTRITION: Continue with nutritional support. Continue stool softeners and laxatives as needed. KIDNEYS & ELECTROLYTES: Strict monitoring of intake, output and overall fluid balance. Avoid nephrotoxic medications to the extent possible. Medications to be dosed according to renal function. Monitor electrolytes and replace as needed ENDOCRINE: Maintain blood glucose between 100-180 at all times. Hypoglycemia protocol in place INFECTIOUS DISEASE: Trend temperature, WBC and procalcitonin level Follow cultures, deescalate antibiotics as soon as possible. Panculture if new onset fever ONCOLOGY/HEMATOLOGY/COAGULATION: Monitor for s/s of bleeding Monitor hemoglobin, coagulation studies as needed SKIN: Pressure ulcer prevention per facility protocol Specialty mattress ORTHO/REHAB: Continue PT/OT Prophylaxis: Continue GI and DVT prophylaxis Code Status: Full Resuscitation Disposition: As per attending Other: Total patient care time exceeds 35 minutes excluding all procedures. This progress note was scribed by ROHAN KUMAR on my behalf and I can attest to the accuracy of the note I personally scribed for BABS LANTIGUA MD ([email or web address]) on 07/26/24 at 23:22. Electronically submitted by Rohan Kumar ([email or web address]). BABS LANTIGUA MD Jul 26, 2024 23:22
[2024-07-27] VITALS (105 sets, daily range): BP systolic 84–146; BP diastolic 34–118; PULSE 61–88; RESP 11–48; TEMP 96.8–98.4; O2SAT 91–100
[2024-07-27] MEDS: NOREPINEPHRIN 4MG/NS 250ML 250 ML IV ONE ×2 (04:09→16:38)
--- NOTE | 2024-07-27 05:12 | NUR ---
Spoke to VENUS HATFIELD from [facility] regarding patients iv access. Patient is on pressors and only has peripheral iv. Midline is draining, provider was informed. Provider ordered for PICC line insertion, removal of midline, ABG for the morning, blood culture.
[2024-07-27 05:29] LABS: ABG BASE EXCESS -2.6 mmol/L (-2.0-3.0); ABG HCO3 20.7 mmol/L (21.0-28.0); ABG PCO2 32 mmHg (35-48); ABG PH 7.428 (7.350-7.450); PO2, ARTERIAL BG 87.5 mmHg (83.0-108.0)
[2024-07-27 06:38] LABS: HEMATOCRIT 42.2 % (42-54); MEAN CORPUSCULAR HEMOGLOBIN 28.2 pg (27.0-33.0); MEAN CORPUSCULAR HGB CONC 33.9 g/dL (32.0-36.0); MEAN CORPUSCULAR VOLUME 83.2 fL (79-99); RED BLOOD CELL COUNT(AUTO) 5.07 MIL/uL (4.50-6.20); RED CELL DISTRIBUTION WIDTH 15.6 % (11.0-15.5); WHITE BLOOD COUNT (AUTO) 20.8 K/uL (4.8-10.8)
[2024-07-27 07:00] LABS: CREATININE 0.5 mg/dL (0.5-1.3); POTASSIUM 3.5 mmol/L (3.5-5.1)
--- NOTE | 2024-07-27 07:22 | PN ---
SUBJECTIVE: The patient continues with oxygen. Continue with IV antibiotics. No fever, chills. No chest pain. OBJECTIVE: GENERAL: He is currently, awake, alert, oriented in person, time, and place, severe hearing impairment. On a CPAP. VITAL SIGNS: Blood pressure 107/65, pulse 95, respirations 23. HEENT: Normocephalic, atraumatic. LUNGS: Decreased breath sounds bilaterally, inspiratory wet rales anteriorly and posteriorly in bases. HEART: S1, S2 are distant. ABDOMEN: Soft, nontender. EXTREMITIES: No clubbing or cyanosis. LABORATORY DATA: WBC count 23,000, hemoglobin 16.4, platelets 282. Sodium 131, potassium 4.3, BUN 18, creatinine 0.6, albumin 2.5. Sputum cultures positive for yeast, Tiffani albicans. ASSESSMENT AND PLAN: * Respiratory failure, acute on chronic. Continue with supplemental oxygen. * Chronic obstructive pulmonary disease. Continue bronchodilators, steroids. Positive cultures for Tiffani. We are going to start him on Diflucan. We are going to change antibiotics to meropenem. * Emphysema, interstitial lung disease, terminal, as per pulmonary. Continue supportive care. * Type 2 diabetes, controlled. * Hypertension, controlled. * Coronary artery disease, stable. * Atrial fibrillation, controlled. * Chronic anticoagulation. Continue Xarelto. * Follow up in a.m. with labs. DOS: 07/26/2024 TID: [id number] RECEIPT: [id number] MTDD
--- NOTE | 2024-07-27 14:20 | NUR ---
SPEECH NOTE: LAB COORDINATOR coordinated with nurse Camacho. Pt currently on BiPAP and not appropriate for oral intake. May want to consider short term alternate means of nutrition/hydration until able to tolerate regular nasal cannula or room air without desaturations/respiratory distress. LAB COORDINATOR will continue to follow up. All questions answered. Addendum: 07/27/[address] [facility] Amended: Links added.
--- NOTE | 2024-07-27 15:58 | HMCIMG ---
CHEST 1VW HISTORY: PICC line placement COMPARISON: None FINDINGS: A frontal projection of the chest was obtained. There are bilateral pulmonary infiltrates suggestive of pulmonary vascular congestion with possible superimposed pneumonitis. PICC line is seen entering from the right with distal tip in the plane of the superior vena cava. The heart is borderline enlarged. All the lines and tubes are again seen in place. No evidence of aortic calcification is seen. IMPRESSION: 1. Bilateral pulmonary infiltrates are seen suggestive of pulmonary vascular congestion with possible superimposed pneumonitis.
[2024-07-27] MEDS ORDERED: NOREPINEPHRIN 4MG/NS 250ML 250 ML IV SCH (16:00)
--- NOTE | 2024-07-27 17:23 | PN ---
[facility] PROGRESS NOTE Date Patient Seen: Jul 27, 2024 Time of Visit: 18:23 Supervising Physician: Dr. Carter Primary Care Physician: Dr. Mirza Outpatient Specialists: [ ] Inpatient Consults: [BIS PROBLEM LIST: 1. Acute on chronic hypercarbic hypoxemic respiratory failure on admission 2. End stage pulmonary fibrosis 3. Community acquired pneumonia on admission 4. Acute COPD exacerbation on admission 5. Type 2 diabetes mellitus 6. Essential hypertension 7. Coronary artery disease 8. Hyperlipidemia 9. Atrial fibrillation on Xarelto 10 Hypotension needing pressor therapy INTERVAL HISTORY: 07/26/2024 The patient is seen and evaluated at bedside and the events of the last 24 hours have been noted and updated. I personally spoke to the nurse in charge of patient, family at bedside. Patient had been on BiPAP continuously for a couple of days today he is now on high-flow oxygen at 10 L with 30% FiO2. He is very weak, severely deconditioned, pale and frail and has tachypnea, tachycardia and unable to complete full sentences due to shortness of breath. Patient is afebrile, denies chest pain, good appetite. No fever, no chills. No seizures 07/27/2024: At the time of my evaluation, the patient was lying in bed. Family members were present at the bedside. Per the staff nurse, the patient became hypotensive overnight and because he required pressor therapy, he was upgraded to the ICU for further evaluation and management of his condition. The patient remains on a BiPAP therapy for oxygenation support. Currently, the patient is 12 was six, rate of 20 and FiO2 of 40%. On labs, the WBC remains elevated but much better compared to yesterday. Today, WBC of 20.8 compared to 20/3 0.3 yesterday. H&H is stable as well as platelet count. Chemistry panel L were notable for a magnesium of 1.50. Repeat imaging of the chest showed diffuse bilateral pulmonary vascular congestion and infiltrates. Currently, the patient remains on antibiotic and antifungal therapy. No other complaint. REVIEW OF SYSTEMS: 12 point ROS reviewed with patient. Pertinent positives mentioned above. Otherwise negative. PHYSICAL EXAM: GENERAL: alert, weak, awake oriented x 3 HEENT: EOMI, Sclera non icteric, moist mucosa NECK: Supple, no JVD, trachea midline LUNGS: tachypneic, decreased breath sounds bilaterally, expiratory wheezing HEART: Regular rate and rhythm. Normal S1 and S2, without murmurs ABD: Abdomen soft, nontender. Bowel sounds present EXT: No clubbing cyanosis or edema NEURO: Alert and oriented to person, follows commands Vital Signs (last 8hr) Date Time Temp Pulse Resp B/P (MAP) Pulse Ox O2 Delivery O2 Flow Rate FiO2 07/27/24 16:45 75 17 101/43 (62) 99 07/27/24 16:38 118/62 07/27/24 16:30 80 19 110/53 (72) 98 07/27/24 16:15 75 19 118/62 (80) 98 07/27/24 16:00 100 Bi-PAP+ 40 07/27/24 16:00 81 19 98 40 07/27/24 15:45 80 20 124/65 (84) 98 07/27/24 15:30 79 20 104/55 (71) 97 07/27/24 15:15 79 21 112/66 (81) 98 07/27/24 15:00 79 21 116/70 (85) 97 07/27/24 14:45 80 20 111/56 (74) 98 07/27/24 14:30 82 23 109/82 (91) 99 07/27/24 14:22 80 22 07/27/24 14:21 77 21 40 07/27/24 14:15 74 20 120/81 (94) 99 07/27/24 14:00 84 20 89/59 (69) 96 07/27/24 13:45 87 22 115/60 (78) 96 07/27/24 13:30 83 27 91/56 (68) 96 40 07/27/24 13:15 81 30 123/90 (101) 92 07/27/24 13:00 81 21 106/49 (68) 98 07/27/24 12:45 71 22 105/57 (73) 98 07/27/24 12:30 76 22 109/60 (76) 97 07/27/24 12:15 68 20 105/37 (59) 96 07/27/24 12:00 67 21 103/41 (61) 94 07/27/24 12:00 98.2 07/27/24 12:00 96 Bi-PAP+ 40 07/27/24 11:45 70 22 102/50 (67) 95 07/27/24 11:30 68 23 91/59 (70) 94 07/27/24 11:15 68 23 106/55 (72) 91 07/27/24 11:00 67 23 115/48 (70) 91 07/27/24 10:54 67 07/27/24 10:45 69 22 123/64 (83) 93 07/27/24 10:30 69 21 103/49 (67) 94 LABS: Hematology Labs: Test 07/27/24 06:09 07/26/24 11:29 Range/Units White Blood Count 20.8 H 4.8-10.8 K/uL Red Blood Count 5.07 4.50-6.20 MIL/uL Hemoglobin 14.3 14.0-18.0 g/dL Hematocrit 42.2 42-54 % Mean Corpuscular Volume 83.2 79-99 fL Mean Corpuscular Hemoglobin 28.2 27.0-33.0 pg Mean Corpuscular Hemoglobin Concent 33.9 32.0-36.0 g/dL Red Cell Distribution Width 15.6 H 11.0-15.5 % Platelet Count 292 130-400 K/uL Mean Platelet Volume 10.1 7.5-10.5 fL Nucleated Red Blood Cells 0.0 0.0-0.19 % Segmented Neutrophils % 86 H 40-70 % Lymphocytes % (Manual) 7 L 22-44 % Monocytes % (Manual) 7 2-9 % Differential Comment MANUAL DIFFERENTIAL White Cell Morphology Comment Platelet Morphology Comment ADEQUATE Red Blood Cell Morphology See comments Chemistry Labs: Test 07/27/24 15:04 07/27/24 06:09 07/26/24 20:18 07/26/24 11:29 Range/Units Whole Blood Glucose 198 H 70-110 MG/DL Sodium Level 139 136-145 mmol/L Potassium Level 3.5 3.5-5.1 mmol/L Chloride Level 105 101-111 mmol/L Carbon Dioxide Level 26 21-32 mmol/L Blood Urea Nitrogen 28 H 7-18 mg/dL Creatinine 0.5 0.5-1.3 mg/dL Glomerular Filtration Rate Calc 108 >90 mL/min Random Glucose 111 H 70-105 mg/dL Total Calcium 8.3 L 8.5-10.1 mg/dL Magnesium Level 1.50 L 1.80-2.40 mg/dL Lactic Acid Level 2.3 0.8-2.5 mmol/L Total Bilirubin 0.9 0.2-1.0 mg/dL Aspartate Amino Transf (AST/SGOT) 34 10-37 U/L Alanine Aminotransferase (ALT/SGPT) 41 12-78 U/L Alkaline Phosphatase 46 L 50-136 U/L Total Protein 6.3 6.0-8.3 g/dL Albumin 2.5 L 3.5-5.0 g/dL Coagulation Labs: Test 07/27/24 06:09 Range/Units Activated Partial Thromboplast Time 46.3 H 26.3-35.5 SEC DIAGNOSTICS / RADIOLOGY RESULTS: [ ] PLAN 07/27/2024: For now, we are going to continue current management for the patient. We will continue on BiPAP therapy as ordered, monitor the respiratory status and adjust as necessary. He will also remain on steroid therapy as ordered. The patient is going to continue on pressor therapy, may begin to transitioned the patient over to p.o. midodrine. The patient will remain on antibiotic therapy as ordered and we will follow the WBC trend on subsequent labs. The case was discussed with the patient and significant other that his condition is critical and prognosis is poor. Considering that the patient will require extensive care and may possible require to remain in the ICU, case management was consulted for referral to the LTAC at [facility]. We will monitor the patient's progress and response to management. We will continue to provide general supportive care, GI and DVT prophylaxis. Further orders per attending MD and hospital course. NEURO: Minimize central acting medications as possible. Fall Precautions. Well lighted room through the day and minimize interruptions through the night t o prevent acute delirium. PULMONARY: Supplemental 02 as needed Titrate Fio2 to keep Spo2 > or = 90% DuoNebs and CPT as needed IS hourly while awake for pulmonary hygiene Out of bed to chair as tolerated CARDIOVASCULAR: Follow hemodynamics. Titrate vasopressor to keep MAP >65 or systolic blood pressure >95mmHg DIPS: Levophed LINES: PIV GI & NUTRITION: Continue nutritional support Aspirations precautions Prokinetic agents and laxatives as needed KIDNEYS & ELECTROLYTES: Strict monitoring of intake and output Daily weights Avoid nephrotoxic agents Monitor electrolytes and replace as needed Goal urine output of 30mL/hr or 0.5mL/kg/hr Urine output: [ ] Fluid Balance: [ ] ENDOCRINE: Maintain blood glucose between 100-180 at all times. Insulin sliding scale for blood glucose management INFECTIOUS DISEASE: Trend temperature. Richards-culture if febrile. Micro: [ ] Antibiotics: Doxycycline, Diflucan and Levaquin. HEMATOLOGY & COAGULATION: Monitor H&H. Keep Hgb > 7 Transfuse 1 unit of PRBC for Hgb < 7 Transfuse 1 pack of platelets of platelets < 20, 000 Watch for any signs and symptoms of bleeding SKIN: Pressure ulcer prevention per facility protocol Rehab: PT/OT Prophylaxis: GI: [ ] DVT: [ ] Code Status: Full Resuscitation Disposition: ICU Other: Total patient care time exceeds 35 minutes excluding all procedures. Case was discussed and seen with my supervising physician. The above plan was formulated and agreed upon. FLORENTIN GARCIA NP Jul 27, 2024 17:23
--- NOTE | 2024-07-27 20:53 | PN ---
SUBJECTIVE: The patient was transferred last night to Intensive Care Unit due to hypotension, not responding to fluids. He also had an increase in the leukocyte count. The sputum cultures were positive for Tiffani and he was started on Diflucan for that purpose. However, when trying to start the patient on meropenem IV, changed it from Levaquin and doxycycline that was not working. The hospital protocol was applied, and the patient could not have meropenem started. The patient will have an ID consult to have the antibiotics re-evaluated. The patient continue with BiPAP. OBJECTIVE: GENERAL: He is currently comfortable in bed, not in distress. VITAL SIGNS: Blood pressure 105/37, pulse 68, respiratory rate 20. HEENT: Normocephalic, atraumatic. LUNGS: Decreased breath sounds bilaterally. HEART: S1, S2 are distant. ABDOMEN: Soft, nontender. EXTREMITIES: No clubbing or cyanosis. LABORATORY DATA: WBC count down from 23,000 yesterday to 20,000 today, hemoglobin 14.3, platelets 292,000. Sodium 139, potassium 3.5, BUN 28, creatinine 0.5. ASSESSMENT AND PLAN: * Septic shock. Continue with midodrine and norepinephrine as per Intensive Care Unit recommendations. * Respiratory failure, acute on chronic, worsening. Continue with continuous positive airway pressure. * Sepsis. Consultation with Infectious Disease will be made. * Chronic obstructive pulmonary disease exacerbation with positive cultures for Tiffani, continue Diflucan. * Emphysema, chronic obstructive pulmonary disease, and bronchiectasis. Continue supportive care. * Type 2 diabetes, continue with insulin. * Atrial fibrillation, rate controlled. Anticoagulation. Continue with Xarelto. The patient's condition is guarded. Poor prognosis. present and was informed. DOS: 07/27/2024 TID: [id number] RECEIPT: [id number] [facility]
[2024-07-28] VITALS (50 sets, daily range): BP systolic 80–137; BP diastolic 47–85; PULSE 57–110; RESP 15–29; TEMP 97–99.1; O2SAT 79–97
[2024-07-28 04:15] LABS: MEAN CORPUSCULAR HEMOGLOBIN 27.9 pg (27.0-33.0); MEAN CORPUSCULAR HGB CONC 33.1 g/dL (32.0-36.0); MEAN CORPUSCULAR VOLUME 84.4 fL (79-99); RED BLOOD CELL COUNT(AUTO) 4.62 MIL/uL (4.50-6.20); RED CELL DISTRIBUTION WIDTH 15.8 % (11.0-15.5); WHITE BLOOD COUNT (AUTO) 13.4 K/uL (4.8-10.8)
[2024-07-28 04:24] LABS: CREATININE 0.5 mg/dL (0.5-1.3); MAGNESIUM 1.8 mg/dL (1.80-2.40); POTASSIUM 4.1 mmol/L (3.5-5.1)
--- NOTE | 2024-07-28 08:34 | CONS ---
INFECTIOUS DISEASE CONSULTATION NOTE DATE OF CONSULTATION: 07/27/2024 REQUESTING PHYSICIAN: Eldon Brasher MD REASON FOR CONSULTATION: Pneumonia. HISTORY OF PRESENT ILLNESS: A 74-year-old male with history of COPD, diabetes mellitus, hypertension, and pulmonary fibrosis who presented to hospital with shortness of breath. The patient was a transfer from a halfway where the patient was receiving physical therapy. The patient has had recurrent admissions lately. CT of the chest has been done, which shows severe bilateral emphysema and fibrosis. The patient admitted to ICU, placed on BiPAP. The patient is on multiple antibiotics. The patient has been made DNR by the . PAST MEDICAL HISTORY: * COPD. * Diabetes mellitus. * Hypertension. * Dyslipidemia. * Coronary artery disease. * Atrial fibrillation. * Hypothyroidism. * Debility. * Pulmonary fibrosis. PAST SURGICAL HISTORY: PCI. ALLERGIES: PENICILLIN BUT TOLERATING CEPHALOSPORIN. CURRENT MEDICATIONS: Include: * Xarelto. * Prednisone. * Amiodarone. * Fluconazole. * Digoxin. * Doxycycline. * Levofloxacin. SOCIAL HISTORY: . The patient presented to the halfway for physical therapy. FAMILY HISTORY: Positive for diabetes mellitus. REVIEW OF SYSTEMS: Available history obtained from medical record. The patient is unable to give any history at this time due to respiratory disease, on BiPAP therapy. PHYSICAL EXAMINATION: GENERAL: Elderly male, ill looking. VITAL SIGNS: Temperature 98.2, pulse 67, respirations 17, BP 103/41. EYES: No icterus. Pupils equal and reactive. HENT: Dry oral mucosa. No oral thrush seen. NECK: Supple. No JVD or thyromegaly. LUNGS: Crackles bilaterally. No rhonchi. CARDIOVASCULAR: S1, S2 regular. No murmur heard. ABDOMEN: Obese, soft. Bowel sounds present. CENTRAL NERVOUS SYSTEM: Awake, alert, oriented x 3. No focal deficits. SKIN: No rashes. No itchiness. LYMPHATIC: No peripheral lymphadenopathy. BACK: No deformity. No pressure ulcer. LABORATORY DATA: Sodium 139, potassium 3.5, BUN 28, creatinine 0.5. WBC 20.8, hemoglobin 14.3, platelet 292. RADIOLOGY: CT chest shows severe bilateral infiltrates and pulmonary fibrosis. ASSESSMENT: A 74-year-old male admitted with shortness of breath. CURRENT PROBLEMS: Include: * [id number] hypoxic respiratory failure. * Pneumonia. * Hypothyroidism. * Pulmonary fibrosis. * Leukocytosis. * Diabetes mellitus. * End-stage lung disease. PLAN: * Continue fluconazole. * Continue levofloxacin. * Continue critical care support. * Continue BiPAP therapy. * Continue DVT prophylaxis. * Continue antiarrhythmic agent. * Continue pain management. * Monitor electrolytes and correct as needed. Thank you for allowing me to participate in the care of this patient. TID: [id number] RECEIPT: [id number]
--- NOTE | 2024-07-28 08:37 | PN ---
[facility] PROGRESS NOTE Date Patient Seen: Jul 28, 2024 Time of Visit: 09:36 Supervising Physician: Jose Maria Carter MD Primary Care Physician: Dr. Mirza Outpatient Specialists: [ ] Inpatient Consults: [BIS PROBLEM LIST: 1. Acute on chronic hypercarbic hypoxemic respiratory failure on admission 2. End stage pulmonary fibrosis 3. Community acquired pneumonia on admission 4. Acute COPD exacerbation on admission 5. Type 2 diabetes mellitus 6. Essential hypertension 7. Coronary artery disease 8. Hyperlipidemia 9. Atrial fibrillation on Xarelto 10 Hypotension needing pressor therapy INTERVAL HISTORY: Patient is awake alert and oriented x3. Denies any chest pain, shortness of breath or palpitations at this time. Patient is hemodynamically stable with a blood pressure 114/66 heart rate in the 90s respiratory rate of 24, saturating 94% with Ventimask. Urine output record not accurate due to incontinence. We will start daily weights. On laboratory WBCs trended down from 20.8 yesterday 13.4 today H&H slightly decreased to 12.9/39 platelet count is normal 241 K. chemistry unremarkable. No further pressors needed for blood pressure support, patient may downgrade to med surge with telemetry. REVIEW OF SYSTEMS: 12 point ROS reviewed with patient. Pertinent positives mentioned above. Otherwise negative. PHYSICAL EXAM: GENERAL: alert, weak, awake oriented x 3 HEENT: EOMI, Sclera non icteric, moist mucosa NECK: Supple, no JVD, trachea midline LUNGS: tachypneic, decreased breath sounds bilaterally, expiratory wheezing HEART: Regular rate and rhythm. Normal S1 and S2, without murmurs ABD: Abdomen soft, nontender. Bowel sounds present EXT: No clubbing cyanosis or edema NEURO: Alert and oriented to person, follows commands Vital Signs (last 8hr) Date Time Temp Pulse Resp B/P (MAP) Pulse Ox O2 Delivery O2 Flow Rate FiO2 07/28/24 08:15 85 28 N/Cannula Oximizer Hi LPM 4.0 07/28/24 07:45 107 26 95/62 (73) 85 40 07/28/24 07:30 92 23 97/75 (82) 89 40 07/28/24 07:15 87 16 96/60 (72) 89 40 07/28/24 07:09 99 20 N/Cannula Oximizer Hi LPM 4.0 07/28/24 07:00 90 28 108/59 (75) 85 40 07/28/24 06:45 97.7 86 20 102/52 (69) 94 40 07/28/24 06:30 79 20 106/54 (71) 95 07/28/24 06:23 68 22 07/28/24 06:15 70 24 120/47 (71) 95 07/28/24 06:00 72 20 98/54 (69) 97 40 07/28/24 05:45 60 17 120/76 (91) 98 07/28/24 05:30 63 18 113/67 (82) 97 07/28/24 05:15 62 22 107/71 (83) 97 07/28/24 05:00 66 15 105/61 (76) 95 40 07/28/24 04:45 64 15 137/69 (91) 97 07/28/24 04:30 64 15 115/64 (81) 98 07/28/24 04:15 57 17 129/70 (89) 97 07/28/24 04:00 97.2 65 16 115/63 (80) 97 40 07/28/24 04:00 97 Bi-PAP+ 40 07/28/24 03:45 57 17 121/70 (87) 98 07/28/24 03:30 67 19 121/74 (90) 98 07/28/24 03:15 72 21 136/78 (97) 96 07/28/24 03:00 64 17 130/60 (83) 98 40 07/28/24 02:45 65 15 119/62 (81) 99 07/28/24 02:30 65 16 112/50 (70) 98 07/28/24 02:15 62 16 131/74 (93) 98 07/28/24 02:00 61 16 118/64 (82) 98 40 07/28/24 01:45 63 19 119/56 (77) 97 LABS: Hematology Labs: Test 07/28/24 03:31 07/26/24 11:29 Range/Units White Blood Count 13.4 #H 4.8-10.8 K/uL Red Blood Count 4.62 4.50-6.20 MIL/uL Hemoglobin 12.9 L 14.0-18.0 g/dL Hematocrit 39.0 L 42-54 % Mean Corpuscular Volume 84.4 79-99 fL Mean Corpuscular Hemoglobin 27.9 27.0-33.0 pg Mean Corpuscular Hemoglobin Concent 33.1 32.0-36.0 g/dL Red Cell Distribution Width 15.8 H 11.0-15.5 % Platelet Count 241 130-400 K/uL Mean Platelet Volume 10.1 7.5-10.5 fL Nucleated Red Blood Cells 0.0 0.0-0.19 % Segmented Neutrophils % 86 H 40-70 % Lymphocytes % (Manual) 7 L 22-44 % Monocytes % (Manual) 7 2-9 % Differential Comment MANUAL DIFFERENTIAL White Cell Morphology Comment Platelet Morphology Comment ADEQUATE Red Blood Cell Morphology See comments Chemistry Labs: Test 07/28/24 03:31 07/27/24 19:59 07/26/24 20:18 07/26/24 11:29 Range/Units Sodium Level 137 136-145 mmol/L Potassium Level 4.1 3.5-5.1 mmol/L Chloride Level 104 101-111 mmol/L Carbon Dioxide Level 30 21-32 mmol/L Blood Urea Nitrogen 18 7-18 mg/dL Creatinine 0.5 0.5-1.3 mg/dL Glomerular Filtration Rate Calc 108 >90 mL/min Random Glucose 100 70-105 mg/dL Total Calcium 7.9 L 8.5-10.1 mg/dL Magnesium Level 1.80 1.80-2.40 mg/dL Whole Blood Glucose 231 H 70-110 MG/DL Lactic Acid Level 2.3 0.8-2.5 mmol/L Total Bilirubin 0.9 0.2-1.0 mg/dL Aspartate Amino Transf (AST/SGOT) 34 10-37 U/L Alanine Aminotransferase (ALT/SGPT) 41 12-78 U/L Alkaline Phosphatase 46 L 50-136 U/L Total Protein 6.3 6.0-8.3 g/dL Albumin 2.5 L 3.5-5.0 g/dL Coagulation Labs: Test 07/27/24 06:09 Range/Units Activated Partial Thromboplast Time 46.3 H 26.3-35.5 SEC DIAGNOSTICS / RADIOLOGY RESULTS: [ ] PLAN continue with midodrine Continue with abx doxycycline, Levaquin and fluconazole Can downgrade to medsurg tele Continue with Xarelto 20 mg q.h.s. Case management to follow up for DC planning to [facility] NEURO: Minimize central acting medications as possible. Fall Precautions. Well lighted room through the day and minimize interruptions through the night to prevent acute delirium. PULMONARY: Supplemental 02 as needed Titrate Fio2 to keep Spo2 > or = 90% DuoNebs and CPT as needed IS hourly while awake for pulmonary hygiene Out of bed to chair as tolerated CARDIOVASCULAR: Follow hemodynamics. Titrate vasopressor to keep MAP >65 or systolic blood pressure >95mmHg DIPS: None LINES: PIV GI & NUTRITION: Continue nutritional support Aspirations precautions Prokinetic agents and laxatives as needed KIDNEYS & ELECTROLYTES: Strict monitoring of intake and output Daily weights Avoid nephrotoxic agents Monitor electrolytes and replace as needed Goal urine output of 30mL/hr or 0.5mL/kg/hr Urine output: [ ] Fluid Balance: [ ] ENDOCRINE: Maintain blood glucose between 100-180 at all times. Insulin sliding scale for blood glucose management INFECTIOUS DISEASE: Trend temperature. Richards-culture if febrile. Micro: [ ] Antibiotics: Doxycycline, Diflucan and Levaquin. HEMATOLOGY & COAGULATION: Monitor H&H. Keep Hgb > 7 Transfuse 1 unit of PRBC for Hgb < 7 Transfuse 1 pack of platelets of platelets < 20, 000 Watch for any signs and symptoms of bleeding SKIN: Pressure ulcer prevention per facility protocol Rehab: PT/OT Prophylaxis: GI: Protonix DVT: Patient is on Xarelto Code Status: Full Resuscitation Disposition: Downgrade to medical-surgical with telemetry. Other: Total patient care time exceeds 35 minutes excluding all procedures. Case was discussed and seen with my supervising physician. The above plan was formulated and agreed upon. GIOVANNI BIRMINGHAM Jul 28, 2024 08:36
--- NOTE | 2024-07-28 16:55 | NUR ---
[facility] Follow-up: Patient re-assessed by wound healing team. Left buttock pressure injury resolved, rash to groin, perineum, buttocks. Assessment and recommendations provided to primary nurse. Education provided. Addendum: 07/28/24 at 1657 by EN SOSA RN RN/ Amended: Links added.
--- NOTE | 2024-07-28 17:59 | PN ---
SUBJECTIVE: The patient is feeling significantly improved. There has been no fever, chills, seizures. No chest pain, palpitations. No nausea or vomiting. Continue with CPAP. PHYSICAL EXAMINATION: GENERAL: Currently, he is awake, alert, oriented in person, time, and place, not in distress. VITAL SIGNS: Blood pressure 114/66, pulse 95, respiratory rate 29. HEENT: Normocephalic, atraumatic. LUNGS: Decreased breath sounds bilaterally. HEART: S1, S2 are distant. ABDOMEN: Soft, nontender. EXTREMITIES: 1+ pitting edema bilaterally. LABORATORY DATA: WBC count down to 13.4, hemoglobin 12.9, platelets 241. Sodium 137, potassium 4.1, BUN 18, creatinine 0.5. ASSESSMENT AND PLAN: * Septic shock. The patient was started on Don-Synephrine, now has been titrated to off. Continue with midodrine. * Sepsis. He had a consultation with ID. Recommended to continue with Diflucan, doxycycline, and Levaquin. * Respiratory failure, acute on chronic. Continue with oxygen. * Chronic obstructive pulmonary disease exacerbation with positive culture for pseudomonas in sputum. Continue Diflucan. * Pneumonia. Continue with levofloxacin, doxycycline. * Emphysema/bronchiectasis. Continue supportive care. * Leukocytosis improving, decreased from 20,000 to 13,000 from yesterday. * Atrial fibrillation, rate controlled. * Anticoagulation. Continue Xarelto. * Coronary artery disease, stable. * Follow up in a.m. with results. DOS: 07/28/2024 TID: [id number] RECEIPT: [id number] [facility]
[2024-07-28] MEDS: NYSTatin 15 GM POWDER TP SCH (21:47)
--- NOTE | 2024-07-28 22:42 | PN ---
INFECTIOUS DISEASE PROGRESS NOTE Date of Service: Jul 28, 2024 SUBJECTIVE: This is a 74-year-old male patient who was seen and examined at bedside in room 209. Patient is awake, alert and able to answer to basic questions. Patient is currently on high-flow oxygen at 4 liters/minute. The WBC has trended down to 13.4 and patient is afebrile, temperature is 97.9. We will continue on doxycycline, fluconazole and levofloxacin. No reports nausea or vomiting. We will follow up on the final cultures. PHYSICAL EXAM EYES: Anicteric. Pupils equal and reactive. HENT: No oral thrush seen, moist Oral mucosa. NECK: Supple, no JVD or thyromegaly. LUNGS: Good air entry. Diminished. Oxygen support. CARDIOVASCULAR: S1, S2 regular. No murmur heard. ABDOMEN: Soft, non tender, bowel sounds present, no organomegaly CENTRAL NERVOUS SYSTEM: Awake, alert, oriented x 3. SKIN: No rashes, no swelling. LYMPHATICS: No peripheral lymphadenopathy MUSCULOSKELETAL: No joint swelling, erythema or tenderness. EXTREMITIES: No cyanosis or clubbing. BACK: No deformity, no pressure ulcer. GENITOURINARY: No dysuria or hematuria. Vital Sign (Last 12 Hours) 07/28/24 07/28/24 07/28/24 07/28/24 11:33 11:45 13:42 13:45 Temp 97.9 Pulse 88 95 101 94 Resp 26 29 22 29 B/P (MAP) 114/66 (82) 106/56 (73) Pulse Ox 94 97 FiO2 40 40 40 07/28/24 07/28/24 07/28/24 07/28/24 13:45 15:01 15:33 16:15 Temp 99.1 Pulse 91 110 110 Resp 25 18 B/P (MAP) 80/51 Pulse Ox 93 O2 Delivery Venti Mask Nasal Cannula oximazer O2 Flow Rate 15.0 5.0 FiO2 50 40 07/28/24 20:06 Temp 98.8 Pulse 84 Resp 22 B/P (MAP) 112/66 Pulse Ox 97 O2 Delivery BIPAP Intake & Output (last 24hrs) 07/27/24 07/27/24 07/28/24 15:00 23:00 07:00 Intake Total 325.2 ml 390.7 ml 275.0 ml Output Total 200 ml 325 ml Balance 325.2 ml 190.7 ml -50.0 ml LABS: Laboratory: Test 07/28/24 19:26 07/28/24 03:31 07/27/24 06:09 07/27/24 05:27 Range/Units Whole Blood Glucose 243 #H 70-110 MG/DL White Blood Count 13.4 #H 4.8-10.8 K/uL Red Blood Count 4.62 4.50-6.20 MIL/uL Hemoglobin 12.9 L 14.0-18.0 g/dL Hematocrit 39.0 L 42-54 % Mean Corpuscular Volume 84.4 79-99 fL Mean Corpuscular Hemoglobin 27.9 27.0-33.0 pg Mean Corpuscular Hemoglobin Concent 33.1 32.0-36.0 g/dL Red Cell Distribution Width 15.8 H 11.0-15.5 % Platelet Count 241 130-400 K/uL Mean Platelet Volume 10.1 7.5-10.5 fL Nucleated Red Blood Cells 0.0 0.0-0.19 % Sodium Level 137 136-145 mmol/L Potassium Level 4.1 3.5-5.1 mmol/L Chloride Level 104 101-111 mmol/L Carbon Dioxide Level 30 21-32 mmol/L Blood Urea Nitrogen 18 7-18 mg/dL Creatinine 0.5 0.5-1.3 mg/dL Glomerular Filtration Rate Calc 108 >90 mL/min Random Glucose 100 70-105 mg/dL Total Calcium 7.9 L 8.5-10.1 mg/dL Magnesium Level 1.80 1.80-2.40 mg/dL Activated Partial Thromboplast Time 46.3 H 26.3-35.5 SEC Blood Gas Specimen Type Arterial Arterial Blood pH 7.428 7.350-7.450 Arterial Blood Partial Pressure CO2 32 L 35-48 mmHg Arterial Blood Partial Pressure O2 87.5 83.0-108.0 mmHg Arterial Blood HCO3 20.7 L 21.0-28.0 mmol/L Arterial Blood Oxygen Saturation 97.0 94.0-98.0 % Arterial Blood Base Excess -2.6 L -2.0-3.0 mmol/L Blood Gas Temperature 37.0 35.5-37.0 CELSIUS Blood Gas Respiration Rate 20.0 min. Blood Gas Vent Mode BIPAP 12,6 R20 ROOM AIR FiO2 40.0 % Blood Gas Specimen Comment RR,RNJAMES DIAGNOSTICS / RADIOLOGY: PATIENT: LUDWIN BAE MR#: [id number] : 1950 SEX: M AGE: 74 LOCATION: 2BH ORDER 1020 STATUS: ADM IN REPORT#: [id number] SERVICE 1019 REASON: PICC placement ORDERING PHYSICIAN: FLORENTIN GARCIA NP PROCEDURE: CXR1VW - CHEST 1VW CHEST 1VW HISTORY: PICC line placement COMPARISON: None FINDINGS: A frontal projection of the chest was obtained. There are bilateral pulmonary infiltrates suggestive of pulmonary vascular congestion with possible superimposed pneumonitis. PICC line is seen entering from the right with distal tip in the plane of the superior vena cava. The heart is borderline enlarged. All the lines and tubes are again seen in place. No evidence of aortic calcification is seen. IMPRESSION: 1. Bilateral pulmonary infiltrates are seen suggestive of pulmonary vascular congestion with possible superimposed pneumonitis. DICTATED BY: PADMAJA MCKENNA MD DATE: 07/27/24 9042 ASSESSMENT: Acute on chronic hypoxic respiratory failure,requiring oxygen support. Pneumonia. Leukocytosis. Pulmonary fibrosis. COPD. End-stage lung disease. Diabetes mellitus. PLAN: Continue levofloxacin. Continue fluconazole. Continue doxycycline. We will follow up on the final culture results. Continue monitoring glucose levels. Continue oxygen support. This case was reviewed and discussed with my supervising physician and the above assessment and plan was formulated and agreed upon. ATTESTATION BY PHYSICIAN I have seen and examined the patient. I reviewed the documentation, medical decision making, and treatment plan as noted by the mid-level provider above. I agree with the findings and plan of care. ALCIDES PÉREZ MD, MIRTA L EXTRACTOR OPERATOR HELPER Jul 28, 2024 22:41
[2024-07-29] VITALS (15 sets, daily range): BP systolic 109–140; BP diastolic 62–74; PULSE 68–91; RESP 14–25; TEMP 97.7–98.6; O2SAT 93–98
[2024-07-29 09:32] LABS: HEMATOCRIT 38.5 % (42-54); MEAN CORPUSCULAR HGB CONC 33.8 g/dL (32.0-36.0); PLATELET COUNT (AUTO) 237 K/uL (130-400); RED BLOOD CELL COUNT(AUTO) 4.64 MIL/uL (4.50-6.20); WHITE BLOOD COUNT (AUTO) 15.9 K/uL (4.8-10.8)
[2024-07-29 09:40] LABS: CREATININE 0.5 mg/dL (0.5-1.3); MAGNESIUM 1.7 mg/dL (1.80-2.40); POTASSIUM 3.7 mmol/L (3.5-5.1)
[2024-07-29 10:54] LABS: BAND NEUTROPHILS % (MANUAL) 1 % (0-2); EOSINOPHILS % (MANUAL) 1 % (1-6); LYMPHOCYTES % (MANUAL) 13 % (22-44); MAN.DIFF COMMENT-IMPRESSION MANUAL DIFFERENTIAL; MONOCYTES % (MANUAL) 2 % (2-9); PLATELET MORPHOLOGY COMMENT ADEQUATE; SEGMENTED NEUTROPHILS % 83 % (40-70); TOTAL CELLS COUNTED 100; WBC MORPHOLOGY CONSISTENT W/DIFF
--- NOTE | 2024-07-29 11:49 | PN ---
[facility] PROGRESS NOTE Date Patient Seen: Jul 29, 2024 Time of Visit: 11:46 Supervising Physician: Kanu Sharma MD Primary Care Physician: Dr. Mirza Outpatient Specialists: [ ] Inpatient Consults: [BIS PROBLEM LIST: Acute on chronic hypercarbic hypoxemic respiratory failure on admission End stage pulmonary fibrosis Community acquired pneumonia on admission Acute COPD exacerbation on admission Type 2 diabetes mellitus Essential hypertension Coronary artery disease Hyperlipidemia Atrial fibrillation on Xarelto Hypotension needing pressor therapy INTERVAL HISTORY: Patient is awake alert and oriented x3 with mild respiratory distress saturating 85% with Ventimask with a FiO2 of 40%. Placed patient is back on BiPAP with a FiO2 of 75% 13/11. Patient tolerated well O2 sats increased to 93%. Respiratory rate of 22. He has been hemodynamically stable last blood pressure 140/74 AFib in the 90s.. Inform patient to keep BiPAP for a while to improve oxygenation. As soon as I walked out of the room patient to come BiPAP and talking on the phone. WBCs 15.9 today similar to yesterday H&H 13/38.5. On chemistry kidneys are doing well creatinine 0.5 GFR 108. Magnesium of 1.7 covered per protocol. He is pending LTAC placement at [facility] per case management. REVIEW OF SYSTEMS: 12 point ROS reviewed with patient. Pertinent positives mentioned above. Otherwise negative. PHYSICAL EXAM: GENERAL: alert, weak, awake oriented x 3 HEENT: EOMI, Sclera non icteric, moist mucosa NECK: Supple, no JVD, trachea midline LUNGS: tachypneic, decreased breath sounds bilaterally, no wheezing HEART: Regular rate and rhythm. Normal S1 and S2, without murmurs ABD: Abdomen soft, nontender. Bowel sounds present EXT: No clubbing cyanosis or edema NEURO: Alert and oriented to person, follows commands Vital Signs (last 8hr) Date Time Temp Pulse Resp B/P (MAP) Pulse Ox O2 Delivery O2 Flow Rate FiO2 07/29/24 11:41 92 07/29/24 10:41 84 07/29/24 08:28 97.7 79 18 140/74 96 Venti Mask 07/29/24 08:10 96 Bi-PAP+ 40 07/29/24 06:32 69 20 07/29/24 06:26 25 Venti Mask 15.0 50 07/29/24 05:03 97.7 68 21 133/70 93 Nasal Cannula 2.0 LABS: Hematology Labs: Test 07/29/24 09:20 Range/Units White Blood Count 15.9 H 4.8-10.8 K/uL Red Blood Count 4.64 4.50-6.20 MIL/uL Hemoglobin 13.0 L 14.0-18.0 g/dL Hematocrit 38.5 L 42-54 % Mean Corpuscular Volume 83.0 79-99 fL Mean Corpuscular Hemoglobin 28.0 27.0-33.0 pg Mean Corpuscular Hemoglobin Concent 33.8 32.0-36.0 g/dL Red Cell Distribution Width 16.0 H 11.0-15.5 % Platelet Count 237 130-400 K/uL Mean Platelet Volume 9.5 7.5-10.5 fL Segmented Neutrophils % 83 H 40-70 % Band Neutrophils % 1 0-2 % Lymphocytes % (Manual) 13 L 22-44 % Monocytes % (Manual) 2 2-9 % Eosinophils % (Manual) 1 1-6 % Nucleated Red Blood Cells 0.0 0.0-0.19 % Differential Comment MANUAL DIFFERENTIAL White Cell Morphology Comment CONSISTENT W/DIFF Platelet Morphology Comment ADEQUATE Red Blood Cell Morphology HYPOCHROM CELLS 1+ Chemistry Labs: Test 07/29/24 11:37 07/29/24 09:20 Range/Units Whole Blood Glucose 180 #H 70-110 MG/DL Sodium Level 134 L 136-145 mmol/L Potassium Level 3.7 3.5-5.1 mmol/L Chloride Level 100 L 101-111 mmol/L Carbon Dioxide Level 30 21-32 mmol/L Blood Urea Nitrogen 14 7-18 mg/dL Creatinine 0.5 0.5-1.3 mg/dL Glomerular Filtration Rate Calc 108 >90 mL/min Random Glucose 181 H 70-105 mg/dL Total Calcium 8.3 L 8.5-10.1 mg/dL Magnesium Level 1.70 L 1.80-2.40 mg/dL DIAGNOSTICS / RADIOLOGY RESULTS: [ ] PLAN The patient continues on high-flow oxygen delivery system and alternates between BiPAP and high-flow oxygen. The patient is not a candidate for transfer to senior care facility and will benefit more from placement in a long-term acute care hospital Consult case management for referral to long-term acute [facility] Continue with BiPAP intermittently as needed Continue with high-flow oxygen as needed Maintain O2 saturation at 88% or higher Continue IV antibiotics Continue IV steroids NEURO: Minimize central acting medications as possible. Maintain fall precautions, adequate lighting during the day PULMONARY: Supplemental 02 as needed. Maintain aspiration precautions at all times CARDIOVASCULAR: Follow hemodynamics. Vital signs per facility protocol GI & NUTRITION: Continue with nutritional support. Continue stool softeners and laxatives as needed. KIDNEYS & ELECTROLYTES: Strict monitoring of intake, output and overall fluid balance. Avoid nephrotoxic medications to the extent possible. Medications to be dosed according to renal function. Monitor electrolytes and replace as needed ENDOCRINE: Maintain blood glucose between 100-180 at all times. Hypoglycemia protocol in place INFECTIOUS DISEASE: Trend temperature, WBC and procalcitonin level Follow cultures, deescalate antibiotics as soon as possible. Panculture if new onset fever ONCOLOGY/HEMATOLOGY/COAGULATION: Monitor for s/s of bleeding Monitor hemoglobin, coagulation studies as needed SKIN: Pressure ulcer prevention per facility protocol Specialty mattress ORTHO/REHAB: Continue PT/OT Prophylaxis: Continue GI and DVT prophylaxis Code Status: Full Resuscitation Disposition: As per attending Other: Total patient care time exceeds 35 minutes excluding all procedures. GIOVANNI BIRMINGHAM [facility] Jul 29, 2024 11:49
--- NOTE | 2024-07-29 12:14 | NUR ---
Notes: Met with pt. Family at bedside. Pt reports good appetite, weight loss of 20 lbs. (10%). in 3 months due to illness, PO intake 50-75%, no n/v, Last BM 07/29/2024, and difficulty swallowing. Food allergies include gluten, melon, avocado per pt . Pt request no broccoli due to gas and bloating. Recommended Ensure Max and Valentin per wound healing and MD recommendations, pt agreed. Question wt accuracy due to 45.2 kg wt. loss in 1 day. Nutrition Concerns: Recommendations: Continue 75GMCCD+ Mechanical soft, Chappell thick liquids + No Gluten per allergy + No straw per aspiration Provide extra sauce/gravy and no broccoli per pt request Add food allergies: melon and avocado Provide Ensure Max TID with all trays Provide Valentin BID with breakfast & dinner trays per wound healing Encourage fluid intake due to thicken liquid and pt at risk for dehydration. Order A1C and Lipid panel Order Vit B12, D rule out deficiencies Monitor weight Reweigh as possible Monitor electrolytes Replenish electrolytes as protocol Monitor goals of care RD to follow + available for consult per protocol Dietetic Student, Lyssa Lovelace Addendum: 07/29/24 at [address] Amended: Links added.
[2024-07-29 12:53] LABS: HEMOGLOBIN A1C 8.7 % (4.0-6.0)
--- NOTE | 2024-07-29 13:07 | HMCIMG ---
CHEST 1VW HISTORY: Respiratory failure COMPARISON: The 2024 FINDINGS: A frontal projection of the chest was obtained. There are bilateral pulmonary infiltrates suggestive of pulmonary vascular congestion with possible superimposed pneumonitis. The heart is borderline enlarged. Degenerative changes are seen. Right venous catheter is again seen in place. No evidence of aortic calcification is seen. IMPRESSION: 1. Bilateral pulmonary infiltrates are seen suggestive of pulmonary vascular congestion with possible superimposed pneumonitis.
[2024-07-29 13:12] LABS: CHOLESTEROL 125 mg/dL (<200); HDL CHOLESTEROL 52 mg/dL (29-71); LDL DIRECT 62 mg/dL (0-99); TRIGLYCERIDES 137 mg/dL (30-200)
--- NOTE | 2024-07-29 15:57 | NUR ---
Non-compliance Patient noted throughout the day on several occasions non-compliant with venti-mask and BIPAP machine . Nurse Zoran has been paged by family due to patient oxygen levels >90%, however patient removes mask when he wants to speak, eat, and talk via phone call. Nurse Zoran encountered patient with BIPAP alarming and removed from patient's face so he could speak via phone. Nurse Meehan educated patient and family at bedside of the importance of compliance with supplemental oxygen considering patient's decreased respiratory function. Patient, , and family members at bedside verbalized understanding of education. April Demarco BRINE TANK TENDER aware of situation, no further needs noted.
--- NOTE | 2024-07-29 16:10 | NUR ---
RECOMMEND NPO DUE TO HIGH RISK OF ASPIRATIONS WITH VENTIMASK AND/OR BiPAP; however, patient refused NG tube placement and would like to continue eating. SEED CUTTER provided patient/family education on risk and consequences of aspiration. Oral intake recommended only after respiratory therapists weaned patient down to regular NC. MBSS recommended ONCE patient is on REGULAR nasal canula or ROOM AIR. SPEECH THERAPY COMPLETED: S: Pt SITTING UPRIGHT IN BED UPON SEED CUTTER ARRIVAL. FAMILY PRESENT AT TIME OF VISIT. Pt ON VENTIMASK AND WITH LABORED BREATHING AT REST. Pt ALERT AND AGREEABLE TO SPEECH THERAPY/TRIALS. Pt CURRENTLY ON MECHANICAL SOFT/GROUND SOLIDS AND NECTAR THICK LIQUIDS. O: Pt CURRENTLY TARGETING SWALLOWS GOALS. RESULTS ARE FOLLOWS: LTG#1: Pt WILL TOLERATE LEAST RESTRICTIVE DIET TO MEET NUTRITION/HYDRATION WITH NO S/S OF ASPIRATION. LTG#2: SKILLED EDUCATION Pt/FAMILY/STAFF. STG#1: Pt WILL PARTICIPATE IN LARYNGEAL ELEVATION/EXCURSION EXERCISES WITH 90% ACCURACY MIN A: NOT TARGETED DUE TO VENTIMASK IN PLACE AND LABORED BREATHING STG#2: Pt WILL PARTICIPATE IN TONGUE BASE RETRACTION EXERCISES WITH 90% ACCURACY MIN A: NOT TARGETED DUE TO VENTIMASK IN PLACE AND LABORED BREATHING STG#3: Pt WILL PARTICIPATE IN ORAL MOTOR EXERCISES WITH 90% ACCURACY MIN A: NOT TARGETED DUE TO VENTIMASK IN PLACE AND LABORED BREATHING STG#4: Pt WILL TOLERATE GROUND SOLIDS, NECTAR THICK LIQUIDS WITH NO OVERT S/S OF ASPIRATION: X5 TRIALS OF PUREED SOLIDS WITH + S/S OF ASPIRATION. Pt QUICKLY PLACED VENTIMASK BACK AFTER COMPLETING TRIALS AND CONTINUED WITH ONE COUGH EPISODE. STG#5: Pt WILL PARTICIPATE IN THERAPEUTIC TRIALS OF THIN LIQUIDS WITH NO OVERT S/S OF ASPIRATION: Pt NOT SAFE FOR ADVANCED TRIALS AT THIS TIME. STG#6: SKILLED EDUCATION Pt/FAMILY/STAFF: COMPLETED. A: Pt COOPERATIVE WITH THERAPEUTIC TRIALS. PATIENT NOTED WITH DELAYED SWALLOW TRIGGER RESPONSE, WET VOCAL QUALITY AND DECREASED LARYNGEAL ELEVATION/EXCURSION. P: RECOMMEND NPO UNTIL TOLERATING NASAL CANULA HOWEVER PATIENT REFUSING SHORT TERM ALTERNATE MEANS OF NUTRITION/HYDRATION. SEED CUTTER WILL CONTINUE TO FOLLOW PATIENT TO ADDRESS DYSPHAGIA GOALS AND EVALUATE WITH MBSS WHEN APPROPRIATE. SEED CUTTER COORDINATED WITH NURSE JOLIE ABOUT TREATMENT RESULTS. Addendum: 07/29/[address] UTE LYMAN Amended: Links added.
--- NOTE | 2024-07-29 16:51 | PN ---
INFECTIOUS DISEASE PROGRESS NOTE Date of Service: Jul 29, 2024 SUBJECTIVE: This is a 74-year-old male patient who was seen and examined at bedside in room 224. Patient is awake, alert and oriented to name. Patient continues with dyspneic episodes and is currently on oxygen via Ventimask. Patient is afebrile this morning with a temperature of 98.6 and the WBC is 15.9. No episodes of emesis reported. No diarrhea. We will continue on doxycycline, fluconazole and levofloxacin. Family members present at bedside. We will follow up on the final cultures. PHYSICAL EXAM EYES: Anicteric. Pupils equal and reactive. HENT: No oral thrush seen, moist Oral mucosa. NECK: Supple, no JVD or thyromegaly. LUNGS: Good air entry. Diminished. Oxygen support. CARDIOVASCULAR: S1, S2 regular. No murmur heard. ABDOMEN: Soft, non tender, bowel sounds present, no organomegaly CENTRAL NERVOUS SYSTEM: Awake, alert, oriented x 3. SKIN: No rashes, no swelling. LYMPHATICS: No peripheral lymphadenopathy MUSCULOSKELETAL: No joint swelling, erythema or tenderness. EXTREMITIES: No cyanosis or clubbing. BACK: No deformity, no pressure ulcer. GENITOURINARY: No dysuria or hematuria. Vital Sign (Last 12 Hours) 07/29/24 07/29/24 07/29/24 07/29/24 05:03 06:26 06:32 08:10 Temp 97.7 Pulse 68 69 Resp 21 25 20 B/P (MAP) 133/70 Pulse Ox 93 96 O2 Delivery Nasal Cannula Venti Mask Bi-PAP+ O2 Flow Rate 2.0 15.0 FiO2 50 40 07/29/24 07/29/24 07/29/24 07/29/24 08:28 10:41 11:41 12:21 Temp 97.7 98.6 Pulse 79 84 92 91 Resp 18 16 B/P (MAP) 140/74 113/65 Pulse Ox 96 85 O2 Delivery Venti Mask Venti Mask 07/29/24 07/29/24 07/29/24 13:25 15:07 16:37 Temp 97.9 Pulse 74 91 Resp 18 18 B/P (MAP) 109/62 Pulse Ox 88 O2 Delivery Venti Mask FiO2 75 Intake & Output (last 24hrs) 07/28/24 07/28/24 07/29/24 15:00 23:00 07:00 Intake Total 143.0 ml 250.0 ml 475.0 ml Balance 143.0 ml 250.0 ml 475.0 ml LABS: Laboratory: Test 07/29/24 15:38 07/29/24 09:20 Range/Units Whole Blood Glucose 140 H 70-110 MG/DL White Blood Count 15.9 H 4.8-10.8 K/uL Red Blood Count 4.64 4.50-6.20 MIL/uL Hemoglobin 13.0 L 14.0-18.0 g/dL Hematocrit 38.5 L 42-54 % Mean Corpuscular Volume 83.0 79-99 fL Mean Corpuscular Hemoglobin 28.0 27.0-33.0 pg Mean Corpuscular Hemoglobin Concent 33.8 32.0-36.0 g/dL Red Cell Distribution Width 16.0 H 11.0-15.5 % Platelet Count 237 130-400 K/uL Mean Platelet Volume 9.5 7.5-10.5 fL Segmented Neutrophils % 83 H 40-70 % Band Neutrophils % 1 0-2 % Lymphocytes % (Manual) 13 L 22-44 % Monocytes % (Manual) 2 2-9 % Eosinophils % (Manual) 1 1-6 % Nucleated Red Blood Cells 0.0 0.0-0.19 % Differential Comment MANUAL DIFFERENTIAL White Cell Morphology Comment CONSISTENT W/DIFF Platelet Morphology Comment ADEQUATE Red Blood Cell Morphology HYPOCHROM CELLS 1+ Sodium Level 134 L 136-145 mmol/L Potassium Level 3.7 3.5-5.1 mmol/L Chloride Level 100 L 101-111 mmol/L Carbon Dioxide Level 30 21-32 mmol/L Blood Urea Nitrogen 14 7-18 mg/dL Creatinine 0.5 0.5-1.3 mg/dL Glomerular Filtration Rate Calc 108 >90 mL/min Random Glucose 181 H 70-105 mg/dL Hemoglobin A1c 8.7 H 4.0-6.0 % Estimated Average Glucose (eAG) 203 H 70-126 mg/dL Total Calcium 8.3 L 8.5-10.1 mg/dL Magnesium Level 1.70 L 1.80-2.40 mg/dL Triglycerides Level 137 30-200 mg/dL Cholesterol Level 125 # <200 mg/dL LDL Cholesterol 62 0-99 mg/dL HDL Cholesterol 52 29-71 mg/dL Vitamin B12 Level 419 193-986 pg/mL ASSESSMENT: Acute on chronic hypoxic respiratory failure, requiring oxygen support. Pneumonia. Leukocytosis. Pulmonary fibrosis. COPD. End-stage lung disease. Diabetes mellitus. PLAN: Continue levofloxacin. Continue fluconazole. Continue doxycycline. We will follow up on the final culture results. Continue monitoring glucose levels. Continue oxygen support. Patient is pending a appeal to [facility]. This case was reviewed and discussed with my supervising physician and the above assessment and plan was formulated and agreed upon. ATTESTATION BY PHYSICIAN I have seen and examined the patient. I reviewed the documentation, medical decision making, and treatment plan as noted by the mid-level provider above. I agree with the findings and plan of care. ALCIDES PÉREZ MD, MIRTA L [employer]CH[employer] Jul 29, 2024 16:51
[2024-07-29] MEDS: furoSEMIDE 40 MG TABLET PO SCH (17:35)
--- NOTE | 2024-07-29 21:45 | PN ---
SUBJECTIVE: The patient is comfortable in bed, not in distress. Denies any fever or chills. No chest pain. Continue with IV antibiotics, bronchodilators, steroids. There has been no chest pain or palpitations. No cough, wheeze or rhonchi. No nausea or vomiting. OBJECTIVE: GENERAL: Currently he is awake, alert, oriented in person, time, and place, not in distress. VITAL SIGNS: In the chart. HEENT: Normocephalic, atraumatic. LUNGS: Clear to auscultation anteriorly, posteriorly. Decreased breath sounds bilaterally. HEART: S1, S2 are distant. No S3, S4, no friction rubs. ABDOMEN: Prominent, soft, nontender. EXTREMITIES: No clubbing, cyanosis. LABORATORY DATA: Reviewed. ASSESSMENT AND PLAN: * Respiratory failure, acute on chronic, worsening. Continue with oxygen. Continue recommendations by pulmonary. * Chronic obstructive pulmonary disease exacerbation. Continue bronchodilators, steroids and antibiotics. * Emphysema, interstitial lung disease, severe terminal as per pulmonary. Continue supportive care. * Type 2 diabetes, controlled. Continue current treatment. * Hypertension, controlled. Continue current treatment. * Coronary artery disease, stable. * Atrial fibrillation, rate controlled. * Anticoagulation. Continue Xarelto. Follow up in a.m. with labs. TID: [id number] RECEIPT: [id number]
--- NOTE | 2024-07-29 23:01 | PN ---
SUBJECTIVE: The patient was without fever or chills. Levophed has been discontinued. Continued with midodrine. He continues also with oxygen through nasal cannula high flow 5 liters per minute. OBJECTIVE: GENERAL: He is currently comfortable in bed, not in distress. VITAL SIGNS: In the chart. HEENT: Normocephalic, atraumatic. LUNGS: Decreased breath sounds bilaterally, inspiratory wet rales anteriorly in bases. HEART: S1, S2 are distant. ABDOMEN: Soft, nontender. EXTREMITIES: No clubbing, cyanosis. IMAGING STUDIES: Chest x-ray shows bilateral pulmonary infiltrates. LABORATORY DATA: WBC count 15,000, hemoglobin 13, platelets 237. Sodium 134, potassium 3.7, BUN 14, creatinine 0.5, magnesium 1.7. ASSESSMENT AND PLAN: * Septic shock, improving. Continue with midodrine. Levophed has been discontinued. * Sepsis. Continue with current antibiotics. Blood cultures, sputum cultures, urine cultures have been sent. He is currently on Diflucan, doxycycline and Levaquin. * Leukocytosis, had come down from 20,000 to 13,000 yesterday, today is 15,000, continue to monitor. * Bilateral pneumonia. Continue current treatment. * Emphysema/bronchiectasis/pulmonary fibrosis, end-stage pulmonary disease. Continue supportive care. * Atrial fibrillation, rate controlled. * Anticoagulation. Continue Xarelto. * Coronary artery disease, stable. * Celiac sprue. Continue with gluten-free diet. TID: [id number] RECEIPT: [id number]
[2024-07-30] VITALS (17 sets, daily range): BP systolic 99–134; BP diastolic 45–77; PULSE 69–105; RESP 18–28; TEMP 97.3–99.8; O2SAT 91–98
--- NOTE | 2024-07-30 09:00 | NUR ---
REPORT given to KEVIN CHAMBERLAIN
[2024-07-30 11:51] LABS: APPEARANCE,URINE CLEAR (CLEAR); BILIRUBIN,URINE NEGATIVE (NEGATIVE); COLOR,URINE LIGHT-YELLOW (YELLOW); GLUCOSE, URINE (UA) NEGATIVE (NEGATIVE); KETONES,URINE NEGATIVE (NEGATIVE); LEUKOCYTE ESTERASE ,URINE NEGATIVE Leu/uL (NEGATIVE); NITRATE,URINE NEGATIVE (NEGATIVE); OCCULT BLOOD,URINE NEGATIVE (NEGATIVE); PROTEIN,URINE NEGATIVE (NEGATIVE); UROBILINOGEN,URINE 0.2 mg/dL (0.2-1.0)
[2024-07-30 11:54] LABS: ADD UA MICROSCOPIC NO
--- NOTE | 2024-07-30 18:26 | PN ---
[facility] PROGRESS NOTE Date Patient Seen: Jul 30, 2024 Time of Visit: 11:20 Supervising Physician: DR. JUAN ZARCO Primary Care Physician: Dr. Mirza Outpatient Specialists: [ ] Inpatient Consults: [BIS PROBLEM LIST: Acute on chronic hypercarbic hypoxemic respiratory failure on admission End stage pulmonary fibrosis Community acquired pneumonia on admission Acute COPD exacerbation on admission Type 2 diabetes mellitus Essential hypertension Coronary artery disease Hyperlipidemia Atrial fibrillation on Xarelto Hypotension needing pressor therapy INTERVAL HISTORY: Patient is awake alert and oriented x3 with mild respiratory distress saturating 85% with Ventimask with a FiO2 of 40%. Placed patient is back on BiPAP with a FiO2 of 75% 13/11. Patient tolerated well O2 sats increased to 93%. Respiratory rate of 22. He has been hemodynamically stable last blood pressure 140/74 AFib in the 90s.. Inform patient to keep BiPAP for a while to improve oxygenation. As soon as I walked out of the room patient to come BiPAP and talking on the phone. WBCs 15.9 today similar to yesterday H&H 13/38.5. On chemistry kidneys are doing well creatinine 0.5 GFR 108. Magnesium of 1.7 covered per protocol. He is pending LTAC placement at [facility] per case management. 07/30/2024 Patient is a 74 year old gentleman, morbid obese, accompanied by his and cousin, remains on Bipap, states feels better since he was put on Bipap, no report of fever, chills, cough or phlegm production, hx of smoking x 50 years a pack a day, Echocardiogram done showed an EF of 65%, patient chest x ray reviewed, plan is to start him on Lasix 40 mg IV BID and repeat laboratories in am , CBC,CMP, ABG's and chest x ray, we will follow up closely, Family is requesting Dr. Tom to come to see him. REVIEW OF SYSTEMS: 12 point ROS reviewed with patient. Pertinent positives mentioned above. Otherwise negative. PHYSICAL EXAM: GENERAL: alert, weak, awake oriented x 3 HEENT: EOMI, Sclera non icteric, moist mucosa NECK: Supple, no JVD, trachea midline LUNGS: tachypneic, decreased breath sounds bilaterally, no wheezing HEART: Regular rate and rhythm. Normal S1 and S2, without murmurs ABD: Abdomen soft, nontender. Bowel sounds present EXT: No clubbing cyanosis or edema NEURO: Alert and oriented to person, follows commands Vital Signs (last 8hr) Date Time Temp Pulse Resp B/P (MAP) Pulse Ox O2 Delivery O2 Flow Rate FiO2 07/30/24 16:00 98.4 92 24 110/72 95 CPAP 07/30/24 14:22 89 21 50 07/30/24 14:21 87 18 07/30/24 11:00 99.9 90 28 134/45 98 CPAP LABS: Hematology Labs: Test 07/29/24 09:20 Range/Units White Blood Count 15.9 H 4.8-10.8 K/uL Red Blood Count 4.64 4.50-6.20 MIL/uL Hemoglobin 13.0 L 14.0-18.0 g/dL Hematocrit 38.5 L 42-54 % Mean Corpuscular Volume 83.0 79-99 fL Mean Corpuscular Hemoglobin 28.0 27.0-33.0 pg Mean Corpuscular Hemoglobin Concent 33.8 32.0-36.0 g/dL Red Cell Distribution Width 16.0 H 11.0-15.5 % Platelet Count 237 130-400 K/uL Mean Platelet Volume 9.5 7.5-10.5 fL Segmented Neutrophils % 83 H 40-70 % Band Neutrophils % 1 0-2 % Lymphocytes % (Manual) 13 L 22-44 % Monocytes % (Manual) 2 2-9 % Eosinophils % (Manual) 1 1-6 % Nucleated Red Blood Cells 0.0 0.0-0.19 % Differential Comment MANUAL DIFFERENTIAL White Cell Morphology Comment CONSISTENT W/DIFF Platelet Morphology Comment ADEQUATE Red Blood Cell Morphology HYPOCHROM CELLS 1+ Chemistry Labs: Test 07/30/24 16:15 07/29/24 09:20 Range/Units Whole Blood Glucose 208 H 70-110 MG/DL Bedside Glucose Comment Notified Nurse Sodium Level 134 L 136-145 mmol/L Potassium Level 3.7 3.5-5.1 mmol/L Chloride Level 100 L 101-111 mmol/L Carbon Dioxide Level 30 21-32 mmol/L Blood Urea Nitrogen 14 7-18 mg/dL Creatinine 0.5 0.5-1.3 mg/dL Glomerular Filtration Rate Calc 108 >90 mL/min Random Glucose 181 H 70-105 mg/dL Hemoglobin A1c 8.7 H 4.0-6.0 % Estimated Average Glucose (eAG) 203 H 70-126 mg/dL Total Calcium 8.3 L 8.5-10.1 mg/dL Magnesium Level 1.70 L 1.80-2.40 mg/dL Triglycerides Level 137 30-200 mg/dL Cholesterol Level 125 # <200 mg/dL LDL Cholesterol 62 0-99 mg/dL HDL Cholesterol 52 29-71 mg/dL Vitamin B12 Level 419 193-986 pg/mL DIAGNOSTICS / RADIOLOGY RESULTS: [ ] PLAN Add Lasix 40 mg IV BID The patient continues on high-flow oxygen delivery system and alternates between BiPAP and high-flow oxygen. The patient is not a candidate for transfer to shelter facility and will benefit more from placement in a long-term acute care hospital Continue with high-flow oxygen as needed Maintain O2 saturation at 88% or higher Continue IV antibiotics Continue IV steroids NEURO: Minimize central acting medications as possible. Maintain fall precautions, adequate lighting during the day PULMONARY: Supplemental 02 as needed. Maintain aspiration precautions at all times CARDIOVASCULAR: Follow hemodynamics. Vital signs per facility protocol GI & NUTRITION: Continue with nutritional support. Continue stool softeners and laxatives as needed. KIDNEYS & ELECTROLYTES: Strict monitoring of intake, output and overall fluid balance. Avoid nephrotoxic medications to the extent possible. Medications to be dosed according to renal function. Monitor electrolytes and replace as needed ENDOCRINE: Maintain blood glucose between 100-180 at all times. Hypoglycemia protocol in place INFECTIOUS DISEASE: Trend temperature, WBC and procalcitonin level Follow cultures, deescalate antibiotics as soon as possible. Panculture if new onset fever ONCOLOGY/HEMATOLOGY/COAGULATION: Monitor for s/s of bleeding Monitor hemoglobin, coagulation studies as needed SKIN: Pressure ulcer prevention per facility protocol Specialty mattress ORTHO/REHAB: Continue PT/OT Prophylaxis: Continue GI and DVT prophylaxis Code Status: Full Resuscitation Disposition: As per attending Other: Total patient care time exceeds 35 minutes excluding all procedures. ATTESTATION BY PHYSICIAN Documentation assistance provided by a scribe, information recorded by the scribe was done at my direction and has been reviewed and validated by me." JUAN ZARCO MD I personally scribed for JUAN ZARCO MD ([email or web address]) on 07/30/24 at 18:26. Electronically submitted by Noemy Rosales ([id number]). JUAN ZARCO MD Jul 30, 2024 18:26
[2024-07-30] MEDS: furoSEMIDE 40MG VIAL IV SCH (19:50)
--- NOTE | 2024-07-30 20:36 | PN ---
SUBJECTIVE: The patient without any fever or chills overnight. Continued with Diflucan, doxycycline, Levaquin IV. He is not on any IV ionotropics. He is still in oxygen through facemask 50%. OBJECTIVE: GENERAL: Currently, comfortable in bed, not in distress. VITAL SIGNS: Blood pressure 134/45, pulse 90, respiratory rate 28. HEENT: Normocephalic, atraumatic. LUNGS: Decreased breath sounds bilaterally. HEART: S1, S2 are distant. ABDOMEN: Prominent, soft, nontender. EXTREMITIES: No clubbing, cyanosis. LABORATORY DATA: Pending. ASSESSMENT AND PLAN: * Respiratory failure, acute on chronic. Continue to titrate oxygen according to the patient's need. * Pneumonia. Continue current antibiotics, continue with Diflucan, Levaquin, doxycycline. * Chronic obstructive pulmonary disease exacerbation. Continue bronchodilators and steroids. * Bronchiectasis, emphysema, terminal pulmonary fibrosis. Continue supportive care. * Bilateral pneumonia. Continue current antibiotics and supportive care. * Type 2 diabetes, stable. * Atrial fibrillation, rate controlled. * Coronary artery disease, stable. Follow up in a.m. with results. TID: [id number] RECEIPT: [id number]
[2024-07-31] VITALS (14 sets, daily range): BP systolic 100–121; BP diastolic 51–76; PULSE 61–103; RESP 18–22; TEMP 97.4–98; O2SAT 87–98
[2024-07-31 03:42] LABS: ABG BASE EXCESS 3.2 mmol/L (-2.0-3.0); ABG HCO3 26.2 mmol/L (21.0-28.0); ABG OXYGEN SATURATION 98.4 % (94.0-98.0); ABG PCO2 35 mmHg (35-48); ABG PH 7.494 (7.350-7.450); PO2, ARTERIAL BG 110.3 mmHg (83.0-108.0)
[2024-07-31 04:07] LABS: HEMATOCRIT 41.2 % (42-54); MEAN CORPUSCULAR HEMOGLOBIN 27.8 pg (27.0-33.0); MEAN CORPUSCULAR HGB CONC 34.2 g/dL (32.0-36.0); MEAN CORPUSCULAR VOLUME 81.1 fL (79-99); NUCLEATED RED BLOOD CELLS 0.1 % (0.0-0.19); RED BLOOD CELL COUNT(AUTO) 5.08 MIL/uL (4.50-6.20); RED CELL DISTRIBUTION WIDTH 16.1 % (11.0-15.5); WHITE BLOOD COUNT (AUTO) 14.3 K/uL (4.8-10.8)
[2024-07-31 04:23] LABS: ALBUMIN 2.3 g/dL (3.5-5.0); BILIRUBIN,TOTAL 0.7 mg/dL (0.2-1.0); CREATININE 0.6 mg/dL (0.5-1.3); TOTAL PROTEIN, SERUM 6.5 g/dL (6.0-8.3)
--- NOTE | 2024-07-31 08:56 | PN ---
INFECTIOUS DISEASE PROGRESS NOTE Date of Service: Jul 30, 2024 SUBJECTIVE: This is a 74-year-old male patient who was seen and examined at bedside in room 224. Patient is awake and alert. Patient continues with respiratory distress and is back on the BiPAP. Patient voicing burning on urination and urinary frequency. No fever. No nausea or vomiting. Will obtain a UA/C&S. We will continue on doxycycline, fluconazole and levofloxacin. Family members present at bedside. We will continue to follow patient's care. PHYSICAL EXAM EYES: Anicteric. Pupils equal and reactive. HENT: No oral thrush seen, moist Oral mucosa. NECK: Supple, no JVD or thyromegaly. LUNGS: Good air entry. Diminished. Oxygen support. CARDIOVASCULAR: S1, S2 regular. No murmur heard. ABDOMEN: Soft, non tender, bowel sounds present, no organomegaly. CENTRAL NERVOUS SYSTEM: Awake, alert, oriented x 3. SKIN: No rashes, no swelling. LYMPHATICS: No peripheral lymphadenopathy MUSCULOSKELETAL: No joint swelling, erythema or tenderness. EXTREMITIES: No cyanosis or clubbing. BACK: No deformity, no pressure ulcer. GENITOURINARY: Dysuria and urinary frequency. Vital Sign (Last 12 Hours) 07/30/24 07/30/24 07/31/24 07/31/24 23:00 23:31 02:53 04:00 Temp 97.9 98.1 Pulse 105 82 85 79 Resp 18 21 21 18 B/P (MAP) 116/64 112/51 Pulse Ox 92 97 O2 Delivery Nasal Cannula CPAP O2 Flow Rate 5.0 FiO2 50 50 07/31/24 07/31/24 07/31/24 06:24 06:29 07:00 Temp 97.3 Pulse 78 78 94 Resp 20 18 20 B/P (MAP) 104/70 Pulse Ox 99 O2 Delivery CPAP FiO2 50 Intake & Output (last 24hrs) 07/30/24 07/30/24 07/31/24 15:00 23:00 07:00 Intake Total 240 ml Balance 240 ml LABS: Laboratory: Test 07/31/24 05:51 07/31/24 03:40 07/31/24 03:31 07/30/24 16:15 Range/Units Whole Blood Glucose 91 # 70-110 MG/DL Blood Gas Specimen Type Arterial Arterial Blood pH 7.494 H 7.350-7.450 Arterial Blood Partial Pressure CO2 35 35-48 mmHg Arterial Blood Partial Pressure O2 110.3 H 83.0-108.0 mmHg Arterial Blood HCO3 26.2 21.0-28.0 mmol/L Arterial Blood Oxygen Saturation 98.4 H 94.0-98.0 % Arterial Blood Base Excess 3.2 H -2.0-3.0 mmol/L Blood Gas Temperature 37.0 35.5-37.0 CELSIUS Blood Gas Respiration Rate 20.0 min. Blood Gas Vent Mode BIPAP 13,6 ROOM AIR FiO2 50.0 % Blood Gas Specimen Comment RN,LR White Blood Count 14.3 H 4.8-10.8 K/uL Red Blood Count 5.08 4.50-6.20 MIL/uL Hemoglobin 14.1 14.0-18.0 g/dL Hematocrit 41.2 L 42-54 % Mean Corpuscular Volume 81.1 79-99 fL Mean Corpuscular Hemoglobin 27.8 27.0-33.0 pg Mean Corpuscular Hemoglobin Concent 34.2 32.0-36.0 g/dL Red Cell Distribution Width 16.1 H 11.0-15.5 % Platelet Count 268 130-400 K/uL Mean Platelet Volume 10.1 7.5-10.5 fL Nucleated Red Blood Cells 0.1 0.0-0.19 % Sodium Level 134 L 136-145 mmol/L Potassium Level 4.0 3.5-5.1 mmol/L Chloride Level 96 L 101-111 mmol/L Carbon Dioxide Level 33 H 21-32 mmol/L Blood Urea Nitrogen 22 H 7-18 mg/dL Creatinine 0.6 0.5-1.3 mg/dL Glomerular Filtration Rate Calc 103 >90 mL/min Random Glucose 108 H 70-105 mg/dL Total Calcium 9.1 8.5-10.1 mg/dL Total Bilirubin 0.7 0.2-1.0 mg/dL Aspartate Amino Transf (AST/SGOT) 33 10-37 U/L Alanine Aminotransferase (ALT/SGPT) 35 12-78 U/L Alkaline Phosphatase 49 L 50-136 U/L Total Protein 6.5 6.0-8.3 g/dL Albumin 2.3 L 3.5-5.0 g/dL Bedside Glucose Comment Notified Nurse Test 07/30/24 11:00 07/29/24 09:20 Range/Units Urine Color LIGHT-YELLOW YELLOW Urine Appearance CLEAR CLEAR Urine pH 7.0 5.0-8.0 Urine Specific Reading 1.008 1.001-1.031 Urine Protein NEGATIVE NEGATIVE mg/dL Urine Glucose (UA) NEGATIVE NEGATIVE mg/dL Urine Ketones NEGATIVE NEGATIVE mg/dL Urine Occult Blood NEGATIVE NEGATIVE Urine Nitrate NEGATIVE NEGATIVE Urine Bilirubin NEGATIVE NEGATIVE mg/dL Urine Urobilinogen 0.2 0.2-1.0 mg/dL Urine Leukocyte Esterase NEGATIVE NEGATIVE Jihan/uL Segmented Neutrophils % 83 H 40-70 % Band Neutrophils % 1 0-2 % Lymphocytes % (Manual) 13 L 22-44 % Monocytes % (Manual) 2 2-9 % Eosinophils % (Manual) 1 1-6 % Differential Comment MANUAL DIFFERENTIAL White Cell Morphology Comment CONSISTENT W/DIFF Platelet Morphology Comment ADEQUATE Red Blood Cell Morphology HYPOCHROM CELLS 1+ Hemoglobin A1c 8.7 H 4.0-6.0 % Estimated Average Glucose (eAG) 203 H 70-126 mg/dL Magnesium Level 1.70 L 1.80-2.40 mg/dL Triglycerides Level 137 30-200 mg/dL Cholesterol Level 125 # <200 mg/dL LDL Cholesterol 62 0-99 mg/dL HDL Cholesterol 52 29-71 mg/dL Vitamin B12 Level 419 193-986 pg/mL ASSESSMENT: Acute on chronic hypoxic respiratory failure, requiring oxygen support. Pneumonia. Leukocytosis. Pulmonary fibrosis. COPD. End-stage lung disease. Diabetes mellitus. PLAN: Continue levofloxacin. Continue fluconazole. Continue doxycycline. We will follow up on the final culture results. Continue monitoring glucose levels. Continue oxygen support. Patient is pending a appeal to [facility]. This case was reviewed and discussed with my supervising physician and the above assessment and plan was formulated and agreed upon. ATTESTATION BY PHYSICIAN I have seen and examined the patient. I reviewed the documentation, medical decision making, and treatment plan as noted by the mid-level provider above. I agree with the findings and plan of care. ALCIDES PÉREZ MD, MIRTA L [employer] OPERATOR Jul 31, 2024 08:56
--- NOTE | 2024-07-31 11:31 | HMCIMG ---
CHEST 1VW HISTORY: Shortness of breath COMPARISON: 07/29/2024 FINDINGS: A frontal projection of the chest was obtained. There are bilateral pulmonary infiltrates suggestive of pulmonary vascular congestion with possible superimposed pneumonitis. Right venous catheter is seen with distal tip in plane of the superior vena cava. The heart is borderline enlarged. All the lines and tubes are again seen in place. Aortic calcifications are seen. IMPRESSION: 1. Bilateral pulmonary infiltrates are seen suggestive of pulmonary vascular congestion with possible superimposed pneumonitis.
[2024-07-31 12:02] LABS: ABG BASE EXCESS -0.7 mmol/L (-2.0-3.0); ABG HCO3 23.5 mmol/L (21.0-28.0); ABG OXYGEN SATURATION 95.1 % (94.0-98.0); ABG PCO2 37 mmHg (35-48); ABG PH 7.426 (7.350-7.450); CARBON MONOXIDE 0.3 % (0.5-1.5); HHb 4.9; PO2, ARTERIAL BG 83.2 mmHg (83.0-108.0); VENT MODE, BG NC (ROOM AIR)
--- NOTE | 2024-07-31 15:25 | PN ---
[facility] PROGRESS NOTE Date Patient Seen: Jul 31, 2024 Time of Visit: 15:22 Supervising Physician: Dr. Kanu monreal Primary Care Physician: Dr. Mirza Outpatient Specialists: [ ] Inpatient Consults: [BIS PROBLEM LIST: Acute on chronic hypercarbic hypoxemic respiratory failure on admission End stage pulmonary fibrosis Community acquired pneumonia on admission Acute COPD exacerbation on admission Type 2 diabetes mellitus Essential hypertension Coronary artery disease Hyperlipidemia Atrial fibrillation on Xarelto Hypotension needing pressor therapy INTERVAL HISTORY: Patient evaluated at bedside with present, patient continues on Lasix 40 mg b.i.d., currently on CPAP. Patient states his respiratory status is comfortable but endorses right lower quadrant pain, previously given [place] which resolve his pain. Nursing staff advised to continue with [place] at this time. Patient continues on intermittent BiPAP, stated he was on nasal cannula for approximately 5-6 hours last night and did well during his meal. Patient's ABG appears better today, advised to continue with BiPAP at nighttime and as tolerated. Most recent chest x-ray was reviewed and shows interval improvement from previous x-ray. Treatment plan was reviewed with the patient, currently pending authorization on [employer]. REVIEW OF SYSTEMS: 12 point ROS reviewed with patient. Pertinent positives mentioned above. Otherwise negative. PHYSICAL EXAM: GENERAL: alert, weak, awake oriented x 3 HEENT: EOMI, Sclera non icteric, moist mucosa NECK: Supple, no JVD, trachea midline LUNGS: tachypneic, decreased breath sounds bilaterally, no wheezing HEART: Regular rate and rhythm. Normal S1 and S2, without murmurs ABD: Abdomen soft, nontender. Bowel sounds present EXT: No clubbing cyanosis or edema NEURO: Alert and oriented to person, follows commands Vital Signs (last 8hr) Date Time Temp Pulse Resp B/P (MAP) Pulse Ox O2 Delivery O2 Flow Rate FiO2 07/31/24 14:28 89 22 Venti Mask 15.0 50 07/31/24 14:21 89 22 07/31/24 11:00 98.1 100 22 104/61 90 Venti Mask 07/31/24 10:33 103 07/31/24 09:55 96 Nasal Cannula* 5 40 07/31/24 09:50 103 20 N/Cannula Oximizer Hi LPM 5.0 40 07/31/24 09:44 92 LABS: Hematology Labs: Test 07/31/24 03:31 Range/Units White Blood Count 14.3 H 4.8-10.8 K/uL Red Blood Count 5.08 4.50-6.20 MIL/uL Hemoglobin 14.1 14.0-18.0 g/dL Hematocrit 41.2 L 42-54 % Mean Corpuscular Volume 81.1 79-99 fL Mean Corpuscular Hemoglobin 27.8 27.0-33.0 pg Mean Corpuscular Hemoglobin Concent 34.2 32.0-36.0 g/dL Red Cell Distribution Width 16.1 H 11.0-15.5 % Platelet Count 268 130-400 K/uL Mean Platelet Volume 10.1 7.5-10.5 fL Nucleated Red Blood Cells 0.1 0.0-0.19 % Chemistry Labs: Test 07/31/24 11:13 07/31/24 03:31 07/30/24 04:17 Range/Units Whole Blood Glucose 235 #H 70-110 MG/DL Bedside Glucose Comment Notified Nurse Sodium Level 134 L 136-145 mmol/L Potassium Level 4.0 3.5-5.1 mmol/L Chloride Level 96 L 101-111 mmol/L Carbon Dioxide Level 33 H 21-32 mmol/L Blood Urea Nitrogen 22 H 7-18 mg/dL Creatinine 0.6 0.5-1.3 mg/dL Glomerular Filtration Rate Calc 103 >90 mL/min Random Glucose 108 H 70-105 mg/dL Total Calcium 9.1 8.5-10.1 mg/dL Total Bilirubin 0.7 0.2-1.0 mg/dL Aspartate Amino Transf (AST/SGOT) 33 10-37 U/L Alanine Aminotransferase (ALT/SGPT) 35 12-78 U/L Alkaline Phosphatase 49 L 50-136 U/L Total Protein 6.5 6.0-8.3 g/dL Albumin 2.3 L 3.5-5.0 g/dL Vitamin D 25-Hydroxy 38.1 30.0-100.0 ng/mL DIAGNOSTICS / RADIOLOGY RESULTS: [ ] PLAN Add Lasix 40 mg IV BID The patient continues on high-flow oxygen delivery system and alternates between BiPAP and high-flow oxygen. The patient is not a candidate for transfer to intermediate facility and will benefit more from placement in a long-term acute care hospital Continue with high-flow oxygen as needed Maintain O2 saturation at 88% or higher Continue IV antibiotics Continue IV steroids NEURO: Minimize central acting medications as possible. Maintain fall precautions, adequate lighting during the day PULMONARY: Supplemental 02 as needed. Maintain aspiration precautions at all times CARDIOVASCULAR: Follow hemodynamics. Vital signs per facility protocol GI & NUTRITION: Continue with nutritional support. Continue stool softeners and laxatives as needed. KIDNEYS & ELECTROLYTES: Strict monitoring of intake, output and overall fluid balance. Avoid nephrotoxic medications to the extent possible. Medications to be dosed according to renal function. Monitor electrolytes and replace as needed ENDOCRINE: Maintain blood glucose between 100-180 at all times. Hypoglycemia protocol in place INFECTIOUS DISEASE: Trend temperature, WBC and procalcitonin level Follow cultures, deescalate antibiotics as soon as possible. Panculture if new onset fever ONCOLOGY/HEMATOLOGY/COAGULATION: Monitor for s/s of bleeding Monitor hemoglobin, coagulation studies as needed SKIN: Pressure ulcer prevention per facility protocol Specialty mattress ORTHO/REHAB: Continue PT/OT Prophylaxis: Continue GI and DVT prophylaxis Code Status: Full Resuscitation Disposition: As per attending Other: Total patient care time exceeds 35 minutes excluding all procedures. ANIBAL CHAN Jul 31, 2024 15:25
--- NOTE | 2024-07-31 18:15 | NUR ---
NURSING NOTE NOTIFIED DR. MCLAUGHLIN THAT PATIENT'S FAMILY CONCERN ABOUT PATIENT'S URINE BEING TOO DARK. ORDERS RECEIVED FOR URINALYSIS AND URINE CULTURE. FAMILY ALSO VOICED CONCERNS ABOUT IV LEVAQUIN BEING SWITCHED TO ORAL LEVAQUIN DUE TO NO STOCK AVAILABILITY. NO NEW ORDERS CONCERNING THIS MATTER. WILL CONTINUE NURSING CARE.
--- NOTE | 2024-07-31 19:04 | PN ---
The patient denies any fever, chills, seizures, loss of consciousness, feeling better with oxygen through a nasal cannula this morning. No chest pain, palpitations. No nausea, vomiting. Continue with midodrine and norepinephrine as well as levofloxacin, Diflucan, doxycycline, prednisone, bronchodilators. OBJECTIVE: GENERAL: He is currently, awake, alert, oriented in person, time, and place, not in distress. VITAL SIGNS: Blood pressure 104/61, pulse 100, respiratory rate 22. HEENT: Normocephalic, atraumatic. LUNGS: Decreased breath sounds bilaterally. HEART: S1, S2 are distant. ABDOMEN: Soft, nontender, no masses. EXTREMITIES: No clubbing, no cyanosis, no edema. LABORATORY DATA: WBC count 14.3, hemoglobin 14.1, platelets 268. Sodium 134, potassium 4, BUN 22, creatinine 0.6, glucose 108, albumin 2.3. Blood cultures negative. Chest x-ray shows bilateral pulmonary infiltrates. ASSESSMENT AND PLAN: * Respiratory failure, acute on chronic. Continue with oxygen supplement. Continue recommendations by ICU team. * Bilateral pneumonia. Continue recommendations by ID. * Pulmonary fibrosis, emphysema, bronchiectasis. Continue treatment as per pulmonary. * Coronary artery disease, stable. Continue current treatment. * Atrial fibrillation, controlled. Continue current therapy. * Celiac sprue. Continue gluten-free diet. * Leukocytosis, improving. Continue to monitor. * Hypotension. Continue with midodrine and norepinephrine. As per ICU. Follow up in a.m. with labs. TID: [id number] RECEIPT: [id number]
[2024-07-31 23:57] LABS: APPEARANCE,URINE CLEAR (CLEAR); BILIRUBIN,URINE NEGATIVE (NEGATIVE); COLOR,URINE LIGHT-YELLOW (YELLOW); GLUCOSE, URINE (UA) NEGATIVE (NEGATIVE); KETONES,URINE NEGATIVE (NEGATIVE); LEUKOCYTE ESTERASE ,URINE NEGATIVE Leu/uL (NEGATIVE); NITRATE,URINE NEGATIVE (NEGATIVE); OCCULT BLOOD,URINE NEGATIVE (NEGATIVE); PH,URINE 5.5 (5.0-8.0); PROTEIN,URINE 30 mg/dL (NEGATIVE); UROBILINOGEN,URINE 0.2 mg/dL (0.2-1.0)
[2024-07-31 23:58] LABS: MUCUS,URINE RARE LPF (None Seen); SQUAMOUS EPITHELIAL CELL,UR RARE /HPF (0-2)
[2024-08-01] VITALS (10 sets, daily range): BP systolic 106–148; BP diastolic 61–86; PULSE 80–106; RESP 18–24; TEMP 97.4–97.7; O2SAT 94–98
--- NOTE | 2024-08-01 01:01 | PN ---
INFECTIOUS DISEASE FOLLOWUP NOTE SUBJECTIVE: The patient is seen and examined at bedside today. No fever or chills. The patient remained on BiPAP. No chest pain. No neck pain or neck swelling. No rashes or itchiness ____. No depression. No suicidal ideation. PHYSICAL EXAMINATION:. VITAL SIGNS: Temperature 98.7. EYES: No icterus. Pupils equal and reactive. HENT: No oral lesions seen. Moist oral mucosa. NECK: Supple, no JVD or thyromegaly. LUNGS: Few crackles, no rhonchi. CARDIOVASCULAR: S1, S2 regular. No murmur heard. ABDOMEN: Full, soft. Bowel sound is present. CENTRAL NERVOUS SYSTEM: Awake, alert, oriented x 3. Bedbound debility. No focal deficits. SKIN: No rashes, no itchiness. LYMPHATIC: No peripheral lymphadenopathy. BACK: No deformity, no pressure ulcer. ASSESSMENT: A 74-year-old male with multiple problems that include: * Pneumonia. * Bbjih-mc-ketekcp hypoxic respiratory failure. * Pulmonary fibrosis. * Chronic obstructive pulmonary disease. * Hypothyroidism. * End-stage renal disease. * Diabetes mellitus. PLAN: * Continue levofloxacin. * Continue fluconazole. * Continue BiPAP therapy. * Continue GI prophylaxis. * Monitor electrolytes. * Continue antiemetic. * Continue steroids. * Continue bronchodilator therapy. TID: [id number] RECEIPT: [id number]
[2024-08-01 04:33] LABS: HEMATOCRIT 43.6 % (42-54); MEAN CORPUSCULAR HGB CONC 33.9 g/dL (32.0-36.0); MEAN CORPUSCULAR VOLUME 82.4 fL (79-99); RED BLOOD CELL COUNT(AUTO) 5.29 MIL/uL (4.50-6.20); RED CELL DISTRIBUTION WIDTH 16.1 % (11.0-15.5); WHITE BLOOD COUNT (AUTO) 17.5 K/uL (4.8-10.8)
[2024-08-01 04:52] LABS: ALBUMIN 2.5 g/dL (3.5-5.0); BILIRUBIN,TOTAL 0.6 mg/dL (0.2-1.0); CREATININE 0.7 mg/dL (0.5-1.3); POTASSIUM 3.4 mmol/L (3.5-5.1); TOTAL PROTEIN, SERUM 6.8 g/dL (6.0-8.3)
[2024-08-01] MEDS: PoTASSium chloRIDE 20MEQ/100ML 100 ML IV PRN (06:25)
--- NOTE | 2024-08-01 07:15 | NUR ---
Orders Movva rounded on patient. Verbal orders given for cathflo due to one lumen clotted on picc line. Labs ordered for tomorrow morning. All orders repeated and entered.
[2024-08-01] MEDS: ALTEplase 2MG VIAL 2 MG/VIAL VIAL IVCATH ONE (09:36)
--- NOTE | 2024-08-01 14:00 | NUR ---
Discharge 1120-Patient accepted to [facility]. Dr. Martinez informed and discharge orders received. 1248-Report called to BULMARO Silver at [facility]. All questions/concerns answered. 1324-Discharge instructions given to patient and patient's family. Patient to be transferred via EMS. 1325-EMS was called and notified of pending patient discharge. Pending EMS to arrive to transport patient to [facility].
--- NOTE | 2024-08-01 14:56 | PN ---
INFECTIOUS DISEASE FOLLOWUP NOTE DATE OF SERVICE: 08/01/2024 SUBJECTIVE: The patient is seen and examined at bedside today. The patient has no fever, no chills. No nausea, no vomiting, no abdominal pain. No cough, no shortness of breath, no palpitations, no orthopnea. Remained on BiPAP therapy at night. The patient given additional nasal cannula. was updated at the bedside. No rashes. No sign of dysuria or hematuria. PHYSICAL EXAMINATION: VITAL SIGNS: Temperature today 98.3. EYES: No icterus. Pupils equal and reactive. HENT: Dry oral mucosa. No oral thrush seen. No sinus tenderness. NECK: Supple. No JVD or thyromegaly. LUNGS: Good air entry. Few crackles. CARDIOVASCULAR: S1, S2 regular. No murmur heard. ABDOMEN: Full, soft, nontender. Bowel sound is present. CENTRAL NERVOUS SYSTEM: The patient is awake, alert, bedbound debility. SKIN: No rashes, no itchiness. LYMPHATIC: No peripheral lymphadenopathy. MUSCULOSKELETAL: No joint swelling, erythema, or tenderness. BACK: No deformity, no pressure ulcer. ASSESSMENT: A 74-year-old male with multiple problems, which include: * Hypoxic respiratory failure. * Pneumonia. * Pulmonary fibrosis. * Chronic obstructive pulmonary disease. * Hypothyroidism. * Diabetes mellitus. * Hypertension. * End-stage lung disease. PLAN: * Continue fluconazole. * Continue levofloxacin. * Continue bronchodilator. * Continue pain management. * Continue BiPAP therapy. * Continue antidiabetic. * Monitor electrolytes. * Continue Solu-Medrol. TID: [id number] RECEIPT: [id number]
--- NOTE | 2024-08-01 15:03 | DS ---
[facility] DISCHARGE SUMMARY Date Patient Seen: Aug 01, 2024 Time of Visit: 15:00 Supervising Physician: Dr. Kanu monreal Primary Care Physician: Dr. Mirza Outpatient Specialists: [ ] Inpatient Consults: [BIS HOSPITAL COURSE: HPI (per admitting provider) Jose Goldman is a 74-year-old male with a past medical history of COPD, diabetes, hypertension, hyperlipidemia, CAD, AFib on Xarelto we will sent over from [facility] for evaluation of shortness on breath and hypoxia. As per chart, patient's O2 sat was 80% on room air at SNF. Patient was placed on O2 and titrated to 6 L. patient was very slow to respond therefore they sent him in for further evaluation. Patient was previously admitted to this facility about 2 weeks ago and was treated for pneumonia. Patient was sent to SNF to continue an extra week of IV antibiotics as well as therapy. Patient daughters reports she has noted patient coughing with his fluids and meals. She reports speech therapy was evaluating him at SNF however unclear with the findings were. Patient had a chest x-ray and we will bilateral pneumonia and for this reason we are consulted. Patient is seen sitting up in bed accompanied by his daughter. Patient does appear to be weak and deconditioned and hypoxemic on2 L via nasal cannula. As per daughter, patient does have home O2 in his baseline is2 L. unclear why patient was on room air at SNF. Patient's vital signs are stable. Today's labs show white count has trended down within normal limits. Recommend continuing Levaquin for now. Recommend speech therapy evaluate and perform an MBSS if warranted to rule out dysphagia. Recommend tapering steroids as no need for such high dosage at this time. We will give Lasix 40 mg IV b.i.d. x4 doses. We will continue to follow up. The patient was treated for the following problems: Patient was treated for an extensive stay in the hospital this admission involving aspiration pneumonia, Chronic obstructive pulmonary disease exacerbation, and end-stage pulmonary fibrosis. Patient is being discharged on levofloxacin to [facility] to [facility] for continued antibiotic and medical treatment support. ACTIVE PROBLEM LIST FOR THE HOSPITALIZATION: Acute on chronic hypercarbic hypoxemic respiratory failure on admission End stage pulmonary fibrosis Community acquired pneumonia on admission Acute COPD exacerbation on admission CHRONIC PROBLEMS: continue previous management per PCP unless otherwise indicated Type 2 diabetes mellitus Essential hypertension Coronary artery disease Hyperlipidemia Atrial fibrillation on Xarelto Hypotension needing pressor therapy DRY CHARGE PROCESS ATTENDANT FINDINGS/RECOMMENDATIONS: [ ] PROCEDURES: as mentioned above DISCHARGE MEDICATIONS: Pt hemodynamically stable and afebrile at time of discharge. PCP notified of patients admission, hospital course and discharge. Medication Profile: No Active Prescriptions or Reported Meds PHYSICAL EXAM: GENERAL: alert, weak, awake oriented x 3 HEENT: EOMI, Sclera non icteric, moist mucosa NECK: Supple, no JVD, trachea midline LUNGS: tachypneic, decreased breath sounds bilaterally, no wheezing HEART: Regular rate and rhythm. Normal S1 and S2, without murmurs ABD: Abdomen soft, nontender. Bowel sounds present EXT: No clubbing cyanosis or edema NEURO: Alert and oriented to person, follows commands FOLLOW-UP: Follow-up with PCP in 2-3 days RECOMMENDATIONS: See Discharge Instructions This case was seen and discussed with my supervising physician. More than 30 minutes spent on discharge process, including evaluation of the patient, discussion with nursing staff, medication reconciliation and follow-up appointments ANIBAL CHAN Aug 01, 2024 15:03
--- NOTE | 2024-08-01 16:28 | NUR ---
DISCHARGE-[facility] EMS Arrived to transfer patient to [facility]. Patient was not able to recieve Levaquin and Insulin Lispro due to patient being discharged to [facility]. Patient discharged now.
--- NOTE | 2024-08-01 20:44 | DS ---
ADMITTING DIAGNOSES: Respiratory failure, pneumonia, acute kidney injury, hypertension. DISCHARGE DIAGNOSES: Respiratory failure, pneumonia, acute kidney injury, hypertension. Transferred to the [facility] for further treatment and rehabilitation. HOSPITAL COURSE: The patient was hospitalized with respiratory failure, pneumonia and the patient's condition stabilized. The patient also has leukocytosis, pneumonia. The patient is on broad-spectrum antibiotics. The patient is going to be receiving antibiotics at [facility]. Also hypokalemia, stabilized. Acute kidney injury, stabilized. Rest of diagnosis remains the same. The patient also has atrial fibrillation, rate controlled. TID: [id number] RECEIPT: [id number]
== END 2024-08-01 16:31 | DRG 871 ==
LOC: EDH 20:15 → EDHIP 22:24 → 4CH 07-20 02:14 → 2BH 07-27 00:54 → 2DH 07-28 14:55
PROVIDERS: ADMIT Internal Medicine; ATTEND Internal Medicine
PROC: 5A09357 Assistance with Respiratory Ventilation, Less than 24 Consecutive Hours, Continuous Positive Airway Pressure (ICD-10-PCS; principal; 2024-07-18)
PROC: 5A09357 Assistance with Respiratory Ventilation, Less than 24 Consecutive Hours, Continuous Positive Airway Pressure (ICD-10-PCS; 2024-07-19)
PROC: 5A09357 Assistance with Respiratory Ventilation, Less than 24 Consecutive Hours, Continuous Positive Airway Pressure (ICD-10-PCS; 2024-07-25)
PROC: 5A09357 Assistance with Respiratory Ventilation, Less than 24 Consecutive Hours, Continuous Positive Airway Pressure (ICD-10-PCS; 2024-07-26)
PROC: 5A09357 Assistance with Respiratory Ventilation, Less than 24 Consecutive Hours, Continuous Positive Airway Pressure (ICD-10-PCS; 2024-07-27)
PROC: 5A09357 Assistance with Respiratory Ventilation, Less than 24 Consecutive Hours, Continuous Positive Airway Pressure (ICD-10-PCS; 2024-07-28)
PROC: 5A09357 Assistance with Respiratory Ventilation, Less than 24 Consecutive Hours, Continuous Positive Airway Pressure (ICD-10-PCS; 2024-07-30)
PROC: 5A09357 Assistance with Respiratory Ventilation, Less than 24 Consecutive Hours, Continuous Positive Airway Pressure (ICD-10-PCS; 2024-08-01)
PROC: 02HV33Z Insertion of Infusion Device into Superior Vena Cava, Percutaneous Approach (ICD-10-PCS; 2024-08-01)
DX: A41.9 Sepsis, unspecified organism (principal); J12.9 Viral pneumonia, unspecified; J96.21 Acute and chronic respiratory failure with hypoxia; R65.21 Severe sepsis with septic shock; J69.0 Pneumonitis due to inhalation of food and vomit; J96.22 Acute and chronic respiratory failure with hypercapnia; N18.6 End stage renal disease; J44.0 Chronic obstructive pulmonary disease with (acute) lower respiratory infection; J44.1 Chronic obstructive pulmonary disease with (acute) exacerbation; J84.9 Interstitial pulmonary disease, unspecified; E87.1 Hypo-osmolality and hyponatremia; I48.20 Chronic atrial fibrillation, unspecified; I12.0 Hypertensive chronic kidney disease with stage 5 chronic kidney disease or end stage renal disease; N17.9 Acute kidney failure, unspecified; J47.0 Bronchiectasis with acute lower respiratory infection; I95.9 Hypotension, unspecified; R54 Age-related physical debility; Z20.822 Contact with and (suspected) exposure to COVID-19; E78.00 Pure hypercholesterolemia, unspecified; Z66 Do not resuscitate; E03.9 Hypothyroidism, unspecified; I25.10 Atherosclerotic heart disease of native coronary artery without angina pectoris; E11.65 Type 2 diabetes mellitus with hyperglycemia; J43.9 Emphysema, unspecified; K90.0 Celiac disease; J98.4 Other disorders of lung; J84.10 Pulmonary fibrosis, unspecified; E87.6 Hypokalemia; E66.01 Morbid (severe) obesity due to excess calories; Z68.28 Body mass index [BMI] 28.0-28.9, adult; E11.22 Type 2 diabetes mellitus with diabetic chronic kidney disease; Z86.718 Personal history of other venous thrombosis and embolism; Z79.01 Long term (current) use of anticoagulants; Z99.81 Dependence on supplemental oxygen; Z88.0 Allergy status to penicillin; Z88.8 Allergy status to other drugs, medicaments and biological substances; Z95.5 Presence of coronary angioplasty implant and graft; Z83.3 Family history of diabetes mellitus
CPT/HCPCS: 36415; 36600; 71045; 71250; 80048; 80053; 80061; 81001; 81003; 82306; 82435; 82607; 82803; 82947; 82948; 83036; 83605; 83735; 83880; 84100; 84132; 84145; 84295; 85018; 85025; 85027; 85730; 87040; 87071; 87086; 87205; 92526; 92610; 93005; 94640; 94660; 94664; 96365; 96375; 99285; G0378; J1450; J1815; J1940; J1956; J2919; J2997; J3475; J3480; J3490; J7030; J7040; J7608; J1644